=== PATIENT | male | born 1945 | race Caucasian/White ===

== ENCOUNTER 2016-04-20 13:09 | Inpatient (IN) | payer OTHER ==
--- NOTE | 2016-04-20 14:01 | PDOC ---
History of Present Illness - History of Present Illness Initial Comments: 04/20/16 16:37 The patient is a 71 year old male with a past medical hx of CVA, CAD, HTN, peripheral artery disease, diabetes, hepatitis C, COPD, alcohol abuse who presents to the ED complaining of constipation and vomiting for five days. The patient reports his last bowel movement was five days ago and has not been able to pass any gas. He denies any melena or hematochezia. He reports abdominal pain secondary to vomiting and a baseline cough. He denies any blood in his vomit, and it looks like mucus. He states he has been able to keep down water but is unable to tolerate any food. The patient denies fever, chills, diarrhea, melena. The patient denies chest pain, SOB, back pain Allergies: No Known Drug Allergies Past Surgical History: Bilateral above the knee amputation. Cardiac stent placements. Primary Care Physician: Dr. Garcia Henderson <Ayanna Patel - Last Filed: 04/20/16 16:37> <Tomasz Perkins - Last Filed: 04/21/16 08:56> - General Chief Complaint: Nausea/Vomiting Stated Complaint: VOMITING Time Seen by Provider: 04/20/16 13:40 Past History <Ayanna Patel - Last Filed: 04/20/16 16:37> - Past Medical History Cardiac Disorders: Yes (CAD) CVA: Yes (LT SIDED weakness) COPD: Yes Diabetes: Yes (IDDM) GI Disorders: Yes (BLEEDING ULCERS) HTN: Yes Hypercholesterolemia: Yes Liver Disease: Yes (Cirrhosis, hep C) - Surgical History Cardiac Surgery: Yes (CARDIAC STENT) Orthopedic Surgery: Yes ([place]. Above Knee Amputation) - Immunization History Immunization Up to Date: Yes - Psycho/Social/Smoking Cessation Hx Anxiety: No Suicidal Ideation: No Smoking History: Unknown if ever smoked Have you smoked in the past 12 months: No Number of Cigarettes Smoked Daily: 40 Information on smoking cessation initiated: No 'Breaking Loose' booklet given: 02/16/16 Hx Alcohol Use: No Drug/Substance Use Hx: No Substance Use Type: None Hx Substance Use Treatment: No <Tomasz Perkins - Last Filed: 04/21/16 08:56> - Past Medical History Allergies/Adverse Reactions: Allergies Allergy/AdvReac Type Severity Reaction Status Date / Time No Known Allergies Allergy Verified 04/20/16 13:21 Home Medications: Ambulatory Orders Bupropion HCl [Wellbutrin Xl] 300 mg PO DAILY 07/21/15 Gabapentin [Neurontin -] 100 mg PO TID #90 capsule 07/25/15 Finasteride 5 mg PO DAILY 10/08/15 Digoxin [Lanoxin -] 0.25 mg PO DAILY #30 tablet 10/10/15 Polyethylene Glycol 3350 [Miralax 119 gm Btl -] 17 gm PO TID #1 bottle 10/10/15 Amino Acids/Protein Hydrolys [Prostat Sugar-Free Packet -] 30 ml PO BID@0800, 1730 #60 packet 10/29/15 Metoclopramide HCl [Reglan] 5 mg PO AC #90 tablet 10/29/15 Atorvastatin Ca [Lipitor] 40 mg PO HS 02/15/16 Docusate Sodium 100 mg PO DAILY 02/15/16 Tamsulosin HCl 0.4 mg PO DAILY 02/15/16 Clopidogrel Bisulfate [Plavix -] 75 mg PO DAILY tablet 02/28/16 Pantoprazole Sodium [Protonix -] 40 mg PO BID #40 tablet.ec 02/28/16 Review of Systems - Review of Systems Able to Perform ROS?: Yes Comments:: 04/20/16 16:38 CONSTITUTIONAL: No reported: Fever, Chills, Diaphoresis, Generalized Weakness, Malaise, Loss of Appetite HEENT: No reported: Rhinorrhea, Nasal Congestion, Throat Pain, Throat Swelling, Difficulty Swallowing, Mouth Swelling, Ear Pain, Eye Pain, Visual Changes CARDIOVASCULAR: No reported: Chest Pain, Syncope, Palpitations, Irregular Heart Rate, Lightheadedness, Peripheral Edema RESPIRATORY: +Cough. No reported: Shortness of Breath, SOB with Exertion, Orthopnea, Wheezing , Stridor, Hemoptysis GASTROINTESTINAL: +Constipation, nausea, vomiting. No reported: Abdominal Distension, Diarrhea, Melena, Hematochezia GENITOURINARY: No reported: Dysuria, Frequency, Urgency, Hesitancy, Flank Pain, Genital Pain MUSCULOSKELETAL: No reported: Myalgia, Arthralgia, Joint Swelling, Back pain, Neck Pain SKIN: No reported: Rash, Itching, Pallor HEMATOLOGIC/IMMUNOLOGIC: No reported: Easy Bleeding, Easy Bruising, Lymphadenopathy, Frequent infections NEUROLOGIC: No reported: Headache, Focal Weakness, Paresthesias, Vertigo, Lightheadedness, Unsteady Gait, Seizure, Mental Status Changes, Incontinence PSYCHIATRIC: No reported: Anxiety, Depression <Ayanna Patel - Last Filed: 04/20/16 16:37> *Physical Exam - Vital Signs Last Vital Signs Temp Pulse Resp BP Pulse Ox 98.6 F 100 H 18 97/74 98 04/20/16 13:13 04/20/16 13:13 04/20/16 13:13 04/20/16 13:13 04/20/16 13:13 - Physical Exam Comments: 04/20/16 16:38 GENERAL: The patient is awake, alert, and fully oriented, Nontoxic - in no acute distress. HEAD: Normocephalic, atraumatic. EYES: extraocular movements intact, sclera anicteric, conjunctiva clear. ENT: Normal voice, dry mucous membranes. NECK: Normal range of motion, supple LUNGS: Breath sounds equal, clear to auscultation bilaterally. No wheezes, no rhonchi, no rales. HEART: Regular rate and rhythm, normal S1 and S2 without murmur, rub or gallop. ABDOMEN: Soft, nontender, normoactive bowel sounds. No guarding, no rebound. No CVA tenderness EXTREMITIES: s/p AKA bilaterally NEUROLOGICAL: LUE paralysis, contracted, normal strength of RUE PSYCH: Normal mood, normal affect. SKIN: Warm, Dry, normal turgor <Precious Patelyn - Last Filed: 04/20/16 16:37> - Vital Signs Last Vital Signs Temp Pulse Resp BP Pulse Ox 98.6 F 100 H 18 97/74 98 04/20/16 13:13 04/20/16 13:13 04/20/16 13:13 04/20/16 13:13 04/20/16 13:13 <Tomasz Perkins - Last Filed: 04/21/16 08:56> Heart Score/ECG Review - ECG Impressions Comment:: 04/20/16 14:38 Twelve-lead EKG was performed and reviewed by me. Irregularly irregular Multiple P waves of diffrent morphologies q waves in inferior leads Impression: multifocal tachycardia <Tomasz Perkins - Last Filed: 04/21/16 08:56> ED Treatment Course - LABORATORY CBC & Chemistry Diagram: 04/20/16 14:12 04/20/16 14:12 - ADDITIONAL ORDERS Additional order review: Laboratory Results 04/20/16 14:12 Sodium 134 L Potassium 4.6 Chloride 94 L D Carbon Dioxide 29 Anion Gap 11 BUN 34 H D Creatinine 0.9 D Creat Clearance w eGFR > 60 Random Glucose 142 H D Calcium 9.6 D Total Bilirubin 0.7 AST 14 L D ALT 8 L D Alkaline Phosphatase 98 D Total Protein 6.1 L D Albumin 2.8 L D Lipase 74 04/20/16 14:12 RBC 5.74 H D MCV 71.0 L MCHC 31.4 L RDW 19.4 H D MPV 7.0 L Neutrophils % 81.0 D Lymphocytes % 12.0 D Monocytes % 7.0 - RADIOLOGY Radiograph Interpretation: 04/20/16 15:50 Abdomen X-Ray Impression: Mild nonspecific small bowel ileus. Rectal impaction with a lesser degree of stool throughout the remainder of the colon. Reported By: John Parra MD 04/20/16 1527 - Medications Given in the ED: ED Medications Discontinued Medications Generic Name Dose Route Start Last Admin Trade Name Freq PRN Reason Stop Dose Admin Sodium Chloride 1,000 mls @ 1,000 mls/hr 04/20/16 14:36 04/20/16 14:56 Normal Saline - IV 04/20/16 15:35 1,000 mls/hr .Q1H ONE Administration Ondansetron HCl 4 mg 04/20/16 14:04 04/20/16 14:27 Zofran Injection IVPB 04/20/16 14:05 4 mg ONCE ONE Administration <Ayanna Patel - Last Filed: 04/20/16 16:37> - LABORATORY CBC & Chemistry Diagram: 04/21/16 05:52 04/21/16 05:52 <Tomasz Perkins - Last Filed: 04/21/16 08:56> Medical Decision Making - Medical Decision Making 04/20/16 14:16 71y M hx of HTN, CVA (residual L sided weaknesS), PAD, gastroparesis, HCV, COPD , Depression, MAT, DM, presents with complaint of vomiting x 5 days, pt endoreses mild abd pain/aching only with vomiting. no BM/passing gas in 5 days. No fever/chills. on exam pt has midly dry mucus membranes, no abd distension or tenderness. Will obtain KUB, labs, abd xray, likely CT abd to r/o SBO. A portion of this note was documented by scribe services under my direction. I have reviewed the details of the note, within reason, and agree with the documentation with the following case summary and management plan written by me 04/20/16 14:45 The patient's EKG showed a heart rate of 137 consistent with multifocal tachycardia, based on the patient's clinical status suspect secondary to dehydration. The patient's CBC reveals a white count of 27, I suspect this may be secondary to hemoconcentration as her hemoglobin and platelets are elevated relative to his baseline. We'll give him fluids, will await CMP and imaging 04/20/16 18:10 The patient's abdominal x-ray suggestive of possible ileus The patient's blood work was reviewed The patient's UA is consistent with UTI --> we'll treat the patient with an ceftriaxone The patient's chemistry reveals a normal creatinine however is elevated BUNs of 34. The patient is awaiting a CT of abdomen 04/20/16 18:[address] will sign out [address]. becker to fu with CT and reassess the patient. <Tomasz Perkins - Last Filed: 04/21/16 08:56> *DC/Admit/Observation/Transfer - Attestations Scribe Attestion: 04/20/16 16:38 Documentation prepared by Ayanna Patel, acting as medical payment poster for Tomasz Perkins MD. <Ayanna Patel - Last Filed: 04/20/16 16:37> <Tomasz Perkins - Last Filed: 04/21/16 08:56> Diagnosis at time of Disposition: UTI (urinary tract infection), Epigastric abdominal pain, Leukocytosis ( leucocytosis) - Discharge Dispostion Condition at time of disposition: Stable - Referrals
[2016-04-20] MEDS ORDERED: ONDANSETRON 4 MG/2 ML VIAL IVPB ONE (14:04)
[2016-04-20] MEDS ORDERED: ONDANSETRON 4 MG/2 ML VIAL ONE (14:15)
[2016-04-20 14:33] LABS: MCH 22.3 pg (25.7-33.7); MCHC 31.4 g/dl (32.0-35.9); PLATELET COUNT 302 K/MM3 (134-434); RDW 19.4 % (11.9-15.9); WHITE BLOOD COUNT 23.1 K/mm3 (4.0-10.0)
[2016-04-20] MEDS ORDERED: SODIUM CHLORIDE 1,000 ML IV ONE (14:36)
[2016-04-20 15:02] LABS: ALBUMIN 2.8 g/dl (3.4-5.0); ALK PHOS 98 U/L (45-117); ANION GAP 11 (8-16); BILIRUBIN,TOTAL 0.7 mg/dL (0.2-1.0); CALCIUM 9.6 mg/dL (8.5-10.1); CO2 29 mmol/L (21-32); CREATININE 0.9 mg/dL (0.7-1.3); GLUCOSE,RANDOM 142 mg/dL (74-106); SGPT/ALT 8 U/L (12-78); TOT PROT 6.1 g/dl (6.4-8.2)
[2016-04-20 15:04] LABS: SGOT/AST 14 U/L (15-37)
[2016-04-20 15:35] LABS: ANISOCYTOSIS 1+; HYPOCHROMIA 1+; MICROCYTOSIS 1+; OVALOCYTES 1+; POIKILOCYTOSIS 1+; POLYCHROMASIA 1+
[2016-04-20 17:41] LABS: URINE APPEARANCE SLCLOUDY; URINE BILIRUBIN NEGATIVE (NEGATIVE); URINE BLOOD NEGATIVE (NEGATIVE); URINE COLOR AMBER; URINE GLUCOSE (UA) NEGATIVE (NEGATIVE); URINE KETONE NEGATIVE (NEGATIVE); URINE LEUK ESTERASE NEGATIVE (NEGATIVE); URINE NITRITE POSITIVE (NEGATIVE); URINE UROBILINOGEN NEGATIVE E.U./dl (0.2-1.0)
[2016-04-20 18:00] LABS: URINE PROTEIN 1+ (NEGATIVE)
[2016-04-20] MEDS ORDERED: CEFTRIAXONE 1 GM in DEXTROSE 5%-WATER - 50 ML IVPB ONE (18:09)
[2016-04-20] MEDS ORDERED: CEFTRIAXONE 50 ML ONE (18:26)
[2016-04-20 19:15] LABS: URINE BACTERIA MODERATE /hpf (NONE SEEN); URINE HYALINE CAST 9 /lpf; URINE MUCUS MANY; URINE RBC 1 /hpf (0-3); URINE WBC 5 /hpf (3-5)
--- NOTE | 2016-04-20 19:53 | PDOC ---
*Physical Exam - Vital Signs Last Vital Signs Temp Pulse Resp BP Pulse Ox 98.6 F 64 18 120/74 99 04/20/16 13:13 04/20/16 17:10 04/20/16 17:10 04/20/16 17:10 04/20/16 17:10 ED Treatment Course - LABORATORY CBC & Chemistry Diagram: 04/20/16 14:12 04/20/16 14:12 - ADDITIONAL ORDERS Additional order review: Laboratory Results 04/20/16 04/20/16 14:12 14:12 Sodium 134 L Potassium 4.6 Chloride 94 L D Carbon Dioxide 29 Anion Gap 11 BUN 34 H D Creatinine 0.9 D Creat Clearance w eGFR > 60 Random Glucose 142 H D Calcium 9.6 D Total Bilirubin 0.7 AST 14 L D ALT 8 L D Alkaline Phosphatase 98 D Total Protein 6.1 L D Albumin 2.8 L D Lipase 74 Urine Color Mari[place] Urine Appearance Slcloudy Urine pH 7.0 D Ur Specific [place] 1.026 Urine Protein 1+ H Urine Glucose (UA) Negative Urine Ketones Negative Urine Blood Negative Urine Nitrite Positive Urine Bilirubin Negative Urine Urobilinogen Negative Ur Leukocyte Esterase Negative Urine RBC 1 Urine WBC 5 Ur Epithelial Cells Rare Urine Bacteria Moderate Hyaline Casts 9 Urine Mucus Many 04/20/16 14:12 RBC 5.74 H D MCV 71.0 L MCHC 31.4 L RDW 19.4 H D MPV 7.0 L Neutrophils % 81.0 D Lymphocytes % 12.0 D Monocytes % 7.0 - Medications Given in the ED: ED Medications Discontinued Medications Generic Name Dose Route Start Last Admin Trade Name Freq PRN Reason Stop Dose Admin Sodium Chloride 1,000 mls @ 1,000 mls/hr 04/20/16 14:36 04/20/16 14:56 Normal Saline - IV 04/20/16 15:35 1,000 mls/hr .Q1H ONE Administration Ceftriaxone Sodium 1 gm/ 50 mls @ 100 mls/hr 04/20/16 18:09 04/20/16 18:26 Dextrose IVPB 04/20/16 18:38 100 mls/hr ONCE ONE Administration Ondansetron HCl 4 mg 04/20/16 14:04 04/20/16 14:27 Zofran Injection IVPB 04/20/16 14:05 4 mg ONCE ONE Administration *DC/Admit/Observation/Transfer Diagnosis at time of Disposition: Epigastric abdominal pain UTI (urinary tract infection) Qualifiers: Urinary tract infection type: site unspecified Hematuria presence: without hematuria Qualified Code(s): N39.0 - Urinary tract infection, site not specified Leukocytosis (leucocytosis) Qualifiers: Leukocytosis type: unspecified Qualified Code(s): D72.829 - Elevated white blood cell count, unspecified - Discharge Dispostion Condition at time of disposition: Stable Admit: Yes - Referrals Referrals: Garcia Henderson [Primary Care Provider] - - Patient Instructions - Post Discharge Activity
--- NOTE | 2016-04-20 19:59 | HP ---
[id number] OF PRESENT ILLNESS: The patient is a 71 yo M with a PMHx of HTN, HLD, CAD s.p stent in 2016, Afib ( digoxin), CVA with L side residual weakness, IDDM, PVD with bilateral limb amputation, liver cirrhosis with prior GI bleed and Hepatitis C who presents with constipation and vomiting for the past 5 days. ER course was notable for: (1) Leukocytosis of 23 (2) UA with positive nitrite- 5 WBCS (3) Leukocytosis of 23 (4) Ceftriaxone given in ED Recent Travel: Noncontributory PAST MEDICAL HISTORY: See above PAST SURGICAL HISTORY: Bilateral Limb amputation Social History: Smoking: Noncontributory Alcohol: Noncontributory Drugs: Noncontributory Family History: Noncontributory Allergies No Known Allergies Allergy (Verified 04/20/16 13:21) HOME MEDICATIONS: Medication Instructions Recorded Bupropion HCl [Wellbutrin Xl] 300 mg PO DAILY 07/21/15 Gabapentin [Neurontin -] 100 mg PO TID #90 capsule 07/25/15 Finasteride 5 mg PO DAILY 10/08/15 Digoxin [Lanoxin -] 0.25 mg PO DAILY #30 tablet 10/10/15 Polyethylene Glycol 3350 [Miralax 17 gm PO TID #1 bottle 10/10/15 119 gm Btl -] Amino Acids/Protein Hydrolys 30 ml PO BID@0800,1730 #60 packet 10/29/15 [Prostat Sugar-Free Packet -] Metoclopramide HCl [Reglan] 5 mg PO AC #90 tablet 10/29/15 Atorvastatin Ca [Lipitor] 40 mg PO HS 02/15/16 Docusate Sodium 100 mg PO DAILY 02/15/16 Tamsulosin HCl 0.4 mg PO DAILY 02/15/16 Clopidogrel Bisulfate [Plavix -] 75 mg PO DAILY tablet 02/28/16 Pantoprazole Sodium [Protonix -] 40 mg PO BID #40 tablet.ec 02/28/16 REVIEW OF SYSTEMS CONSTITUTIONAL: Absent: fever, chills, diaphoresis, generalized weakness, malaise, loss of appetite, weight change HEENT: Absent: rhinorrhea, nasal congestion, throat pain, throat swelling, difficulty swallowing, mouth swelling, ear pain, eye pain, visual changes CARDIOVASCULAR: Absent: chest pain, syncope, palpitations, irregular heart rate, lightheadedness , peripheral edema RESPIRATORY: Absent: cough, shortness of breath, dyspnea with exertion, orthopnea, wheezing, stridor, hemoptysis GASTROINTESTINAL: +constipation + vomiting Absent: abdominal pain, abdominal distension, nausea, diarrhea, melena, hematochezia GENITOURINARY: Absent: dysuria, frequency, urgency, hesitancy, hematuria, flank pain, genital pain MUSCULOSKELETAL: Absent: myalgia, arthralgia, joint swelling, back pain, neck pain SKIN: Absent: rash, itching, pallor HEMATOLOGIC/IMMUNOLOGIC: Absent: easy bleeding, easy bruising, lymphadenopathy, frequent infections ENDOCRINE: Absent: unexplained weight gain, unexplained weight loss, heat intolerance, cold intolerance NEUROLOGIC: Absent: headache, focal weakness or paresthesias, dizziness, unsteady gait, seizure, mental status changes, bladder or bowel incontinence PSYCHIATRIC: Absent: anxiety, depression, suicidal or homicidal ideation, hallucinations. PHYSICAL EXAMINATION Vital Signs - 24 hr 04/20/16 04/20/16 13:13 17:10 Temperature 98.6 F Pulse Rate 100 H Pulse Rate [ 64 Apical] Respiratory 18 18 Rate Blood Pressure 97/74 Blood Pressure 120/74 [Left Arm] O2 Sat by Pulse 98 99 Oximetry (%) GENERAL: Awake, alert, and fully oriented, in no acute distress. HEAD: Normal with no signs of trauma. EYES: Pupils equal, round and reactive to light, extraocular movements intact, sclera anicteric, conjunctiva clear. No lid lag. EARS, NOSE, THROAT: Ears normal, nares patent, oropharynx clear without exudates. Moist mucous membranes. NECK: Normal range of motion, supple without lymphadenopathy, JVD, or masses. LUNGS: Breath sounds equal, clear to auscultation bilaterally. No wheezes, and no crackles. No accessory muscle use. HEART: Regular rate and rhythm, normal S1 and S2 without murmur, rub or gallop. ABDOMEN: Soft, nontender, not distended, normoactive bowel sounds, no guarding, no rebound, no masses. No hepatomegaly or splenomegaly. MUSCULOSKELETAL: Normal range of motion at all joints. No bony deformities or tenderness. No CVA tenderness. UPPER EXTREMITIES: 2+ pulses, warm, well-perfused. No cyanosis. No clubbing. Cap refill <2 seconds. No peripheral edema. LOWER EXTREMITIES: + Bilateral BKA. NEUROLOGICAL: Cranial nerves II-XII intact. Normal speech. PSYCHIATRIC: Cooperative. Good eye contact. Appropriate mood and affect. SKIN: Warm, dry, normal turgor, no rashes or lesions noted. Laboratory Results - last 24 hr 04/20/16 04/20/16 04/20/16 14:12 14:12 14:12 WBC 23.1 H D RBC 5.74 H D Hgb 12.8 D Hct 40.8 D MCV 71.0 L MCHC 31.4 L RDW 19.4 H D Plt Count 302 MPV 7.0 L Neutrophils % 81.0 D Lymphocytes % 12.0 D Monocytes % 7.0 Differential Comment Manual diff done Polychromasia 1+ Hypochromic-Microcytic 1+ Poikilocytosis 1+ Anisocytosis 1+ Microcytosis 1+ Macrocytosis 1+ Ovalocytes 1+ Morphology Comment Slide scanned Sodium 134 L Potassium 4.6 Chloride 94 L D Carbon Dioxide 29 Anion Gap 11 BUN 34 H D Creatinine 0.9 D Creat Clearance w eGFR > 60 Random Glucose 142 H D Calcium 9.6 D Total Bilirubin 0.7 AST 14 L D ALT 8 L D Alkaline Phosphatase 98 D Total Protein 6.1 L D Albumin 2.8 L D Lipase 74 Urine Color Mariola Urine Appearance Slcloudy Urine pH 7.0 D Ur Specific [place] 1.026 Urine Protein 1+ H Urine Glucose (UA) Negative Urine Ketones Negative Urine Blood Negative Urine Nitrite Positive Urine Bilirubin Negative Urine Urobilinogen Negative Ur Leukocyte Esterase Negative Urine RBC 1 Urine WBC 5 Ur Epithelial Cells Rare Urine Bacteria Moderate Hyaline Casts 9 Urine Mucus Many Imaging: Abdomen Xray Impression:Mild nonspecific small bowel ileus. Rectal impaction with a lesser degree of stool throughout the remainder of the colon. Chest Xray Impression: No acute lung disease is present. Abdomen / Pelvis CT Impression: Thickening of the distal esophageal wall and gastroesophageal junction with suggestion of a small hiatus hernia and surrounding herniating fat. Further evaluation is needed. Partial distention of the gallbladder that appears unremarkable. Bilateral renal cysts again seen. Large amount of fecal residue at the rectosigmoid junction measuring 10 cm in AP dimension consistent with impaction with mild thickening of its wall. ASSESSMENT/PLAN: The patient is a 71 yo M who presents with constipation and vomiting. The patient was found to be septic secondary to UTI. 1.) Sepsis secondary to UTI - State LActic - Gentle IVF - Urine/blood culture - Prior US showed positive pseudomonas sensitive to meropenem - ID consult 2.) Constipation and vomiting - No SBO or ileus seen on CT - Continue on miralax - Zofran PRN vomiting 3.) Atrial Fibrillation - Continue with Digoxin 4.) CAD s.p stent - Continue with home meds 5.) Hyponatremia - Most likely due to volume depletion - Gentle IVF 6.) DVT PPX - Heparin 5,000 SQ - Low risk Admit to Med Surg Documentation prepared by Elke Ng, acting as medical transport specialist for Aquilino Kelly MD. <Aquilino Kelly - Last Filed: 04/25/16 18:51> Visit type - Emergency Visit Emergency Visit: Yes ED Registration Date: 04/20/16 Care time: The patient presented to the Emergency Department on the above date and was hospitalized for further evaluation of their emergent condition. - New Patient This patient is new to me today: Yes Date on this admission: 04/25/16 - Critical Care Critical Care patient: No
[2016-04-20] MEDS ORDERED: MEROPENEM 500 MG VIAL (RESTRICTED TO ID) IVPB ONE (20:16)
[2016-04-20] MEDS ORDERED: MEROPENEM 500 MG in DEXTROSE 5%-WATER - 100 ML IVPB ONE (21:00)
[2016-04-20] MEDS: SODIUM CHLORIDE 1,000 ML IV SCH (21:15)
[2016-04-20] MEDS: HEPARIN NA (PORCINE) 5,000 UNITS/ML 1ML VIAL SQ SCH (22:00)
[2016-04-20] MEDS: POLYETHYLENE GLYCOL 3350 119 GM BTL PO SCH (22:00)
[2016-04-20] MEDS: ATORVASTATIN CA 40 MG TABLET (FP) PO SCH (22:00)
[2016-04-20] MEDS: PANTOPRAZOLE 40 MG TABLET (FP) PO SCH (22:00)
[2016-04-20] MEDS: GABAPENTIN 100 MG CAPSULE (FP) PO SCH (22:00)
--- NOTE | 2016-04-20 23:13 | EKG ---
Test Reason : Blood Pressure : / mmHG Vent. Rate : 137 BPM Atrial Rate : 137 BPM P-R Int : 126 ms QRS Dur : 074 ms QT Int : 322 ms P-R-T Axes : 000 -14 240 degrees QTc Int : 486 ms MULTIFOCAL ATRIAL TACHYCARDIA INFERIOR INFARCT , AGE UNDETERMINED ANTERIOR INFARCT (CITED ON OR BEFORE 14-NOV-2015) ABNORMAL ECG WHEN COMPARED WITH ECG OF 15-FEB-2016 15:51, LIKELY NO SIGNIFICANT CHANGES Confirmed by LONI ORTEGA, CHAUNCEY ([id number]) on 04/20/2016 11:12:40 PM Referred By: Confirmed By:CHAUNCEY IVEY MD
[2016-04-21 02:05] VITALS: BMI 22.2
[2016-04-21] MEDS: HEPARIN NA (PORCINE) 5,000 UNITS/ML 1ML VIAL SQ SCH ×3 (05:55→21:46)
[2016-04-21] MEDS: GABAPENTIN 100 MG CAPSULE (FP) PO SCH ×3 (05:55→21:47)
[2016-04-21] MEDS: POLYETHYLENE GLYCOL 3350 119 GM BTL PO SCH ×3 (05:57→21:47)
[2016-04-21] MEDS: SODIUM CHLORIDE 1,000 ML IV SCH (06:09)
[2016-04-21] MEDS: METOCLOPRAMIDE HCL 10 MG TABLET (FP) PO SCH ×3 (06:09→17:13)
[2016-04-21 07:34] LABS: MCH 22.6 pg (25.7-33.7); MCHC 31.3 g/dl (32.0-35.9); MEAN CELL VOLUME 72.2 fl (80-96); MEAN PLT VOLUME 6.8 fl (7.5-11.1); PLATELET COUNT 204 K/MM3 (134-434); RDW 18.8 % (11.9-15.9); WHITE BLOOD COUNT 8.2 K/mm3 (4.0-10.0)
[2016-04-21 08:06] LABS: CALCIUM 8.1 mg/dL (8.5-10.1); CREATININE 0.5 mg/dL (0.7-1.3)
[2016-04-21] MEDS: CLOPIDOGREL BISULFATE 75 MG TABLET (FP) PO SCH (09:42)
[2016-04-21] MEDS: DIGOXIN 0.25 MG TABLET (FP) PO SCH (09:42)
[2016-04-21] MEDS: FINASTERIDE 5 MG TABLET (FP) PO SCH (09:43)
[2016-04-21] MEDS: PANTOPRAZOLE 40 MG TABLET (FP) PO SCH ×2 (09:43→21:47)
[2016-04-21] MEDS: DOCUSATE SODIUM 100 MG CAPSULE (FP) PO SCH (09:43)
[2016-04-21] MEDS: AMINO ACIDS/PROTEIN HYDROLYS SUGAR-FREE 30 ML PACKET PO SCH ×2 (09:55→17:11)
--- NOTE | 2016-04-21 14:21 | PN ---
<Nimesh Greenfield - Last Filed: 04/21/16 15:45> Physical Exam: SUBJECTIVE: Patient seen and examined at bedside. Pt states he had constipation for the last week and has been nauseous and vomiting for past several days. He tried taking miralax but did not help. He also has not eaten much due to N/V. Today he feels tired and fatigued and c/o burning with urination since yesterday. He now does not have N/V but does not have an appetite. He was able to tolerate his medications with applesauce. He denies F /C, abd pain, CP, SOB. OBJECTIVE: Vital Signs Temperature 97.9 F 04/21/16 14:08 Pulse Rate 84 04/21/16 14:08 Respiratory Rate 20 04/21/16 14:08 Blood Pressure 89/61 04/21/16 14:08 O2 Sat by Pulse Oximetry (%) 95 04/20/16 23:00 GENERAL: The patient is awake, alert, and fully oriented, in no acute distress. HEAD: Normal with no signs of trauma. EYES: sclera anicteric, conjunctiva clear. No ptosis. ENT: moist mucous membranes. NECK: Trachea midline, full range of motion, supple. LUNGS: Auscultated anteriorly, Breath sounds equal, clear to auscultation bilaterally, no wheezes, no crackles, no accessory muscle use. HEART: Regular rate and rhythm, S1, S2 without murmur, rub or gallop. ABDOMEN: Soft, nontender, nondistended, normoactive bowel sounds, no guarding, no rebound, no hepatosplenomegaly, no masses. EXTREMITIES: warm, no edema. B/L BKA. NEUROLOGICAL: Normal speech, gait not observed. PSYCH: Normal mood, normal affect. SKIN: Warm, dry, normal turgor, no rashes or lesions noted Laboratory Results - last 24 hr 04/20/16 04/21/16 04/21/16 21:00 05:52 05:52 WBC 8.2 D RBC 4.19 D Hgb 9.5 L D Hct 30.2 L D MCV 72.2 L MCHC 31.3 L RDW 18.8 H Plt Count 204 D MPV 6.8 L Sodium 137 Potassium 3.3 L D Chloride 102 Carbon Dioxide 24 Anion Gap 11 BUN 20 H D Creatinine 0.5 L D Random Glucose 82 D Lactic Acid 1.922 Calcium 8.1 L 04/21/16 07:40 WBC RBC Hgb Hct MCV MCHC RDW Plt Count MPV Sodium Potassium Chloride Carbon Dioxide Anion Gap BUN Creatinine Random Glucose Lactic Acid 1.018 Calcium Urine Test Results Urine Color [place] 04/20/16 14:12 Urine Appearance Slcloudy 04/20/16 14:12 Urine pH 7.0 (5.0-8.0) D 04/20/16 14:12 Ur Specific [place] 1.026 (1.001-1.035) 04/20/16 14:12 Urine Protein 1+ (NEGATIVE) H 04/20/16 14:12 Urine Glucose (UA) Negative (NEGATIVE) 04/20/16 14:12 Urine Ketones Negative (NEGATIVE) 04/20/16 14:12 Urine Blood Negative (NEGATIVE) 04/20/16 14:12 Urine Nitrite Positive (NEGATIVE) 04/20/16 14:12 Urine Bilirubin Negative (NEGATIVE) 04/20/16 14:12 Ur Leukocyte Esterase Negative (NEGATIVE) 04/20/16 14:12 Urine RBC 1 /hpf (0-3) 04/20/16 14:12 Urine WBC 5 /hpf (3-5) 04/20/16 14:12 Ur Epithelial Cells Rare /hpf (FEW) 04/20/16 14:12 Urine Bacteria Moderate /hpf (NONE SEEN) 04/20/16 14:12 Urine Mucus Many 04/20/16 14:12 Imaging Abdomen Xray Impression:Mild nonspecific small bowel ileus. Rectal impaction with a lesser degree of stool throughout the remainder of the colon. Chest Xray Impression: No acute lung disease is present. Abdomen / Pelvis CT Impression: Thickening of the distal esophageal wall and gastroesophageal junction with suggestion of a small hiatus hernia and surrounding herniating fat. Further evaluation is needed. Partial distention of the gallbladder that appears unremarkable. Bilateral renal cysts again seen. Large amount of fecal residue at the rectosigmoid junction measuring 10 cm in AP dimension consistent with impaction with mild thickening of its wall. Micro: UCx Pending BCx Pending Active Medications Generic Name Dose Route Start Last Admin Trade Name Freq PRN Reason Stop Dose Admin Amino Acids 30 ml 04/21/16 08:00 04/21/16 09:55 Prostat Sugar-Free Packet - PO 30 ml BID@0800,1730 EDILSON Administration Atorvastatin Calcium 40 mg 04/20/16 22:00 04/20/16 22:00 Lipitor - PO Not Given HS EDILSON Bupropion HCl 300 mg 04/21/16 10:00 04/21/16 09:44 Wellbutrin Xl - PO 300 mg DAILY EDILSON Administration Clopidogrel Bisulfate 75 mg 04/21/16 10:00 04/21/16 09:42 Plavix - PO 75 mg DAILY EDILSON Administration Digoxin 0.25 mg 04/21/16 10:00 04/21/16 09:42 Lanoxin - PO 0.25 mg DAILY EDILSON Administration Docusate Sodium 100 mg 04/21/16 10:00 04/21/16 09:43 Colace - PO 100 mg DAILY EDILSON Administration Finasteride 5 mg 04/21/16 10:00 04/21/16 09:43 Proscar - PO 5 mg DAILY EDILSON Administration Gabapentin 100 mg 04/20/16 22:00 04/21/16 05:55 Neurontin - PO 100 mg TID EDILSON Administration Heparin Sodium (Porcine) 5,000 unit 04/20/16 22:00 04/21/16 05:55 Heparin - SQ 5,000 unit TID EDILSON Administration Sodium Chloride 1,000 mls @ 75 mls/hr 04/20/16 20:15 04/21/16 06:09 Normal Saline - IV 75 mls/hr ASDIR EDILSON Administration Metoclopramide HCl 5 mg 04/21/16 07:00 04/21/16 11:54 Reglan - PO 5 mg TIDAC EDILSON Administration Pantoprazole Sodium 40 mg 04/20/16 22:00 04/21/16 09:43 Protonix - PO 40 mg BID EDILSON Administration Polyethylene Glycol 17 gm 04/20/16 22:00 04/21/16 05:57 Miralax (For Daily Use) - PO 17 gm TID EDILSON Administration Tamsulosin HCl 0.4 mg 04/21/16 10:00 Flomax - PO DAILY EDILSON ASSESSMENT/PLAN: 71 y/o M with sig PMH of CAD s/p stent in 2015, A-fib on digoxin, CVA w/ L sided weakness, PVD w/ B/L BKA, liver cirrhosis, previous GI bleed, Hep C presented to ER with constipation and vomiting for past week. Pt admitted for sepsis secondary to UTI -Sepsis secondary to UTI -Pt c/o burning with urination, fatigue -WBC trending down, received ceftriaxone and meropenem -Meropenem 500mg ordered -ID consulted (Dr. Smith) -On previous admissions pt had P. aeruginosa which was resistant to imipenem, levaquin, gentamicin -sensitive to meropenem -UA shows 5 WBC -NS@75 ml/hr -CXR - no acute pathology -Nausea/Vomiting -possibly secondary to small hiatal hernia as seen on CT abd -will monitor -MBS -currently is tolerating meds with applesauce and no longer has nausea -Constipation -reglan, miralax, colace -JAZIEL -BUN/Cr 20/0.5 -improving, secondary to dehydration most likely -will monitor -NS@75ml/hr -A-fib -c/w digoxin -CAD -s/p stent 2016 -c/w lipitor 40mg, plavix 75mg -BPH -c/w flomax, finasteride -DVT ppx -heparin 5000 units sq tid -FEN -NS@75 ml/hr -Hypokalemia - 3.3, repleted; f/u electrolytes -Soft diet + prostat, will get MBS -Dispo: -Monitor on floors. Problem List - Problems (1) BPH (benign prostatic hyperplasia) Code(s): N40.0 - BENIGN PROSTATIC HYPERPLASIA WITHOUT LOWER URINRY TRACT SYMP (2) Dehydration Code(s): E86.0 - DEHYDRATION (3) Hepatitis C Code(s): B19.20 - UNSPECIFIED VIRAL HEPATITIS C WITHOUT HEPATIC COMA (4) Leukocytosis (leucocytosis) Code(s): D72.829 - ELEVATED WHITE BLOOD CELL COUNT, UNSPECIFIED Qualifiers: Leukocytosis type: unspecified Qualified Code(s): D72.829 - Elevated white blood cell count, unspecified (5) Nausea & vomiting Code(s): R11.2 - NAUSEA WITH VOMITING, UNSPECIFIED (6) UTI (urinary tract infection) Code(s): N39.0 - URINARY TRACT INFECTION, SITE NOT SPECIFIED Qualifiers: Urinary tract infection type: site unspecified Hematuria presence: without hematuria Qualified Code(s): N39.0 - Urinary tract infection, site not specified (7) CAD (coronary artery disease) Code(s): I25.10 - ATHSCL HEART DISEASE OF [place] CORONARY ARTERY W/O ANG PCTRS (8) CVA (cerebral vascular accident) Code(s): I63.9 - CEREBRAL INFARCTION, UNSPECIFIED (9) Complicated UTI (urinary tract infection) Code(s): N39.0 - URINARY TRACT INFECTION, SITE NOT SPECIFIED (10) DVT prophylaxis Code(s): [id number] - (11) HLD (hyperlipidemia) Code(s): E78.5 - HYPERLIPIDEMIA, UNSPECIFIED (12) HTN (hypertension) Code(s): I10 - ESSENTIAL (PRIMARY) HYPERTENSION (13) Sepsis Code(s): A41.9 - SEPSIS, UNSPECIFIED ORGANISM Visit type - Emergency Visit Emergency Visit: Yes ED Registration Date: 04/20/16 Care time: The patient presented to the Emergency Department on the above date and was hospitalized for further evaluation of their emergent condition. - New Patient This patient is new to me today: Yes Date on this admission: 04/21/16 - Critical Care Critical Care patient: No <Abdirizak Lopez - Last Filed: 04/21/16 16:10> Physical Exam: 71 yo M with a PMHx of HTN, HLD, CAD s.p stent in 2016, Afib (digoxin), CVA with L side residual weakness, IDDM, PVD with bilateral limb amputation, liver cirrhosis with prior GI bleed and Hepatitis C admitted for sepsis due to UTI UTI -presented with dysuria and elevated WBC -grew ESBL pseudamonas on previous urine cultures -one time dose meropenem and follow up ID consult -follow up blood/urine cultures
[2016-04-21] MEDS ORDERED: MEROPENEM 500 MG VIAL (RESTRICTED TO ID) IVPB ONE (15:41)
--- NOTE | 2016-04-21 15:50 | CONSULT ---
Consult Consult Specialty:: infectious diseases Reason for Consultation:: uti - History of Present Illness Chief Complaint: abd pain and vomiting History of Present Illness: The patient is a 71 yo M with a PMHx of HTN, HLD, CAD s.p stent in 2016, Afib ( digoxin), CVA with L side residual weakness, IDDM, PVD with bilateral limb amputation, liver cirrhosis with prior GI bleed and Hepatitis C who presents with constipation and vomiting for the past 5 days. 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 Cardio/Vascular: Yes: CAD, HTN, Other (MAT) Gastrointestinal: Yes: Constipation Renal/: Yes: UTI Endocrine: Yes: Diabetes Mellitus - Past Surgical History Past Surgical History: Yes: Amputation - Alcohol/Substance Use Hx Alcohol Use: No History of Substance Use: reports: None - Smoking History Smoking history: Unknown if ever smoked Have you smoked in the past 12 months: No Aproximately how many cigarettes per day: 40 - Social History ADL: Support Services History of Recent Travel: No Home Medications - Allergies Allergies/Adverse Reactions: Allergies Allergy/AdvReac Type Severity Reaction Status Date / Time No Known Allergies Allergy Verified 04/20/16 13:21 - Home Medications Home Medications: Ambulatory Orders Bupropion HCl [Wellbutrin Xl] 300 mg PO DAILY 07/21/15 Gabapentin [Neurontin -] 100 mg PO TID #90 capsule 07/25/15 Finasteride 5 mg PO DAILY 10/08/15 Digoxin [Lanoxin -] 0.25 mg PO DAILY #30 tablet 10/10/15 Polyethylene Glycol 3350 [Miralax 119 gm Btl -] 17 gm PO TID #1 bottle 10/10/15 Amino Acids/Protein Hydrolys [Prostat Sugar-Free Packet -] 30 ml PO BID@0800, 1730 #60 packet 10/29/15 Metoclopramide HCl [Reglan] 5 mg PO AC #90 tablet 10/29/15 Atorvastatin Ca [Lipitor] 40 mg PO HS 02/15/16 Docusate Sodium 100 mg PO DAILY 02/15/16 Tamsulosin HCl 0.4 mg PO DAILY 02/15/16 Clopidogrel Bisulfate [Plavix -] 75 mg PO DAILY tablet 02/28/16 Pantoprazole Sodium [Protonix -] 40 mg PO BID #40 tablet.ec 02/28/16 Family Disease History - Family Disease History Family Disease History: Diabetes: Father, CA: Mother (throat) Review of Systems - Review of Systems Constitutional: reports: Loss of Appetite, Other Eyes: reports: No Symptoms HENT: reports: No Symptoms Neck: reports: No Symptoms Cardiovascular: reports: No Symptoms Respiratory: reports: No Symptoms Gastrointestinal: reports: Abdominal Pain, Nausea, Vomiting Genitourinary: reports: Dysuria Musculoskeletal: reports: No Symptoms Integumentary: reports: No Symptoms Neurological: reports: No Symptoms Endocrine: reports: No Symptoms Hematology/Lymphatic: reports: No Symptoms Psychiatric: reports: No Symptoms Physical Exam Vital Signs: Vital Signs Temperature 97.9 F 04/21/16 14:08 Pulse Rate 84 04/21/16 14:08 Respiratory Rate 20 04/21/16 14:08 Blood Pressure 89/61 04/21/16 14:08 O2 Sat by Pulse Oximetry (%) 95 04/20/16 23:00 Constitutional: Yes: No Distress, Calm Eyes: Yes: Conjunctiva Clear Cardiovascular: Yes: Regular Rate and Rhythm Respiratory: Yes: Regular, CTA Bilaterally Gastrointestinal: Yes: Normal Bowel Sounds, Soft Musculoskeletal: Yes: WNL Extremities: Yes: Other (bilateral amputation) Neurological: Yes: Alert, Oriented Psychiatric: Yes: Alert Labs: CBC, BMP 04/21/16 05:52 04/21/16 05:52 Imaging - Results Chest X-ray: Report Reviewed, Image Reviewed X-ray: Report Reviewed, Image Reviewed Cat Scan: Report Reviewed, Image Reviewed Assessment/Plan patient received one dose of meropenam patient has h/o of pseudomonas uti and esbl uti ASSESSMENT/PLAN: The patient is a 71 yo M who presents with constipation and vomiting. The patient was found to be septic secondary to UTI. 1.) Sepsis secondary to UTI 2.) Constipation and vomiting 3.) Atrial Fibrillation 4.) CAD s.p stent also patient has constipation plan will start patient on zosyn await for cx report to be back hydration laxatives
[2016-04-21] MEDS ORDERED: MEROPENEM 500 MG in SODIUM CHLORIDE 100 ML IVPB ONE ×2 (16:45→19:15)
[2016-04-21] MEDS: PIPERACILLIN/TAZOB 3.375 GM 50 ML IVPB SCH ×2 (17:13→18:44)
[2016-04-21] MEDS: ATORVASTATIN CA 40 MG TABLET (FP) PO SCH (21:47)
[2016-04-22] MEDS: PIPERACILLIN/TAZOB 3.375 GM 50 ML IVPB SCH ×3 (01:13→17:03)
[2016-04-22] MEDS: SODIUM CHLORIDE 1,000 ML IV SCH ×3 (01:15→21:55)
[2016-04-22] MEDS: GABAPENTIN 100 MG CAPSULE (FP) PO SCH ×3 (06:12→21:21)
[2016-04-22] MEDS: METOCLOPRAMIDE HCL 10 MG TABLET (FP) PO SCH ×3 (06:12→16:58)
[2016-04-22] MEDS: HEPARIN NA (PORCINE) 5,000 UNITS/ML 1ML VIAL SQ SCH ×3 (06:12→21:21)
[2016-04-22] MEDS: POLYETHYLENE GLYCOL 3350 119 GM BTL PO SCH ×3 (06:14→21:57)
[2016-04-22 07:06] LABS: MCH 22.5 pg (25.7-33.7); MCHC 31.2 g/dl (32.0-35.9); MEAN PLT VOLUME 6.5 fl (7.5-11.1); PLATELET COUNT 190 K/MM3 (134-434); WHITE BLOOD COUNT 8.2 K/mm3 (4.0-10.0)
[2016-04-22 07:41] LABS: CALCIUM 7.7 mg/dL (8.5-10.1); CREATININE 0.5 mg/dL (0.7-1.3)
--- NOTE | 2016-04-22 08:32 | PN ---
<Nimesh Greenfield - Last Filed: 04/22/16 10:42> Physical Exam: SUBJECTIVE: Patient seen and examined at bedside. Pt feels better today. Denies N/V/F/C, abd pain, CP, SOB, light-headedness, dizziness. No longer has dysuria. He has not had BM yet. Cannot remember last time he passed gas. Tolerating soft diet. OBJECTIVE: Vital Signs Temperature 97.3 F L 04/22/16 05:36 Pulse Rate 84 04/22/16 05:36 Respiratory Rate 20 04/22/16 05:36 Blood Pressure 83/40 04/22/16 05:36 O2 Sat by Pulse Oximetry (%) 98 04/21/16 21:00 GENERAL: The patient is awake, alert, and fully oriented, in no acute distress. HEAD: Normal with no signs of trauma. EYES: sclera anicteric, conjunctiva clear. No ptosis. ENT: moist mucous membranes. NECK: Trachea midline, full range of motion, supple. LUNGS: Auscultated anteriorly, Breath sounds equal, clear to auscultation bilaterally, no wheezes, no crackles, no accessory muscle use. HEART: Regular rate and rhythm, S1, S2 without murmur, rub or gallop. ABDOMEN: Soft, nontender, nondistended, normoactive bowel sounds, no guarding, no rebound, no hepatosplenomegaly, no masses. EXTREMITIES: warm, no edema. B/L BKA. NEUROLOGICAL: Normal speech, gait not observed. PSYCH: Normal mood, normal affect. SKIN: Warm, dry, normal turgor, no rashes or lesions noted Laboratory Results - last 24 hr 04/21/16 04/21/16 04/21/16 05:52 07:40 16:56 WBC RBC Hgb Hct MCV MCHC RDW Plt Count MPV Sodium 137 Potassium 3.3 L D Chloride 102 Carbon Dioxide 24 Anion Gap 11 BUN 20 H D Creatinine 0.5 L D POC Glucometer 162 Random Glucose 82 D Lactic Acid 1.018 Calcium 8.1 L 04/22/16 04/22/16 06:00 06:00 WBC 8.2 RBC 3.84 L Hgb 8.6 L Hct 27.7 L MCV 72.0 L MCHC 31.2 L RDW 19.0 H Plt Count 190 MPV 6.5 L Sodium 139 Potassium 3.3 L Chloride 106 Carbon Dioxide 24 Anion Gap 9 BUN 23 H Creatinine 0.5 L POC Glucometer Random Glucose 82 Lactic Acid Calcium 7.7 L Microbiology 04/20/16 21:40 Urine - Urine Clean Catch Urine Culture - Preliminary Group D Strep Or Entero Coccus Presumptive Ps Aeruginosa 04/20/16 21:05 Blood - Arterial Blood Culture - Preliminary NO GROWTH OBTAINED AFTER 24 HOURS, INCUBATION TO CONTINUE FOR 4 DAYS. 04/20/16 21:10 Blood - Arterial Blood Culture - Preliminary NO GROWTH OBTAINED AFTER 24 HOURS, INCUBATION TO CONTINUE FOR 4 DAYS. Active Medications Generic Name Dose Route Start Last Admin Trade Name Freq PRN Reason Stop Dose Admin Amino Acids 30 ml 04/21/16 08:00 04/21/16 17:11 Prostat Sugar-Free Packet - PO 30 ml BID@0800,1730 EDILSON Administration Atorvastatin Calcium 40 mg 04/20/16 22:00 04/21/16 21:47 Lipitor - PO 40 mg HS EDILSON Administration Bupropion HCl 300 mg 04/21/16 10:00 04/21/16 09:44 Wellbutrin Xl - PO 300 mg DAILY EDISLON Administration Clopidogrel Bisulfate 75 mg 04/21/16 10:00 04/21/16 09:42 Plavix - PO 75 mg DAILY EDILSON Administration Digoxin 0.25 mg 04/21/16 10:00 04/21/16 09:42 Lanoxin - PO 0.25 mg DAILY EDILSON Administration Docusate Sodium 100 mg 04/21/16 10:00 04/21/16 09:43 Colace - PO 04/22/16 10:00 100 mg DAILY EDILSON Administration Docusate Sodium 100 mg 04/22/16 14:00 Colace - PO TID EDILSON Finasteride 5 mg 04/21/16 10:00 04/21/16 09:43 Proscar - PO 5 mg DAILY EDILSON Administration Gabapentin 100 mg 04/20/16 22:00 04/22/16 06:12 Neurontin - PO 100 mg TID EDILSON Administration Heparin Sodium (Porcine) 5,000 unit 04/20/16 22:00 04/22/16 06:12 Heparin - SQ 5,000 unit TID EDILSON Administration Sodium Chloride 1,000 mls @ 75 mls/hr 04/20/16 20:15 04/22/16 01:15 Normal Saline - IV 75 mls/hr ASDIR EDILSON Administration Piperacillin Sod/Tazobactam Sod 50 mls @ 100 mls/hr 04/21/16 16:00 04/22/16 01: 13 Zosyn 3.375gm Ivpb (Pre-Docked) IVPB 100 mls/hr Q8H-IV EDILSON Administration Metoclopramide HCl 5 mg 04/21/16 07:00 04/22/16 06:12 Reglan - PO 5 mg TIDAC EDILSON Administration Pantoprazole Sodium 40 mg 04/20/16 22:00 04/21/16 21:47 Protonix - PO 40 mg BID EDILSON Administration Polyethylene Glycol 17 gm 04/20/16 22:00 04/22/16 06:14 Miralax (For Daily Use) - PO 17 gm TID EDILSON Administration Tamsulosin HCl 0.4 mg 04/21/16 10:00 Flomax - PO DAILY EDILSON ASSESSMENT/PLAN: 71 y/o M with sig PMH of CAD s/p stent in 2015, A-fib on digoxin, CVA w/ L sided weakness, PVD w/ B/L BKA, liver cirrhosis, previous GI bleed, Hep C presented to ER with constipation and vomiting for past week. Pt admitted for sepsis secondary to UTI -Sepsis secondary to UTI -Pt no longer has burning with urination; WBC wnl -c/w zosyn; ID on board -NS@75 ml/hr -CXR - no acute pathology -UCx - presumptive positive for Ps Aeruginosa, awaiting final report. -Nausea/Vomiting -no longer has n/v -will cancel MBS -Constipation -reglan, miralax -colace changed to TID -pt is agreeable to enema if no BM today. -JAZIEL -BUN/Cr 23/0.5 -secondary to dehydration most likely, decreased PO intake. -will monitor -NS@75ml/hr -A-fib -c/w digoxin -CAD -s/p stent 2015 -c/w lipitor 40mg, plavix 75mg -BPH -c/w flomax, finasteride -DVT ppx -heparin 5000 units sq tid -FEN -NS@75 ml/hr -Hypokalemia - 3.3, repleted; f/u electrolytes -Soft diet + prostat -Dispo: -Monitor on floors. Problem List - Problems (1) BPH (benign prostatic hyperplasia) Code(s): N40.0 - BENIGN PROSTATIC HYPERPLASIA WITHOUT LOWER URINRY TRACT SYMP (2) Dehydration Code(s): E86.0 - DEHYDRATION (3) Hepatitis C Code(s): B19.20 - UNSPECIFIED VIRAL HEPATITIS C WITHOUT HEPATIC COMA (4) Leukocytosis (leucocytosis) Code(s): D72.829 - ELEVATED WHITE BLOOD CELL COUNT, UNSPECIFIED Qualifiers: Leukocytosis type: unspecified Qualified Code(s): D72.829 - Elevated white blood cell count, unspecified (5) Nausea & vomiting Code(s): R11.2 - NAUSEA WITH VOMITING, UNSPECIFIED (6) UTI (urinary tract infection) Code(s): N39.0 - URINARY TRACT INFECTION, SITE NOT SPECIFIED Qualifiers: Urinary tract infection type: site unspecified Hematuria presence: without hematuria Qualified Code(s): N39.0 - Urinary tract infection, site not specified (7) CAD (coronary artery disease) Code(s): I25.10 - ATHSCL HEART DISEASE OF [place] CORONARY ARTERY W/O ANG PCTRS (8) CVA (cerebral vascular accident) Code(s): I63.9 - CEREBRAL INFARCTION, UNSPECIFIED (9) Complicated UTI (urinary tract infection) Code(s): N39.0 - URINARY TRACT INFECTION, SITE NOT SPECIFIED (10) DVT prophylaxis Code(s): [id number] - (11) HLD (hyperlipidemia) Code(s): E78.5 - HYPERLIPIDEMIA, UNSPECIFIED (12) HTN (hypertension) Code(s): I10 - ESSENTIAL (PRIMARY) HYPERTENSION (13) Sepsis Code(s): A41.9 - SEPSIS, UNSPECIFIED ORGANISM Visit type - Emergency Visit Emergency Visit: Yes ED Registration Date: 04/20/16 Care time: The patient presented to the Emergency Department on the above date and was hospitalized for further evaluation of their emergent condition. - New Patient This patient is new to me today: No - Critical Care Critical Care patient: No <Abdirizak Lopez - Last Filed: 04/22/16 14:39> Physical Exam: ATTENDING PHYSICIAN STATEMENT I saw and evaluated the patient. I reviewed the resident's note and discussed the case with the resident. I agree with the resident's findings and plan as documented. SUBJECTIVE: seen and evaluated at the bedside OBJECTIVE: resting comfortably; states dysuria and apetite have both improved ASSESSMENT AND PLAN:71 yo M with a PMHx of HTN, HLD, CAD s.p stent in 2016, Afib (digoxin), CVA with L side residual weakness, IDDM, PVD with bilateral limb amputation, liver cirrhosis with prior GI bleed and Hepatitis C admitted for sepsis due to UTI UTI -presented with dysuria and elevated WBC -grew ESBL pseudamonas on previous urine cultures -ID consult greatly appreciated; on zosyn -urine cultures growing greater than 100,000 colonies enterococcus; follow up sensitivities
[2016-04-22] MEDS: DOCUSATE SODIUM 100 MG CAPSULE (FP) PO SCH ×3 (09:23→21:57)
[2016-04-22] MEDS: PANTOPRAZOLE 40 MG TABLET (FP) PO SCH ×2 (09:23→21:21)
[2016-04-22] MEDS: CLOPIDOGREL BISULFATE 75 MG TABLET (FP) PO SCH (09:24)
[2016-04-22] MEDS: FINASTERIDE 5 MG TABLET (FP) PO SCH (09:24)
[2016-04-22] MEDS: AMINO ACIDS/PROTEIN HYDROLYS SUGAR-FREE 30 ML PACKET PO SCH ×2 (09:24→17:01)
[2016-04-22] MEDS: DIGOXIN 0.25 MG TABLET (FP) PO SCH (09:27)
[2016-04-22] MEDS ORDERED: POTASSIUM CHLORIDE TABS 20 MEQ TABLET.ER (FP) PO ONE ×2 (09:30→12:45)
[2016-04-22] MEDS ORDERED: OXYCODONE/APAP 5/325MG COMBO TABLET PO PRN (15:15)
[2016-04-22] MEDS ORDERED: oxyCODONE HCL 5 MG TABLET PO PRN (15:50)
[2016-04-22] MEDS ORDERED: ACETAMINOPHEN 325 MG TABLET (FP) PO PRN (15:50)
--- NOTE | 2016-04-22 15:57 | PN ---
Progress Note, Physician History of Present Illness: patient feeling better pain main concern - Current Medication List Current Medications: Active Medications Acetaminophen (Tylenol -) 650 mg PO Q6H PRN PRN Reason: PAIN Amino Acids (Prostat Sugar-Free Packet -) 30 ml PO BID@0800,1730 [facility] Last Admin: 04/22/16 09:24 Dose: 30 ml Atorvastatin Calcium (Lipitor -) 40 mg PO HS [facility] Last Admin: 04/21/16 21:47 Dose: 40 mg Bupropion HCl (Wellbutrin Xl -) 300 mg PO DAILY [facility] Last Admin: 04/22/16 09:25 Dose: 300 mg Clopidogrel Bisulfate (Plavix -) 75 mg PO DAILY [facility] Last Admin: 04/22/16 09:24 Dose: 75 mg Digoxin (Lanoxin -) 0.25 mg PO DAILY [facility] Last Admin: 04/22/16 09:27 Dose: 0.25 mg Docusate Sodium (Colace -) 100 mg PO TID [facility] Last Admin: 04/22/16 14:22 Dose: Not Given Finasteride (Proscar -) 5 mg PO DAILY [facility] Last Admin: 04/22/16 09:24 Dose: 5 mg Gabapentin (Neurontin -) 100 mg PO TID [facility] Last Admin: 04/22/16 14:22 Dose: 100 mg Heparin Sodium (Porcine) (Heparin -) 5,000 unit SQ TID [facility] Last Admin: 04/22/16 14:22 Dose: 5,000 unit Sodium Chloride (Normal Saline -) 1,000 mls @ 75 mls/hr IV ASDIR [facility] Last Admin: 04/22/16 01:15 Dose: 75 mls/hr Piperacillin Sod/Tazobactam Sod (Zosyn 3.375gm Ivpb (Pre-Docked)) 50 mls @ 100 mls/hr IVPB Q8H-IV [facility] Last Admin: 04/22/16 09:25 Dose: 100 mls/hr Metoclopramide HCl (Reglan -) 5 mg PO TIDAC [facility] Last Admin: 04/22/16 11:49 Dose: 5 mg Oxycodone HCl (Roxicodone -) 10 mg PO Q6H PRN PRN Reason: PAIN LEVEL 6-10 Pantoprazole Sodium (Protonix -) 40 mg PO BID [facility] Last Admin: 04/22/16 09:23 Dose: 40 mg Polyethylene Glycol (Miralax (For Daily Use) -) 17 gm PO TID [facility] Last Admin: 04/22/16 14:22 Dose: Not Given Tamsulosin HCl (Flomax -) 0.4 mg PO DAILY [facility] - Objective Vital Signs: Vital Signs Temperature 97.2 F L 04/22/16 14:19 Pulse Rate 90 04/22/16 14:19 Respiratory Rate 20 04/22/16 14:19 Blood Pressure 133/74 04/22/16 14:19 O2 Sat by Pulse Oximetry (%) 98 04/22/16 09:00 Constitutional: Yes: No Distress, Calm Neck: Yes: Supple Cardiovascular: Yes: Regular Rate and Rhythm Respiratory: Yes: Regular, CTA Bilaterally Gastrointestinal: Yes: Normal Bowel Sounds, Soft Musculoskeletal: Yes: Other Extremities: Yes: Other (bilat amputation) Neurological: Yes: Alert, Oriented Psychiatric: Yes: Alert Labs: CBC, BMP 04/22/16 06:00 04/22/16 06:00 Assessment/Plan ASSESSMENT/PLAN: The patient is a 71 yo M who presents with constipation and vomiting. The patient was found to be septic secondary to UTI. 1.) Sepsis secondary to UTI 2.) Constipation and vomiting 3.) Atrial Fibrillation 4.) CAD s.p stent also patient has constipation plan cx result noted await for sensitivites i suspect patient has enterococcus i am going to initiate ampicillin
[2016-04-22] MEDS: oxyCODONE HCL 5 MG TABLET PO PRN ×2 (16:59→23:51)
[2016-04-22] MEDS: ACETAMINOPHEN 325 MG TABLET (FP) PO PRN (17:00)
[2016-04-22] MEDS: AMPICILLIN - 1 GM in SODIUM CHLORIDE 100 ML IVPB SCH (17:56)
[2016-04-22] MEDS: ATORVASTATIN CA 40 MG TABLET (FP) PO SCH (21:21)
[2016-04-23] MEDS: ACETAMINOPHEN 325 MG TABLET (FP) PO PRN ×2 (00:11→20:11)
[2016-04-23] MEDS: PIPERACILLIN/TAZOB 3.375 GM 50 ML IVPB SCH ×3 (01:30→17:50)
[2016-04-23] MEDS ORDERED: PT OWN MED DRAWER 7, Y5N ONE ×3 (02:01→17:07)
[2016-04-23] MEDS: AMPICILLIN - 1 GM in SODIUM CHLORIDE 100 ML IVPB SCH ×2 (02:07→11:24)
[2016-04-23] MEDS: GABAPENTIN 100 MG CAPSULE (FP) PO SCH ×4 (02:26→22:13)
[2016-04-23] MEDS: DOCUSATE SODIUM 100 MG CAPSULE (FP) PO SCH ×3 (06:27→22:21)
[2016-04-23] MEDS: POLYETHYLENE GLYCOL 3350 119 GM BTL PO SCH (06:27)
[2016-04-23] MEDS: METOCLOPRAMIDE HCL 10 MG TABLET (FP) PO SCH ×3 (06:28→17:49)
[2016-04-23] MEDS: HEPARIN NA (PORCINE) 5,000 UNITS/ML 1ML VIAL SQ SCH ×3 (06:33→22:13)
[2016-04-23] MEDS: SODIUM CHLORIDE 1,000 ML IV SCH (06:51)
[2016-04-23 06:54] LABS: MCH 22.2 pg (25.7-33.7); MCHC 30.9 g/dl (32.0-35.9); MEAN PLT VOLUME 6.5 fl (7.5-11.1); PLATELET COUNT 204 K/MM3 (134-434); RDW 18.8 % (11.9-15.9); WHITE BLOOD COUNT 8.6 K/mm3 (4.0-10.0)
[2016-04-23 07:11] LABS: CALCIUM 7.8 mg/dL (8.5-10.1); CREATININE 0.6 mg/dL (0.7-1.3)
[2016-04-23] MEDS: AMINO ACIDS/PROTEIN HYDROLYS SUGAR-FREE 30 ML PACKET PO SCH ×2 (08:48→17:50)
--- NOTE | 2016-04-23 10:48 | PN ---
Addendum entered and electronically signed by Nimesh Greenfield RES 04/23/16 12:28 : UCx grew VRE. Will d/c ampicillin. Started Daptomycin 300 mg IV ONCE. ID is consulted. Original Note: <Nimesh Greenfield - Last Filed: 04/23/16 10:43> Physical Exam: SUBJECTIVE: Patient seen and examined at bedside. Feels much better today. Had 8 BM's yesterday into today. Denies CP, SOB, Abd pain, N/v/F/C, tolerating diet. When I saw pt this morning and was about to leave room he spit out unchewed pieces of veggies. He had eaten prior to me seeing him. He then threw up very little food content. He said it was mainly because the eggs in the morning had mushrooms and that happens to him because of the mushrooms. OBJECTIVE: Vital Signs Temperature 97.6 F 04/23/16 05:16 Pulse Rate 102 H 04/23/16 05:16 Respiratory Rate 20 04/23/16 05:16 Blood Pressure 115/66 04/23/16 05:16 O2 Sat by Pulse Oximetry (%) 98 04/22/16 21:00 GENERAL: The patient is awake, alert, and fully oriented, in no acute distress. HEAD: Normal with no signs of trauma. EYES: sclera anicteric, conjunctiva clear. No ptosis. ENT: moist mucous membranes. NECK: Trachea midline, full range of motion, supple. LUNGS: Auscultated anteriorly, Breath sounds equal, clear to auscultation bilaterally, no wheezes, no crackles, no accessory muscle use. HEART: Regular rate and rhythm, S1, S2 without murmur, rub or gallop. ABDOMEN: Soft, nontender, nondistended, normoactive bowel sounds, no guarding, no rebound, no hepatosplenomegaly, no masses. EXTREMITIES: warm, no edema. B/L BKA. NEUROLOGICAL: Normal speech, gait not observed. PSYCH: Normal mood, normal affect. SKIN: Warm, dry, normal turgor, no rashes or lesions noted Laboratory Results - last 24 hr 04/23/16 04/23/16 06:00 06:00 WBC 8.6 RBC 3.94 L Hgb 8.8 L Hct 28.3 L MCV 72.0 L MCHC 30.9 L RDW 18.8 H Plt Count 204 MPV 6.5 L Sodium 136 Potassium 4.2 D Chloride 104 Carbon Dioxide 24 Anion Gap 8 BUN 13 D Creatinine 0.6 L Random Glucose 76 Calcium 7.8 L Microbiology 04/20/16 21:05 Blood - Arterial Blood Culture - Preliminary NO GROWTH OBTAINED AFTER 48 HOURS, INCUBATION TO CONTINUE FOR 3 DAYS. 04/20/16 21:10 Blood - Arterial Blood Culture - Preliminary NO GROWTH OBTAINED AFTER 48 HOURS, INCUBATION TO CONTINUE FOR 3 DAYS. 04/20/16 21:40 Urine - Urine Clean Catch Urine Culture - Preliminary Group D Strep Or Entero Coccus Presumptive Ps Aeruginosa Active Medications Generic Name Dose Route Start Last Admin Trade Name Freq PRN Reason Stop Dose Admin Acetaminophen 650 mg 04/22/16 15:52 04/23/16 00:11 Tylenol - PO 650 mg Q6H PRN Administration PAIN Amino Acids 30 ml 04/21/16 08:00 04/23/16 08:48 Prostat Sugar-Free Packet - PO Not Given BID@0800,1730 [facility] Atorvastatin Calcium 40 mg 04/20/16 22:00 04/22/16 21:21 Lipitor - PO 40 mg HS [facility] Administration Bupropion HCl 300 mg 04/21/16 10:00 04/22/16 09:25 Wellbutrin Xl - PO 300 mg DAILY [facility] Administration Clopidogrel Bisulfate 75 mg 04/21/16 10:00 04/22/16 09:24 Plavix - PO 75 mg DAILY [facility] Administration Digoxin 0.25 mg 04/21/16 10:00 04/22/16 09:27 Lanoxin - PO 0.25 mg DAILY [facility] Administration Docusate Sodium 100 mg 04/22/16 14:00 04/23/16 06:27 Colace - PO Not Given TID [facility] Finasteride 5 mg 04/21/16 10:00 04/22/16 09:24 Proscar - PO 5 mg DAILY [facility] Administration Gabapentin 100 mg 04/20/16 22:00 04/23/16 06:27 Neurontin - PO Not Given TID [facility] Heparin Sodium (Porcine) 5,000 unit 04/20/16 22:00 04/23/16 06:33 Heparin - SQ 5,000 unit TID [facility] Administration Piperacillin Sod/Tazobactam Sod 50 mls @ 100 mls/hr 04/21/16 16:00 02/03/17 01: 30 Zosyn 3.375gm Ivpb (Pre-Docked) IVPB 100 mls/hr Q8H-IV [facility] Administration Ampicillin Sodium 1 gm/ Sodium 100 mls @ 200 mls/hr 04/22/16 18:00 04/23/16 02: 07 Chloride IVPB 200 mls/hr Q8H-IV [facility] Administration Metoclopramide HCl 5 mg 04/21/16 07:00 04/23/16 06:28 Reglan - PO 5 mg TIDAC [facility] Administration Oxycodone HCl 10 mg 04/22/16 15:52 04/22/16 23:51 Roxicodone - PO 10 mg Q6H PRN Administration PAIN LEVEL 6-10 Pantoprazole Sodium 40 mg 04/20/16 22:00 04/22/16 21:21 Protonix - PO 40 mg BID [facility] Administration Tamsulosin HCl 0.4 mg 04/21/16 10:00 Flomax - PO DAILY [facility] ASSESSMENT/PLAN: 71 y/o M with sig PMH of CAD s/p stent in 2015, A-fib on digoxin, CVA w/ L sided weakness, PVD w/ B/L BKA, liver cirrhosis, previous GI bleed, Hep C presented to ER with constipation and vomiting for past week. Pt admitted for sepsis secondary to UTI -Sepsis secondary to UTI -Pt no longer has burning with urination; WBC wnl -c/w zosyn, ampicillin; ID on board -NS@75 ml/hr -CXR - no acute pathology -UCx - Group D Strep Or Entero Coccus and presumptive positive for Ps Aeruginosa, awaiting final report. -Nausea/Vomiting -had small amount of vomiting this AM -will order MBS -Constipation -resolved, had 8 BMs from yesterday into today. -d/c miralax -colace TID, reglan -JAZIEL -resolved -BUN/Cr 13/0.6 -d/c fluids -A-fib -c/w digoxin -CAD -s/p stent 2015 -c/w lipitor 40mg, plavix 75mg -BPH -c/w flomax, finasteride -DVT ppx -heparin 5000 units sq tid -FEN -no fluids -Hypokalemia - resolved, 4.2 -Soft diet + prostat; MBS -Dispo: -Monitor on floors. Problem List - Problems (1) BPH (benign prostatic hyperplasia) Code(s): N40.0 - BENIGN PROSTATIC HYPERPLASIA WITHOUT LOWER URINRY TRACT SYMP (2) Dehydration Code(s): E86.0 - DEHYDRATION (3) Hepatitis C Code(s): B19.20 - UNSPECIFIED VIRAL HEPATITIS C WITHOUT HEPATIC COMA (4) Leukocytosis (leucocytosis) Code(s): D72.829 - ELEVATED WHITE BLOOD CELL COUNT, UNSPECIFIED Qualifiers: Leukocytosis type: unspecified Qualified Code(s): D72.829 - Elevated white blood cell count, unspecified (5) Nausea & vomiting Code(s): R11.2 - NAUSEA WITH VOMITING, UNSPECIFIED (6) UTI (urinary tract infection) Code(s): N39.0 - URINARY TRACT INFECTION, SITE NOT SPECIFIED Qualifiers: Urinary tract infection type: site unspecified Hematuria presence: without hematuria Qualified Code(s): N39.0 - Urinary tract infection, site not specified (7) CAD (coronary artery disease) Code(s): I25.10 - ATHSCL HEART DISEASE OF [place] CORONARY ARTERY W/O ANG PCTRS (8) CVA (cerebral vascular accident) Code(s): I63.9 - CEREBRAL INFARCTION, UNSPECIFIED (9) Complicated UTI (urinary tract infection) Code(s): N39.0 - URINARY TRACT INFECTION, SITE NOT SPECIFIED (10) DVT prophylaxis Code(s): [id number] - (11) HLD (hyperlipidemia) Code(s): E78.5 - HYPERLIPIDEMIA, UNSPECIFIED (12) HTN (hypertension) Code(s): I10 - ESSENTIAL (PRIMARY) HYPERTENSION (13) Sepsis Code(s): A41.9 - SEPSIS, UNSPECIFIED ORGANISM Visit type - Emergency Visit Emergency Visit: Yes ED Registration Date: 04/20/16 Care time: The patient presented to the Emergency Department on the above date and was hospitalized for further evaluation of their emergent condition. - New Patient This patient is new to me today: No - Critical Care Critical Care patient: No <Abdirizak Lopez - Last Filed: 04/23/16 12:06> Physical Exam: ATTENDING PHYSICIAN STATEMENT I saw and evaluated the patient. I reviewed the resident's note and discussed the case with the resident. I agree with the resident's findings and plan as documented. SUBJECTIVE: seen and evaluated at the bedside OBJECTIVE: resting comfortably; states dysuria and apetite have both improved ASSESSMENT AND PLAN:71 yo M with a PMHx of HTN, HLD, CAD s.p stent in 2016, Afib (digoxin), CVA with L side residual weakness, IDDM, PVD with bilateral limb amputation, liver cirrhosis with prior GI bleed and Hepatitis C admitted for sepsis due to UTI UTI -presented with dysuria and elevated WBC -grew ESBL pseudamonas on previous urine cultures -ID consult greatly appreciated; on zosyn -urine cultures growing greater than 100,000 colonies enterococcus which is now VRE sensitive only to daptomycin -will give stat dose of dapto now while awaiting ID attending recs
[2016-04-23] MEDS: TAMSULOSIN HCL 0.4 MG CAP.ER.24H (FP) PO SCH (11:24)
[2016-04-23] MEDS: CLOPIDOGREL BISULFATE 75 MG TABLET (FP) PO SCH (11:25)
[2016-04-23] MEDS: PANTOPRAZOLE 40 MG TABLET (FP) PO SCH ×2 (11:25→22:13)
[2016-04-23] MEDS: FINASTERIDE 5 MG TABLET (FP) PO SCH (11:25)
[2016-04-23] MEDS: DIGOXIN 0.25 MG TABLET (FP) PO SCH (11:25)
[2016-04-23] MEDS ORDERED: DAPTOMYCIN 300 MG in SODIUM CHLORIDE 50 ML IVPB ONE (14:00)
--- NOTE | 2016-04-23 15:32 | PN ---
Progress Note, Physician History of Present Illness: patient feeling better he had bowel movement today first 2 solid movements followed by liquid now feels better - Current Medication List Current Medications: Active Medications Acetaminophen (Tylenol -) 650 mg PO Q6H PRN PRN Reason: PAIN Last Admin: 04/23/16 00:11 Dose: 650 mg Amino Acids (Prostat Sugar-Free Packet -) 30 ml PO BID@0800,1730 [facility] Last Admin: 04/23/16 08:48 Dose: Not Given Atorvastatin Calcium (Lipitor -) 40 mg PO HS [facility] Last Admin: 04/22/16 21:21 Dose: 40 mg Bupropion HCl (Wellbutrin Xl -) 300 mg PO DAILY [facility] Last Admin: 04/23/16 11:25 Dose: 300 mg Clopidogrel Bisulfate (Plavix -) 75 mg PO DAILY [facility] Last Admin: 04/23/16 11:25 Dose: 75 mg Digoxin (Lanoxin -) 0.25 mg PO DAILY [facility] Last Admin: 04/23/16 11:25 Dose: 0.25 mg Docusate Sodium (Colace -) 100 mg PO TID [facility] Last Admin: 04/23/16 06:27 Dose: Not Given Finasteride (Proscar -) 5 mg PO DAILY [facility] Last Admin: 04/23/16 11:25 Dose: 5 mg Gabapentin (Neurontin -) 100 mg PO TID [facility] Last Admin: 04/23/16 06:27 Dose: Not Given Heparin Sodium (Porcine) (Heparin -) 5,000 unit SQ TID [facility] Last Admin: 04/23/16 06:33 Dose: 5,000 unit Piperacillin Sod/Tazobactam Sod (Zosyn 3.375gm Ivpb (Pre-Docked)) 50 mls @ 100 mls/hr IVPB Q8H-IV [facility] Last Admin: 04/23/16 11:24 Dose: 100 mls/hr Metoclopramide HCl (Reglan -) 5 mg PO TIDAC [facility] Last Admin: 04/23/16 11:25 Dose: 5 mg Oxycodone HCl (Roxicodone -) 10 mg PO Q6H PRN PRN Reason: PAIN LEVEL 6-10 Last Admin: 04/22/16 23:51 Dose: 10 mg Pantoprazole Sodium (Protonix -) 40 mg PO BID [facility] Last Admin: 04/23/16 11:25 Dose: 40 mg Tamsulosin HCl (Flomax -) 0.4 mg PO DAILY [facility] Last Admin: 04/23/16 11:24 Dose: 0.4 mg - Objective Vital Signs: Vital Signs Temperature 97.6 F 04/23/16 14:30 Pulse Rate 80 04/23/16 14:30 Respiratory Rate 20 04/23/16 14:30 Blood Pressure 146/84 04/23/16 14:30 O2 Sat by Pulse Oximetry (%) 98 04/22/16 21:00 Constitutional: Yes: No Distress, Calm Cardiovascular: Yes: Regular Rate and Rhythm Respiratory: Yes: Regular, CTA Bilaterally Gastrointestinal: Yes: Normal Bowel Sounds, Soft Musculoskeletal: Yes: Other Extremities: Yes: Other (bilateral amputation) Neurological: Yes: Alert, Oriented Psychiatric: Yes: Alert Labs: CBC, BMP 04/23/16 06:00 04/23/16 06:00 Assessment/Plan ASSESSMENT/PLAN: The patient is a 71 yo M who presents with constipation and vomiting. The patient was found to be septic secondary to UTI. 1.) Sepsis secondary to UTI 2.) Constipation and vomiting 3.) Atrial Fibrillation 4.) CAD s.p stent also patient has constipation plan cx result noted patient has uti with vanco resistant enterococcus sensitivites noted patient cannot be started on linezoloid as he is on antipsychotic medication he has been started on daptomycin i have a strong feeling that he might be getting colonized which will be bad and problematic as this patient has been in sepsis few times before we will treat it for a total duration of 7 days also he has pseudomonas in urine which we are covering with zosyn as now it is sensitive to zosyn close watch on the patient
[2016-04-23] MEDS: oxyCODONE HCL 5 MG TABLET PO PRN (20:12)
[2016-04-24] MEDS: PIPERACILLIN/TAZOB 3.375 GM 50 ML IVPB SCH ×3 (02:10→17:23)
[2016-04-24] MEDS: DOCUSATE SODIUM 100 MG CAPSULE (FP) PO SCH ×3 (06:39→21:20)
[2016-04-24] MEDS: METOCLOPRAMIDE HCL 10 MG TABLET (FP) PO SCH ×3 (06:41→17:24)
[2016-04-24] MEDS: GABAPENTIN 100 MG CAPSULE (FP) PO SCH ×3 (06:41→21:21)
[2016-04-24] MEDS: HEPARIN NA (PORCINE) 5,000 UNITS/ML 1ML VIAL SQ SCH ×3 (06:42→21:20)
[2016-04-24] MEDS: AMINO ACIDS/PROTEIN HYDROLYS SUGAR-FREE 30 ML PACKET PO SCH ×2 (08:02→17:21)
[2016-04-24 08:22] LABS: MCH 22.5 pg (25.7-33.7); MEAN CELL VOLUME 72.4 fl (80-96); MEAN PLT VOLUME 6.6 fl (7.5-11.1); PLATELET COUNT 205 K/MM3 (134-434); RDW 18.8 % (11.9-15.9); WHITE BLOOD COUNT 6.1 K/mm3 (4.0-10.0)
[2016-04-24 09:17] LABS: CALCIUM 8.5 mg/dL (8.5-10.1); CREATININE 0.5 mg/dL (0.7-1.3)
[2016-04-24] MEDS ORDERED: PT OWN MED DRAWER 7, Y5N ONE ×2 (09:43→13:29)
[2016-04-24] MEDS: DIGOXIN 0.25 MG TABLET (FP) PO SCH (09:46)
[2016-04-24] MEDS: CLOPIDOGREL BISULFATE 75 MG TABLET (FP) PO SCH (09:46)
[2016-04-24] MEDS: FINASTERIDE 5 MG TABLET (FP) PO SCH (09:47)
[2016-04-24] MEDS: PANTOPRAZOLE 40 MG TABLET (FP) PO SCH ×2 (09:47→21:21)
[2016-04-24] MEDS: TAMSULOSIN HCL 0.4 MG CAP.ER.24H (FP) PO SCH (09:47)
--- NOTE | 2016-04-24 10:20 | PN ---
Physical Exam: SUBJECTIVE: Patient seen and examined at bedside. Continues to feel well. Having some trouble swallowing food. Denies CP, SOB, dysuria, abd pain, N/V/F/C. OBJECTIVE: Vital Signs Temperature 98.2 F 04/24/16 10:11 Pulse Rate 72 04/24/16 09:46 Respiratory Rate 16 04/24/16 09:37 Blood Pressure 106/56 04/24/16 09:37 O2 Sat by Pulse Oximetry (%) 98 04/24/16 09:38 GENERAL: The patient is awake, alert, and fully oriented, in no acute distress. HEAD: Normal with no signs of trauma. EYES: sclera anicteric, conjunctiva clear. No ptosis. ENT: moist mucous membranes. NECK: Trachea midline, full range of motion, supple. LUNGS: Auscultated anteriorly, Breath sounds equal, clear to auscultation bilaterally, no wheezes, no crackles, no accessory muscle use. HEART: Regular rate and rhythm, S1, S2 without murmur, rub or gallop. ABDOMEN: Soft, nontender, nondistended, normoactive bowel sounds, no guarding, no rebound, no hepatosplenomegaly, no masses. EXTREMITIES: warm, no edema. B/L BKA. NEUROLOGICAL: Normal speech, gait not observed. PSYCH: Normal mood, normal affect. SKIN: Warm, dry, normal turgor, no rashes or lesions noted Laboratory Results - last 24 hr 04/24/16 04/24/16 06:00 06:00 WBC 6.1 RBC 4.29 Hgb 9.7 L D Hct 31.1 L MCV 72.4 L MCHC 31.0 L RDW 18.8 H Plt Count 205 MPV 6.6 L Sodium 138 Potassium 4.2 Chloride 104 Carbon Dioxide 21 Anion Gap 13 BUN 8 D Creatinine 0.5 L Random Glucose 72 L Calcium 8.5 Microbiology 04/20/16 21:05 Blood - Arterial Blood Culture - Preliminary NO GROWTH OBTAINED AFTER 72 HOURS, INCUBATION TO CONTINUE FOR 2 DAYS. 04/20/16 21:10 Blood - Arterial Blood Culture - Preliminary NO GROWTH OBTAINED AFTER 72 HOURS, INCUBATION TO CONTINUE FOR 2 DAYS. 04/20/16 21:40 Urine - Urine Clean Catch Urine Culture - Final Vr Ec Faecium Pseudomonas Aeruginosa Active Medications Generic Name Dose Route Start Last Admin Trade Name Freq PRN Reason Stop Dose Admin Acetaminophen 650 mg 04/22/16 15:52 04/23/16 20:11 Tylenol - PO 650 mg Q6H PRN Administration PAIN Amino Acids 30 ml 04/21/16 08:00 04/24/16 08:02 Prostat Sugar-Free Packet - PO Not Given BID@0800,1730 [facility] Bupropion HCl 300 mg 04/21/16 10:00 04/24/16 09:47 Wellbutrin Xl - PO 300 mg DAILY [facility] Administration Clopidogrel Bisulfate 75 mg 04/21/16 10:00 04/24/16 09:46 Plavix - PO 75 mg DAILY [facility] Administration Digoxin 0.25 mg 04/21/16 10:00 04/24/16 09:46 Lanoxin - PO 0.25 mg DAILY [facility] Administration Docusate Sodium 100 mg 04/22/16 14:00 04/24/16 06:39 Colace - PO Not Given TID [facility] Finasteride 5 mg 04/21/16 10:00 04/24/16 09:47 Proscar - PO 5 mg DAILY [facility] Administration Gabapentin 100 mg 04/20/16 22:00 04/24/16 06:41 Neurontin - PO 100 mg TID [facility] Administration Heparin Sodium (Porcine) 5,000 unit 04/20/16 22:00 04/24/16 06:42 Heparin - SQ 5,000 unit TID [facility] Administration Piperacillin Sod/Tazobactam Sod 50 mls @ 100 mls/hr 04/21/16 16:00 04/24/16 09: 46 Zosyn 3.375gm Ivpb (Pre-Docked) IVPB 100 mls/hr Q8H-IV [facility] Administration Daptomycin 300 mg/ Sodium 50 mls @ 100 mls/hr 04/24/16 14:00 Chloride IVPB 04/29/16 14:29 Q24H [facility] Metoclopramide HCl 5 mg 04/21/16 07:00 04/24/16 06:41 Reglan - PO 5 mg TIDAC [facility] Administration Oxycodone HCl 10 mg 04/22/16 15:52 04/23/16 20:12 Roxicodone - PO 10 mg Q6H PRN Administration PAIN LEVEL 6-10 Pantoprazole Sodium 40 mg 04/20/16 22:00 04/24/16 09:47 Protonix - PO 40 mg BID [facility] Administration Tamsulosin HCl 0.4 mg 04/21/16 10:00 04/24/16 09:47 Flomax - PO 0.4 mg DAILY [facility] Administration ASSESSMENT/PLAN: 71 y/o M with sig PMH of CAD s/p stent in 2016, A-fib on digoxin, CVA w/ L sided weakness, PVD w/ B/L BKA, liver cirrhosis, previous GI bleed, Hep C presented to ER with constipation and vomiting for past week. Pt admitted for sepsis secondary to UTI -Sepsis secondary to UTI -Pt no longer has burning with urination; WBC wnl -c/w zosyn, daptomycin; ID on board -NS@75 ml/hr -CXR - no acute pathology -UCx - Group D Strep Or Entero Coccus and presumptive positive for Ps Aeruginosa, awaiting final report. 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 On IV Dapto, ID on board. Problem List - Problems (1) BPH (benign prostatic hyperplasia) Code(s): N40.0 - BENIGN PROSTATIC HYPERPLASIA WITHOUT LOWER URINRY TRACT SYMP (2) Dehydration Code(s): E86.0 - DEHYDRATION (3) Hepatitis C Code(s): B19.20 - UNSPECIFIED VIRAL HEPATITIS C WITHOUT HEPATIC COMA (4) Leukocytosis (leucocytosis) Code(s): D72.829 - ELEVATED WHITE BLOOD CELL COUNT, UNSPECIFIED Qualifiers: Leukocytosis type: unspecified Qualified Code(s): D72.829 - Elevated white blood cell count, unspecified (5) Nausea & vomiting Code(s): R11.2 - NAUSEA WITH VOMITING, UNSPECIFIED (6) UTI (urinary tract infection) Code(s): N39.0 - URINARY TRACT INFECTION, SITE NOT SPECIFIED Qualifiers: Urinary tract infection type: site unspecified Hematuria presence: without hematuria Qualified Code(s): N39.0 - Urinary tract infection, site not specified (7) CAD (coronary artery disease) Code(s): I25.10 - ATHSCL HEART DISEASE OF [place] CORONARY ARTERY W/O ANG PCTRS (8) CVA (cerebral vascular accident) Code(s): I63.9 - CEREBRAL INFARCTION, UNSPECIFIED (9) Complicated UTI (urinary tract infection) Code(s): N39.0 - URINARY TRACT INFECTION, SITE NOT SPECIFIED (10) DVT prophylaxis Code(s): [id number] - (11) HLD (hyperlipidemia) Code(s): E78.5 - HYPERLIPIDEMIA, UNSPECIFIED (12) HTN (hypertension) Code(s): I10 - ESSENTIAL (PRIMARY) HYPERTENSION (13) Sepsis Code(s): A41.9 - SEPSIS, UNSPECIFIED ORGANISM (14) Dysphagia Code(s): R13.10 - DYSPHAGIA, UNSPECIFIED Visit type - Emergency Visit Emergency Visit: Yes ED Registration Date: 04/20/16 Care time: The patient presented to the Emergency Department on the above date and was hospitalized for further evaluation of their emergent condition. - New Patient This patient is new to me today: No - Critical Care Critical Care patient: No
--- NOTE | 2016-04-24 10:35 | PN ---
Teaching Attending Note Name of Resident: Nimesh Greenfield ATTENDING PHYSICIAN STATEMENT I saw and evaluated the patient. I reviewed the resident's note and discussed the case with the resident. I agree with the resident's findings and plan as documented. SUBJECTIVE: seen and evaluated at the bedside OBJECTIVE: resting comfortably; states dysuria and apetite have both improved ASSESSMENT AND PLAN:71 yo M with a PMHx of HTN, HLD, CAD s.p stent in 2016, Afib (digoxin), CVA with L side residual weakness, IDDM, PVD with bilateral limb amputation, liver cirrhosis with prior GI bleed and Hepatitis C admitted for sepsis due to UTI UTI -presented with dysuria and elevated WBC -grew ESBL pseudamonas on previous urine cultures -urine cultures growing greater than 100,000 colonies enterococcus which is now VRE sensitive only to daptomycin -cont zosyn for psuedomonas growing in urine culture -ID consult greatly appreciated
[2016-04-24] MEDS: DAPTOMYCIN 300 MG in SODIUM CHLORIDE 50 ML IVPB SCH (14:49)
--- NOTE | 2016-04-24 16:45 | PN ---
Progress Note, Physician History of Present Illness: patient feeling much better dysuria has improved and abd pain now resolved patient had bm comfortable today - Current Medication List Current Medications: Active Medications Acetaminophen (Tylenol -) 650 mg PO Q6H PRN PRN Reason: PAIN Last Admin: 04/23/16 20:11 Dose: 650 mg Amino Acids (Prostat Sugar-Free Packet -) 30 ml PO BID@0800,1730 [facility] Last Admin: 04/24/16 08:02 Dose: Not Given Bupropion HCl (Wellbutrin Xl -) 300 mg PO DAILY [facility] Last Admin: 04/24/16 09:47 Dose: 300 mg Clopidogrel Bisulfate (Plavix -) 75 mg PO DAILY [facility] Last Admin: 04/24/16 09:46 Dose: 75 mg Digoxin (Lanoxin -) 0.25 mg PO DAILY [facility] Last Admin: 04/24/16 09:46 Dose: 0.25 mg Docusate Sodium (Colace -) 100 mg PO TID [facility] Last Admin: 04/24/16 13:34 Dose: Not Given Finasteride (Proscar -) 5 mg PO DAILY [facility] Last Admin: 04/24/16 09:47 Dose: 5 mg Gabapentin (Neurontin -) 100 mg PO TID [facility] Last Admin: 04/24/16 13:46 Dose: 100 mg Heparin Sodium (Porcine) (Heparin -) 5,000 unit SQ TID [facility] Last Admin: 04/24/16 13:45 Dose: 5,000 unit Piperacillin Sod/Tazobactam Sod (Zosyn 3.375gm Ivpb (Pre-Docked)) 50 mls @ 100 mls/hr IVPB Q8H-IV [facility] Last Admin: 04/24/16 09:46 Dose: 100 mls/hr Daptomycin 300 mg/ Sodium (Chloride) 50 mls @ 100 mls/hr IVPB Q24H [facility] Stop: 04/29/16 14:29 Last Admin: 04/24/16 14:49 Dose: 100 mls/hr Metoclopramide HCl (Reglan -) 5 mg PO TIDAC [facility] Last Admin: 04/24/16 11:44 Dose: 5 mg Oxycodone HCl (Roxicodone -) 10 mg PO Q6H PRN PRN Reason: PAIN LEVEL 6-10 Last Admin: 04/23/16 20:12 Dose: 10 mg Pantoprazole Sodium (Protonix -) 40 mg PO BID [facility] Last Admin: 04/24/16 09:47 Dose: 40 mg Tamsulosin HCl (Flomax -) 0.4 mg PO DAILY [facility] Last Admin: 04/24/16 09:47 Dose: 0.4 mg - Objective Vital Signs: Vital Signs Temperature 98.0 F 04/24/16 14:15 Pulse Rate 92 H 04/24/16 14:15 Respiratory Rate 18 04/24/16 14:15 Blood Pressure 112/80 04/24/16 14:15 O2 Sat by Pulse Oximetry (%) 98 04/24/16 09:38 Constitutional: Yes: No Distress, Calm HENT: Yes: Atraumatic, Normocephalic Cardiovascular: Yes: Regular Rate and Rhythm Respiratory: Yes: Regular, CTA Bilaterally Gastrointestinal: Yes: Normal Bowel Sounds, Soft Musculoskeletal: Yes: WNL Extremities: Yes: Other (bilatearl amputation) Integumentary: Yes: WNL Neurological: Yes: Alert, Oriented Psychiatric: Yes: Alert Labs: CBC, BMP 04/24/16 06:00 04/24/16 06:00 Assessment/Plan ASSESSMENT/PLAN: The patient is a 71 yo M who presents with constipation and vomiting. The patient was found to be septic secondary to UTI. 1.) Sepsis secondary to UTI 2.) Constipation and vomiting 3.) Atrial Fibrillation 4.) CAD s.p stent also patient has constipation plan continue abx as planned continue monitoring rest as per primary team
--- NOTE | 2016-04-24 17:09 | CON.GI ---
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 Cardio/Vascular: Yes: CAD, HTN, Other (MAT) Gastrointestinal: Yes: Constipation Renal/: Yes: UTI Endocrine: Yes: Diabetes Mellitus - Past Surgical History Past Surgical History: Yes: Amputation - Alcohol/Substance Use Hx Alcohol Use: No History of Substance Use: reports: None - Smoking History Smoking history: Unknown if ever smoked Have you smoked in the past 12 months: No Aproximately how many cigarettes per day: 40 - Social History ADL: Support Services History of Recent Travel: No Home Medications - Allergies Allergies/Adverse Reactions: Allergies Allergy/AdvReac Type Severity Reaction Status Date / Time No Known Allergies Allergy Verified 04/20/16 13:21 - Home Medications Home Medications: Ambulatory Orders Bupropion HCl [Wellbutrin Xl] 300 mg PO DAILY 07/21/15 Gabapentin [Neurontin -] 100 mg PO TID #90 capsule 07/25/15 Finasteride 5 mg PO DAILY 10/08/15 Digoxin [Lanoxin -] 0.25 mg PO DAILY #30 tablet 10/10/15 Polyethylene Glycol 3350 [Miralax 119 gm Btl -] 17 gm PO TID #1 bottle 10/10/15 Amino Acids/Protein Hydrolys [Prostat Sugar-Free Packet -] 30 ml PO BID@0800, 1730 #60 packet 10/29/15 Metoclopramide HCl [Reglan] 5 mg PO AC #90 tablet 10/29/15 Atorvastatin Ca [Lipitor] 40 mg PO HS 02/15/16 Docusate Sodium 100 mg PO DAILY 02/15/16 Tamsulosin HCl 0.4 mg PO DAILY 02/15/16 Clopidogrel Bisulfate [Plavix -] 75 mg PO DAILY tablet 02/28/16 Pantoprazole Sodium [Protonix -] 40 mg PO BID #40 tablet.ec 02/28/16 Family Disease History - Family Disease History Family Disease History: Diabetes: Father, CA: Mother (throat) Physical Exam-GI Vital Signs: Vital Signs Temperature 98.0 F 04/24/16 14:15 Pulse Rate 92 H 04/24/16 14:15 Respiratory Rate 18 04/24/16 14:15 Blood Pressure 112/80 04/24/16 14:15 O2 Sat by Pulse Oximetry (%) 98 04/24/16 09:38 Labs: CBC, BMP 04/24/16 06:00 04/24/16 06:00
[2016-04-25] MEDS: PIPERACILLIN/TAZOB 3.375 GM 50 ML IVPB SCH ×3 (01:28→17:29)
[2016-04-25] MEDS: DOCUSATE SODIUM 100 MG CAPSULE (FP) PO SCH ×3 (05:58→21:54)
[2016-04-25] MEDS: HEPARIN NA (PORCINE) 5,000 UNITS/ML 1ML VIAL SQ SCH ×3 (05:59→21:55)
[2016-04-25] MEDS: GABAPENTIN 100 MG CAPSULE (FP) PO SCH ×3 (05:59→21:54)
[2016-04-25] MEDS: METOCLOPRAMIDE HCL 10 MG TABLET (FP) PO SCH ×3 (06:06→17:29)
[2016-04-25] MEDS: AMINO ACIDS/PROTEIN HYDROLYS SUGAR-FREE 30 ML PACKET PO SCH ×2 (08:43→17:29)
--- NOTE | 2016-04-25 09:28 | PN ---
Progress Note, Physician - Current Medication List Current Medications: Active Medications Acetaminophen (Tylenol -) 650 mg PO Q6H PRN PRN Reason: PAIN Last Admin: 04/23/16 20:11 Dose: 650 mg Amino Acids (Prostat Sugar-Free Packet -) 30 ml PO BID@0800,1730 [facility] Last Admin: 04/25/16 08:43 Dose: Not Given Bupropion HCl (Wellbutrin Xl -) 300 mg PO DAILY [facility] Last Admin: 04/24/16 09:47 Dose: 300 mg Clopidogrel Bisulfate (Plavix -) 75 mg PO DAILY [facility] Last Admin: 04/24/16 09:46 Dose: 75 mg Digoxin (Lanoxin -) 0.25 mg PO DAILY [facility] Last Admin: 04/24/16 09:46 Dose: 0.25 mg Docusate Sodium (Colace -) 100 mg PO TID [facility] Last Admin: 04/25/16 05:58 Dose: 100 mg Finasteride (Proscar -) 5 mg PO DAILY [facility] Last Admin: 04/24/16 09:47 Dose: 5 mg Gabapentin (Neurontin -) 100 mg PO TID [facility] Last Admin: 04/25/16 05:59 Dose: 100 mg Heparin Sodium (Porcine) (Heparin -) 5,000 unit SQ TID [facility] Last Admin: 04/25/16 05:59 Dose: 5,000 unit Piperacillin Sod/Tazobactam Sod (Zosyn 3.375gm Ivpb (Pre-Docked)) 50 mls @ 100 mls/hr IVPB Q8H-IV [facility] Last Admin: 04/25/16 01:28 Dose: 100 mls/hr Daptomycin 300 mg/ Sodium (Chloride) 50 mls @ 100 mls/hr IVPB Q24H [facility] Stop: 04/29/16 14:29 Last Admin: 04/24/16 14:49 Dose: 100 mls/hr Metoclopramide HCl (Reglan -) 5 mg PO TIDAC [facility] Last Admin: 04/25/16 06:06 Dose: 5 mg Oxycodone HCl (Roxicodone -) 10 mg PO Q6H PRN PRN Reason: PAIN LEVEL 6-10 Last Admin: 04/23/16 20:12 Dose: 10 mg Pantoprazole Sodium (Protonix -) 40 mg PO BID [facility] Last Admin: 04/24/16 21:21 Dose: Not Given Tamsulosin HCl (Flomax -) 0.4 mg PO DAILY [facility] Last Admin: 04/24/16 09:47 Dose: 0.4 mg - Objective Vital Signs: Vital Signs Temperature 98.2 F 04/25/16 05:00 Pulse Rate 94 H 04/25/16 05:00 Respiratory Rate 18 04/25/16 05:00 Blood Pressure 98/60 04/25/16 05:00 O2 Sat by Pulse Oximetry (%) 98 04/24/16 21:00 Constitutional: Yes: Well Nourished, No Distress, Calm Eyes: Yes: WNL, Conjunctiva Clear HENT: Yes: WNL, Atraumatic, Normocephalic Neck: Yes: WNL, Supple, Trachea Midline Cardiovascular: Yes: WNL, Regular Rate and Rhythm Respiratory: Yes: WNL, Regular, CTA Bilaterally Gastrointestinal: Yes: WNL, Normal Bowel Sounds Musculoskeletal: Yes: WNL Extremities: Yes: Other (B/L BKA) Edema: No Integumentary: Yes: WNL Neurological: Yes: WNL, Alert, Oriented ...Motor Strength: WNL Psychiatric: Yes: WNL Labs: CBC, BMP 04/24/16 06:00 04/24/16 06:00 Impression/Plan Impression/Plan: 71 yo M with a PMHx of HTN, HLD, CAD s.p stent in 2016, Afib (digoxin), CVA with L side residual weakness, IDDM, PVD with bilateral limb amputation, liver cirrhosis with prior GI bleed and Hepatitis C admitted for sepsis due to UTI UTI -presented with dysuria and elevated WBC -grew ESBL pseudamonas on previous urine cultures -urine cultures growing greater than 100,000 colonies enterococcus which is now VRE sensitive only to daptomycin -cont zosyn for psuedomonas growing in urine culture -ID consult greatly appreciated Esophageal stricture -pt had EDG with balloon dilation in the past and stated that he did not get completer resolution -follow up GI consult Visit type - Emergency Visit Emergency Visit: Yes ED Registration Date: 04/20/16 Care time: The patient presented to the Emergency Department on the above date and was hospitalized for further evaluation of their emergent condition. - New Patient This patient is new to me today: No - Critical Care Critical Care patient: No
[2016-04-25] MEDS: PANTOPRAZOLE 40 MG TABLET (FP) PO SCH ×2 (10:00→21:54)
[2016-04-25] MEDS: CLOPIDOGREL BISULFATE 75 MG TABLET (FP) PO SCH (10:01)
[2016-04-25] MEDS: TAMSULOSIN HCL 0.4 MG CAP.ER.24H (FP) PO SCH (10:01)
[2016-04-25] MEDS: DIGOXIN 0.25 MG TABLET (FP) PO SCH (10:01)
[2016-04-25] MEDS: FINASTERIDE 5 MG TABLET (FP) PO SCH (10:02)
[2016-04-25] MEDS: DAPTOMYCIN 300 MG in SODIUM CHLORIDE 50 ML IVPB SCH (14:00)
--- NOTE | 2016-04-25 15:21 | PN ---
Progress Note, Physician History of Present Illness: says he is feeling much better weakness no other issues - Current Medication List Current Medications: Active Medications Acetaminophen (Tylenol -) 650 mg PO Q6H PRN PRN Reason: PAIN Last Admin: 04/23/16 20:11 Dose: 650 mg Amino Acids (Prostat Sugar-Free Packet -) 30 ml PO BID@0800,1730 [facility] Last Admin: 04/25/16 08:43 Dose: Not Given Bupropion HCl (Wellbutrin Xl -) 300 mg PO DAILY [facility] Last Admin: 04/25/16 10:01 Dose: 300 mg Clopidogrel Bisulfate (Plavix -) 75 mg PO DAILY [facility] Last Admin: 04/25/16 10:01 Dose: 75 mg Digoxin (Lanoxin -) 0.25 mg PO DAILY [facility] Last Admin: 04/25/16 10:01 Dose: 0.25 mg Docusate Sodium (Colace -) 100 mg PO TID [facility] Last Admin: 04/25/16 14:00 Dose: 100 mg Finasteride (Proscar -) 5 mg PO DAILY [facility] Last Admin: 04/25/16 10:02 Dose: 5 mg Gabapentin (Neurontin -) 100 mg PO TID [facility] Last Admin: 04/25/16 13:59 Dose: 100 mg Heparin Sodium (Porcine) (Heparin -) 5,000 unit SQ TID [facility] Last Admin: 04/25/16 13:59 Dose: 5,000 unit Piperacillin Sod/Tazobactam Sod (Zosyn 3.375gm Ivpb (Pre-Docked)) 50 mls @ 100 mls/hr IVPB Q8H-IV [facility] Last Admin: 04/25/16 10:00 Dose: 100 mls/hr Daptomycin 300 mg/ Sodium (Chloride) 50 mls @ 100 mls/hr IVPB Q24H [facility] Stop: 04/29/16 14:29 Last Admin: 04/25/16 14:00 Dose: 100 mls/hr Metoclopramide HCl (Reglan -) 5 mg PO TIDAC [facility] Last Admin: 04/25/16 10:02 Dose: 5 mg Oxycodone HCl (Roxicodone -) 10 mg PO Q6H PRN PRN Reason: PAIN LEVEL 6-10 Last Admin: 04/23/16 20:12 Dose: 10 mg Pantoprazole Sodium (Protonix -) 40 mg PO BID [facility] Last Admin: 04/25/16 10:00 Dose: 40 mg Tamsulosin HCl (Flomax -) 0.4 mg PO DAILY [facility] Last Admin: 04/25/16 10:01 Dose: 0.4 mg - Objective Vital Signs: Vital Signs Temperature 98.1 F 04/25/16 13:56 Pulse Rate 93 H 04/25/16 13:56 Respiratory Rate 18 04/25/16 13:56 Blood Pressure 100/61 04/25/16 09:00 O2 Sat by Pulse Oximetry (%) 96 04/25/16 09:00 Constitutional: Yes: No Distress, Calm Neck: Yes: Supple Cardiovascular: Yes: Regular Rate and Rhythm Respiratory: Yes: Regular, CTA Bilaterally Gastrointestinal: Yes: Normal Bowel Sounds, Soft Musculoskeletal: Yes: Other Extremities: Yes: Other (bilat amputation) Neurological: Yes: Alert, Oriented Psychiatric: Yes: Alert Labs: CBC, BMP 04/24/16 06:00 04/24/16 06:00 Assessment/Plan ASSESSMENT/PLAN: The patient is a 71 yo M who presents with constipation and vomiting. The patient was found to be septic secondary to UTI. 1.) Sepsis secondary to UTI 2.) Constipation and vomiting 3.) Atrial Fibrillation 4.) CAD s.p stent also patient has constipation plan continue abx as planned continue monitoring rest as per primary team stop date of abx present total of 7 days
[2016-04-26] MEDS: PIPERACILLIN/TAZOB 3.375 GM 50 ML IVPB SCH ×2 (01:32→10:12)
[2016-04-26] MEDS: METOCLOPRAMIDE HCL 10 MG TABLET (FP) PO SCH ×3 (06:12→17:25)
[2016-04-26] MEDS: GABAPENTIN 100 MG CAPSULE (FP) PO SCH ×3 (06:12→22:42)
[2016-04-26] MEDS: DOCUSATE SODIUM 100 MG CAPSULE (FP) PO SCH ×3 (06:12→22:41)
[2016-04-26] MEDS: HEPARIN NA (PORCINE) 5,000 UNITS/ML 1ML VIAL SQ SCH ×3 (06:13→22:42)
[2016-04-26] MEDS: AMINO ACIDS/PROTEIN HYDROLYS SUGAR-FREE 30 ML PACKET PO SCH ×2 (10:12→17:26)
[2016-04-26] MEDS: DIGOXIN 0.25 MG TABLET (FP) PO SCH (10:12)
[2016-04-26] MEDS: FINASTERIDE 5 MG TABLET (FP) PO SCH (10:12)
[2016-04-26] MEDS: PANTOPRAZOLE 40 MG TABLET (FP) PO SCH ×2 (10:12→22:41)
[2016-04-26] MEDS: CLOPIDOGREL BISULFATE 75 MG TABLET (FP) PO SCH (10:12)
[2016-04-26] MEDS: TAMSULOSIN HCL 0.4 MG CAP.ER.24H (FP) PO SCH (10:12)
--- NOTE | 2016-04-26 10:56 | PN ---
<Nimesh Greenfield - Last Filed: 04/26/16 13:14> Physical Exam: SUBJECTIVE: Patient seen and examined at bedside. Feels well overall. Denies N/V /F/C, CP, SOB, abd pain. Continues to have BMs w/o issue. OBJECTIVE: Vital Signs Temperature 97.8 F 04/26/16 05:00 Pulse Rate 78 04/26/16 10:12 Respiratory Rate 20 04/26/16 09:00 Blood Pressure 107/47 04/26/16 05:00 O2 Sat by Pulse Oximetry (%) 98 04/26/16 09:00 GENERAL: The patient is awake, alert, and fully oriented, in no acute distress. HEAD: Normal with no signs of trauma. EYES: sclera anicteric, conjunctiva clear. No ptosis. ENT: moist mucous membranes. NECK: Trachea midline, full range of motion, supple. LUNGS: Auscultated anteriorly, Breath sounds equal, clear to auscultation bilaterally, no wheezes, no crackles, no accessory muscle use. HEART: Regular rate and rhythm, S1, S2 without murmur, rub or gallop. ABDOMEN: Soft, nontender, nondistended, normoactive bowel sounds, no guarding, no rebound, no hepatosplenomegaly, no masses. EXTREMITIES: warm, no edema. B/L BKA. NEUROLOGICAL: Normal speech, gait not observed. PSYCH: Normal mood, normal affect. SKIN: Warm, dry, normal turgor, no rashes or lesions noted Microbiology 04/20/16 21:05 Blood - Arterial Blood Culture - Final NO GROWTH AFTER 5 DAYS INCUBATION 04/20/16 21:10 Blood - Arterial Blood Culture - Final NO GROWTH AFTER 5 DAYS INCUBATION 04/20/16 21:40 Urine - Urine Clean Catch Urine Culture - Final Vr Ec Faecium Pseudomonas Aeruginosa Active Medications Generic Name Dose Route Start Last Admin Trade Name Freq PRN Reason Stop Dose Admin Acetaminophen 650 mg 04/22/16 15:52 04/23/16 20:11 Tylenol - PO 650 mg Q6H PRN Administration PAIN Amino Acids 30 ml 04/21/16 08:00 04/26/16 10:12 Prostat Sugar-Free Packet - PO Not Given BID@0800,1730 [facility] Bupropion HCl 300 mg 04/21/16 10:00 04/26/16 10:12 Wellbutrin Xl - PO 300 mg DAILY [facility] Administration Clopidogrel Bisulfate 75 mg 04/21/16 10:00 04/26/16 10:12 Plavix - PO 75 mg DAILY [facility] Administration Digoxin 0.25 mg 04/21/16 10:00 04/26/16 10:12 Lanoxin - PO 0.25 mg DAILY [facility] Administration Docusate Sodium 100 mg 04/22/16 14:00 04/26/16 06:12 Colace - PO 100 mg TID [facility] Administration Finasteride 5 mg 04/21/16 10:00 04/26/16 10:12 Proscar - PO 5 mg DAILY [facility] Administration Gabapentin 100 mg 04/20/16 22:00 04/26/16 06:12 Neurontin - PO 100 mg TID [facility] Administration Heparin Sodium (Porcine) 5,000 unit 04/20/16 22:00 04/26/16 06:13 Heparin - SQ 5,000 unit TID [facility] Administration Piperacillin Sod/Tazobactam Sod 50 mls @ 100 mls/hr 04/21/16 16:00 04/26/16 10: 12 Zosyn 3.375gm Ivpb (Pre-Docked) IVPB 100 mls/hr Q8H-IV [facility] Administration Daptomycin 300 mg/ Sodium 50 mls @ 100 mls/hr 04/24/16 14:00 04/25/16 14:00 Chloride IVPB 04/29/16 14:29 100 mls/hr Q24H [facility] Administration Metoclopramide HCl 5 mg 04/21/16 07:00 04/26/16 06:12 Reglan - PO 5 mg TIDAC [facility] Administration Pantoprazole Sodium 40 mg 04/20/16 22:00 04/26/16 10:12 Protonix - PO 40 mg BID [facility] Administration Tamsulosin HCl 0.4 mg 04/21/16 10:00 04/26/16 10:12 Flomax - PO 0.4 mg DAILY [facility] Administration ASSESSMENT/PLAN: 71 y/o M with sig PMH of CAD s/p stent in 2015, A-fib on digoxin, CVA w/ L sided weakness, PVD w/ B/L BKA, liver cirrhosis, previous GI bleed, Hep C presented to ER with constipation and vomiting for past week. Pt admitted for sepsis secondary to UTI -Sepsis secondary to UTI -Pt no longer has burning with urination; WBC wnl -c/w zosyn, daptomycin (day 4; needs 7 days total); ID on board -CXR - no acute pathology -UCx - Group D Strep Or Entero Coccus and presumptive positive for Ps Aeruginosa, awaiting final report. -Dysphagia -EGD 10/28/15 shows GE junction stricture which was dilated via balloon -GI consulted -GI suggests pt will would benefit from going to tertiary care center for swallowing issues. -Pt is agreeable to going to [facility] once discharged. -Constipation -resolved -colace TID, reglan -A-fib -c/w digoxin -CAD -s/p stent 2015 -c/w lipitor 40mg, plavix 75mg -BPH -c/w flomax, finasteride -DVT ppx -heparin 5000 units sq tid -FEN -no fluids -Soft diet + prostat; MBS -Dispo: -Monitor on floors. On IV Dapto, ID on board. Problem List - Problems (1) BPH (benign prostatic hyperplasia) Code(s): N40.0 - BENIGN PROSTATIC HYPERPLASIA WITHOUT LOWER URINRY TRACT SYMP (2) Dehydration Code(s): E86.0 - DEHYDRATION (3) Hepatitis C Code(s): B19.20 - UNSPECIFIED VIRAL HEPATITIS C WITHOUT HEPATIC COMA (4) Leukocytosis (leucocytosis) Code(s): D72.829 - ELEVATED WHITE BLOOD CELL COUNT, UNSPECIFIED Qualifiers: Leukocytosis type: unspecified Qualified Code(s): D72.829 - Elevated white blood cell count, unspecified (5) Nausea & vomiting Code(s): R11.2 - NAUSEA WITH VOMITING, UNSPECIFIED (6) UTI (urinary tract infection) Code(s): N39.0 - URINARY TRACT INFECTION, SITE NOT SPECIFIED Qualifiers: Urinary tract infection type: site unspecified Hematuria presence: without hematuria Qualified Code(s): N39.0 - Urinary tract infection, site not specified (7) CAD (coronary artery disease) Code(s): I25.10 - ATHSCL HEART DISEASE OF [place] CORONARY ARTERY W/O ANG PCTRS (8) CVA (cerebral vascular accident) Code(s): I63.9 - CEREBRAL INFARCTION, UNSPECIFIED (9) Complicated UTI (urinary tract infection) Code(s): N39.0 - URINARY TRACT INFECTION, SITE NOT SPECIFIED (10) DVT prophylaxis Code(s): [id number] - (11) HLD (hyperlipidemia) Code(s): E78.5 - HYPERLIPIDEMIA, UNSPECIFIED (12) HTN (hypertension) Code(s): I10 - ESSENTIAL (PRIMARY) HYPERTENSION (13) Sepsis Code(s): A41.9 - SEPSIS, UNSPECIFIED ORGANISM (14) Dysphagia Code(s): R13.10 - DYSPHAGIA, UNSPECIFIED Visit type - Emergency Visit Emergency Visit: Yes ED Registration Date: 04/20/16 Care time: The patient presented to the Emergency Department on the above date and was hospitalized for further evaluation of their emergent condition. - New Patient This patient is new to me today: No - Critical Care Critical Care patient: No <Abdirizak Lopez - Last Filed: 04/26/16 19:20> Physical Exam: ATTENDING PHYSICIAN STATEMENT I saw and evaluated the patient. I reviewed the resident's note and discussed the case with the resident. I agree with the resident's findings and plan as documented. SUBJECTIVE: seen and evaluated at the bedside OBJECTIVE: resting comfortably; states dysuria and apetite have both improved ASSESSMENT AND PLAN:71 yo M with a PMHx of HTN, HLD, CAD s.p stent in 2016, Afib (digoxin), CVA with L side residual weakness, IDDM, PVD with bilateral limb amputation, liver cirrhosis with prior GI bleed and Hepatitis C admitted for sepsis due to UTI UTI -presented with dysuria and elevated WBC -grew ESBL pseudamonas on previous urine cultures -urine cultures growing greater than 100,000 colonies enterococcus which is now VRE sensitive only to daptomycin -cont zosyn for psuedomonas growing in urine culture -ID consult greatly appreciated Esophageal stricture -pt had EDG with balloon dilation in the past and stated that he did not get completer resolution -GI consult appreciated; recommendation is for dilation at tertiary care center as pt has risk for perforation
[2016-04-26] MEDS: DAPTOMYCIN 300 MG in SODIUM CHLORIDE 50 ML IVPB SCH (15:04)
--- NOTE | 2016-04-26 16:04 | PN ---
Progress Note, Physician History of Present Illness: patient stable no events wondering what is happening for the diagnosis of hiatal hernia - Current Medication List Current Medications: Active Medications Acetaminophen (Tylenol -) 650 mg PO Q6H PRN PRN Reason: PAIN Last Admin: 04/23/16 20:11 Dose: 650 mg Amino Acids (Prostat Sugar-Free Packet -) 30 ml PO BID@0800,1730 [facility] Last Admin: 04/26/16 10:12 Dose: Not Given Bupropion HCl (Wellbutrin Xl -) 300 mg PO DAILY [facility] Last Admin: 04/26/16 10:12 Dose: 300 mg Clopidogrel Bisulfate (Plavix -) 75 mg PO DAILY [facility] Last Admin: 04/26/16 10:12 Dose: 75 mg Digoxin (Lanoxin -) 0.25 mg PO DAILY [facility] Last Admin: 04/26/16 10:12 Dose: 0.25 mg Docusate Sodium (Colace -) 100 mg PO TID [facility] Last Admin: 04/26/16 15:05 Dose: 100 mg Finasteride (Proscar -) 5 mg PO DAILY [facility] Last Admin: 04/26/16 10:12 Dose: 5 mg Gabapentin (Neurontin -) 100 mg PO TID [facility] Last Admin: 04/26/16 15:05 Dose: 100 mg Heparin Sodium (Porcine) (Heparin -) 5,000 unit SQ TID [facility] Last Admin: 04/26/16 15:05 Dose: 5,000 unit Piperacillin Sod/Tazobactam Sod (Zosyn 3.375gm Ivpb (Pre-Docked)) 50 mls @ 100 mls/hr IVPB Q8H-IV [facility] Last Admin: 04/26/16 10:12 Dose: 100 mls/hr Daptomycin 300 mg/ Sodium (Chloride) 50 mls @ 100 mls/hr IVPB Q24H [facility] Stop: 04/29/16 14:29 Last Admin: 04/26/16 15:04 Dose: 100 mls/hr Metoclopramide HCl (Reglan -) 5 mg PO TIDAC [facility] Last Admin: 04/26/16 11:50 Dose: 5 mg Pantoprazole Sodium (Protonix -) 40 mg PO BID [facility] Last Admin: 04/26/16 10:12 Dose: 40 mg Tamsulosin HCl (Flomax -) 0.4 mg PO DAILY [facility] Last Admin: 04/26/16 10:12 Dose: 0.4 mg - Objective Vital Signs: Vital Signs Temperature 97.7 F 04/26/16 14:25 Pulse Rate 84 04/26/16 14:25 Respiratory Rate 20 04/26/16 14:25 Blood Pressure 96/55 04/26/16 14:25 O2 Sat by Pulse Oximetry (%) 98 04/26/16 09:00 Constitutional: Yes: No Distress, Calm Cardiovascular: Yes: Regular Rate and Rhythm Respiratory: Yes: Regular, CTA Bilaterally Gastrointestinal: Yes: Normal Bowel Sounds, Soft Musculoskeletal: Yes: Other Extremities: Yes: Other (bilat amp) Neurological: Yes: Alert, Oriented Psychiatric: Yes: Alert Labs: CBC, BMP 04/24/16 06:00 04/24/16 06:00 Assessment/Plan ASSESSMENT/PLAN: The patient is a 71 yo M who presents with constipation and vomiting. The patient was found to be septic secondary to UTI. 1.) Sepsis secondary to UTI 2.) Constipation and vomiting 3.) Atrial Fibrillation 4.) CAD s.p stent also patient has constipation plan continue abx as planned continue monitoring rest as per primary team stop date of abx present total of 7 days zosyn stopped
[2016-04-27] MEDS: METOCLOPRAMIDE HCL 10 MG TABLET (FP) PO SCH ×3 (06:31→16:36)
[2016-04-27] MEDS: DOCUSATE SODIUM 100 MG CAPSULE (FP) PO SCH ×3 (06:31→23:34)
[2016-04-27] MEDS: GABAPENTIN 100 MG CAPSULE (FP) PO SCH ×3 (06:32→23:34)
[2016-04-27] MEDS: HEPARIN NA (PORCINE) 5,000 UNITS/ML 1ML VIAL SQ SCH ×3 (06:32→23:33)
[2016-04-27] MEDS: AMINO ACIDS/PROTEIN HYDROLYS SUGAR-FREE 30 ML PACKET PO SCH ×2 (09:29→17:18)
[2016-04-27] MEDS: TAMSULOSIN HCL 0.4 MG CAP.ER.24H (FP) PO SCH (09:35)
[2016-04-27] MEDS: PANTOPRAZOLE 40 MG TABLET (FP) PO SCH ×2 (09:35→23:34)
[2016-04-27] MEDS: DIGOXIN 0.25 MG TABLET (FP) PO SCH (09:35)
[2016-04-27] MEDS: CLOPIDOGREL BISULFATE 75 MG TABLET (FP) PO SCH (09:36)
[2016-04-27] MEDS: FINASTERIDE 5 MG TABLET (FP) PO SCH (09:36)
--- NOTE | 2016-04-27 11:39 | PN ---
Physical Exam: SUBJECTIVE: Patient seen and examined at bedside. Feels well today. Pt wanted to sign out out AMA but risks of signing out were explained to pt and he stated he would stay after hearing risks. Denies F/C, abd pain, dysuria, CP, SOB. Pt would like to move off the bed and into chair. OBJECTIVE: Vital Signs Temperature 97.6 F 04/26/16 22:00 Pulse Rate 88 04/27/16 09:35 Respiratory Rate 20 04/27/16 09:00 Blood Pressure 92/51 04/26/16 22:00 O2 Sat by Pulse Oximetry (%) 98 04/27/16 09:00 GENERAL: The patient is awake, alert, and fully oriented, in no acute distress. HEAD: Normal with no signs of trauma. EYES: sclera anicteric, conjunctiva clear. No ptosis. ENT: moist mucous membranes. NECK: Trachea midline, full range of motion, supple. LUNGS: Auscultated anteriorly, Breath sounds equal, clear to auscultation bilaterally, no wheezes, no crackles, no accessory muscle use. HEART: Regular rate and rhythm, S1, S2 without murmur, rub or gallop. ABDOMEN: Soft, nontender, nondistended, normoactive bowel sounds, no guarding, no rebound, no hepatosplenomegaly, no masses. EXTREMITIES: warm, no edema. B/L BKA. NEUROLOGICAL: Normal speech, gait not observed. PSYCH: Normal mood, normal affect. SKIN: Warm, dry, normal turgor, no rashes or lesions noted Microbiology 04/20/16 21:05 Blood - Arterial Blood Culture - Final NO GROWTH AFTER 5 DAYS INCUBATION 04/20/16 21:10 Blood - Arterial Blood Culture - Final NO GROWTH AFTER 5 DAYS INCUBATION 04/20/16 21:40 Urine - Urine Clean Catch Urine Culture - Final Vr Ec Faecium Pseudomonas Aeruginosa Active Medications Generic Name Dose Route Start Last Admin Trade Name Freq PRN Reason Stop Dose Admin Acetaminophen 650 mg 04/22/16 15:52 04/23/16 20:11 Tylenol - PO 650 mg Q6H PRN Administration PAIN Amino Acids 30 ml 04/21/16 08:00 04/27/16 09:29 Prostat Sugar-Free Packet - PO Not Given BID@0800,1730 [facility] Bupropion HCl 300 mg 04/21/16 10:00 04/27/16 09:36 Wellbutrin Xl - PO 300 mg DAILY [facility] Administration Clopidogrel Bisulfate 75 mg 04/21/16 10:00 04/27/16 09:36 Plavix - PO 75 mg DAILY [facility] Administration Digoxin 0.25 mg 04/21/16 10:00 04/27/16 09:35 Lanoxin - PO 0.25 mg DAILY [facility] Administration Docusate Sodium 100 mg 04/22/16 14:00 04/27/16 06:31 Colace - PO 100 mg TID [facility] Administration Finasteride 5 mg 04/21/16 10:00 04/27/16 09:36 Proscar - PO 5 mg DAILY [facility] Administration Gabapentin 100 mg 04/20/16 22:00 04/27/16 06:32 Neurontin - PO 100 mg TID [facility] Administration Heparin Sodium (Porcine) 5,000 unit 04/20/16 22:00 04/27/16 06:32 Heparin - SQ 5,000 unit TID [facility] Administration Daptomycin 300 mg/ Sodium 50 mls @ 100 mls/hr 04/24/16 14:00 04/26/16 15:04 Chloride IVPB 04/29/16 14:29 100 mls/hr Q24H [facility] Administration Metoclopramide HCl 5 mg 04/21/16 07:00 04/27/16 06:31 Reglan - PO 5 mg TIDAC [facility] Administration Pantoprazole Sodium 40 mg 04/20/16 22:00 04/27/16 09:35 Protonix - PO 40 mg BID [facility] Administration Tamsulosin HCl 0.4 mg 04/21/16 10:00 04/27/16 09:35 Flomax - PO 0.4 mg DAILY [facility] Administration ASSESSMENT/PLAN: 71 y/o M with sig PMH of CAD s/p stent in 2016, A-fib on digoxin, CVA w/ L sided weakness, PVD w/ B/L BKA, liver cirrhosis, previous GI bleed, Hep C presented to ER with constipation and vomiting for past week. Pt admitted for sepsis secondary to UTI -Sepsis secondary to UTI -Pt no longer has burning with urination; WBC wnl -c/w zosyn, daptomycin (day 5; needs 7 days total); ID on board -CXR - no acute pathology -UCx - Group D Strep Or Entero Coccus and presumptive positive for Ps Aeruginosa, awaiting final report. -Dysphagia -EGD 10/28/15 shows GE junction stricture which was dilated via balloon -GI consulted -GI suggests pt will would benefit from going to tertiary care center for swallowing issues. -Pt is agreeable to going to [facility] once discharged. -Constipation -resolved -colace TID, reglan -A-fib -c/w digoxin -CAD -s/p stent 2016 -c/w lipitor 40mg, plavix 75mg -BPH -c/w flomax, finasteride -DVT ppx -heparin 5000 units sq tid -FEN -no fluids -Soft diet + prostat; MBS -Dispo: -Monitor on floors. On IV Dapto, ID on board. Problem List - Problems (1) BPH (benign prostatic hyperplasia) Code(s): N40.0 - BENIGN PROSTATIC HYPERPLASIA WITHOUT LOWER URINRY TRACT SYMP (2) Dehydration Code(s): E86.0 - DEHYDRATION (3) Hepatitis C Code(s): B19.20 - UNSPECIFIED VIRAL HEPATITIS C WITHOUT HEPATIC COMA (4) Leukocytosis (leucocytosis) Code(s): D72.829 - ELEVATED WHITE BLOOD CELL COUNT, UNSPECIFIED Qualifiers: Leukocytosis type: unspecified Qualified Code(s): D72.829 - Elevated white blood cell count, unspecified (5) Nausea & vomiting Code(s): R11.2 - NAUSEA WITH VOMITING, UNSPECIFIED (6) UTI (urinary tract infection) Code(s): N39.0 - URINARY TRACT INFECTION, SITE NOT SPECIFIED Qualifiers: Urinary tract infection type: site unspecified Hematuria presence: without hematuria Qualified Code(s): N39.0 - Urinary tract infection, site not specified (7) CAD (coronary artery disease) Code(s): I25.10 - ATHSCL HEART DISEASE OF [place] CORONARY ARTERY W/O ANG PCTRS (8) CVA (cerebral vascular accident) Code(s): I63.9 - CEREBRAL INFARCTION, UNSPECIFIED (9) Complicated UTI (urinary tract infection) Code(s): N39.0 - URINARY TRACT INFECTION, SITE NOT SPECIFIED (10) DVT prophylaxis Code(s): [id number] - (11) HLD (hyperlipidemia) Code(s): E78.5 - HYPERLIPIDEMIA, UNSPECIFIED (12) HTN (hypertension) Code(s): I10 - ESSENTIAL (PRIMARY) HYPERTENSION (13) Sepsis Code(s): A41.9 - SEPSIS, UNSPECIFIED ORGANISM (14) Dysphagia Code(s): R13.10 - DYSPHAGIA, UNSPECIFIED Visit type - Emergency Visit Emergency Visit: Yes ED Registration Date: 04/20/16 Care time: The patient presented to the Emergency Department on the above date and was hospitalized for further evaluation of their emergent condition. - New Patient This patient is new to me today: No - Critical Care Critical Care patient: No
--- NOTE | 2016-04-27 13:14 | PN ---
Progress Note, Physician History of Present Illness: patient stable no events no complaints sitting in wheel chair - Current Medication List Current Medications: Active Medications Acetaminophen (Tylenol -) 650 mg PO Q6H PRN PRN Reason: PAIN Last Admin: 04/23/16 20:11 Dose: 650 mg Amino Acids (Prostat Sugar-Free Packet -) 30 ml PO BID@0800,1730 [facility] Last Admin: 04/27/16 09:29 Dose: Not Given Bupropion HCl (Wellbutrin Xl -) 300 mg PO DAILY [facility] Last Admin: 04/27/16 09:36 Dose: 300 mg Clopidogrel Bisulfate (Plavix -) 75 mg PO DAILY [facility] Last Admin: 04/27/16 09:36 Dose: 75 mg Digoxin (Lanoxin -) 0.25 mg PO DAILY [facility] Last Admin: 04/27/16 09:35 Dose: 0.25 mg Docusate Sodium (Colace -) 100 mg PO TID [facility] Last Admin: 04/27/16 06:31 Dose: 100 mg Finasteride (Proscar -) 5 mg PO DAILY [facility] Last Admin: 04/27/16 09:36 Dose: 5 mg Gabapentin (Neurontin -) 100 mg PO TID [facility] Last Admin: 04/27/16 06:32 Dose: 100 mg Heparin Sodium (Porcine) (Heparin -) 5,000 unit SQ TID [facility] Last Admin: 04/27/16 06:32 Dose: 5,000 unit Daptomycin 300 mg/ Sodium (Chloride) 50 mls @ 100 mls/hr IVPB Q24H [facility] Stop: 04/29/16 14:29 Last Admin: 04/26/16 15:04 Dose: 100 mls/hr Metoclopramide HCl (Reglan -) 5 mg PO TIDAC [facility] Last Admin: 04/27/16 12:07 Dose: 5 mg Pantoprazole Sodium (Protonix -) 40 mg PO BID [facility] Last Admin: 04/27/16 09:35 Dose: 40 mg Tamsulosin HCl (Flomax -) 0.4 mg PO DAILY [facility] Last Admin: 04/27/16 09:35 Dose: 0.4 mg - Objective Vital Signs: Vital Signs Temperature 97.6 F 04/26/16 22:00 Pulse Rate 88 04/27/16 09:35 Respiratory Rate 20 04/27/16 09:00 Blood Pressure 92/51 04/26/16 22:00 O2 Sat by Pulse Oximetry (%) 98 04/27/16 09:00 Constitutional: Yes: No Distress, Calm Neck: Yes: Supple Cardiovascular: Yes: Regular Rate and Rhythm Respiratory: Yes: Regular, CTA Bilaterally Gastrointestinal: Yes: Normal Bowel Sounds, Soft Musculoskeletal: Yes: Other Extremities: Yes: Other (bilateral amp of both legs) Integumentary: Yes: WNL Neurological: Yes: Alert, Oriented Psychiatric: Yes: Alert Labs: CBC, BMP 04/24/16 06:00 04/24/16 06:00 Assessment/Plan ASSESSMENT/PLAN: The patient is a 71 yo M who presents with constipation and vomiting. The patient was found to be septic secondary to UTI. 1.) Sepsis secondary to UTI 2.) Constipation and vomiting 3.) Atrial Fibrillation 4.) CAD s.p stent also patient has constipation plan finish the abx stop date given no abx after that prevention of constipation
[2016-04-27] MEDS ORDERED: PT OWN MED DRAWER 7, Y5N ONE (14:04)
--- NOTE | 2016-04-27 14:13 | PN ---
Teaching Attending Note Name of Resident: Nimesh Greenfield ATTENDING PHYSICIAN STATEMENT I saw and evaluated the patient. I reviewed the resident's note and discussed the case with the resident. I agree with the resident's findings and plan as documented. SUBJECTIVE:currently asymptomatic. requesting to get OOB to chair. denies CP, SOB,fever, chills, dysuria OBJECTIVE: Last Vital Signs Temp Pulse Resp BP Pulse Ox 97.6 F 88 20 92/51 98 04/26/16 22:00 04/27/16 09:35 04/27/16 09:00 04/26/16 22:00 04/27/16 09:00 General NAD Abdomen soft NT/ND no suprapubic tenderness ASSESSMENT AND PLAN: 71yo M with PMH CAD s/p stent in 2015, A-fib on digoxin, CVA w/ L sided weakness, PVD w/ B/L BKA, liver cirrhosis, previous GI bleed, Hep C presented to ER and was admitted for further evaluation of their emergent condition 1. Sepsis due to UTI- + ESBL pseudomonas and VRE. on Zosyn/Dapto day5. will complete 7 day course of abx. 2. B/L BKA- OOB to chair with assistance 3. dysphagia- hx of esophageal stricture s/o dilation. tolerating diet. evaluated by GI and plan is to go to [facility] on discharge for further workup. 4. d/c planning once abx course is completed on 04/29
[2016-04-27] MEDS: DAPTOMYCIN 300 MG in SODIUM CHLORIDE 50 ML IVPB SCH (16:35)
[2016-04-28] MEDS: DOCUSATE SODIUM 100 MG CAPSULE (FP) PO SCH ×3 (06:26→22:35)
[2016-04-28] MEDS: METOCLOPRAMIDE HCL 10 MG TABLET (FP) PO SCH ×2 (06:26→11:46)
[2016-04-28] MEDS: GABAPENTIN 100 MG CAPSULE (FP) PO SCH ×3 (06:26→22:35)
[2016-04-28] MEDS ORDERED: HEPARIN NA (PORCINE) 5,000 UNITS/ML 1ML VIAL SQ ONE (06:30)
[2016-04-28] MEDS: TAMSULOSIN HCL 0.4 MG CAP.ER.24H (FP) PO SCH (09:44)
[2016-04-28] MEDS: FINASTERIDE 5 MG TABLET (FP) PO SCH (09:46)
[2016-04-28] MEDS: DIGOXIN 0.25 MG TABLET (FP) PO SCH (09:46)
[2016-04-28] MEDS: CLOPIDOGREL BISULFATE 75 MG TABLET (FP) PO SCH (09:46)
[2016-04-28] MEDS: AMINO ACIDS/PROTEIN HYDROLYS SUGAR-FREE 30 ML PACKET PO SCH (09:47)
[2016-04-28] MEDS: PANTOPRAZOLE 40 MG TABLET (FP) PO SCH ×2 (09:47→22:36)
--- NOTE | 2016-04-28 10:40 | PN ---
Physical Exam: SUBJECTIVE: Patient seen and examined at bedside. Pt feels well and has no complaints. Denies N/V/F/C, SOB, CP, abd pain, dysuria, continues to have regular BMs. Still has difficulty with swallowing. OBJECTIVE: Vital Signs Temperature 97.8 F 04/28/16 01:59 Pulse Rate 93 H 04/28/16 09:46 Respiratory Rate 20 04/28/16 01:59 Blood Pressure 98/61 04/28/16 01:59 O2 Sat by Pulse Oximetry (%) 98 04/27/16 21:00 GENERAL: The patient is awake, alert, and fully oriented, in no acute distress. HEAD: Normal with no signs of trauma. EYES: sclera anicteric, conjunctiva clear. No ptosis. ENT: moist mucous membranes. NECK: Trachea midline, full range of motion, supple. LUNGS: Auscultated anteriorly, Breath sounds equal, clear to auscultation bilaterally, no wheezes, no crackles, no accessory muscle use. HEART: Regular rate and rhythm, S1, S2 without murmur, rub or gallop. ABDOMEN: Soft, nontender, nondistended, normoactive bowel sounds, no guarding, no rebound, no hepatosplenomegaly, no masses. EXTREMITIES: warm, no edema. B/L BKA. NEUROLOGICAL: Normal speech, gait not observed. PSYCH: Normal mood, normal affect. SKIN: Warm, dry, normal turgor, no rashes or lesions noted Microbiology 04/20/16 21:05 Blood - Arterial Blood Culture - Final NO GROWTH AFTER 5 DAYS INCUBATION 04/20/16 21:10 Blood - Arterial Blood Culture - Final NO GROWTH AFTER 5 DAYS INCUBATION 04/20/16 21:40 Urine - Urine Clean Catch Urine Culture - Final Vr Ec Faecium Pseudomonas Aeruginosa Active Medications Generic Name Dose Route Start Last Admin Trade Name Freq PRN Reason Stop Dose Admin Acetaminophen 650 mg 04/22/16 15:52 04/23/16 20:11 Tylenol - PO 650 mg Q6H PRN Administration PAIN Amino Acids 30 ml 04/21/16 08:00 04/28/16 09:47 Prostat Sugar-Free Packet - PO Not Given BID@0800,1730 [facility] Bupropion HCl 300 mg 04/21/16 10:00 04/27/16 09:36 Wellbutrin Xl - PO 300 mg DAILY [facility] Administration Clopidogrel Bisulfate 75 mg 04/21/16 10:00 04/28/16 09:46 Plavix - PO 75 mg DAILY [facility] Administration Digoxin 0.25 mg 04/21/16 10:00 04/28/16 09:46 Lanoxin - PO 0.25 mg DAILY [facility] Administration Docusate Sodium 100 mg 04/22/16 14:00 04/28/16 06:26 Colace - PO 100 mg TID [facility] Administration Finasteride 5 mg 04/21/16 10:00 04/28/16 09:46 Proscar - PO 5 mg DAILY [facility] Administration Gabapentin 100 mg 04/20/16 22:00 04/28/16 06:26 Neurontin - PO 100 mg TID [facility] Administration Daptomycin 300 mg/ Sodium 50 mls @ 100 mls/hr 04/24/16 14:00 04/27/16 16:35 Chloride IVPB 04/29/16 14:29 100 mls/hr Q24H [facility] Administration Metoclopramide HCl 5 mg 04/21/16 07:00 04/28/16 06:26 Reglan - PO 5 mg TIDAC [facility] Administration Pantoprazole Sodium 40 mg 04/20/16 22:00 04/28/16 09:47 Protonix - PO 40 mg BID [facility] Administration Tamsulosin HCl 0.4 mg 04/21/16 10:00 04/28/16 09:44 Flomax - PO 0.4 mg DAILY [facility] Administration ASSESSMENT/PLAN: 71 y/o M with sig PMH of CAD s/p stent in 2015, A-fib on digoxin, CVA w/ L sided weakness, PVD w/ B/L BKA, liver cirrhosis, previous GI bleed, Hep C presented to ER with constipation and vomiting for past week. Pt admitted for sepsis secondary to UTI -Sepsis secondary to UTI -Pt no longer has burning with urination -c/w daptomycin (day 6; needs 7 days total); ID on board -UCx - Group D Strep Or Entero Coccus and presumptive positive for Ps Aeruginosa, awaiting final report. -Dysphagia -EGD 10/28/15 shows GE junction stricture which was dilated via balloon -GI consulted -GI suggests pt will would benefit from going to tertiary care center for swallowing issues. -Pt is agreeable to going to [facility] once discharged. -A-fib -c/w digoxin -CAD -s/p stent 2016 -c/w lipitor 40mg, plavix 75mg -BPH -c/w flomax, finasteride -DVT ppx -heparin 5000 units sq tid -FEN -no fluids -Soft diet + prostat; MBS -Dispo: -Monitor on floors. On IV Dapto, ID on board. Discharge tomorrow most likely. Problem List - Problems (1) BPH (benign prostatic hyperplasia) Code(s): N40.0 - BENIGN PROSTATIC HYPERPLASIA WITHOUT LOWER URINRY TRACT SYMP (2) Dehydration Code(s): E86.0 - DEHYDRATION (3) Hepatitis C Code(s): B19.20 - UNSPECIFIED VIRAL HEPATITIS C WITHOUT HEPATIC COMA (4) Leukocytosis (leucocytosis) Code(s): D72.829 - ELEVATED WHITE BLOOD CELL COUNT, UNSPECIFIED Qualifiers: Leukocytosis type: unspecified Qualified Code(s): D72.829 - Elevated white blood cell count, unspecified (5) Nausea & vomiting Code(s): R11.2 - NAUSEA WITH VOMITING, UNSPECIFIED (6) UTI (urinary tract infection) Code(s): N39.0 - URINARY TRACT INFECTION, SITE NOT SPECIFIED Qualifiers: Urinary tract infection type: site unspecified Hematuria presence: without hematuria Qualified Code(s): N39.0 - Urinary tract infection, site not specified (7) CAD (coronary artery disease) Code(s): I25.10 - ATHSCL HEART DISEASE OF [place] CORONARY ARTERY W/O ANG PCTRS (8) CVA (cerebral vascular accident) Code(s): I63.9 - CEREBRAL INFARCTION, UNSPECIFIED (9) Complicated UTI (urinary tract infection) Code(s): N39.0 - URINARY TRACT INFECTION, SITE NOT SPECIFIED (10) DVT prophylaxis Code(s): WSU0863 - (11) HLD (hyperlipidemia) Code(s): E78.5 - HYPERLIPIDEMIA, UNSPECIFIED (12) HTN (hypertension) Code(s): I10 - ESSENTIAL (PRIMARY) HYPERTENSION (13) Sepsis Code(s): A41.9 - SEPSIS, UNSPECIFIED ORGANISM (14) Dysphagia Code(s): R13.10 - DYSPHAGIA, UNSPECIFIED Visit type - Emergency Visit Emergency Visit: Yes ED Registration Date: 04/20/16 Care time: The patient presented to the Emergency Department on the above date and was hospitalized for further evaluation of their emergent condition. - New Patient This patient is new to me today: No - Critical Care Critical Care patient: No
--- NOTE | 2016-04-28 13:34 | PN ---
Teaching Attending Note Name of Resident: Nimesh Greenfield ATTENDING PHYSICIAN STATEMENT I saw and evaluated the patient. I reviewed the resident's note and discussed the case with the resident. I agree with the resident's findings and plan as documented. SUBJECTIVE:currently asymptomatic. eager to leave. had BM yesterday. denies Cp, SOB,fever, chills OBJECTIVE: Last Vital Signs Temp Pulse Resp BP Pulse Ox 97.8 F 93 H 20 98/61 98 04/28/16 01:59 04/28/16 09:46 04/28/16 01:59 04/28/16 01:59 04/27/16 21:00 General NAD Abdomen soft NT/ND ASSESSMENT AND PLAN: 71yo M with PMH CAD s/p stent in 2016, A-fib on digoxin, CVA w/ L sided weakness, PVD w/ B/L BKA, liver cirrhosis, previous GI bleed, Hep C presented to ER and was admitted for further evaluation of their emergent condition 1. Sepsis due to UTI- + ESBL pseudomonas and VRE. zosyn d/c. on Dapto day6. will complete 7 day course of abx tomorrow. 2. B/L BKA- OOB to chair with assistance 3. dysphagia- hx of esophageal stricture s/o dilation. tolerating diet. evaluated by GI and plan is to go to [facility] on discharge for further workup. 4. d/c planning tomorrow after receives final dose of dapto.
[2016-04-28] MEDS: DAPTOMYCIN 300 MG in SODIUM CHLORIDE 50 ML IVPB SCH (14:47)
--- NOTE | 2016-04-28 15:21 | PN ---
Progress Note, Physician History of Present Illness: stable no issues doing well - Current Medication List Current Medications: Active Medications Acetaminophen (Tylenol -) 650 mg PO Q6H PRN PRN Reason: PAIN Last Admin: 04/23/16 20:11 Dose: 650 mg Amino Acids (Prostat Sugar-Free Packet -) 30 ml PO BID@0800,1730 [facility] Last Admin: 04/28/16 09:47 Dose: Not Given Bupropion HCl (Wellbutrin Xl -) 300 mg PO DAILY [facility] Last Admin: 04/27/16 09:36 Dose: 300 mg Clopidogrel Bisulfate (Plavix -) 75 mg PO DAILY [facility] Last Admin: 04/28/16 09:46 Dose: 75 mg Digoxin (Lanoxin -) 0.25 mg PO DAILY [facility] Last Admin: 04/28/16 09:46 Dose: 0.25 mg Docusate Sodium (Colace -) 100 mg PO TID [facility] Last Admin: 04/28/16 06:26 Dose: 100 mg Finasteride (Proscar -) 5 mg PO DAILY [facility] Last Admin: 04/28/16 09:46 Dose: 5 mg Gabapentin (Neurontin -) 100 mg PO TID [facility] Last Admin: 04/28/16 06:26 Dose: 100 mg Daptomycin 300 mg/ Sodium (Chloride) 50 mls @ 100 mls/hr IVPB Q24H [facility] Stop: 04/29/16 14:29 Last Admin: 04/27/16 16:35 Dose: 100 mls/hr Metoclopramide HCl (Reglan -) 5 mg PO TIDAC [facility] Last Admin: 04/28/16 06:26 Dose: 5 mg Pantoprazole Sodium (Protonix -) 40 mg PO BID [facility] Last Admin: 04/28/16 09:47 Dose: 40 mg Tamsulosin HCl (Flomax -) 0.4 mg PO DAILY [facility] Last Admin: 04/28/16 09:44 Dose: 0.4 mg - Objective Vital Signs: Vital Signs Temperature 97.8 F 04/28/16 01:59 Pulse Rate 93 H 04/28/16 09:46 Respiratory Rate 20 04/28/16 01:59 Blood Pressure 98/61 04/28/16 01:59 O2 Sat by Pulse Oximetry (%) 98 04/27/16 21:00 Constitutional: Yes: No Distress, Calm Cardiovascular: Yes: Regular Rate and Rhythm Respiratory: Yes: Regular, CTA Bilaterally Gastrointestinal: Yes: Normal Bowel Sounds, Soft Musculoskeletal: Yes: Other Extremities: Yes: Other Neurological: Yes: Alert, Oriented Psychiatric: Yes: Alert Labs: CBC, BMP 04/24/16 06:00 04/24/16 06:00 Assessment/Plan ASSESSMENT/PLAN: The patient is a 71 yo M who presents with constipation and vomiting. The patient was found to be septic secondary to UTI. 1.) Sepsis secondary to UTI 2.) Constipation and vomiting 3.) Atrial Fibrillation 4.) CAD s.p stent also patient has constipation plan finish the abx stop date given no abx after that prevention of constipation still having difficulty swallowing
[2016-04-28] MEDS: oxyCODONE HCL 5 MG TABLET PO PRN ×2 (16:01→22:37)
[2016-04-28] MEDS: ACETAMINOPHEN 325 MG TABLET (FP) PO PRN ×2 (16:01→22:38)
[2016-04-29] MEDS: METOCLOPRAMIDE HCL 10 MG TABLET (FP) PO SCH ×2 (06:45→12:11)
[2016-04-29] MEDS: DOCUSATE SODIUM 100 MG CAPSULE (FP) PO SCH (06:46)
[2016-04-29] MEDS: GABAPENTIN 100 MG CAPSULE (FP) PO SCH (06:47)
[2016-04-29] MEDS ORDERED: DAPTOMYCIN 300 MG in SODIUM CHLORIDE 50 ML IVPB ONE (10:00)
[2016-04-29] MEDS: AMINO ACIDS/PROTEIN HYDROLYS SUGAR-FREE 30 ML PACKET PO SCH ×2 (10:43→10:46)
[2016-04-29] MEDS: TAMSULOSIN HCL 0.4 MG CAP.ER.24H (FP) PO SCH (10:43)
[2016-04-29] MEDS: DIGOXIN 0.25 MG TABLET (FP) PO SCH (10:43)
[2016-04-29] MEDS: PANTOPRAZOLE 40 MG TABLET (FP) PO SCH (10:46)
[2016-04-29] MEDS: CLOPIDOGREL BISULFATE 75 MG TABLET (FP) PO SCH (10:46)
[2016-04-29] MEDS: FINASTERIDE 5 MG TABLET (FP) PO SCH (10:46)
--- NOTE | 2016-04-29 10:56 | DS ---
Physical Exam: SUBJECTIVE: Patient seen and examined at bedside. Feels well but still has difficulty swallowing. Denies F/C, abd pain, dysuria. OBJECTIVE: Vital Signs Temperature 97.8 F 04/29/16 10:00 Pulse Rate 87 04/29/16 10:43 Respiratory Rate 20 04/29/16 10:00 Blood Pressure 108/72 04/29/16 10:00 O2 Sat by Pulse Oximetry (%) 97 04/29/16 09:00 PHYSICAL EXAM GENERAL: The patient is awake, alert, and fully oriented, in no acute distress. HEAD: Normal with no signs of trauma. EYES: sclera anicteric, conjunctiva clear. No ptosis. ENT: moist mucous membranes. NECK: Trachea midline, full range of motion, supple. LUNGS: Auscultated anteriorly, Breath sounds equal, clear to auscultation bilaterally, no wheezes, no crackles, no accessory muscle use. HEART: Regular rate and rhythm, S1, S2 without murmur, rub or gallop. ABDOMEN: Soft, nontender, nondistended, normoactive bowel sounds, no guarding, no rebound, no hepatosplenomegaly, no masses. EXTREMITIES: warm, no edema. B/L BKA. NEUROLOGICAL: Normal speech, gait not observed. PSYCH: Normal mood, normal affect. SKIN: Warm, dry, normal turgor, no rashes or lesions noted LABS HOSPITAL COURSE: Date of Admission:04/20/16 Date of Discharge: 04/29/16 71 y/o M with sig PMH of CAD s/p stent in 2016, A-fib on digoxin, CVA w/ L sided weakness, PVD w/ B/L BKA, liver cirrhosis, previous GI bleed, Hep C presented to ER with constipation and vomiting for past week. Pt presented with white count of 23, tachycardia, and tachypnea. UA showed 5 WBC, Abd XR showed mild ileus, Abd CT showed: Thickening of the distal esophageal wall and gastroesophageal junction with suggestion of a small hiatus hernia and surrounding herniating fat. CXR showed no acute pathology. Pt was admitted for sepsis secondary to UTI. UCx showed VRE and ESBL p. aeruginosa and was treated with daptomycin and zosyn. Pt improved and white count dropped soon after antibiotics began. Pt remained hospitalized since he needed 7 days of IV dapto. Pt also had difficulty swallowing and was regurgitating food occasionally that was undigested. Pt had EGD done on 11/07/15 which showed GE junction stricture that was dilated with a balloon. GI was consulted and Dr. Grayson recommended pt follow up at tertiary care center due the frailty of his health for futher management and assessment. Pt agreed to plan and will make an appointment at [facility]. Pt was told to f/u with PCP within 1 week after discharge and to make appointment with [facility] for his swallowing difficulty. Minutes to complete discharge: 35 Discharge Summary Reason For Visit: URINARY TRACT INFECTION Current Active Problems Dehydration (Acute) Dysphagia (Acute) Epigastric abdominal pain (Acute) Gastroparesis (Acute) Leukocytosis (leucocytosis) (Acute) Nausea & vomiting (Acute) UTI (urinary tract infection) (Acute) BPH (benign prostatic hyperplasia) (Chronic) Depressed (Chronic) Condition: Stable - Instructions Diet, Activity, Other Instructions: Follow up with your primary care within 1 week. You were seen by our GI doctor at [facility] who recommended you go to a tertiary care facility to further manage and assess your difficulty swallowing. You can call [phone] to make an appointment. You had an EGD done in October 2015 which showed esophageal stricture and was dilated via balloon. At this time due to your health it would be highly recommended to continue to manage this at a tertiary care facility. If you begin to have fevers, chills, pain with urination call your doctor. Referrals: Garcia Henderson [Primary Care Provider] - Disposition: HOME - Home Medications Comprehensive Discharge Medication List: Ambulatory Orders Bupropion HCl [Wellbutrin Xl] 300 mg PO DAILY 07/21/15 Gabapentin [Neurontin -] 100 mg PO TID #90 capsule 07/25/15 Finasteride 5 mg PO DAILY 10/08/15 Digoxin [Lanoxin -] 0.25 mg PO DAILY #30 tablet 10/10/15 Polyethylene Glycol 3350 [Miralax 119 gm Btl -] 17 gm PO TID #1 bottle 10/10/15 Amino Acids/Protein Hydrolys [Prostat Sugar-Free Packet -] 30 ml PO BID@0800, 1730 #60 packet 10/29/15 Metoclopramide HCl [Reglan] 5 mg PO AC #90 tablet 10/29/15 Atorvastatin Ca [Lipitor] 40 mg PO HS 02/15/16 Docusate Sodium 100 mg PO DAILY 02/15/16 Tamsulosin HCl 0.4 mg PO DAILY 02/15/16 Clopidogrel Bisulfate [Plavix -] 75 mg PO DAILY tablet 02/28/16 Pantoprazole Sodium [Protonix -] 40 mg PO BID #40 tablet.ec 02/28/16 Problem List - Problems (1) BPH (benign prostatic hyperplasia) Code(s): N40.0 - BENIGN PROSTATIC HYPERPLASIA WITHOUT LOWER URINRY TRACT SYMP (2) Dehydration Code(s): E86.0 - DEHYDRATION (3) Hepatitis C Code(s): B19.20 - UNSPECIFIED VIRAL HEPATITIS C WITHOUT HEPATIC COMA (4) Leukocytosis (leucocytosis) Code(s): D72.829 - ELEVATED WHITE BLOOD CELL COUNT, UNSPECIFIED Qualifiers: Leukocytosis type: unspecified Qualified Code(s): D72.829 - Elevated white blood cell count, unspecified (5) Nausea & vomiting Code(s): R11.2 - NAUSEA WITH VOMITING, UNSPECIFIED (6) UTI (urinary tract infection) Code(s): N39.0 - URINARY TRACT INFECTION, SITE NOT SPECIFIED Qualifiers: Urinary tract infection type: site unspecified Hematuria presence: without hematuria Qualified Code(s): N39.0 - Urinary tract infection, site not specified (7) CAD (coronary artery disease) Code(s): I25.10 - ATHSCL HEART DISEASE OF [place] CORONARY ARTERY W/O ANG PCTRS (8) CVA (cerebral vascular accident) Code(s): I63.9 - CEREBRAL INFARCTION, UNSPECIFIED (9) Complicated UTI (urinary tract infection) Code(s): N39.0 - URINARY TRACT INFECTION, SITE NOT SPECIFIED (10) DVT prophylaxis Code(s): [id number] - (11) HLD (hyperlipidemia) Code(s): E78.5 - HYPERLIPIDEMIA, UNSPECIFIED (12) HTN (hypertension) Code(s): I10 - ESSENTIAL (PRIMARY) HYPERTENSION (13) Sepsis Code(s): A41.9 - SEPSIS, UNSPECIFIED ORGANISM (14) Dysphagia Code(s): R13.10 - DYSPHAGIA, UNSPECIFIED This patient is new to me today: No Emergency Visit: Yes ED Registration Date: 04/20/16 Care time: The patient presented to the Emergency Department on the above date and was hospitalized for further evaluation of their emergent condition. Critical Care patient: No - Discharge Referral Referred to [facility] Med P.C.: No
[2016-04-29 11:02] VITALS: PULSE 87
--- NOTE | 2016-04-29 11:50 | PN ---
Teaching Attending Note Name of Resident: Nimesh Greenfield ATTENDING PHYSICIAN STATEMENT I saw and evaluated the patient. I reviewed the resident's note and discussed the case with the resident. I agree with the resident's findings and plan as documented. SUBJECTIVE:currently asymptomatic. denies CP, SOB,fever, chills, N/V/C/D OBJECTIVE: Last Vital Signs Temp Pulse Resp BP Pulse Ox 98.2 F 87 20 119/65 98 04/29/16 05:41 04/29/16 10:43 04/29/16 05:41 04/29/16 05:41 04/28/16 21:00 General NAD Abdomen soft NT/ND ASSESSMENT AND PLAN: 71yo M with PMH CAD s/p stent in 2015, A-fib on digoxin, CVA w/ L sided weakness, PVD w/ B/L BKA, liver cirrhosis, previous GI bleed, Hep C presented to ER and was admitted for further evaluation of their emergent condition 1. Sepsis due to UTI- + ESBL pseudomonas and VRE. on Dapto day 7. will complete abx today 2. B/L BKA- OOB to chair with assistance 3. dysphagia- hx of esophageal stricture s/o dilation. tolerating diet. evaluated by GI and plan is to go to [facility] on discharge for further workup. 4. d/c home after completion of abx
[2016-04-29 12:49] VITALS: BP 108/72; TEMP 97.8
== END 2016-04-29 13:11 | disposition home or self-care (01) | DRG 872 ==
LOC: JER 13:09 → JERBED 20:04 → J7W 04-21 00:45
PROVIDERS: ADMIT Internal Medicine; ATTEND Internal Medicine
DX: A41.9 Sepsis, unspecified organism (principal); N39.0 Urinary tract infection, site not specified; I69.354 Hemiplegia and hemiparesis following cerebral infarction affecting left non-dominant side; E87.1 Hypo-osmolality and hyponatremia; N17.9 Acute kidney failure, unspecified; B96.5 Pseudomonas (aeruginosa) (mallei) (pseudomallei) as the cause of diseases classified elsewhere; I25.10 Atherosclerotic heart disease of native coronary artery without angina pectoris; E78.5 Hyperlipidemia, unspecified; I10 Essential (primary) hypertension; I48.91 Unspecified atrial fibrillation; E11.9 Type 2 diabetes mellitus without complications; K74.69 Other cirrhosis of liver; R13.19 Other dysphagia; I73.89 Other specified peripheral vascular diseases; N40.0 Benign prostatic hyperplasia without lower urinary tract symptoms; E86.0 Dehydration; K59.09 Other constipation; K22.2 Esophageal obstruction; R11.2 Nausea with vomiting, unspecified; D72.829 Elevated white blood cell count, unspecified; Z89.9 Acquired absence of limb, unspecified; Z95.5 Presence of coronary angioplasty implant and graft; Z79.4 Long term (current) use of insulin; Z86.19 Personal history of other infectious and parasitic diseases
CPT/HCPCS: 36415; 71010-TC; 74020-TC; 74177-TC; 80048; 80053; 81003; 81015; 83605; 83690; 85025; 85027; 87040; 87086; 87186; 93005; 93010; 97161-GP; 99285-25; J0878; J1644; Q9967

== ENCOUNTER 2016-08-20 11:23 | Inpatient (IN) | payer OTHER ==
--- NOTE | 2016-08-20 11:29 | PDOC ---
History of Present Illness <Ana Fernández - Last Filed: 08/20/16 15:46> - General History Source: Patient Exam Limitations: No Limitations - History of Present Illness Initial Comments: 08/20/16 11:33 The patient is a 71 year old male with a significant past medical history of new onset A-fib, CVA, CAD s/p stents, HTN, peripheral artery disease, diabetes, hepatitis C, COPD, alcohol abuse, s/p bilateral lower extremity amputation who presents to the ED, via EMS, with complaints of coffee ground emesis for 4 days. The patient reports nausea and vomiting a coffee ground-like substance. Patient states he has not moved his bowels in 5 days. Patient reports similar symptoms in the past. He states his previous history of coffee ground emesis was from a GI bleed from an ulcers. Denies fevers or chills. Denies chest pain or shortness of breath. Denies abdominal pain. Denies changes in urinary output. Denies any other symptoms. <Mirtha Russell - Last Filed: 08/20/16 16:14> - General Stated Complaint: Nausea/Vomiting Time Seen by Provider: 08/20/16 11:25 Past History - Past Medical History Anemia: No Asthma: No Cancer: No Cardiac Disorders: Yes (CAD) CVA: Yes (LT SIDED weakness) COPD: Yes CHF: No Dementia: No Diabetes: Yes (IDDM) GI Disorders: Yes (BLEEDING ULCERS) Disorders: No HTN: Yes Hypercholesterolemia: Yes Liver Disease: Yes (Cirrhosis, hep C) Seizures: No Thyroid Disease: No - Surgical History Abdominal Surgery: No Appendectomy: No Cardiac Surgery: Yes (CARDIAC STENT) Cholecystectomy: No Lung Surgery: No Neurologic Surgery: No Orthopedic Surgery: Yes ([place]. Above Knee Amputation) - Immunization History Immunization Up to Date: Yes - Psycho/Social/Smoking Cessation Hx Anxiety: No Suicidal Ideation: No Smoking History: Unknown if ever smoked Have you smoked in the past 12 months: No Number of Cigarettes Smoked Daily: 40 'Breaking Loose' booklet given: 02/16/16 Hx Alcohol Use: No Drug/Substance Use Hx: No Substance Use Type: None Hx Substance Use Treatment: No <Ana eFrnández - Last Filed: 08/20/16 15:46> <Mirtha Russell - Last Filed: 08/20/16 16:14> - Past Medical History Allergies/Adverse Reactions: Allergies Allergy/AdvReac Type Severity Reaction Status Date / Time No Known Allergies Allergy Verified 08/20/16 11:37 Home Medications: Ambulatory Orders Bupropion HCl [Wellbutrin Xl] 300 mg PO DAILY 07/21/15 Gabapentin [Neurontin -] 100 mg PO TID #90 capsule 07/25/15 Finasteride 5 mg PO DAILY 10/08/15 Digoxin [Lanoxin -] 0.25 mg PO DAILY #30 tablet 10/10/15 Polyethylene Glycol 3350 [Miralax 119 gm Btl -] 17 gm PO TID #1 bottle 10/10/15 Amino Acids/Protein Hydrolys [Prostat Sugar-Free Packet -] 30 ml PO BID@0800, 1730 #60 packet 10/29/15 Metoclopramide HCl [Reglan] 5 mg PO AC #90 tablet 10/29/15 Atorvastatin Ca [Lipitor] 40 mg PO HS 02/15/16 Docusate Sodium 100 mg PO DAILY 02/15/16 Tamsulosin HCl 0.4 mg PO DAILY 02/15/16 Clopidogrel Bisulfate [Plavix -] 75 mg PO DAILY tablet 02/28/16 Pantoprazole Sodium [Protonix -] 40 mg PO BID #40 tablet.ec 02/28/16 Review of Systems - Review of Systems Able to Perform ROS?: Yes Comments:: 08/20/16 11:33 GENERAL/CONSTITUTIONAL: No fever or chills. No weakness. HEAD, EYES, EARS, NOSE AND THROAT: No change in vision. No ear pain or discharge. No sore throat. CARDIOVASCULAR: No chest pain or shortness of breath. RESPIRATORY: No cough, wheezing, or hemoptysis. GASTROINTESTINAL: + constipation, vomiting. No diarrhea. GENITOURINARY: No dysuria, frequency, or change in urination. MUSCULOSKELETAL: No joint or muscle swelling or pain. No neck or back pain. SKIN: No rash NEUROLOGIC: No headache, vertigo, loss of consciousness, or change in strength/ sensation. ENDOCRINE: No increased thirst. No abnormal weight change. HEMATOLOGIC/LYMPHATIC: No anemia, easy bleeding, or history of blood clots. ALLERGIC/IMMUNOLOGIC: No hives or skin allergy. All Other Systems: Reviewed and Negative <Mirtha Russell - Last Filed: 08/20/16 16:14> *Physical Exam - Physical Exam Comments: GENERAL: Awake, alert, and fully oriented, in no acute distress. Appears chronically ill. HEAD: No signs of trauma EYES: PERRLA, EOMI, sclera anicteric, conjunctiva clear ENT: Auricles normal inspection, hearing grossly normal, nares patent, oropharynx clear without exudates. Dry mucosa NECK: Normal ROM, supple, no lymphadenopathy, JVD, or masses LUNGS: Breath sounds equal, clear to auscultation bilaterally. No wheezes, and no crackles HEART: Regular rate and rhythm, normal S1 and S2, no murmurs, rubs or gallops ABDOMEN: Soft, nontender, normoactive bowel sounds. No guarding, no rebound. + RLQ mass EXTREMITIES: Normal range of motion, no edema. No clubbing or cyanosis. No cords, erythema, or tenderness NEUROLOGICAL: Cranial nerves II through XII grossly intact. Normal speech. Moving all extremities. Gait not tested due to nature of complaint. SKIN: Warm, Dry, normal turgor, no rashes or lesions noted. <Ana Fernández - Last Filed: 08/20/16 15:46> Heart Score/ECG Review - ECG Impressions Comment:: EKG read 11:43- afib with RVR, ventricular rate 160 <Ana Fernández - Last Filed: 08/20/16 15:46> ED Treatment Course - LABORATORY CBC & Chemistry Diagram: 08/20/16 11:52 08/20/16 11:52 <Ana Fernández - Last Filed: 08/20/16 15:46> - LABORATORY CBC & Chemistry Diagram: 08/20/16 11:52 08/20/16 11:52 - RADIOLOGY Radiograph Interpretation: 08/20/16 14:52 RAD/CHEST X-RAY PORTABLE Impression: No active disease in the chest. Reported by: Jordan Martinez 08/20/16 15:49 CT/ABDOMEN & PELVIS CT WITH CONTR Impression: Paraesophageal hiatal hernia with thickening of the distal esophagus and most of the stomach. Gastritis/peptic ulcer disease should be considered. Fecal impaction with distended rectum. No evidence of right lower quadrant mass. Reported by: Edwin Balderas <Mirtha Russell - Last Filed: 08/20/16 16:14> *DC/Admit/Observation/Transfer - Discharge Dispostion Admit: Yes <Ana Fernández - Last Filed: 08/20/16 15:46> - Attestations Scribe Attestion: 08/20/16 11:34 Documentation prepared by Mirtha Russell, acting as medical director of hospice for Ana Fernández MD <Mirtha Russell - Last Filed: 08/20/16 16:14> Diagnosis at time of Disposition: Coffee ground emesis GI bleed Qualifiers: GI bleed type/associated pathology: unspecified gastrointestinal hemorrhage type Qualified Code(s): K92.2 - Gastrointestinal hemorrhage, unspecified Sepsis Qualifiers: Sepsis type: sepsis due to unspecified organism Qualified Code(s): A41.9 - Sepsis, unspecified organism - Discharge Dispostion Condition at time of disposition: Guarded - Referrals Referrals: Garcia Henderson [Primary Care Provider] -
[2016-08-20] MEDS ORDERED: PANTOPRAZOLE SODIUM 40 MG in SODIUM CHLORIDE 100 ML IVPB ONE (11:31)
[2016-08-20] MEDS ORDERED: SODIUM CHLORIDE 1,000 ML IV STA (11:31)
[2016-08-20 11:37] VITALS: BMI 24.2
[2016-08-20] MEDS ORDERED: dilTIAZem HCL 50 MG/10 ML - 10 ML VIAL IVPUSH ONE (11:45)
[2016-08-20] MEDS: PANTOPRAZOLE SODIUM 80 MG in SODIUM CHLORIDE 100 ML IVPB SCH ×2 (11:59→22:58)
[2016-08-20 12:01] LABS: MCH 23.5 pg (25.7-33.7); MCHC 31.7 g/dl (32.0-35.9); MEAN PLT VOLUME 6.9 fl (7.5-11.1); PLATELET COUNT 216 K/MM3 (134-434); RDW 17.7 % (11.9-15.9); WHITE BLOOD COUNT 23.4 K/mm3 (4.0-10.0)
[2016-08-20] MEDS ORDERED: PANTOPRAZOLE SODIUM 40 MG VIAL ONE (12:04)
[2016-08-20] MEDS ORDERED: PIPERACILLIN/TAZOB 3.375 GM 3.375 GM in DEXTROSE 5%-WATER - 50 ML IVPB ONE (12:14)
[2016-08-20 12:15] LABS: INR 1.07 (0.82-1.09); PROTHROMBIN TIME (PATIENT) 11.8 SEC (9.98-11.88)
[2016-08-20 12:19] LABS: ALBUMIN 2.5 g/dl (3.4-5.0); ALK PHOS 65 U/L (45-117); ANION GAP 10 (8-16); BILIRUBIN,TOTAL 0.8 mg/dL (0.2-1.0); CALCIUM 8.2 mg/dL (8.5-10.1); CO2 30 mmol/L (21-32); COCKROFT - GAULT 68.35; CREATININE 0.8 mg/dL (0.7-1.3); GLUCOSE,RANDOM 151 mg/dL (74-106); SGOT/AST 7 U/L (15-37); SGPT/ALT 8 U/L (12-78); TOT PROT 5.2 g/dl (6.4-8.2)
[2016-08-20] MEDS ORDERED: PIPERACILLIN/TAZOB 3.375 GM 50 ML IVPB ONE (15:33)
[2016-08-20] MEDS ORDERED: SODIUM CHLORIDE 0.9% 1000 ML INFUS.BAG IV ONE (16:23)
[2016-08-20 16:27] LABS: DIGOXIN LEVEL 0.1019 ng/ml (0.8-2.0)
--- NOTE | 2016-08-20 17:10 | HP ---
CHIEF COMPLAINT: PCP: HISTORY OF PRESENT ILLNESS: This is a 71 year old male with a history of CAD s/ p stent in 2016, Afib on digoxin and not on AC, CVA with residual left-sided weakness, PVD s/p bilateral BKA, hepatitis C and cirrhosis, upper GIB,and esophageal stricture who presented to the ED today complaining four days of hematemesis (he describes it as initially bright red, and now dark red). He has not had a BM for four days. He denies abdominal pain, fevers/chills, or any other symptoms. 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 Smoking: Former smoker, quit this year Alcohol: Quit in May of this year Drugs: None Allergies No Known Allergies Allergy (Verified 08/20/16 11:37) HOME MEDICATIONS: Home Medications Medication Instructions Recorded Bupropion HCl [Wellbutrin Xl] 300 mg PO DAILY 07/21/15 Gabapentin [Neurontin -] 100 mg PO TID #90 capsule 07/25/15 Finasteride 5 mg PO DAILY 10/08/15 Digoxin [Lanoxin -] 0.25 mg PO DAILY #30 tablet 10/10/15 Polyethylene Glycol 3350 [Miralax 17 gm PO TID #1 bottle 10/10/15 119 gm Btl -] Amino Acids/Protein Hydrolys 30 ml PO BID@0800,1730 #60 packet 10/29/15 [Prostat Sugar-Free Packet -] Metoclopramide HCl [Reglan] 5 mg PO AC #90 tablet 10/29/15 Atorvastatin Ca [Lipitor] 40 mg PO HS 02/15/16 Docusate Sodium 100 mg PO DAILY 02/15/16 Tamsulosin HCl 0.4 mg PO DAILY 02/15/16 Clopidogrel Bisulfate [Plavix -] 75 mg PO DAILY tablet 02/28/16 Pantoprazole Sodium [Protonix -] 40 mg PO BID #40 tablet.ec 02/28/16 REVIEW OF SYSTEMS CONSTITUTIONAL: Absent: fever, chills, diaphoresis, generalized weakness, malaise, loss of appetite, weight change HEENT: Absent: rhinorrhea, nasal congestion, throat pain, throat swelling, difficulty swallowing, mouth swelling, ear pain, eye pain, visual changes CARDIOVASCULAR: Absent: chest pain, syncope, palpitations, irregular heart rate, lightheadedness , peripheral edema RESPIRATORY: Moist cough Absent: shortness of breath, dyspnea with exertion, orthopnea, wheezing, stridor , hemoptysis GASTROINTESTINAL: See HPI GENITOURINARY: Absent: dysuria, frequency, urgency, hesitancy, hematuria, flank pain, genital pain MUSCULOSKELETAL: Absent: myalgia, arthralgia, joint swelling, back pain, neck pain SKIN: Absent: rash, itching, pallor HEMATOLOGIC/IMMUNOLOGIC: Absent: easy bleeding, easy bruising, lymphadenopathy, frequent infections ENDOCRINE: Absent: unexplained weight gain, unexplained weight loss, heat intolerance, cold intolerance NEUROLOGIC: Absent: headache, focal weakness or paresthesias, dizziness, seizure, mental status changes, bladder or bowel incontinence PSYCHIATRIC: Absent: anxiety, depression, suicidal or homicidal ideation, hallucinations. PHYSICAL EXAMINATION GENERAL: Awake, alert, and fully oriented, in no acute distress. EYES: Pupils equal, round and reactive to light, extraocular movements intact, sclera anicteric, conjunctiva clear. No lid lag. EARS, NOSE, THROAT: Ears normal, nares patent, oropharynx clear without exudates. Moist mucous membranes. NECK: Normal range of motion, supple without lymphadenopathy, JVD, or masses. LUNGS: Scattered ronchi, clears with coughing. No wheezes, and no crackles. No accessory muscle use. HEART: Regular rate and rhythm, normal S1 and S2 without murmur, rub or gallop. ABDOMEN: Soft, nontender, not distended, normoactive bowel sounds, no guarding, no rebound, no masses. No hepatomegaly or splenomegaly. MUSCULOSKELETAL: Normal range of motion at all joints. No bony deformities or tenderness. No CVA tenderness. UPPER EXTREMITIES: 2+ pulses, warm, well-perfused. No cyanosis. No clubbing. No peripheral edema. LOWER EXTREMITIES: Bilateral BKA. NEUROLOGICAL: Cranial nerves II-XII intact. Normal speech. Normal gait. PSYCHIATRIC: Cooperative. Good eye contact. Appropriate mood and affect. SKIN: Warm, dry, normal turgor, no rashes or lesions noted, normal capillary refill. RECTAL: Guaiac positive brown stool; impacted stool in rectal vault. ASSESSMENT/PLAN: 71 year old male with GIB and fecal impaction. Problem List - Problem (1) GI bleed Assessment/Plan: -NPO -Monitor in ICU -Follow H/H -Protonix gtt -Hold Plavix -GI consultation requested Code(s): K92.2 - GASTROINTESTINAL HEMORRHAGE, UNSPECIFIED Qualifiers: GI bleed type/associated pathology: unspecified gastrointestinal hemorrhage type Qualified Code(s): K92.2 - Gastrointestinal hemorrhage, unspecified (2) Fecal impaction in rectum Assessment/Plan: -Manually disimpacted -Dulcolax suppository placed -Mineral oil enema -Rawls catheter for bladder decompression Code(s): K56.41 - FECAL IMPACTION (3) Atrial fibrillation Assessment/Plan: -Rate controlled following 10mg IVP in ED -Cardizem 5mg IVP q4h prn tachycardia -Re-start digoxin when taking PO Code(s): I48.91 - UNSPECIFIED ATRIAL FIBRILLATION (4) Sepsis Assessment/Plan: -As evidenced by leukocytosis, tachycardia, tachypnea -Source unclear; has had sepsis secondary to UTIs in past -Send UA and culture -Follow up blood cultures -IVF -Empiric Zosyn -ID consultation requested Code(s): A41.9 - SEPSIS, UNSPECIFIED ORGANISM Qualifiers: Sepsis type: sepsis due to unspecified organism Qualified Code(s): A41.9 - Sepsis, unspecified organism (5) DVT prophylaxis Assessment/Plan: -No chemical ppx given GI bleed -PT for bedside ROM Code(s): [id number] - Visit type - Emergency Visit Emergency Visit: Yes ED Registration Date: 08/20/16 Care time: The patient presented to the Emergency Department on the above date and was hospitalized for further evaluation of their emergent condition. - New Patient This patient is new to me today: Yes Date on this admission: 08/21/16 - Critical Care Critical Care patient: Yes Total Critical Care Time (in minutes): 35 Critical Care Statement: The care of this patient involved high complexity decision making to prevent further life threatening deterioration of the patient 's condition and/or to evalute & treat vital organ system(s) failure or risk of failure.
[2016-08-20] MEDS ORDERED: MINERAL OIL ENEMA 133 ML ENEMA PR ONE ×2 (17:11→18:15)
[2016-08-20] MEDS ORDERED: dilTIAZem HCL 50 MG/10 ML - 10 ML VIAL IVPUSH PRN (17:18)
[2016-08-20] MEDS ORDERED: BISACODYL 10 MG SUPP.RECT RC ONE (18:00)
[2016-08-20] MEDS ORDERED: BISACODYL 10 MG SUPP.RECT PR ONE (18:00)
[2016-08-20 18:40] LABS: BASOPHIL 0.2 % (0-2.0); EOSINOPHIL 0.1 % (0-4.5); MCH 22.8 pg (25.7-33.7); MCHC 30.5 g/dl (32.0-35.9); MEAN CELL VOLUME 74.9 fl (80-96); MEAN PLT VOLUME 6.8 fl (7.5-11.1); NEUTROPHILS 87.4 % (42.8-82.8); PLATELET COUNT 186 K/MM3 (134-434); RDW 17.5 % (11.9-15.9)
[2016-08-20] MEDS ORDERED: SODIUM CHLORIDE 0.9%/KCL 1,000 ML IV SCH ×2 (18:45→19:42)
[2016-08-20] MEDS ORDERED: ONDANSETRON 4 MG/2 ML VIAL IVPUSH PRN (19:40)
[2016-08-20] MEDS ORDERED: SODIUM CHLORIDE 250 ML IV STA (19:40)
[2016-08-20] MEDS ORDERED: dilTIAZem HCL 125 MG/25 ML - 5 ML VIAL ONE (20:39)
[2016-08-20] MEDS ORDERED: DILTIAZEM INJECTION 125 MG in DEXTROSE 5%-WATER - 100 ML IVPB SCH (20:45)
--- NOTE | 2016-08-20 20:47 | CONSULT ---
Consult Consult Specialty:: PULM / CRITICAL CARE MEDICINE Referred by:: Dr Ortiz Reason for Consultation:: GI bleed, sepsis - History of Present Illness Chief Complaint: hematemisis History of Present Illness: 71 y/o male vasculopath with CAD s/p BYRON in 2016, he is on Plavix alone for anti -platelet therapy, has chronic AF managed with Digoxin although level was sub- theraputic, no h/o HF (TTE in 2016 was normal), he is not on anticoagulation. He has PVD s/p b/l BKAs, has HCV cirrhosis and a paraesophageal hernia. He also apparently has chronic back pain but takes no opiates, no NSAIDs, no ASA. He presented to the ED with 4 days of hematemesis and constipation, no abdominal pain. Last BM was >4 days ago. In the ED he was relatively hypotensive and appeared dry - BUN/Cr was 44/0.8, his Hgb/Hct were the highest they have been in years (probably hemoconcentrated) , WBC was 23k. A CTAP was done showing no free air or obstruction, but there was a huge fecalith in the rectal vault with stool throughout the entire large bowel. He was started on a PPI gtt for ?GIB, manually disimpacted and given an enema. He was in AF with RVR that was treated with Dilt pushes. He was given IVF , cultuerd and started on P/T for likely urosepsis. He was transferred to the ICU for further management. 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: CVA Cardio/Vascular: Yes: CAD, HTN, Other (MAT) Gastrointestinal: Yes: Constipation, Other (paraesophageal hernia) Renal/: Yes: UTI Endocrine: Yes: Diabetes Mellitus - Past Surgical History Past Surgical History: Yes: Amputation - Alcohol/Substance Use Hx Alcohol Use: No History of Substance Use: reports: None - Smoking History Smoking history: Unknown if ever smoked Have you smoked in the past 12 months: No Aproximately how many cigarettes per day: 40 - Social History ADL: Support Services History of Recent Travel: No Home Medications - Allergies Allergies/Adverse Reactions: Allergies Allergy/AdvReac Type Severity Reaction Status Date / Time No Known Allergies Allergy Verified 08/20/16 11:37 - Home Medications Home Medications: Ambulatory Orders Bupropion HCl [Wellbutrin Xl] 300 mg PO DAILY 07/21/15 Gabapentin [Neurontin -] 100 mg PO TID #90 capsule 07/25/15 Finasteride 5 mg PO DAILY 10/08/15 Digoxin [Lanoxin -] 0.25 mg PO DAILY #30 tablet 10/10/15 Polyethylene Glycol 3350 [Miralax 119 gm Btl -] 17 gm PO TID #1 bottle 10/10/15 Amino Acids/Protein Hydrolys [Prostat Sugar-Free Packet -] 30 ml PO BID@0800, 1730 #60 packet 10/29/15 Metoclopramide HCl [Reglan] 5 mg PO AC #90 tablet 10/29/15 Atorvastatin Ca [Lipitor] 40 mg PO HS 02/15/16 Docusate Sodium 100 mg PO DAILY 02/15/16 Tamsulosin HCl 0.4 mg PO DAILY 02/15/16 Clopidogrel Bisulfate [Plavix -] 75 mg PO DAILY tablet 02/28/16 Pantoprazole Sodium [Protonix -] 40 mg PO BID #40 tablet.ec 02/28/16 Family Disease History - Family Disease History Family Disease History: Diabetes: Father, CA: Mother (throat) Review of Systems - Review of Systems Constitutional: reports: No Symptoms HENT: reports: No Symptoms Cardiovascular: reports: No Symptoms Respiratory: reports: No Symptoms Gastrointestinal: reports: Constipation, Nausea, Vomiting, Vomiting Blood. denies: Abdominal Pain, Diarrhea, Melena, Rectal Bleeding Genitourinary: reports: No Symptoms Musculoskeletal: reports: No Symptoms Hematology/Lymphatic: reports: No Symptoms Psychiatric: reports: No Symptoms Physical Exam Vital Signs: Vital Signs Temperature 97.7 F 08/20/16 11:23 Pulse Rate 112 H 08/20/16 17:54 Respiratory Rate 18 08/20/16 17:54 Blood Pressure 82/59 08/20/16 17:54 O2 Sat by Pulse Oximetry (%) 99 08/20/16 17:54 Constitutional: Yes: Well Nourished, No Distress Eyes: Yes: WNL HENT: Yes: WNL Neck: Yes: WNL Cardiovascular: Yes: Tachycardia, Pulse Irregular, S1, S2 Respiratory: Yes: WNL Gastrointestinal: Yes: Soft, Distention, Hypoactive Bowel Sounds ...Rectal Exam: Yes: Deferred Extremities: Yes: Amputation Edema: No Peripheral Pulses WNL: Yes (upper ext) Integumentary: Yes: WNL Labs: CBC, BMP 08/20/16 18:20 Imaging - Results Chest X-ray: Report Reviewed, Image Reviewed Cat Scan: Report Reviewed, Image Reviewed EKG: Pending Problem List - Problems (1) Atrial fibrillation with rapid ventricular response Code(s): I48.91 - UNSPECIFIED ATRIAL FIBRILLATION (2) Sepsis Code(s): A41.9 - SEPSIS, UNSPECIFIED ORGANISM Qualifiers: Sepsis type: sepsis due to unspecified organism Qualified Code(s): A41.9 - Sepsis, unspecified organism (3) UTI (urinary tract infection) Code(s): N39.0 - URINARY TRACT INFECTION, SITE NOT SPECIFIED Qualifiers: Urinary tract infection type: site unspecified Hematuria presence: without hematuria Qualified Code(s): N39.0 - Urinary tract infection, site not specified (4) Fecal impaction in rectum Code(s): K56.41 - FECAL IMPACTION (5) Hematemesis Code(s): K92.0 - HEMATEMESIS Qualifiers: Nausea presence: unspecified Qualified Code(s): K92.0 - Hematemesis (6) Dehydration Code(s): E86.0 - DEHYDRATION (7) CAD (coronary artery disease) Code(s): I25.10 - ATHSCL HEART DISEASE OF [place] CORONARY ARTERY W/O ANG PCTRS (8) Peripheral artery disease Code(s): I73.9 - PERIPHERAL VASCULAR DISEASE, UNSPECIFIED Assessment/Plan AF w/RVR Elevated lactate Sepsis - likely source is UTI Fecal impaction ?GIB PVD CAD -Dilt push and drip for rate control, can restart Digoxin when able to take POs (Dig level was sub-theraputic) -IVF -Serial CBCs -NPO for now -PPI for now -GI consult pending but don't suspect this is a significant GIB -Continue enemas and bowel regimen -Hold Plavix -Continue Zosyn - covers prior PSA UTIs, if worsens would add Tobra -Follow up cultures and narrow abx as able Critically Ill - critical care time 45min Thank you for this interesting consult Wan [facility]zon Pulm/Critical Care CR[employer] 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
[2016-08-20 23:09] LABS: URINE APPEARANCE CLEAR; URINE BILIRUBIN NEGATIVE (NEGATIVE); URINE BLOOD 1+ (NEGATIVE); URINE COLOR LTYELLOW; URINE GLUCOSE (UA) 1+ (NEGATIVE); URINE KETONE NEGATIVE (NEGATIVE); URINE LEUK ESTERASE 1+ (NEGATIVE); URINE NITRITE NEGATIVE (NEGATIVE); URINE PROTEIN NEGATIVE (NEGATIVE); URINE UROBILINOGEN NEGATIVE E.U./dl (0.2-1.0)
[2016-08-20 23:11] LABS: URINE BACTERIA RARE /hpf (NONE SEEN); URINE MUCUS MANY; URINE RBC 22 /hpf (0-3); URINE WBC 55 /hpf (3-5)
[2016-08-21] MEDS ORDERED: LACTATED RINGERS SOLUTION 1,000 ML IV STA (05:48)
[2016-08-21 06:30] LABS: BASOPHIL 0.2 % (0-2.0); EOSINOPHIL 0.5 % (0-4.5); MCH 23.4 pg (25.7-33.7); MCHC 30.7 g/dl (32.0-35.9); MEAN CELL VOLUME 76.3 fl (80-96); MEAN PLT VOLUME 7.4 fl (7.5-11.1); NEUTROPHILS 76.2 % (42.8-82.8); PLATELET COUNT 161 K/MM3 (134-434); RDW 17.1 % (11.9-15.9); WHITE BLOOD COUNT 10.8 K/mm3 (4.0-10.0)
[2016-08-21 06:42] LABS: INR 1.19 (0.82-1.09); PROTHROMBIN TIME (PATIENT) 13.1 SEC (9.98-11.88)
[2016-08-21 06:54] LABS: CALCIUM 7.6 mg/dL (8.5-10.1); MAGNESIUM 1.9 mg/dL (1.8-2.4)
[2016-08-21 06:57] LABS: COCKROFT - GAULT 136.7; CREATININE 0.4 mg/dL (0.7-1.3); PHOSPHOROUS 2.2 mg/dL (2.5-4.9)
--- NOTE | 2016-08-21 07:50 | PN ---
Progress Note (short form) - Note Progress Note: currently asymptomatic. states hematemesis has resolved and no repeated episodes since yesterday. 3 BM since manually disempacted yesterday. was at [facility] 2 weeks ago for balloon dilation of the esophagus which he states failed and continues to have dysphagia and odynophagia to eating. he received blood transfusions during that procedure. denies NSAID use. denies CP, SOB,fever , chills, N/V/C/D, urinary frequency or urgency. Current Medications Generic Name Dose Route Start Last Admin Trade Name Freq PRN Reason Stop Dose Admin Diltiazem HCl 5 mg 08/20/16 17:18 08/20/16 20:32 Cardizem Injection - IVPUSH 5 mg Q4H PRN Administration TACHYCARDIA Docusate Sodium 100 mg 08/21/16 08:00 Colace - PO TID EDILSON Pantoprazole Sodium 80 mg/ 100 mls @ 10 mls/hr 08/20/16 11:45 08/20/16 22:58 Sodium Chloride IVPB Not Given Q10H EDILSON 8 MG/HR Diltiazem HCl 125 mg/ Dextrose 125 mls @ 5 mls/hr 08/20/16 20:45 08/20/16 22:58 IVPB 10 mg/hr TITR EDILSON Titration Protocol 5 MG/HR Ondansetron HCl 4 mg 08/20/16 19:40 Zofran Injection IVPUSH Q6H PRN NAUSEA AND/OR VOMITING Piperacillin Sod/Tazobactam Sod 3.375 gm 08/20/16 18:00 Zosyn 3.375gm Ivpb (Pre-Docked) IVPB Q8H-IV EDILSON Protocol Polyethylene Glycol 17 gm 08/21/16 10:00 Miralax (For Daily Use) - PO DAILY EDILSON Senna 1 tab 08/21/16 10:00 Senna - PO BID EDILSON Last Vital Signs Temp Pulse Resp BP Pulse Ox 97.7 F 90 18 88/48 99 08/21/16 06:00 08/21/16 06:00 08/21/16 06:00 08/21/16 06:00 08/20/16 21:00 Intake & Output 08/18/16 08/19/16 08/20/16 08/21/16 23:59 23:59 23:59 23:59 Intake Total 250 2060 Output Total 150 200 Balance 100 1860 Weight 124 lb General NAD, thin appearing male CV S1 S2 tachycardic Lungs CTA B/L no wheezing/rales/rhonchi Abdomen soft NT/ND no rebound or guarding hyperactive BS Extremities BKA CBCD WBC 10.8 K/mm3 (4.0-10.0) H D 08/21/16 05:20 RBC 3.49 M/mm3 (4.00-5.60) L D 08/21/16 05:20 Hgb 8.2 GM/dL (11.7-16.9) L D 08/21/16 05:20 Hct 26.6 % (35.4-49) L D 08/21/16 05:20 MCV 76.3 fl (80-96) L 08/21/16 05:20 MCHC 30.7 g/dl (32.0-35.9) L 08/21/16 05:20 RDW 17.1 % (11.9-15.9) H 08/21/16 05:20 Plt Count 161 K/MM3 (134-434) 08/21/16 05:20 MPV 7.4 fl (7.5-11.1) L 08/21/16 05:20 CMP Sodium 144 mmol/L (136-145) 08/21/16 05:20 Potassium 3.5 mmol/L (3.5-5.1) 08/21/16 05:20 Chloride 113 mmol/L (98-107) H D 08/21/16 05:20 Carbon Dioxide 23 mmol/L (21-32) D 08/21/16 05:20 Anion Gap 8 (8-16) 08/21/16 05:20 BUN 19 mg/dL (7-18) H D 08/21/16 05:20 Creatinine 0.4 mg/dL (0.7-1.3) L D 08/21/16 05:20 Creat Clearance w eGFR > 60 (>60) 08/20/16 11:52 Calcium 7.6 mg/dL (8.5-10.1) L 08/21/16 05:20 Total Bilirubin 0.8 mg/dL (0.2-1.0) 08/20/16 11:52 AST 7 U/L (15-37) L D 08/20/16 11:52 ALT 8 U/L (12-78) L 08/20/16 11:52 Alkaline Phosphatase 65 U/L (45-117) D 08/20/16 11:52 Total Protein 5.2 g/dl (6.4-8.2) L 08/20/16 11:52 Albumin 2.5 g/dl (3.4-5.0) L 08/20/16 11:52 CT abdomen/pelvis- paraesophageal hernia with distal esophageal thickening concern for ulcer A/P 71yo M with PMH CAD s/p stent, Afib, CVA with residual L weakness, HCV cirrhosis, esophageal stricture, barretts esophagus presented to the ER with 4 day history of hematemesis 1. Upper GI bleed- no repeated episodes since arrival. 3.5g Hgb drop and not transfused blood as pt refused. now seems agreeable. will repeat CBC this afternoon and txn if continuing to drop. cont NPO and PPI ggt. Gi consulted, will likely require EGD for evaluation however will likely be held due to plavix use. nausea and pain control 2. Severe sepsis due to UTI- hx of pseudomonas and VRE. lactic acidosis resolved. remains hypotensive responsive to IVF. started on empiric Zosyn day 2. ID consulted. f/u Cx 3. Afib with RVR- likely due to acute blood loss anemia. on diltiazem ggt. titrate to optimize HR <120. bolus IVF as needed to maintain MAP >65. hold plavix. not on full anticoagulation due to recurrent GI bleed. 4. hypophosphatemia- kphos 5. Fecal impaction- s/p manual disempaction and enema. with multiple BM. will monitor for regular BM. consider repeating enema 6. DVT ppx- hold anticoagulation due to GI bleed. BKA can not place SCD The care of this patient involved high complexity decision making to prevent further life threatening deterioration of the patient's condition and/or to evalute & treat vital organ system(s) failure or risk of failure. 55 minutes critical care time Visit type - Emergency Visit Emergency Visit: Yes ED Registration Date: 08/20/16 Care time: The patient presented to the Emergency Department on the above date and was hospitalized for further evaluation of their emergent condition. - New Patient This patient is new to me today: Yes Date on this admission: 08/21/16 - Critical Care Critical Care patient: Yes Total Critical Care Time (in minutes): 55 Critical Care Statement: The care of this patient involved high complexity decision making to prevent further life threatening deterioration of the patient 's condition and/or to evalute & treat vital organ system(s) failure or risk of failure. - Discharge Referral Referred to [facility] No
[2016-08-21] MEDS ORDERED: DOCUSATE SODIUM 100 MG CAPSULE (FP) PO SCH (08:00)
--- NOTE | 2016-08-21 08:01 | PN ---
Progress Note (short form) - Note Progress Note: Seen and examined in the ICU admitted for urosepsis, afib w/ RVR and possible UGIB Hgb down with positive fluid balance received dilt prn for RVR HR better controlled this AM Denies: CP/LOMAS/N/V, no hemetemesis x 24hrs Current Medications Diltiazem HCl (Cardizem Injection -) 5 mg IVPUSH Q4H PRN PRN Reason: TACHYCARDIA Last Admin: 08/20/16 20:32 Dose: 5 mg Docusate Sodium (Colace -) 100 mg PO TID EDILSON Pantoprazole Sodium 80 mg/ (Sodium Chloride) 100 mls @ 10 mls/hr IVPB Q10H EDILSON PRN Reason: 8 MG/HR Last Admin: 08/20/16 22:58 Dose: Not Given Diltiazem HCl 125 mg/ Dextrose 125 mls @ 5 mls/hr IVPB TITR EDILSON; 5 MG/HR PRN Reason: Protocol Last Titration: 08/20/16 22:58 Dose: 10 mg/hr Ondansetron HCl (Zofran Injection) 4 mg IVPUSH Q6H PRN PRN Reason: NAUSEA AND/OR VOMITING Piperacillin Sod/Tazobactam Sod (Zosyn 3.375gm Ivpb (Pre-Docked)) 3.375 gm IVPB Q8H-IV EDILSON PRN Reason: Protocol Polyethylene Glycol (Miralax (For Daily Use) -) 17 gm PO DAILY EDILSON Senna (Senna -) 1 tab PO BID EDILSON Vital Signs Period Temp Pulse Resp BP Sys/Guevara Pulse Ox Last 24 Hr 97.7 F-98.0 F 74-146 18-26 76-116/45-82 93-99 Intake & Output 08/18/16 08/19/16 08/20/16 08/21/16 23:59 23:59 23:59 23:59 Intake Total 250 2060 Output Total 150 200 Balance 100 1860 Weight 56.245 kg General: in bed w/o distress HEENT: PERRL, no JVD CV: irr, irr Pulm: CTA Abd: mildly distended, +BS Ext: bilateral BKA Neuro: intact CBCD WBC 10.8 K/mm3 (4.0-10.0) H D 08/21/16 05:20 RBC 3.49 M/mm3 (4.00-5.60) L D 08/21/16 05:20 Hgb 8.2 GM/dL (11.7-16.9) L D 08/21/16 05:20 Hct 26.6 % (35.4-49) L D 08/21/16 05:20 MCV 76.3 fl (80-96) L 08/21/16 05:20 MCHC 30.7 g/dl (32.0-35.9) L 08/21/16 05:20 RDW 17.1 % (11.9-15.9) H 08/21/16 05:20 Plt Count 161 K/MM3 (134-434) 08/21/16 05:20 MPV 7.4 fl (7.5-11.1) L 08/21/16 05:20 CMP Sodium 144 mmol/L (136-145) 08/21/16 05:20 Potassium 3.5 mmol/L (3.5-5.1) 08/21/16 05:20 Chloride 113 mmol/L (98-107) H D 08/21/16 05:20 Carbon Dioxide 23 mmol/L (21-32) D 08/21/16 05:20 Anion Gap 8 (8-16) 08/21/16 05:20 BUN 19 mg/dL (7-18) H D 08/21/16 05:20 Creatinine 0.4 mg/dL (0.7-1.3) L D 08/21/16 05:20 Creat Clearance w eGFR > 60 (>60) 08/20/16 11:52 Random Glucose 74 mg/dL (74-106) D 08/21/16 05:20 Calcium 7.6 mg/dL (8.5-10.1) L 08/21/16 05:20 Total Bilirubin 0.8 mg/dL (0.2-1.0) 08/20/16 11:52 AST 7 U/L (15-37) L D 08/20/16 11:52 ALT 8 U/L (12-78) L 08/20/16 11:52 Alkaline Phosphatase 65 U/L (45-117) D 08/20/16 11:52 Total Protein 5.2 g/dl (6.4-8.2) L 08/20/16 11:52 Albumin 2.5 g/dl (3.4-5.0) L 08/20/16 11:52 Cultures pending Problem List - Problems (1) Atrial fibrillation with rapid ventricular response Code(s): I48.91 - UNSPECIFIED ATRIAL FIBRILLATION (2) Sepsis Code(s): A41.9 - SEPSIS, UNSPECIFIED ORGANISM Qualifiers: Sepsis type: sepsis due to unspecified organism Qualified Code(s): A41.9 - Sepsis, unspecified organism (3) UTI (urinary tract infection) Code(s): N39.0 - URINARY TRACT INFECTION, SITE NOT SPECIFIED Qualifiers: Urinary tract infection type: site unspecified Hematuria presence: without hematuria Qualified Code(s): N39.0 - Urinary tract infection, site not specified (4) Fecal impaction in rectum Code(s): K56.41 - FECAL IMPACTION (5) Hematemesis Code(s): K92.0 - HEMATEMESIS Qualifiers: Nausea presence: unspecified Qualified Code(s): K92.0 - Hematemesis (6) Dehydration Code(s): E86.0 - DEHYDRATION (7) CAD (coronary artery disease) Code(s): I25.10 - ATHSCL HEART DISEASE OF [place] CORONARY ARTERY W/O ANG PCTRS (8) Peripheral artery disease Code(s): I73.9 - PERIPHERAL VASCULAR DISEASE, UNSPECIFIED Assessment/Plan AF w/RVR Elevated lactate Sepsis - likely source is UTI Fecal impaction ?GIB PVD CAD -Dilt push and drip for rate control, can restart Digoxin when able to take POs (Dig level was sub-theraputic) -IVF -Serial CBCs -normal transfusion thresholds, keep Hgb>7.0 -maintain IV access -NPO for now, advance per GI -PPI drip cont for 72hrs -GI consulted -Continue enemas and increased bowel regimen -Hold Plavix -Continue Zosyn - covers prior PSA UTIs, if worsens would add Tobra -Follow up cultures and narrow abx as able Boerem ACNP Pulm/CCM CCT: 35
[2016-08-21] MEDS ORDERED: POTASSIUM PHOSPHATE 30 MM in SODIUM CHLORIDE 250 ML IVPB ONE (08:25)
[2016-08-21] MEDS ORDERED: ACETAMINOPHEN 1000 MG/100 ML VIAL (NON FORMULARY) IVPB PRN (09:28)
[2016-08-21] MEDS: DEXTROSE 5%-NORMAL SALINE 1,000 ML IV SCH (09:59)
[2016-08-21] MEDS ORDERED: SENNOSIDES 8.6MG TABLET (FP) PO SCH (10:00)
[2016-08-21] MEDS ORDERED: PANTOPRAZOLE SODIUM 40 MG in SODIUM CHLORIDE 100 ML IVPB SCH (10:00)
[2016-08-21] MEDS ORDERED: POLYETHYLENE GLYCOL 3350 119 GM BTL PO SCH (10:00)
[2016-08-21] MEDS: PANTOPRAZOLE SODIUM 80 MG in SODIUM CHLORIDE 100 ML IVPB SCH ×2 (11:11→20:28)
--- NOTE | 2016-08-21 11:38 | CONSULT ---
Consult Consult Specialty:: infectious diseases Reason for Consultation:: sepsis,uti - History of Present Illness Chief Complaint: vomiting and bleeding p/r History of Present Illness: This patient well known to me and being admitted for uti with vre and psudomonas and sepsis and with constipation comes back to the hospital because he was not able to ahve a bm in last 4 days In the er patient was in sepsis and hypotensive 71 year old male with a significant past medical history of new onset A-fib, CVA , CAD s/p stents, HTN, peripheral artery disease, diabetes, hepatitis C, COPD, alcohol abuse, s/p bilateral lower extremity amputation who admitted, with complaints of coffee ground emesis for 4 days. The patient reports nausea and vomiting a coffee ground-like substance. Patient states he has not moved his bowels in 5 days. 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: CVA Cardio/Vascular: Yes: CAD, HTN, Other (MAT) Gastrointestinal: Yes: Constipation, Other (paraesophageal hernia) Renal/: Yes: UTI Endocrine: Yes: Diabetes Mellitus - Past Surgical History Past Surgical History: Yes: Amputation - Alcohol/Substance Use Hx Alcohol Use: No History of Substance Use: reports: None - Smoking History Smoking history: Unknown if ever smoked Have you smoked in the past 12 months: No Aproximately how many cigarettes per day: 40 - Social History ADL: Support Services History of Recent Travel: No Home Medications - Allergies Allergies/Adverse Reactions: Allergies Allergy/AdvReac Type Severity Reaction Status Date / Time No Known Allergies Allergy Verified 08/20/16 11:37 - Home Medications Home Medications: Ambulatory Orders Bupropion HCl [Wellbutrin Xl] 300 mg PO DAILY 07/21/15 Gabapentin [Neurontin -] 100 mg PO TID #90 capsule 07/25/15 Finasteride 5 mg PO DAILY 10/08/15 Digoxin [Lanoxin -] 0.25 mg PO DAILY #30 tablet 10/10/15 Polyethylene Glycol 3350 [Miralax 119 gm Btl -] 17 gm PO TID #1 bottle 10/10/15 Amino Acids/Protein Hydrolys [Prostat Sugar-Free Packet -] 30 ml PO BID@0800, 1730 #60 packet 10/29/15 Metoclopramide HCl [Reglan] 5 mg PO AC #90 tablet 10/29/15 Atorvastatin Ca [Lipitor] 40 mg PO HS 02/15/16 Docusate Sodium 100 mg PO DAILY 02/15/16 Tamsulosin HCl 0.4 mg PO DAILY 02/15/16 Clopidogrel Bisulfate [Plavix -] 75 mg PO DAILY tablet 02/28/16 Pantoprazole Sodium [Protonix -] 40 mg PO BID #40 tablet.ec 02/28/16 Family Disease History - Family Disease History Family Disease History: Diabetes: Father, CA: Mother (throat) Review of Systems - Review of Systems Constitutional: reports: Other Eyes: reports: No Symptoms HENT: reports: No Symptoms Neck: reports: No Symptoms Cardiovascular: reports: No Symptoms Respiratory: reports: No Symptoms Gastrointestinal: reports: Abdominal Pain, Nausea, Vomiting Blood, Other ( constipation) Musculoskeletal: reports: No Symptoms Integumentary: reports: No Symptoms Neurological: reports: No Symptoms Endocrine: reports: No Symptoms Hematology/Lymphatic: reports: No Symptoms Psychiatric: reports: No Symptoms Physical Exam Vital Signs: Vital Signs Temperature 97.7 F 08/21/16 06:00 Pulse Rate 90 08/21/16 06:00 Respiratory Rate 18 08/21/16 06:00 Blood Pressure 88/48 08/21/16 06:00 O2 Sat by Pulse Oximetry (%) 99 08/20/16 21:00 Constitutional: Yes: Calm, Mild Distress Eyes: Yes: Conjunctiva Clear Neck: Yes: Supple Cardiovascular: Yes: Pulse Irregular Respiratory: Yes: Regular, CTA Bilaterally Gastrointestinal: Yes: Soft, Hypoactive Bowel Sounds Renal/: Yes: Rawls Present Musculoskeletal: Yes: Other Extremities: Yes: Other (amputation) Labs: CBC, BMP 08/21/16 05:20 08/21/16 05:20 Assessment/Plan Problem List - Problems (1) Atrial fibrillation with rapid ventricular response Code(s): I48.91 - UNSPECIFIED ATRIAL FIBRILLATION (2) Sepsis Code(s): A41.9 - SEPSIS, UNSPECIFIED ORGANISM Qualifiers: Sepsis type: sepsis due to unspecified organism Qualified Code(s): A41.9 - Sepsis, unspecified organism (3) UTI (urinary tract infection) Code(s): N39.0 - URINARY TRACT INFECTION, SITE NOT SPECIFIED Qualifiers: Urinary tract infection type: site unspecified Hematuria presence: without hematuria Qualified Code(s): N39.0 - Urinary tract infection, site not specified (4) Fecal impaction in rectum Code(s): K56.41 - FECAL IMPACTION (5) Hematemesis Code(s): K92.0 - HEMATEMESIS Qualifiers: Nausea presence: unspecified Qualified Code(s): K92.0 - Hematemesis (6) Dehydration Code(s): E86.0 - DEHYDRATION (7) CAD (coronary artery disease) Code(s): I25.10 - ATHSCL HEART DISEASE OF [place] CORONARY ARTERY W/O ANG PCTRS (8) Peripheral artery disease Code(s): I73.9 - PERIPHERAL VASCULAR DISEASE, UNSPECIFIED plan continue supportive care close monitoring iv fluids rest as per icu will start zosyn await for all cx to be back cc time 45 min
[2016-08-21] MEDS ORDERED: PIPERACILLIN/TAZOB 2.25 GM 2.25 GM in DEXTROSE 5%-WATER - 50 ML IVPB SCH (11:45)
[2016-08-21] MEDS ORDERED: SODIUM CHLORIDE 500 ML IV STA (12:19)
[2016-08-21] MEDS: DIGOXIN 0.25 MG TABLET (FP) PO SCH (12:32)
[2016-08-21] MEDS: PIPERACILLIN/TAZOB 2.25 GM 50 ML IVPB SCH ×2 (14:36→17:45)
[2016-08-21 15:29] LABS: MCH 23.3 pg (25.7-33.7); MCHC 30.8 g/dl (32.0-35.9); MEAN CELL VOLUME 75.6 fl (80-96); PLATELET COUNT 128 K/MM3 (134-434); RDW 17.3 % (11.9-15.9); WHITE BLOOD COUNT 7.9 K/mm3 (4.0-10.0)
--- NOTE | 2016-08-21 16:47 | CON.GI ---
Consult Consult Specialty:: GI Referred by:: Hospitalist Reason for Consultation:: Hematemesis - History of Present Illness Chief Complaint: Hematemesis History of Present Illness: A/P 71yo M with PMH CAD s/p stent, Afib, CVA with residual L weakness, HCV cirrhosis, esophageal stricture s/p dilation at [facility] 2 weeks ago which was not successful, barretts esophagus presented to the ER with 4 day history of hematemesis. I am called to evaluate same. 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: CVA Cardio/Vascular: Yes: CAD, HTN, Other (MAT) Gastrointestinal: Yes: Constipation, Other (paraesophageal hernia) Renal/: Yes: UTI Endocrine: Yes: Diabetes Mellitus - Past Surgical History Past Surgical History: Yes: Amputation - Alcohol/Substance Use Hx Alcohol Use: No History of Substance Use: reports: None - Smoking History Smoking history: Unknown if ever smoked Have you smoked in the past 12 months: No Aproximately how many cigarettes per day: 40 - Social History ADL: Support Services History of Recent Travel: No Home Medications - Allergies Allergies/Adverse Reactions: Allergies Allergy/AdvReac Type Severity Reaction Status Date / Time No Known Allergies Allergy Verified 08/20/16 11:37 - Home Medications Home Medications: Ambulatory Orders Bupropion HCl [Wellbutrin Xl] 300 mg PO DAILY 07/21/15 Gabapentin [Neurontin -] 100 mg PO TID #90 capsule 07/25/15 Finasteride 5 mg PO DAILY 10/08/15 Digoxin [Lanoxin -] 0.25 mg PO DAILY #30 tablet 10/10/15 Polyethylene Glycol 3350 [Miralax 119 gm Btl -] 17 gm PO TID #1 bottle 10/10/15 Amino Acids/Protein Hydrolys [Prostat Sugar-Free Packet -] 30 ml PO BID@0800, 1730 #60 packet 10/29/15 Metoclopramide HCl [Reglan] 5 mg PO AC #90 tablet 10/29/15 Atorvastatin Ca [Lipitor] 40 mg PO HS 02/15/16 Docusate Sodium 100 mg PO DAILY 02/15/16 Tamsulosin HCl 0.4 mg PO DAILY 02/15/16 Clopidogrel Bisulfate [Plavix -] 75 mg PO DAILY tablet 02/28/16 Pantoprazole Sodium [Protonix -] 40 mg PO BID #40 tablet.ec 02/28/16 Family Disease History - Family Disease History Family Disease History: Diabetes: Father, CA: Mother (throat) Physical Exam-GI Vital Signs: Vital Signs Temperature 98 F 08/21/16 12:00 Pulse Rate 74 08/21/16 12:32 Respiratory Rate 22 08/21/16 12:30 Blood Pressure 65/54 08/21/16 12:30 O2 Sat by Pulse Oximetry (%) 94 L 08/21/16 09:00 Constitutional: Yes: Well Nourished Neck: Yes: Supple Cardiovascular: Yes: Regular Rate and Rhythm Respiratory: Yes: CTA Bilaterally Gastrointestinal Inspection: Yes: WNL ...Auscultate: Yes: Normoactive Bowel Sounds Labs: CBC, BMP 08/21/16 15:05 08/21/16 05:20 INR, PTT INR 1.19 (0.82-1.09) H 08/21/16 05:20 Imaging - Results Cat Scan: Report Reviewed (Para-esophageal hiatal hernia with thickening of the distal esophagus.) Assessment/Plan 71 M with above history now with hematemesis. Patient dilated 2 weeks ago for pre-existing esophageal stricture. He was also dilated by Dr Campbell last year. Unfortunately, with this type of stricture, results of balloon dilation are not durable and the problem recurs. Current bleeding is minimal and related to recent procedure. A/P: Patient is a poor candidate for surgery but should be evaluated for surgical correction of this problem at a future date. At this time, tolerating liquid supplements which he should continue. Continue protonix drip for now. Avoid solid food. Transfuse to Hgb of 9.
--- NOTE | 2016-08-21 19:19 | EKG ---
Test Reason : Blood Pressure : / mmHG Vent. Rate : 160 BPM Atrial Rate : 174 BPM P-R Int : 000 ms QRS Dur : 064 ms QT Int : 244 ms P-R-T Axes : 000 -18 086 degrees QTc Int : 398 ms ATRIAL FIBRILLATION WITH RAPID VENTRICULAR RESPONSE WITH PREMATURE VENTRICULAR OR ABERRANTLY CONDUCTED COMPLEXES LOW VOLTAGE QRS INFERIOR INFARCT (CITED ON OR BEFORE 14-NOV-2015) CANNOT RULE OUT ANTEROSEPTAL INFARCT (CITED ON OR BEFORE 14-NOV-2015) ABNORMAL ECG WHEN COMPARED WITH ECG OF 20-APR-2016 14:30, ATRIAL FIBRILLATION HAS REPLACED SINUS RHYTHM QUESTIONABLE CHANGE IN INITIAL FORCES OF SEPTAL LEADS ST NOW DEPRESSED IN ANTERIOR LEADS T WAVE INVERSION NO LONGER EVIDENT IN INFERIOR LEADS Confirmed by FAVIO ORTEGA, JAMAL ([id number]) on 08/21/2016 7:18:42 PM Referred By: Confirmed By:JAMAL STAHL MD
[2016-08-21] MEDS: PIPERACILLIN/TAZOB 3.375 GM/50 ML PRE-DOCKED IVPB SCH (19:33)
[2016-08-22] MEDS: PIPERACILLIN/TAZOB 2.25 GM 50 ML IVPB SCH ×3 (01:26→18:38)
[2016-08-22] MEDS: PANTOPRAZOLE SODIUM 80 MG in SODIUM CHLORIDE 100 ML IVPB SCH ×3 (02:26→17:52)
[2016-08-22] MEDS: DEXTROSE 5%-NORMAL SALINE 1,000 ML IV SCH ×2 (05:27→17:51)
[2016-08-22 06:02] LABS: MCH 23.9 pg (25.7-33.7); MCHC 31.7 g/dl (32.0-35.9); MEAN CELL VOLUME 75.5 fl (80-96); MEAN PLT VOLUME 7.6 fl (7.5-11.1); PLATELET COUNT 160 K/MM3 (134-434); RDW 16.9 % (11.9-15.9)
[2016-08-22 06:22] LABS: INR 1.15 (0.82-1.09); PROTHROMBIN TIME (PATIENT) 12.7 SEC (9.98-11.88)
[2016-08-22 06:24] LABS: ACTIVATED PTT 31.1 SECONDS (26.9-34.4)
[2016-08-22 06:39] LABS: CALCIUM 7.5 mg/dL (8.5-10.1)
[2016-08-22 06:42] LABS: COCKROFT - GAULT 109.36; CREATININE 0.5 mg/dL (0.7-1.3); MAGNESIUM 1.7 mg/dL (1.8-2.4); PHOSPHOROUS 2.2 mg/dL (2.5-4.9)
--- NOTE | 2016-08-22 08:53 | PN ---
Teaching Attending Note Name of Resident: Chele Mendez ATTENDING PHYSICIAN STATEMENT I saw and evaluated the patient. I reviewed the resident's note and discussed the case with the resident. I agree with the resident's findings and plan as documented. SUBJECTIVE:currently asymptomatic. tolerating liquid diet. had BM this AM. states his BP is typically in the 70's. denies CP, SOB,fever, chills, N/V/C/D, hemoptysis, hematemesis OBJECTIVE: Last Vital Signs Temp Pulse Resp BP Pulse Ox 97.9 F 90 22 106/53 95 08/22/16 04:00 08/22/16 06:00 08/22/16 06:00 08/22/16 06:00 08/21/16 21:00 General NAD, thin appearing male CV S1 S2 RRR no murmur/rub/gallop Lungs CTA B/L no wheezing/rales/rhonchi Abdomen soft NT/ND no rebound or guarding hyperactive BS Extremities BKA ASSESSMENT AND PLAN: 71yo M with PMH CAD s/p stent, Afib, CVA with residual L weakness, HCV cirrhosis , esophageal stricture, barretts esophagus presented to the ER with 4 day history of hematemesis 1. Upper GI bleed- no repeated episodes since arrival. s/p 1 unit PRBC yesterday with appropriate response. Evaluated by GI, believes it to be due to recent procedure. will repeat CBC this afternoon to ensure it remains stable. cont PPI ggt at this time. cont clear liquid diet. GI on board. nausea and pain control 2. Severe sepsis due to UTI- hx of pseudomonas and VRE. hypotensive for most of the evening, pt states he always is in the 70's. currently normotensive. awaiting Cx report. cont Zosyn day 3. ID consulted. f/u Cx 3. Afib with RVR- likely due to acute blood loss anemia. now rate controlled. off dilt ggt, re-start digoxin. dilt prn for tachycardia. cont to hold plavix. not on full anticoagulation due to recurrent GI bleed. 4. hypophosphatemia- neutraphos 5. Hypomagnesemia- Mg 2g 6. Fecal impaction- s/p manual disempaction and enema. with multiple BM. will monitor for regular BM. 7. DVT ppx- hold anticoagulation due to GI bleed. BKA can not place SCD 8. if repeat cbc shows stable Hgb and BP remains stable can be transferred to floors The care of this patient involved high complexity decision making to prevent further life threatening deterioration of the patient's condition and/or to evalute & treat vital organ system(s) failure or risk of failure. 40 minutes critical care time
[2016-08-22] MEDS ORDERED: POTASSIUM PHOSPHATE 30 MM in SODIUM CHLORIDE 250 ML IVPB ONE (09:05)
[2016-08-22] MEDS ORDERED: MAGNESIUM SULF 50% (8.12 MEQ/2 ML-1 GM VIAL) IVPB ONE (09:05)
[2016-08-22] MEDS ORDERED: NAPH,MB-DB/K PH,MBDB POWDER PACKET PO ONE (09:06)
[2016-08-22] MEDS: DIGOXIN 0.25 MG TABLET (FP) PO SCH (09:57)
--- NOTE | 2016-08-22 12:00 | PN ---
Physical Exam: SUBJECTIVE: Patient seen and examined at bedside in ICU. Stated he's feeling much better, no complaint, and wants to go home. Denies fever, chills, , hematuria, hematochiezia, palpitation, chest pain. OBJECTIVE: Vital Signs Period Temp Pulse Resp BP Sys/Guevara Pulse Ox Last 24 Hr 97.9 F-98.7 F 72-90 15-24 65-123/40-70 95 GENERAL: AAO x 3, in no acute distress. EYES: sclera anicteric, conjunctiva clear. ENT: oropharynx clear without exudates, moist mucous membranes. LUNGS: CTAB HEART: Irregularly irregular, S1, S2 without murmur, rub or gallop. ABDOMEN: Soft, nontender, nondistended, normoactive bowel sounds, no guarding, no rebound, EXTREMITIES: b/l BKA, L hemiplegia, no edema CBCD WBC 7.0 K/mm3 (4.0-10.0) 08/22/16 05:15 RBC 4.03 M/mm3 (4.00-5.60) 08/22/16 05:15 Hgb 9.6 GM/dL (11.7-16.9) L D 08/22/16 05:15 hematemesis Hct 30.4 % (35.4-49) L D 08/22/16 05:15 MCV 75.5 fl (80-96) L 08/22/16 05:15 MCHC 31.7 g/dl (32.0-35.9) L 08/22/16 05:15 RDW 16.9 % (11.9-15.9) H 08/22/16 05:15 Plt Count 160 K/MM3 (134-434) D 08/22/16 05:15 MPV 7.6 fl (7.5-11.1) 08/22/16 05:15 CMP Sodium 140 mmol/L (136-145) 08/22/16 05:15 Potassium 3.5 mmol/L (3.5-5.1) 08/22/16 05:15 Chloride 110 mmol/L (98-107) H 08/22/16 05:15 Carbon Dioxide 22 mmol/L (21-32) 08/22/16 05:15 Anion Gap 8 (8-16) 08/22/16 05:15 BUN 8 mg/dL (7-18) D 08/22/16 05:15 Creatinine 0.5 mg/dL (0.7-1.3) L D 08/22/16 05:15 Creat Clearance w eGFR > 60 (>60) 08/20/16 11:52 Calcium 7.5 mg/dL (8.5-10.1) L 08/22/16 05:15 Total Bilirubin 0.8 mg/dL (0.2-1.0) 08/20/16 11:52 AST 7 U/L (15-37) L D 08/20/16 11:52 ALT 8 U/L (12-78) L 08/20/16 11:52 Alkaline Phosphatase 65 U/L (45-117) D 08/20/16 11:52 Total Protein 5.2 g/dl (6.4-8.2) L 08/20/16 11:52 Albumin 2.5 g/dl (3.4-5.0) L 08/20/16 11:52 Intake & Output 08/19/16 08/20/16 08/21/16 08/22/16 23:59 23:59 23:59 23:59 Intake Total 250 3880 Output Total 150 540 250 Balance 100 3340 -250 Weight 56.245 kg Active Medications Generic Name Dose Route Start Last Admin Trade Name Freq PRN Reason Stop Dose Admin Digoxin 0.25 mg 08/21/16 12:30 08/22/16 09:57 Lanoxin - PO 0.25 mg DAILY EDILSON Administration Diltiazem HCl 5 mg 08/20/16 17:18 08/20/16 20:32 Cardizem Injection - IVPUSH 5 mg Q4H PRN Administration TACHYCARDIA Pantoprazole Sodium 80 mg/ 100 mls @ 10 mls/hr 08/20/16 11:45 08/22/16 08:31 Sodium Chloride IVPB 10 mls/hr Q10H EDILSON Administration 8 MG/HR Dextrose/Sodium Chloride 1,000 mls @ 75 mls/hr 08/21/16 08:30 08/22/16 05:27 D5-Ns - IV 75 mls/hr ASDIR EDILSON Administration Piperacillin Sod/Tazobactam Sod 50 mls @ 100 mls/hr 08/21/16 12:15 08/22/16 09: 57 Zosyn 2.25gm Ivpb (Pre-Docked) IVPB 100 mls/hr Q8H-IV EDILSON Administration Protocol Ondansetron HCl 4 mg 08/20/16 19:40 Zofran Injection IVPUSH Q6H PRN NAUSEA AND/OR VOMITING ASSESSMENT/PLAN: 71 yo M h/o CAD s/p stent, A-fib on digoxin and plavix, CVA with L hemiplegia, HCV with cirrhosis, esophageal stricture, barretts esophagus admitted to ICU for acute UGIB. ID: Severe sepsis 2/2 complicated UTI - Resolved - Afrebile with normal WBC - BP persistently low maybe at baseline * maintain MAP > 65 - f/u urine culture - Cont. prophylactic abx zosyn day 3 GI: Acute UGIB with fecal impaction - No new episode of hematemesis - Cont. PPI gtt - H&H stable at baseline * s/p 1 PRBC * recheck in PM * transfuse treshhold = 9 per GI - Bowel movement x 4 since enema * Cont. to observe Cardiac: A-fib - Rated controlled on digoxin * cardizem PRN - Temporarily hold plavix due to UGIB - Digoxin subtherapeutic * recheck tomorrow Renal: Hypophosphatemia and hypomagnesemia - Given K-phos and MgSO4 FEN - D5+NS 75cc/hr - Cont. to monitor lytes - Clear liquid Prophylaxis - DVT: BKA - GI: protonix gtt Disposition - Recheck CBC this PM, transfer to med-surg if H&H stable Code status - Full code Visit type - Emergency Visit Emergency Visit: No - New Patient This patient is new to me today: No - Critical Care Critical Care patient: No
--- NOTE | 2016-08-22 13:09 | PN ---
Progress Note, Physician History of Present Illness: feels better says now he is feeling much better - Current Medication List Current Medications: Active Medications Digoxin (Lanoxin -) 0.25 mg PO DAILY [facility] Last Admin: 08/22/16 09:57 Dose: 0.25 mg Diltiazem HCl (Cardizem Injection -) 5 mg IVPUSH Q4H PRN PRN Reason: TACHYCARDIA Last Admin: 08/20/16 20:32 Dose: 5 mg Pantoprazole Sodium 80 mg/ (Sodium Chloride) 100 mls @ 10 mls/hr IVPB Q10H EDILSON PRN Reason: 8 MG/HR Last Admin: 08/22/16 08:31 Dose: 10 mls/hr Dextrose/Sodium Chloride (D5-Ns -) 1,000 mls @ 75 mls/hr IV ASDIR EDILSON Last Admin: 08/22/16 05:27 Dose: 75 mls/hr Piperacillin Sod/Tazobactam Sod (Zosyn 2.25gm Ivpb (Pre-Docked)) 50 mls @ 100 mls/hr IVPB Q8H-IV EDILSON PRN Reason: Protocol Last Admin: 08/22/16 09:57 Dose: 100 mls/hr Ondansetron HCl (Zofran Injection) 4 mg IVPUSH Q6H PRN PRN Reason: NAUSEA AND/OR VOMITING - Objective Vital Signs: Vital Signs Temperature 98 F 08/22/16 10:00 Pulse Rate 96 H 08/22/16 12:00 Respiratory Rate 22 08/22/16 12:00 Blood Pressure 98/70 08/22/16 12:00 O2 Sat by Pulse Oximetry (%) 95 08/21/16 21:00 Constitutional: Yes: No Distress, Calm Cardiovascular: Yes: S1, S2 Respiratory: Yes: Regular, CTA Bilaterally Gastrointestinal: Yes: Normal Bowel Sounds, Soft Musculoskeletal: Yes: Other Extremities: Yes: Other (bilat amp) Neurological: Yes: Alert, Oriented Psychiatric: Yes: Alert, Oriented Labs: CBC, BMP 08/22/16 05:15 08/22/16 05:15 INR, PTT INR 1.15 (0.82-1.09) H 08/22/16 05:15 Assessment/Plan Problem List - Problems (1) Atrial fibrillation with rapid ventricular response Code(s): I48.91 - UNSPECIFIED ATRIAL FIBRILLATION (2) Sepsis Code(s): A41.9 - SEPSIS, UNSPECIFIED ORGANISM Qualifiers: Sepsis type: sepsis due to unspecified organism Qualified Code(s): A41.9 - Sepsis, unspecified organism (3) UTI (urinary tract infection) Code(s): N39.0 - URINARY TRACT INFECTION, SITE NOT SPECIFIED Qualifiers: Urinary tract infection type: site unspecified Hematuria presence: without hematuria Qualified Code(s): N39.0 - Urinary tract infection, site not specified (4) Fecal impaction in rectum Code(s): K56.41 - FECAL IMPACTION (5) Hematemesis Code(s): K92.0 - HEMATEMESIS Qualifiers: Nausea presence: unspecified Qualified Code(s): K92.0 - Hematemesis (6) Dehydration Code(s): E86.0 - DEHYDRATION (7) CAD (coronary artery disease) Code(s): I25.10 - ATHSCL HEART DISEASE OF [place] CORONARY ARTERY W/O ANG PCTRS (8) Peripheral artery disease Code(s): I73.9 - PERIPHERAL VASCULAR DISEASE, UNSPECIFIED plan continue supportive care close monitoring iv fluids rest as per icu urine showing pseudomonas continue abx cc time 40 min
--- NOTE | 2016-08-22 14:25 | PN ---
Progress Note (short form) - Note Progress Note: PULM / CCM -Pt seen & examined in the ICU -RSR w/ occ PVCs but NO A-Fib -PSA growing in Urine from 08/20 ACTIVE MEDS Digoxin (Lanoxin -) 0.25 mg PO DAILY EDILSON Last Admin: 08/22/16 09:57 Dose: 0.25 mg Diltiazem HCl (Cardizem Injection -) 5 mg IVPUSH Q4H PRN PRN Reason: TACHYCARDIA Last Admin: 08/20/16 20:32 Dose: 5 mg Pantoprazole Sodium 80 mg/ (Sodium Chloride) 100 mls @ 10 mls/hr IVPB Q10H EDILSON PRN Reason: 8 MG/HR Last Admin: 08/22/16 08:31 Dose: 10 mls/hr Dextrose/Sodium Chloride (D5-Ns -) 1,000 mls @ 75 mls/hr IV ASDIR EDILSON Last Admin: 08/22/16 05:27 Dose: 75 mls/hr Piperacillin Sod/Tazobactam Sod (Zosyn 2.25gm Ivpb (Pre-Docked)) 50 mls @ 100 mls/hr IVPB Q8H-IV EDILSON PRN Reason: Protocol Last Admin: 08/22/16 09:57 Dose: 100 mls/hr Ondansetron HCl (Zofran Injection) 4 mg IVPUSH Q6H PRN PRN Reason: NAUSEA AND/OR VOMITING V/S Period Temp Pulse Resp BP Sys/Guevara Pulse Ox Last 24 Hr 97.9 F-98.5 F 74-96 15-24 70-123/42-70 95 Intake & Output 08/19/16 08/20/16 08/21/16 08/22/16 23:59 23:59 23:59 23:59 Intake Total 250 3880 Output Total 150 540 250 Balance 100 3340 -250 Weight 56.245 kg GEN: Eldely man, B/L AKA, in bed, NAD HEENT: PERRL, an-icteric, no JVD CV: nml S1 S2, RR, unable to appreciate any G/M/R PULM: CTAB ABD: mildly distended, +BS EXT: bilateral BKA NEURO: CA+OX3, followsa all, moves all, (-) focal deficit CBC, BMP 08/22/16 05:15 08/22/16 05:15 Microbiology 08/20/16 16:06 Urine - Urine Clean Catch Urine Culture - Preliminary Pseudomonas Species 08/20/16 12:48 Blood - Peripheral Venous Blood Culture - Preliminary NO GROWTH OBTAINED AFTER 24 HOURS, INCUBATION TO CONTINUE FOR 4 DAYS. 08/20/16 12:48 Blood - Peripheral Venous Blood Culture - Preliminary NO GROWTH OBTAINED AFTER 24 HOURS, INCUBATION TO CONTINUE FOR 4 DAYS. CXR 08/22: NONE ASSESS: -AF w/RVR -Elevated lactate -Sepsis - likely source is UTI -Fecal impaction -?GIB -PVD -CAD PLAN: -Continue Zosyn - covers prior PSA UTIs, (if worsens would add Tobra) -Follow up cultures and narrow abx as able -Dilt push and drip for rate control, can restart Digoxin when able to take POs (Dig level was sub-theraputic) -IVFs -Serial CBCs -normal transfusion thresholds, keep Hgb>7.0 -maintain IV access -Advance Diet -Convert PPI drip --> PO BID -GI consulted -Continue enemas and increased bowel regimen -Hold Plavix -Transfer to floor Artem Almazan, TE-BC [id number] Pulm/CCM CCT: [id number]
[2016-08-22 15:41] LABS: MCH 23.9 pg (25.7-33.7); MCHC 31.6 g/dl (32.0-35.9); MEAN CELL VOLUME 75.7 fl (80-96); MEAN PLT VOLUME 7.1 fl (7.5-11.1); PLATELET COUNT 159 K/MM3 (134-434); RDW 17.2 % (11.9-15.9); WHITE BLOOD COUNT 6.9 K/mm3 (4.0-10.0)
[2016-08-23] MEDS: PANTOPRAZOLE SODIUM 80 MG in SODIUM CHLORIDE 100 ML IVPB SCH (02:45)
[2016-08-23] MEDS: PIPERACILLIN/TAZOB 2.25 GM 50 ML IVPB SCH ×3 (03:05→18:09)
[2016-08-23 06:17] LABS: MCH 23.9 pg (25.7-33.7); MCHC 31.6 g/dl (32.0-35.9); MEAN CELL VOLUME 75.6 fl (80-96); PLATELET COUNT 216 K/MM3 (134-434); RDW 17.4 % (11.9-15.9); WHITE BLOOD COUNT 7.5 K/mm3 (4.0-10.0)
[2016-08-23 06:43] LABS: CALCIUM 7.5 mg/dL (8.5-10.1); COCKROFT - GAULT 136.7; CREATININE 0.4 mg/dL (0.7-1.3); MAGNESIUM 1.9 mg/dL (1.8-2.4); PHOSPHOROUS 2.1 mg/dL (2.5-4.9)
[2016-08-23] MEDS: DIGOXIN 0.25 MG TABLET (FP) PO SCH (10:02)
--- NOTE | 2016-08-23 11:54 | PN ---
Teaching Attending Note Name of Resident: Chele Mendez ATTENDING PHYSICIAN STATEMENT I saw and evaluated the patient. I reviewed the resident's note and discussed the case with the resident. I agree with the resident's findings and plan as documented. SUBJECTIVE:currently asymptomatic. no hemoptysis or hematemsis. denies Cp, SOB, fever, chills, N/V/C/D. BM yesterday disclosed he has not been on plavix for over 1 month now, unsure if he was told to stop himself or instructed by PMD. OBJECTIVE: Last Vital Signs Temp Pulse Resp BP Pulse Ox 98.7 F 106 H 22 121/70 95 08/23/16 10:00 08/23/16 10:02 08/23/16 10:00 08/23/16 10:00 08/22/16 20:43 General NAD, thin appearing male CV S1 S2 RRR no murmur/rub/gallop Lungs CTA B/L no wheezing/rales/rhonchi Abdomen soft NT/ND no rebound or guarding hyperactive BS ASSESSMENT AND PLAN: 71yo M with PMH CAD s/p stent, Afib, CVA with residual L weakness, HCV cirrhosis , esophageal stricture, barretts esophagus presented to the ER with 4 day history of hematemesis 1. Upper GI bleed- no repeated episodes since arrival. s/p 1 unit PRBC yesterday with appropriate response. no repeated episodes since admission. Hgb stable.tolerating liquid diet, will advance to full liquids. will need to remain on liquid diet due to esophageal stricture. PPI ggt switched to po. GI on board. nausea and pain control 2. Severe sepsis due to UTI- hx of pseudomonas and VRE. normotensive. on Zosyn day 4. ID consulted. f/u Cx 3. Afib with RVR- likely due to acute blood loss anemia. now rate controlled. rate controlled on digoxin. dilt prn for tachycardia. not on full anticoagulation due to recurrent GI bleed. 4. hypophosphatemia- neutraphos 5. Hypomagnesemia- resolved 6. Fecal impaction- s/p manual disempaction and enema. with multiple BM. will monitor for regular BM. 7. DVT ppx- hold anticoagulation due to GI bleed. BKA can not place SCD 8. medically stable for transfer to med-surg. stated he wanted to sign out AMA. counseled on risks of leaving without being treated adequately for UTI. verbalized understanding of risks. will consider waiting to hear from ID about course duration prior to making decision. The care of this patient involved high complexity decision making to prevent further life threatening deterioration of the patient's condition and/or to evalute & treat vital organ system(s) failure or risk of failure. 35 minutes critical care time
[2016-08-23] MEDS ORDERED: dilTIAZem HCL 50 MG/10 ML - 10 ML VIAL IVPUSH PRN (11:58)
[2016-08-23] MEDS ORDERED: ONDANSETRON 4 MG/2 ML VIAL IVPUSH PRN (11:58)
[2016-08-23] MEDS ORDERED: DEXTROSE 5%-NORMAL SALINE 1,000 ML IV SCH (12:15)
--- NOTE | 2016-08-23 14:57 | PN ---
Teaching Attending Note Name of Resident: Rosemarie Barros ATTENDING PHYSICIAN STATEMENT I saw and evaluated the patient. I reviewed the resident's note and discussed the case with the resident. I agree with the resident's findings and plan as documented. SUBJECTIVE: Patient seen and examined in the ICU. Awake and alert. Denies CP or SOB. Intake & Output 08/20/16 08/21/16 08/22/16 08/23/16 23:59 23:59 23:59 23:59 Intake Total 250 3880 1400 1300 Output Total 150 540 250 50 Balance 100 3340 1150 1250 Weight 124 lb Last Vital Signs Temp Pulse Resp BP Pulse Ox 98.7 F 106 H 22 121/70 95 08/23/16 10:00 08/23/16 10:02 08/23/16 10:08/23/16 10:00 08/22/16 20:43 Active Medications Digoxin (Lanoxin -) 0.25 mg PO DAILY EDILSON Diltiazem HCl (Cardizem Injection -) 5 mg IVPUSH Q4H PRN PRN Reason: TACHYCARDIA Dextrose/Sodium Chloride (D5-Ns -) 1,000 mls @ 75 mls/hr IV ASDIR EDILSON Piperacillin Sod/Tazobactam Sod (Zosyn 2.25gm Ivpb (Pre-Docked)) 50 mls @ 100 mls/hr IVPB Q8H-IV EDILSON PRN Reason: Protocol Ondansetron HCl (Zofran Injection) 4 mg IVPUSH Q6H PRN PRN Reason: NAUSEA AND/OR VOMITING Pantoprazole Sodium (Protonix -) 40 mg PO DAILY EDILSON GEN: Awake and alert, NAD HEENT: Anicteric, no JVD CV: S1 S2, Afib PULM: Clear ABD: Soft, (+) BS, NT EXT: bilateral BKA NEURO: Non-focal Laboratory Results - last 24 hr 08/20/16 08/22/16 08/23/16 11:52 15:30 05:20 WBC 6.9 7.5 RBC 4.22 4.24 Hgb 10.1 L 10.1 L Hct 31.9 L 32.1 L MCV 75.7 L 75.6 L MCHC 31.6 L 31.6 L RDW 17.2 H 17.4 H Plt Count 159 216 D MPV 7.1 L 7.0 L Sodium Potassium Chloride Carbon Dioxide Anion Gap BUN Creatinine Random Glucose Calcium Phosphorus Magnesium Crossmatch See Detail 08/23/16 05:20 WBC RBC Hgb Hct MCV MCHC RDW Plt Count MPV Sodium 143 Potassium 3.6 Chloride 112 H Carbon Dioxide 22 Anion Gap 9 BUN 3 L D Creatinine 0.4 L Random Glucose 124 H Calcium 7.5 L Phosphorus 2.1 L Magnesium 1.9 Crossmatch ASSESS: AFib w/RVR Lactic acidosis Sepsis due to a source Fecal impaction PVD CAD PLAN: ABX per ID IVF Rate control PO as tolerated Bowel regimen Floor Dr Russ
[2016-08-23] MEDS: PANTOPRAZOLE 40 MG TABLET (FP) PO SCH (16:34)
--- NOTE | 2016-08-23 17:30 | PN ---
Physical Exam: SUBJECTIVE: Patient seen and examined at bedside in ICU. Cont. to feel great, wants to sign out AMA. Denies any acute event. OBJECTIVE: Vital Signs Period Temp Pulse Resp BP Sys/Guevara Pulse Ox Last 24 Hr 97.8 F-98.7 F 9-108 16-22 84-134/50-90 95-95 GENERAL: AAO x 3, in no acute distress. EYES: sclera anicteric, conjunctiva clear. ENT: oropharynx clear without exudates, moist mucous membranes. LUNGS: CTAB HEART: Irregularly irregular, S1, S2 without murmur, rub or gallop. ABDOMEN: Soft, nontender, nondistended, normoactive bowel sounds, no guarding, no rebound, EXTREMITIES: b/l BKA, L hemiplegia, no edema CBCD WBC 7.5 K/mm3 (4.0-10.0) 08/23/16 05:20 RBC 4.24 M/mm3 (4.00-5.60) 08/23/16 05:20 Hgb 10.1 GM/dL (11.7-16.9) L 08/23/16 05:20 Hct 32.1 % (35.4-49) L 08/23/16 05:20 MCV 75.6 fl (80-96) L 08/23/16 05:20 MCHC 31.6 g/dl (32.0-35.9) L 08/23/16 05:20 RDW 17.4 % (11.9-15.9) H 08/23/16 05:20 Plt Count 216 K/MM3 (134-434) D 08/23/16 05:20 MPV 7.0 fl (7.5-11.1) L 08/23/16 05:20 CMP Sodium 143 mmol/L (136-145) 08/23/16 05:20 Potassium 3.6 mmol/L (3.5-5.1) 08/23/16 05:20 Chloride 112 mmol/L (98-107) H 08/23/16 05:20 Carbon Dioxide 22 mmol/L (21-32) 08/23/16 05:20 Anion Gap 9 (8-16) 08/23/16 05:20 BUN 3 mg/dL (7-18) L D 08/23/16 05:20 Creatinine 0.4 mg/dL (0.7-1.3) L 08/23/16 05:20 Creat Clearance w eGFR > 60 (>60) 08/20/16 11:52 Calcium 7.5 mg/dL (8.5-10.1) L 08/23/16 05:20 Total Bilirubin 0.8 mg/dL (0.2-1.0) 08/20/16 11:52 AST 7 U/L (15-37) L D 08/20/16 11:52 ALT 8 U/L (12-78) L 08/20/16 11:52 Alkaline Phosphatase 65 U/L (45-117) D 08/20/16 11:52 Total Protein 5.2 g/dl (6.4-8.2) L 08/20/16 11:52 Albumin 2.5 g/dl (3.4-5.0) L 08/20/16 11:52 Intake & Output 08/20/16 08/21/16 08/22/16 08/23/16 23:59 23:59 23:59 23:59 Intake Total 250 3880 1400 1300 Output Total 150 540 250 650 Balance 100 3340 1150 650 Weight 56.245 kg Active Medications Generic Name Dose Route Start Last Admin Trade Name Freq PRN Reason Stop Dose Admin Digoxin 0.25 mg 08/24/16 10:00 Lanoxin - PO DAILY EDILSON Diltiazem HCl 5 mg 08/23/16 11:58 Cardizem Injection - IVPUSH Q4H PRN TACHYCARDIA Dextrose/Sodium Chloride 1,000 mls @ 75 mls/hr 08/23/16 12:15 08/23/16 16:28 D5-Ns - IV 75 mls/hr ASDIR EDILSON Administration Piperacillin Sod/Tazobactam Sod 50 mls @ 100 mls/hr 08/23/16 18:00 Zosyn 2.25gm Ivpb (Pre-Docked) IVPB Q8H-IV EDILSON Protocol Ondansetron HCl 4 mg 08/23/16 11:58 Zofran Injection IVPUSH Q6H PRN NAUSEA AND/OR VOMITING Pantoprazole Sodium 40 mg 08/23/16 14:30 08/23/16 16:34 Protonix - PO 40 mg DAILY EDILSON Administration Microbiology 08/20/16 12:48 Blood Culture - Preliminary Blood - Peripheral Venous NO GROWTH OBTAINED AFTER 72 HOURS, INCUBATION TO CONTINUE FOR 2 DAYS. 08/20/16 12:48 Blood Culture - Preliminary Blood - Peripheral Venous NO GROWTH OBTAINED AFTER 72 HOURS, INCUBATION TO CONTINUE FOR 2 DAYS. 08/20/16 16:06 Urine Culture - Final Urine - Urine Clean Catch Pseudomonas Aeruginosa ASSESSMENT/PLAN: 71 yo M h/o CAD s/p stent, A-fib on digoxin and plavix, CVA with L hemiplegia, HCV with cirrhosis, esophageal stricture, barretts esophagus admitted to ICU for acute UGIB. ID: Severe sepsis 2/2 complicated UTI - Resolved - Afrebile with normal WBC - MAP consistently > 65 - Urine culture grew pseudomonas * awaiting ID's input on PO abx - Cont. prophylactic abx zosyn day 4 GI: Acute UGIB with fecal impaction - No new episode of hematemesis - Switched to protonix PO 40mg daily - H&H stable at baseline - Consistent bowel movement Cardiac: A-fib - Rated controlled on digoxin * cardizem PRN - Hold plavix due to UGIB - Digoxin subtherapeutic * recheck level Renal: Hypophosphatemia and hypomagnesemia - Hypomagnesemia resolved - Hypophosphatemia still persists * monitor and replete as needed FEN - D5+NS 75cc/hr - Cont. to monitor lytes - Full liquid with ensure Prophylaxis - DVT: BKA - GI: PO protonix Disposition - Discharge once PO abx choice is determined Code status - Full code Visit type - Emergency Visit Emergency Visit: No - New Patient This patient is new to me today: No - Critical Care Critical Care patient: No - Discharge Referral Referred to [facility] Med [facility].C.: No
--- NOTE | 2016-08-23 17:31 | PN ---
Physical Exam: SUBJECTIVE: Patient seen and examined. He is feeling good today and wants to go home. We explained the risks and benefits of leaving the hospital today. He agreed to stay. OBJECTIVE: Vital Signs Period Temp Pulse Resp BP Sys/Guevara Pulse Ox Last 24 Hr 97.8 F-98.7 F 9-106 16-22 84-124/50-71 95-95 GENERAL: The patient is awake, alert, and fully oriented, in no acute distress. HEAD: Normal with no signs of trauma. EYES: extraocular movements intact, sclera anicteric, conjunctiva clear. ENT: oropharynx clear without exudates, moist mucous membranes. NECK: Trachea midline, full range of motion, supple. LUNGS: clear to auscultation bilaterally, no wheezes, no crackles, no accessory muscle use. HEART: Regular rate and rhythm, S1, S2 without murmur, rub or gallop. ABDOMEN: Soft, nontender, nondistended, normoactive bowel sounds, no guarding, no rebound, no hepatosplenomegaly, no masses. EXTREMITIES: bilateral amputations. NEUROLOGICAL:No fascial asymmetry. Normal speech, gait not observed. PSYCH: Normal mood, normal affect. SKIN: Warm, dry, normal turgor, no rashes. Laboratory Results - last 24 hr 08/23/16 08/23/16 05:20 05:20 WBC 7.5 RBC 4.24 Hgb 10.1 L Hct 32.1 L MCV 75.6 L MCHC 31.6 L RDW 17.4 H Plt Count 216 D MPV 7.0 L Sodium 143 Potassium 3.6 Chloride 112 H Carbon Dioxide 22 Anion Gap 9 BUN 3 L D Creatinine 0.4 L Random Glucose 124 H Calcium 7.5 L Phosphorus 2.1 L Magnesium 1.9 Active Medications Generic Name Dose Route Start Last Admin Trade Name Freq PRN Reason Stop Dose Admin Digoxin 0.25 mg 08/24/16 10:00 Lanoxin - PO DAILY EDILSON Diltiazem HCl 5 mg 08/23/16 11:58 Cardizem Injection - IVPUSH Q4H PRN TACHYCARDIA Dextrose/Sodium Chloride 1,000 mls @ 75 mls/hr 08/23/16 12:15 08/23/16 16:28 D5-Ns - IV 75 mls/hr ASDIR EDILSON Administration Piperacillin Sod/Tazobactam Sod 50 mls @ 100 mls/hr 08/23/16 18:00 Zosyn 2.25gm Ivpb (Pre-Docked) IVPB Q8H-IV EDILSON Protocol Ondansetron HCl 4 mg 08/23/16 11:58 Zofran Injection IVPUSH Q6H PRN NAUSEA AND/OR VOMITING Pantoprazole Sodium 40 mg 08/23/16 14:30 08/23/16 16:34 Protonix - PO 40 mg DAILY EDILSON Administration Microbiology 08/20/16 12:48 Blood - Peripheral Venous Blood Culture - Preliminary NO GROWTH OBTAINED AFTER 72 HOURS, INCUBATION TO CONTINUE FOR 2 DAYS. 08/20/16 12:48 Blood - Peripheral Venous Blood Culture - Preliminary NO GROWTH OBTAINED AFTER 72 HOURS, INCUBATION TO CONTINUE FOR 2 DAYS. 08/20/16 16:06 Urine - Urine Clean Catch Urine Culture - Final Pseudomonas Aeruginosa ASSESSMENT/PLAN: 71yo M with PMH CAD s/p stent, Afib, CVA with residual L weakness, HCV cirrhosis , esophageal stricture, upper GI bleeding, barretts esophagus presented to the hospital complaining of hematemesis. Upper GI bleed: s/p 1 unit PRBC no repeated episodes since arrival Hgb stable, will monitor tolerating liquid diet, will advance to full liquids PPI ggt switched to po. f/u GI recommendations Zofran 4 mg IV Severe sepsis due to UTI: hx of pseudomonas and VRE normotensive Zosyn day 4. ID consulted f/u Cx Afib with RVR: likely due to acute blood loss anemia now rate controlled rate controlled on digoxin continue Cardizem prn for tachycardia. not on AC due to risk of bleeding hypophosphatemia: neutraphos Hypomagnesemia: resolved Fecal impaction: s/p manual disempaction and enema DVT ppx- hold anticoagulation due to GI bleed. BKA can not place SCD Disposition: transfer to med-surg. Problem List - Problems (1) Atrial fibrillation Code(s): I48.91 - UNSPECIFIED ATRIAL FIBRILLATION (2) Coffee ground emesis Code(s): K92.0 - HEMATEMESIS (3) GI bleed Code(s): K92.2 - GASTROINTESTINAL HEMORRHAGE, UNSPECIFIED Qualifiers: GI bleed type/associated pathology: unspecified gastrointestinal hemorrhage type Qualified Code(s): K92.2 - Gastrointestinal hemorrhage, unspecified (4) Gastroparesis Code(s): K31.84 - GASTROPARESIS (5) Nausea & vomiting Code(s): R11.2 - NAUSEA WITH VOMITING, UNSPECIFIED (6) Sepsis Code(s): A41.9 - SEPSIS, UNSPECIFIED ORGANISM Qualifiers: Sepsis type: sepsis due to unspecified organism Qualified Code(s): A41.9 - Sepsis, unspecified organism (7) CAD (coronary artery disease) Code(s): I25.10 - ATHSCL HEART DISEASE OF [place] CORONARY ARTERY W/O ANG PCTRS (8) Complicated UTI (urinary tract infection) Code(s): N39.0 - URINARY TRACT INFECTION, SITE NOT SPECIFIED (9) Upper GI bleed Code(s): K92.2 - GASTROINTESTINAL HEMORRHAGE, UNSPECIFIED Visit type - Emergency Visit Emergency Visit: Yes ED Registration Date: 08/20/16 Care time: The patient presented to the Emergency Department on the above date and was hospitalized for further evaluation of their emergent condition. - New Patient This patient is new to me today: No - Critical Care Critical Care patient: Yes Total Critical Care Time (in minutes): 45 Critical Care Statement: The care of this patient involved high complexity decision making to prevent further life threatening deterioration of the patient 's condition and/or to evalute & treat vital organ system(s) failure or risk of failure.
[2016-08-23] MEDS ORDERED: PANTOPRAZOLE SODIUM 80 MG in SODIUM CHLORIDE 100 ML IVPB SCH (19:45)
[2016-08-23] MEDS ORDERED: PT OWN MED DRAWER 7, Y5N ONE (20:29)
[2016-08-23] MEDS ORDERED: traMADol HCL 50 MG TABLET PO ONE (22:15)
[2016-08-23] MEDS ORDERED: morphine CARPU-JECT 2 MG/1 ML DISP.SYRIN IVPUSH PRN (22:35)
[2016-08-24] MEDS: PIPERACILLIN/TAZOB 2.25 GM 50 ML IVPB SCH ×3 (02:29→19:04)
[2016-08-24 06:07] LABS: MCHC 31.9 g/dl (32.0-35.9); MEAN CELL VOLUME 75.2 fl (80-96); MEAN PLT VOLUME 6.9 fl (7.5-11.1); PLATELET COUNT 244 K/MM3 (134-434); RDW 17.2 % (11.9-15.9); WHITE BLOOD COUNT 8.1 K/mm3 (4.0-10.0)
[2016-08-24] MEDS ORDERED: DIGOXIN 0.25 MG TABLET (FP) PO SCH (10:00)
[2016-08-24] MEDS: PANTOPRAZOLE 40 MG TABLET (FP) PO SCH (10:26)
--- NOTE | 2016-08-24 10:41 | PN ---
Teaching Attending Note Name of Resident: Chele Mendez ATTENDING PHYSICIAN STATEMENT I saw and evaluated the patient. I reviewed the resident's note and discussed the case with the resident. I agree with the resident's findings and plan as documented. SUBJECTIVE: Patient has no complaints. OBJECTIVE: Vital Signs Period Temp Pulse Resp BP Sys/Guevara Pulse Ox Last 24 Hr 98.4 F-99 F 78-113 16-30 82-135/50-90 95-95 HEART: Irregularly irregular LUNGS: Clear ABDOMEN: Soft, non-tender, non-distended, normal BS EXTREMITIES: No edema, s/p B/L AKA ASSESSMENT AND PLAN: This is a 71 year old man with a history of CAD, stent, atrial fib, CVA with residual left-sided weakness, HCV, cirrhosis, esophageal stricture, Armstrong esophagus who presented to the ER with hematemesis. 1. Acute GI blood loss anemia secondary to upper GI bleeding from recent esophageal dilation - Transfused 1 unit PRBCs - Continue Protonix - Hemoglobin stable 2. Severe sepsis secondary to Pseudomonas UTI - Continue Zosyn (day 5) 3. Permanent atrial fibrillation with RVR - Rate controlled - Continue Digoxin - Not on anticoagulation secondary to recurrent GI bleeding 4. Hypophosphatemia - Continue Neutraphos 5. Hypomagnesemia - Supplement magnesium 6. Fecal impaction - s/p manual disimpaction 7. Left-sided weakness secondary to old CVA - Plavix held secondary to GI bleed 8. CAD, history of stent - Resume Lipitor 9. 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 PAD, history of bilateral AKAs - Plavix held secondary to GI bleed 11. Hypertension - On no medication 12. BPH - Resume Proscar, Flomax 13. COPD - Stable 14. Type 2 diabetes mellitus with gastroparesis 15. Esophageal stricture
--- NOTE | 2016-08-24 12:01 | PN ---
Teaching Attending Note Name of Resident: Rosemarie Barros ATTENDING PHYSICIAN STATEMENT I saw and evaluated the patient. I reviewed the resident's note and discussed the case with the resident. I agree with the resident's findings and plan as documented. SUBJECTIVE: Patient seen and examined in the ICU. Awake and alert. No acute events overnight. Intake & Output 08/21/16 08/22/16 08/23/16 08/24/16 23:59 23:59 23:59 23:59 Intake Total 3880 1400 2750 1525 Output Total 753 623 5245 400 Balance 3340 950 1310 1125 Weight 117 lb 9 oz Last Vital Signs Temp Pulse Resp BP Pulse Ox 98.8 F 92 H 16 103/67 95 08/24/16 10:00 08/24/16 10:51 08/24/16 10:51 08/24/16 10:51 08/24/16 09:00 Active Medications Digoxin (Lanoxin -) 0.25 mg PO DAILY [facility] Last Admin: 08/24/16 10:26 Dose: 0.25 mg Diltiazem HCl (Cardizem Injection -) 5 mg IVPUSH Q4H PRN PRN Reason: TACHYCARDIA Last Admin: 08/23/16 20:32 Dose: 5 mg Piperacillin Sod/Tazobactam Sod (Zosyn 2.25gm Ivpb (Pre-Docked)) 50 mls @ 100 mls/hr IVPB Q8H-IV EDILSON PRN Reason: Protocol Last Admin: 08/24/16 10:26 Dose: 100 mls/hr Morphine Sulfate (Morphine Injection -) 2 mg IVPUSH Q3H PRN PRN Reason: PAIN Ondansetron HCl (Zofran Injection) 4 mg IVPUSH Q6H PRN PRN Reason: NAUSEA AND/OR VOMITING Pantoprazole Sodium (Protonix -) 40 mg PO DAILY EDILSON Last Admin: 08/24/16 10:26 Dose: 40 mg GEN: Awake and alert, NAD HEENT: Anicteric, no JVD CV: S1 S2, Afib PULM: Clear ABD: Soft, (+) BS, NT EXT: bilateral BKA NEURO: Non-focal Laboratory Results - last 24 hr 08/24/16 05:20 WBC 8.1 RBC 4.51 Hgb 10.8 L Hct 33.9 L MCV 75.2 L MCHC 31.9 L RDW 17.2 H Plt Count 244 MPV 6.9 L ASSESS: AFib w/RVR Lactic acidosis Sepsis due to a source Fecal impaction PVD CAD PLAN: ABX per ID -> Will discuss oral therapy IVF Rate control PO as tolerated Bowel regimen Floor Dr Russ
--- NOTE | 2016-08-24 14:20 | PN ---
Physical Exam: SUBJECTIVE: Patient seen and examined. He is feeling good today. he denies bleeding, abdominal pain, N/V, fever, chills OBJECTIVE: Vital Signs Period Temp Pulse Resp BP Sys/Guevara Pulse Ox Last 24 Hr 98.4 F-99 F 78-113 16-30 82-135/50-87 95-95 GENERAL: The patient is awake, alert, and fully oriented, in no acute distress. HEAD: Normal with no signs of trauma. EYES: extraocular movements intact, sclera anicteric, conjunctiva clear. ENT: oropharynx clear without exudates, moist mucous membranes. NECK: Trachea midline, full range of motion, supple. LUNGS: clear to auscultation bilaterally, no wheezes, no crackles, no accessory muscle use. HEART: Irregular rate and rhythm, S1, S2 without murmur, rub or gallop. ABDOMEN: Soft, nontender, nondistended, normoactive bowel sounds, no guarding, no rebound, no hepatosplenomegaly, no masses. EXTREMITIES: bilateral amputations. NEUROLOGICAL: No facial asymmetry. Normal speech, gait not observed. PSYCH: Normal mood, normal affect. SKIN: Warm, dry, normal turgor, no rashes. Laboratory Results - last 24 hr 08/24/16 05:20 WBC 8.1 RBC 4.51 Hgb 10.8 L Hct 33.9 L MCV 75.2 L MCHC 31.9 L RDW 17.2 H Plt Count 244 MPV 6.9 L Active Medications Generic Name Dose Route Start Last Admin Trade Name Freq PRN Reason Stop Dose Admin Digoxin 0.25 mg 08/24/16 10:00 08/24/16 10:26 Lanoxin - PO 0.25 mg DAILY [facility]ILSON Administration Diltiazem HCl 5 mg 08/23/16 11:58 08/23/16 20:32 Cardizem Injection - IVPUSH 5 mg Q4H PRN Administration TACHYCARDIA Piperacillin Sod/Tazobactam Sod 50 mls @ 100 mls/hr 08/23/16 18:00 08/24/16 10: 26 Zosyn 2.25gm Ivpb (Pre-Docked) IVPB 100 mls/hr Q8H-IV EDILSON Administration Protocol Morphine Sulfate 2 mg 08/23/16 22:35 Morphine Injection - IVPUSH Q3H PRN PAIN Ondansetron HCl 4 mg 08/23/16 11:58 Zofran Injection IVPUSH Q6H PRN NAUSEA AND/OR VOMITING Pantoprazole Sodium 40 mg 08/24/16 22:00 Protonix - PO BID EDIL[facility] Microbiology 08/20/16 12:48 Blood - Peripheral Venous Blood Culture - Preliminary NO GROWTH OBTAINED AFTER 72 HOURS, INCUBATION TO CONTINUE FOR 2 DAYS. 08/20/16 12:48 Blood - Peripheral Venous Blood Culture - Preliminary NO GROWTH OBTAINED AFTER 72 HOURS, INCUBATION TO CONTINUE FOR 2 DAYS. 08/20/16 16:06 Urine - Urine Clean Catch Urine Culture - Final Pseudomonas Aeruginosa ASSESSMENT/PLAN: 71yo M with PMH CAD s/p stent, Afib, CVA with residual L weakness, HCV cirrhosis , esophageal stricture, upper GI bleeding, barretts esophagus presented to the hospital complaining of hematemesis. Upper GI bleed: s/p 1 unit PRBC no repeated episodes since arrival Hgb stable, will monitor tolerating liquid diet, will advance to full liquids PPI ggt switched to po. f/u GI recommendations Zofran 4 mg IV Severe sepsis due to UTI: hx of pseudomonas and VRE normotensive Zosyn day 5 ID consulted, will f/u today for recommendation. The pt is sensitive to only 3 abx, all IV. Afib with RVR: likely due to acute blood loss anemia now rate controlled rate controlled on digoxin continue Cardizem prn for tachycardia. not on AC due to risk of bleeding hypophosphatemia: neutraphos Hypomagnesemia: resolved Fecal impaction: s/p manual disempaction and enema DVT ppx- hold anticoagulation due to GI bleed. BKA can not place SCD Disposition: transfer to med-surg. Problem List - Problems (1) Atrial fibrillation Code(s): I48.91 - UNSPECIFIED ATRIAL FIBRILLATION (2) Coffee ground emesis Code(s): K92.0 - HEMATEMESIS (3) GI bleed Code(s): K92.2 - GASTROINTESTINAL HEMORRHAGE, UNSPECIFIED Qualifiers: GI bleed type/associated pathology: unspecified gastrointestinal hemorrhage type Qualified Code(s): K92.2 - Gastrointestinal hemorrhage, unspecified (4) Gastroparesis Code(s): K31.84 - GASTROPARESIS (5) Nausea & vomiting Code(s): R11.2 - NAUSEA WITH VOMITING, UNSPECIFIED (6) Sepsis Code(s): A41.9 - SEPSIS, UNSPECIFIED ORGANISM Qualifiers: Sepsis type: sepsis due to unspecified organism Qualified Code(s): A41.9 - Sepsis, unspecified organism (7) CAD (coronary artery disease) Code(s): I25.10 - ATHSCL HEART DISEASE OF [place] CORONARY ARTERY W/O ANG PCTRS (8) Complicated UTI (urinary tract infection) Code(s): N39.0 - URINARY TRACT INFECTION, SITE NOT SPECIFIED (9) Upper GI bleed Code(s): K92.2 - GASTROINTESTINAL HEMORRHAGE, UNSPECIFIED Visit type - Emergency Visit Emergency Visit: Yes ED Registration Date: 08/20/16 Care time: The patient presented to the Emergency Department on the above date and was hospitalized for further evaluation of their emergent condition. - New Patient This patient is new to me today: No - Critical Care Critical Care patient: Yes Total Critical Care Time (in minutes): 30 Critical Care Statement: The care of this patient involved high complexity decision making to prevent further life threatening deterioration of the patient 's condition and/or to evalute & treat vital organ system(s) failure or risk of failure.
--- NOTE | 2016-08-24 17:02 | PN ---
Progress Note, Physician History of Present Illness: patient feeling better no complaints says the bowels starting to move - Current Medication List Current Medications: Active Medications Digoxin (Lanoxin -) 0.25 mg PO DAILY [facility] Last Admin: 08/24/16 10:26 Dose: 0.25 mg Diltiazem HCl (Cardizem Injection -) 5 mg IVPUSH Q4H PRN PRN Reason: TACHYCARDIA Last Admin: 08/23/16 20:32 Dose: 5 mg Piperacillin Sod/Tazobactam Sod (Zosyn 2.25gm Ivpb (Pre-Docked)) 50 mls @ 100 mls/hr IVPB Q8H-IV EDILSON PRN Reason: Protocol Last Admin: 08/24/16 10:26 Dose: 100 mls/hr Morphine Sulfate (Morphine Injection -) 2 mg IVPUSH Q3H PRN PRN Reason: PAIN Ondansetron HCl (Zofran Injection) 4 mg IVPUSH Q6H PRN PRN Reason: NAUSEA AND/OR VOMITING Pantoprazole Sodium (Protonix -) 40 mg PO BID [facility] - Objective Vital Signs: Vital Signs Temperature 98.5 F 08/24/16 14:00 Pulse Rate 92 H 08/24/16 14:00 Respiratory Rate 16 08/24/16 14:00 Blood Pressure 104/48 08/24/16 14:00 O2 Sat by Pulse Oximetry (%) 95 08/24/16 09:00 Constitutional: Yes: No Distress, Calm Cardiovascular: Yes: S1, S2 Respiratory: Yes: Regular, CTA Bilaterally Gastrointestinal: Yes: Normal Bowel Sounds, Soft Genitourinary: Yes: Rawls Present Musculoskeletal: Yes: Other Extremities: Yes: Other (bilat amputation) Neurological: Yes: Alert, Oriented Psychiatric: Yes: Alert Labs: CBC, BMP 08/24/16 05:20 08/23/16 05:20 INR, PTT INR 1.15 (0.82-1.09) H 08/22/16 05:15 Assessment/Plan Problem List - Problems (1) Atrial fibrillation with rapid ventricular response Code(s): I48.91 - UNSPECIFIED ATRIAL FIBRILLATION (2) Sepsis Code(s): A41.9 - SEPSIS, UNSPECIFIED ORGANISM Qualifiers: Sepsis type: sepsis due to unspecified organism Qualified Code(s): A41.9 - Sepsis, unspecified organism (3) UTI (urinary tract infection) Code(s): N39.0 - URINARY TRACT INFECTION, SITE NOT SPECIFIED Qualifiers: Urinary tract infection type: site unspecified Hematuria presence: without hematuria Qualified Code(s): N39.0 - Urinary tract infection, site not specified (4) Fecal impaction in rectum Code(s): K56.41 - FECAL IMPACTION (5) Hematemesis Code(s): K92.0 - HEMATEMESIS Qualifiers: Nausea presence: unspecified Qualified Code(s): K92.0 - Hematemesis (6) Dehydration Code(s): E86.0 - DEHYDRATION (7) CAD (coronary artery disease) Code(s): I25.10 - ATHSCL HEART DISEASE OF [place] CORONARY ARTERY W/O ANG PCTRS (8) Peripheral artery disease Code(s): I73.9 - PERIPHERAL VASCULAR DISEASE, UNSPECIFIED plan continue supportive care close monitoring continue abx will have to decide the length of abx rest as per icu cc time 40 min
--- NOTE | 2016-08-24 17:04 | PN ---
Progress Note, Physician History of Present Illness: stable no new issues patient doing well - Current Medication List Current Medications: Active Medications Digoxin (Lanoxin -) 0.25 mg PO DAILY [facility] Last Admin: 08/24/16 10:26 Dose: 0.25 mg Diltiazem HCl (Cardizem Injection -) 5 mg IVPUSH Q4H PRN PRN Reason: TACHYCARDIA Last Admin: 08/23/16 20:32 Dose: 5 mg Piperacillin Sod/Tazobactam Sod (Zosyn 2.25gm Ivpb (Pre-Docked)) 50 mls @ 100 mls/hr IVPB Q8H-IV EDILSON PRN Reason: Protocol Last Admin: 08/24/16 10:26 Dose: 100 mls/hr Morphine Sulfate (Morphine Injection -) 2 mg IVPUSH Q3H PRN PRN Reason: PAIN Ondansetron HCl (Zofran Injection) 4 mg IVPUSH Q6H PRN PRN Reason: NAUSEA AND/OR VOMITING Pantoprazole Sodium (Protonix -) 40 mg PO BID [facility] - Objective Vital Signs: Vital Signs Temperature 98.5 F 08/24/16 14:00 Pulse Rate 92 H 08/24/16 14:00 Respiratory Rate 16 08/24/16 14:00 Blood Pressure 104/48 08/24/16 14:00 O2 Sat by Pulse Oximetry (%) 95 08/24/16 09:00 Constitutional: Yes: No Distress, Calm Cardiovascular: Yes: S1, S2 Respiratory: Yes: Regular, CTA Bilaterally, On Nasal O2 Gastrointestinal: Yes: Normal Bowel Sounds, Soft Musculoskeletal: Yes: Other Extremities: Yes: Other Neurological: Yes: Alert, Oriented Psychiatric: Yes: Alert, Oriented Labs: CBC, BMP 08/24/16 05:20 08/23/16 05:20 INR, PTT INR 1.15 (0.82-1.09) H 08/22/16 05:15 Assessment/Plan Problem List - Problems (1) Atrial fibrillation with rapid ventricular response Code(s): I48.91 - UNSPECIFIED ATRIAL FIBRILLATION (2) Sepsis Code(s): A41.9 - SEPSIS, UNSPECIFIED ORGANISM Qualifiers: Sepsis type: sepsis due to unspecified organism Qualified Code(s): A41.9 - Sepsis, unspecified organism (3) UTI (urinary tract infection) Code(s): N39.0 - URINARY TRACT INFECTION, SITE NOT SPECIFIED Qualifiers: Urinary tract infection type: site unspecified Hematuria presence: without hematuria Qualified Code(s): N39.0 - Urinary tract infection, site not specified (4) Fecal impaction in rectum Code(s): K56.41 - FECAL IMPACTION (5) Hematemesis Code(s): K92.0 - HEMATEMESIS Qualifiers: Nausea presence: unspecified Qualified Code(s): K92.0 - Hematemesis (6) Dehydration Code(s): E86.0 - DEHYDRATION (7) CAD (coronary artery disease) Code(s): I25.10 - ATHSCL HEART DISEASE OF [place] CORONARY ARTERY W/O ANG PCTRS (8) Peripheral artery disease Code(s): I73.9 - PERIPHERAL VASCULAR DISEASE, UNSPECIFIED plan continue supportive care will need zosyn for 2 weeks can get a picc line rest as per primary team cc time 40 min
--- NOTE | 2016-08-24 17:34 | PN ---
Physical Exam: SUBJECTIVE: Patient seen and examined at bedside in ICU. No complaint. Denies any acute event. OBJECTIVE: Vital Signs Period Temp Pulse Resp BP Sys/Guevara Pulse Ox Last 24 Hr 98.4 F-99 F 92-113 16-30 82-135/48-87 95-95 vGENERAL: AAO x 3, in no acute distress. EYES: sclera anicteric, conjunctiva clear. ENT: oropharynx clear without exudates, moist mucous membranes. LUNGS: CTAB HEART: Irregularly irregular, S1, S2 without murmur, rub or gallop. ABDOMEN: Soft, nontender, nondistended, normoactive bowel sounds, no guarding, no rebound, EXTREMITIES: b/l BKA, L hemiplegia, no edema CBCD WBC 8.1 K/mm3 (4.0-10.0) 08/24/16 05:20 RBC 4.51 M/mm3 (4.00-5.60) 08/24/16 05:20 Hgb 10.8 GM/dL (11.7-16.9) L 08/24/16 05:20 Hct 33.9 % (35.4-49) L 08/24/16 05:20 MCV 75.2 fl (80-96) L 08/24/16 05:20 MCHC 31.9 g/dl (32.0-35.9) L 08/24/16 05:20 RDW 17.2 % (11.9-15.9) H 08/24/16 05:20 Plt Count 244 K/MM3 (134-434) 08/24/16 05:20 MPV 6.9 fl (7.5-11.1) L 08/24/16 05:20 CMP Sodium 143 mmol/L (136-145) 08/23/16 05:20 Potassium 3.6 mmol/L (3.5-5.1) 08/23/16 05:20 Chloride 112 mmol/L (98-107) H 08/23/16 05:20 Carbon Dioxide 22 mmol/L (21-32) 08/23/16 05:20 Anion Gap 9 (8-16) 08/23/16 05:20 BUN 3 mg/dL (7-18) L D 08/23/16 05:20 Creatinine 0.4 mg/dL (0.7-1.3) L 08/23/16 05:20 Creat Clearance w eGFR > 60 (>60) 08/20/16 11:52 Calcium 7.5 mg/dL (8.5-10.1) L 08/23/16 05:20 Total Bilirubin 0.8 mg/dL (0.2-1.0) 08/20/16 11:52 AST 7 U/L (15-37) L D 08/20/16 11:52 ALT 8 U/L (12-78) L 08/20/16 11:52 Alkaline Phosphatase 65 U/L (45-117) D 08/20/16 11:52 Total Protein 5.2 g/dl (6.4-8.2) L 08/20/16 11:52 Albumin 2.5 g/dl (3.4-5.0) L 08/20/16 11:52 Intake & Output 08/21/16 08/22/16 08/23/16 08/24/16 23:59 23:59 23:59 23:59 Intake Total 3880 1400 2750 1725 Output Total 577 690 8248 1300 Balance 3340 950 1310 425 Weight 53.325 kg Active Medications Generic Name Dose Route Start Last Admin Trade Name Freq PRN Reason Stop Dose Admin Digoxin 0.25 mg 08/24/16 10:00 08/24/16 10:26 Lanoxin - PO 0.25 mg DAILY [facility]IL[facility] Administration Diltiazem HCl 5 mg 08/23/16 11:58 08/23/16 20:32 Cardizem Injection - IVPUSH 5 mg Q4H PRN Administration TACHYCARDIA Piperacillin Sod/Tazobactam Sod 50 mls @ 100 mls/hr 08/23/16 18:00 08/24/16 10: 26 Zosyn 2.25gm Ivpb (Pre-Docked) IVPB 100 mls/hr Q8H-IV EDILSON Administration Protocol Morphine Sulfate 2 mg 08/23/16 22:35 Morphine Injection - IVPUSH Q3H PRN PAIN Ondansetron HCl 4 mg 08/23/16 11:58 Zofran Injection IVPUSH Q6H PRN NAUSEA AND/OR VOMITING Pantoprazole Sodium 40 mg 08/24/16 22:00 Protonix - PO BID [facility] Microbiology 08/20/16 12:48 Blood Culture - Preliminary Blood - Peripheral Venous NO GROWTH OBTAINED AFTER 72 HOURS, INCUBATION TO CONTINUE FOR 2 DAYS. 08/20/16 12:48 Blood Culture - Preliminary Blood - Peripheral Venous NO GROWTH OBTAINED AFTER 72 HOURS, INCUBATION TO CONTINUE FOR 2 DAYS. 08/20/16 16:06 Urine Culture - Final Urine - Urine Clean Catch Pseudomonas Aeruginosa ASSESSMENT/PLAN: 71 yo M h/o CAD s/p stent, A-fib on digoxin and plavix, CVA with L hemiplegia, HCV with cirrhosis, esophageal stricture, barretts esophagus admitted to ICU for acute UGIB. ID: Severe sepsis 2/2 complicated UTI - Resolved - Afrebile with normal WBC - MAP consistently > 65 - Urine culture grew pseudomonas - On zosyn day 5 - Cont. zosyn for 2 weeks via PICC on discharge per ID GI: Acute UGIB with fecal impaction - No new episode of hematemesis - On protonix PO 40mg BID - H&H stable at baseline - Consistent bowel movement Cardiac: A-fib - Rated controlled on digoxin * cardizem PRN - Hold plavix due to UGIB - Digoxin subtherapeutic * recheck level Renal: Hypophosphatemia and hypomagnesemia - Hypomagnesemia resolved - Hypophosphatemia still persists * gave K-phos 30mmol FEN - IVF d/c - Cont. to monitor lytes - Full liquid with ensure Prophylaxis - DVT: BKA - GI: PO protonix Disposition - Discharge tomorrow with PICC Code status - Full code Visit type - Emergency Visit Emergency Visit: No - New Patient This patient is new to me today: No - Critical Care Critical Care patient: No
[2016-08-24] MEDS: DEXTROSE 5%-NORMAL SALINE 1,000 ML IV SCH (19:05)
[2016-08-24] MEDS: PANTOPRAZOLE SODIUM 80 MG in SODIUM CHLORIDE 100 ML IVPB SCH (19:05)
[2016-08-24] MEDS ORDERED: POTASSIUM PHOSPHATE 30 MM in SODIUM CHLORIDE 500 ML IVPB ONE (20:01)
[2016-08-24] MEDS ORDERED: PICC LINE 8 ML FLUSH PROTOCOL IVPUSH PRN (20:16)
[2016-08-24] MEDS ORDERED: PANTOPRAZOLE 40 MG TABLET (FP) PO SCH (22:00)
[2016-08-25] MEDS: PIPERACILLIN/TAZOB 2.25 GM 50 ML IVPB SCH ×3 (02:36→17:44)
[2016-08-25] MEDS ORDERED: dilTIAZem HCL 50 MG/10 ML - 10 ML VIAL IVPUSH PRN (08:41)
[2016-08-25] MEDS ORDERED: ONDANSETRON 4 MG/2 ML VIAL IVPUSH PRN (08:41)
[2016-08-25] MEDS: PANTOPRAZOLE 40 MG TABLET (FP) PO SCH ×2 (10:32→21:35)
[2016-08-25] MEDS: DIGOXIN 0.25 MG TABLET (FP) PO SCH (10:32)
--- NOTE | 2016-08-25 14:01 | PN ---
Teaching Attending Note Name of Resident: Chele Mendez ATTENDING PHYSICIAN STATEMENT I saw and evaluated the patient. I reviewed the resident's note and discussed the case with the resident. I agree with the resident's findings and plan as documented. SUBJECTIVE: Patient wants to go home. OBJECTIVE: Vital Signs Period Temp Pulse Resp BP Sys/Guevara Pulse Ox Last 24 Hr 97.6 F-98.9 F 93-118 16-20 107-121/55-86 95 HEART: Irregularly irregular LUNGS: Clear ABDOMEN: Soft, non-tender, non-distended, normal BS EXTREMITIES: No edema, s/p B/L AKA ASSESSMENT AND PLAN: This is a 71 year old man with a history of CAD, stent, atrial fib, CVA with residual left-sided weakness, HCV, cirrhosis, esophageal stricture, Armstrong esophagus who presented to the ER with hematemesis. 1. Acute GI blood loss anemia secondary to upper GI bleeding from recent esophageal dilation - Transfused 1 unit PRBCs - Continue Protonix - Hemoglobin stable 2. Severe sepsis secondary to Pseudomonas UTI - Continue Zosyn (day 6) - will need PICC to complete 2 weeks of Zosyn 3. Permanent atrial fibrillation with RVR - Rate controlled - Continue Digoxin - Not on anticoagulation secondary to recurrent GI bleeding 4. Hypophosphatemia 5. Hypomagnesemia 6. Fecal impaction - s/p manual disimpaction 7. Left-sided weakness secondary to old CVA - Plavix held secondary to GI bleed 8. CAD, history of stent - Resume Lipitor 9. 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 PAD, history of bilateral AKAs - Plavix held secondary to GI bleed 11. Hypertension - On no medication 12. BPH - Resume Proscar, Flomax 13. COPD - Stable 14. Type 2 diabetes mellitus with gastroparesis 15. Esophageal stricture 16. Disposition - Patient refusing SNF to complete course of antibiotics - Ok to discharge home once arrangements are made for home infusion and PICC inserted
--- NOTE | 2016-08-25 14:45 | DS ---
Physical Exam: SUBJECTIVE: No acute event overnight. OBJECTIVE: Vital Signs Period Temp Pulse Resp BP Sys/Guevara Pulse Ox Last 24 Hr 97.6 F-98.9 F 93-118 16-20 107-121/55-86 95 PHYSICAL EXAM GENERAL: AAO x 3, in no acute distress. EYES: sclera anicteric, conjunctiva clear. ENT: oropharynx clear without exudates, moist mucous membranes. LUNGS: CTAB HEART: Irregularly irregular, S1, S2 without murmur, rub or gallop. ABDOMEN: Soft, nontender, nondistended, normoactive bowel sounds, no guarding, no rebound, EXTREMITIES: b/l BKA, L hemiplegia, no edema LABS HOSPITAL COURSE: Date of Admission:08/20/16 71 yo M h/o CAD s/p stent, A-fib on digoxin and plavix, CVA with L hemiplegia, HCV with cirrhosis, esophageal stricture, barretts esophagus admitted to ICU for acute UGIB. He was also found to have severe sepsis secondary to complicated UTI of which urine culture grew multi-drug resistant pseudomonas. He 's been treated with zosyn and been afrebile with normal WBC. He will be discharged home with PICC on zosyn for 2 more weeks. Patient also had hematemesis with 1 PRBC transfusion and was treated with protonix ptt. He also had constipation which resolved with enema. During his stay in hospital, his heart rate is controlled on digoxin with cardizem PRN. Plavix is held due to UGIB. Patient will follow up with his primary doctor to determine when he can re -start plavix. Patient is expected to receive 2 more weeks of zosyn via PICC and follow up with his PMD and GI doctor. Date of Discharge: 08/25/16 Minutes to complete discharge: 35 Discharge Summary Reason For Visit: GI BLEEDING; [place] EMESIS; SEPSIS Current Active Problems Urinary tract bacterial infections (Acute) Atrial fibrillation (Chronic) BPH (benign prostatic hyperplasia) (Chronic) Depressed (Chronic) Gastroparesis (Chronic) Condition: Stable - Instructions Diet, Activity, Other Instructions: Instruction for continuing care: Cont. zosyn 2.25g IVPB Q8H for another 2 weeks via PICC line. Follow up with GI doctor (Dr. 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 Cont. to take all the home medications. Referrals: Garcia Hendreson [Primary Care Provider] - Disposition: VNS/HOME HEALTH CARE - Home Medications Comprehensive Discharge Medication List: Ambulatory Orders Bupropion HCl [Wellbutrin Xl] 300 mg PO DAILY 07/21/15 Gabapentin [Neurontin -] 100 mg PO TID #90 capsule 07/25/15 Finasteride 5 mg PO DAILY 10/08/15 Digoxin [Lanoxin -] 0.25 mg PO DAILY #30 tablet 10/10/15 Polyethylene Glycol 3350 [Miralax 119 gm Btl -] 17 gm PO TID #1 bottle 10/10/15 Amino Acids/Protein Hydrolys [Prostat Sugar-Free Packet -] 30 ml PO BID@0800, 1730 #60 packet 10/29/15 Metoclopramide HCl [Reglan] 5 mg PO AC #90 tablet 10/29/15 Atorvastatin Ca [Lipitor] 40 mg PO HS 02/15/16 Docusate Sodium 100 mg PO DAILY 02/15/16 Tamsulosin HCl 0.4 mg PO DAILY 02/15/16 Clopidogrel Bisulfate [Plavix -] 75 mg PO DAILY tablet 02/28/16 Pantoprazole Sodium [Protonix -] 40 mg PO BID #40 tablet.ec 02/28/16 Piperacillin/Tazob 2.25 gm [Zosyn 2.25GM Ivpb (Pre-Docked)] 50 ml IVPB Q8H-IV 14 Days 08/25/16 This patient is new to me today: No Emergency Visit: No Critical Care patient: No - Discharge Referral Referred to [facility] No
--- NOTE | 2016-08-25 15:40 | PN ---
Progress Note, Physician Chief Complaint: no issues stable - Current Medication List Current Medications: Active Medications Digoxin (Lanoxin -) 0.25 mg PO DAILY [facility] Last Admin: 08/25/16 10:32 Dose: 0.25 mg Diltiazem HCl (Cardizem Injection -) 5 mg IVPUSH Q4H PRN PRN Reason: TACHYCARDIA IV Flush (Picc Line Flush) 8 ml IVPUSH PRN PRN PRN Reason: Protocol Piperacillin Sod/Tazobactam Sod (Zosyn 2.25gm Ivpb (Pre-Docked)) 50 mls @ 100 mls/hr IVPB Q8H-IV EDILSON PRN Reason: Protocol Last Admin: 08/25/16 10:31 Dose: 100 mls/hr Morphine Sulfate (Morphine Injection -) 2 mg IVPUSH Q3H PRN PRN Reason: PAIN Ondansetron HCl (Zofran Injection) 4 mg IVPUSH Q6H PRN PRN Reason: NAUSEA AND/OR VOMITING Pantoprazole Sodium (Protonix -) 40 mg PO BID [facility] Last Admin: 08/25/16 10:32 Dose: 40 mg - Objective Vital Signs: Vital Signs Temperature 97.6 F 08/25/16 09:00 Pulse Rate 94 H 08/25/16 10:32 Respiratory Rate 16 08/25/16 09:00 Blood Pressure 111/55 08/25/16 09:00 O2 Sat by Pulse Oximetry (%) 95 08/24/16 21:00 Constitutional: Yes: No Distress, Calm Cardiovascular: Yes: S1, S2 Respiratory: Yes: Regular, CTA Bilaterally Musculoskeletal: Yes: WNL Extremities: Yes: Other Neurological: Yes: Alert, Oriented Psychiatric: Yes: Alert, Oriented Labs: CBC, BMP 08/24/16 05:20 08/23/16 05:20 INR, PTT INR 1.15 (0.82-1.09) H 08/22/16 05:15 Assessment/Plan Problem List - Problems (1) Atrial fibrillation with rapid ventricular response Code(s): I48.91 - UNSPECIFIED ATRIAL FIBRILLATION (2) Sepsis Code(s): A41.9 - SEPSIS, UNSPECIFIED ORGANISM Qualifiers: Sepsis type: sepsis due to unspecified organism Qualified Code(s): A41.9 - Sepsis, unspecified organism (3) UTI (urinary tract infection) Code(s): N39.0 - URINARY TRACT INFECTION, SITE NOT SPECIFIED Qualifiers: Urinary tract infection type: site unspecified Hematuria presence: without hematuria Qualified Code(s): N39.0 - Urinary tract infection, site not specified (4) Fecal impaction in rectum Code(s): K56.41 - FECAL IMPACTION (5) Hematemesis Code(s): K92.0 - HEMATEMESIS Qualifiers: Nausea presence: unspecified Qualified Code(s): K92.0 - Hematemesis (6) Dehydration Code(s): E86.0 - DEHYDRATION (7) CAD (coronary artery disease) Code(s): I25.10 - ATHSCL HEART DISEASE OF [place] CORONARY ARTERY W/O ANG PCTRS (8) Peripheral artery disease Code(s): I73.9 - PERIPHERAL VASCULAR DISEASE, UNSPECIFIED plan patient going to get a picc line as planned abx rest as per primary team
[2016-08-25] MEDS: morphine CARPU-JECT 2 MG/1 ML DISP.SYRIN IVPUSH PRN (21:35)
[2016-08-26] MEDS: PIPERACILLIN/TAZOB 2.25 GM 50 ML IVPB SCH ×2 (02:16→09:17)
[2016-08-26] MEDS: DIGOXIN 0.25 MG TABLET (FP) PO SCH (09:18)
[2016-08-26] MEDS: PANTOPRAZOLE 40 MG TABLET (FP) PO SCH (09:18)
[2016-08-26 09:19] VITALS: PULSE 68
[2016-08-26] MEDS ORDERED: ACETAMINOPHEN 325 MG TABLET (FP) PO PRN (12:31)
[2016-08-26] MEDS: morphine CARPU-JECT 2 MG/1 ML DISP.SYRIN IVPUSH PRN (13:27)
[2016-08-26] MEDS ORDERED: PIPERACILLIN/TAZOB 2.25 GM 50 ML IVPB ONE (15:30)
[2016-08-26 16:20] VITALS: BP 130/68; TEMP 98.2
== END 2016-08-26 16:36 | disposition home health service (06) | DRG 872 ==
LOC: JER 11:23 → JERBED 15:48 → JICU 18:59 → J8W 08-24 16:40
PROVIDERS: ADMIT Internal Medicine; ATTEND Internal Medicine
PROC: 30233N1 Transfusion of Nonautologous Red Blood Cells into Peripheral Vein, Percutaneous Approach (ICD-10-PCS; 2016-08-21)
PROC: 02HV33Z Insertion of Infusion Device into Superior Vena Cava, Percutaneous Approach (ICD-10-PCS; principal; 2016-08-25)
DX: A41.52 Sepsis due to Pseudomonas (principal); I69.354 Hemiplegia and hemiparesis following cerebral infarction affecting left non-dominant side; K92.2 Gastrointestinal hemorrhage, unspecified; N39.0 Urinary tract infection, site not specified; E87.2 Acidosis; D62 Acute posthemorrhagic anemia; I25.10 Atherosclerotic heart disease of native coronary artery without angina pectoris; I73.89 Other specified peripheral vascular diseases; B19.20 Unspecified viral hepatitis C without hepatic coma; K22.2 Esophageal obstruction; R65.20 Severe sepsis without septic shock; M54.89 Other dorsalgia; K22.70 Barrett's esophagus without dysplasia; K27.9 Peptic ulcer, site unspecified, unspecified as acute or chronic, without hemorrhage or perforation; K29.70 Gastritis, unspecified, without bleeding; I10 Essential (primary) hypertension; I48.2 Chronic atrial fibrillation; J44.9 Chronic obstructive pulmonary disease, unspecified; E86.0 Dehydration; F10.10 Alcohol abuse, uncomplicated; K56.41 Fecal impaction; E11.43 Type 2 diabetes mellitus with diabetic autonomic (poly)neuropathy; K31.84 Gastroparesis; E83.42 Hypomagnesemia; K70.30 Alcoholic cirrhosis of liver without ascites; N40.0 Benign prostatic hyperplasia without lower urinary tract symptoms; E83.39 Other disorders of phosphorus metabolism; K44.9 Diaphragmatic hernia without obstruction or gangrene; Z89.511 Acquired absence of right leg below knee; Z89.512 Acquired absence of left leg below knee; Z95.5 Presence of coronary angioplasty implant and graft; Z87.891 Personal history of nicotine dependence
CPT/HCPCS: 36415; 36430; 36569; 71010-TC; 74177-TC; 77001-TC; 80048; 80053; 80162; 81003; 81015; 83605; 83690; 83735; 84100; 85025; 85027; 85610; 85730; 86850; 86900; 86901; 86922; 87040; 87086; 87184; 87186; 93005; 93010; 97162-PG; 99285-25; C1751; P9038; P9058

== ENCOUNTER 2017-03-05 09:46 | Inpatient (IN) | payer OTHER ==
--- NOTE | 2017-03-05 10:26 | PDOC ---
History of Present Illness - General Stated Complaint: ULCER STOMACH Time Seen by Provider: 03/05/17 10:26 - History of Present Illness Initial Comments: 71 year old male with a history of CAD s/p stent in 2016, Afib on digoxin and ( previously on Plavix), CVA with residual left-sided weakness, PVD s/p bilateral AKA, multiple bilateral LE DVTs, hepatitis C and cirrhosis, upper GIB,and esophageal stricture who presents to the ED today with home health aid at bedside complaining three to four days of hematemesis. States that the vomiti was intially bright red and now is dark brown and is mostly mucous and recent food. He has chronic constipation and hasn't had a BM in a few days either. He admits to some chest pain that comes on with the vomiting. The pain is burining , non-radiating and does not copresent with SOB. He denies fevers/chills, or any other symptoms. 03/05/17 16:00 Past History - Past Medical History Allergies/Adverse Reactions: Allergies Allergy/AdvReac Type Severity Reaction Status Date / Time No Known Allergies Allergy Verified 03/05/17 09:52 Home Medications: Ambulatory Orders Bupropion HCl [Wellbutrin Xl] 300 mg PO DAILY 07/21/15 Gabapentin [Neurontin -] 100 mg PO TID #90 capsule 07/25/15 Finasteride 5 mg PO DAILY 10/08/15 Metoclopramide HCl [Reglan] 5 mg PO AC #90 tablet 10/29/15 Atorvastatin Ca [Lipitor] 40 mg PO HS 02/15/16 Docusate Sodium 100 mg PO TID 02/15/16 Tamsulosin HCl 0.4 mg PO DAILY 02/15/16 Pantoprazole Sodium [Protonix -] 40 mg PO BID #40 tablet.ec 02/28/16 Dexlansoprazole [Dexilant] 60 mg PO BID 03/05/17 Famotidine [Pepcid -] 40 mg PO DAILY 03/05/17 Sucralfate [Carafate] 1 gm PO TID 03/05/17 Anemia: No Asthma: No Cancer: No Cardiac Disorders: Yes (CAD,afib) CVA: Yes (LT SIDED weakness) COPD: Yes CHF: No Dementia: No Diabetes: Yes (IDDM) GI Disorders: Yes (BLEEDING ULCERS. ESOPHAGEAL VARICES.) Disorders: No HTN: Yes Hypercholesterolemia: Yes Liver Disease: Yes (Cirrhosis, hep C) Seizures: No Thyroid Disease: No - Surgical History Abdominal Surgery: No Appendectomy: No Cardiac Surgery: Yes (CARDIAC STENT) Cholecystectomy: No Lung Surgery: No Neurologic Surgery: No Orthopedic Surgery: Yes ([place]. Above Knee Amputation) - Immunization History Immunization Up to Date: Yes - Suicide/Smoking/Psychosocial Hx Smoking History: Current every day smoker Have you smoked in the past 12 months: Yes Number of Cigarettes Smoked Daily: 40 Information on smoking cessation initiated: No 'Breaking Loose' booklet given: 02/16/16 Hx Alcohol Use: No Drug/Substance Use Hx: No Substance Use Type: None Hx Substance Use Treatment: No Review of Systems - Review of Systems Constitutional: No: Chills, Fever *Physical Exam - Vital Signs Last Vital Signs Temp Pulse Resp BP Pulse Ox 97.8 F 78 16 138/99 100 03/05/17 09:49 03/05/17 09:49 03/05/17 09:49 03/05/17 09:49 03/05/17 09:49 ED Treatment Course - LABORATORY CBC & Chemistry Diagram: 03/05/17 10:48 03/05/17 10:48 *DC/Admit/Observation/Transfer Diagnosis at time of Disposition: Upper GI bleed, Fecal impaction, SIRS (systemic inflammatory response syndrome) , Atrial fibrillation with RVR UTI (urinary tract infection) Qualifiers: Urinary tract infection type: site unspecified Hematuria presence: without hematuria Qualified Code(s): N39.0 - Urinary tract infection, site not specified - Discharge Dispostion Condition at time of disposition: Stable Admit: Yes - Referrals Referrals: Garcia Henderson [Primary Care Provider] - - Patient Instructions - Post Discharge Activity
--- NOTE | 2017-03-05 10:29 | PDOC ---
Attending Attestation - HPI HPI: 03/05/17 10:51 71 y/o M with a PMHx of CAD, AFib, CVA (left sided residual paralysis), COPD, IDDM, esophageal varices, HTN, HLD, Hep C, cirrhosis, bilateral AKA, chronic constipation (on Miralax) presents to the ED with bloody vomit for 3-4 days. Patient reports last night he was vomiting up bright red blood. Currently, he reports brown colored blood in his vomit. His episodes of vomiting have been after eating. He reports associated low abdominal pain. He also reports associated chest pain only with vomiting. Patient has esophageal stricture and is scheduled for a stent this Tuesday. Patient denies fever, chills, cough, congestion. Denies vision changes, <Anaid Quintero - Last Filed: 03/05/17 11:21> - Resident Resident Name: Xenia Burger - ED Attending Attestation I have performed the following: I have examined & evaluated the patient, The case was reviewed & discussed with the resident, I agree w/resident's findings & plan, Exceptions are as noted - Physicial Exam PE: GENERAL: Awake, alert, and fully oriented, in no acute distress HEAD: No signs of trauma EYES: PERRLA, EOMI, sclera anicteric, conjunctiva clear ENT: Auricles normal inspection, hearing grossly normal, nares patent, oropharynx clear without exudates. Dry mucosa NECK: Normal ROM, supple, no lymphadenopathy, JVD, or masses LUNGS: Breath sounds equal, clear to auscultation bilaterally. No wheezes, and no crackles HEART: Irregular, tachycardic. Normal S1 and S2, no murmurs, rubs or gallops ABDOMEN: Soft, +BLQ tenderness. Normoactive bowel sounds. No guarding, no rebound. +Midline mass. EXTREMITIES: +B/L AKAs. Normal range of motion, no edema. No clubbing or cyanosis. No cords, erythema, or tenderness NEUROLOGICAL: Cranial nerves II through XII grossly intact. Normal speech. +L- sided hemiparesis. SKIN: Warm, Dry, normal turgor, no rashes or lesions noted. - Critical Care Time Total Critical Care Time: 45 Critical Care Statement: The care of this patient involved high complexity decision making to prevent further life threatening deterioration of the patient 's condition and/or to evaluate & treat vital organ system(s) failure or risk of failure. - Medical Decision Making Pt with history of esophageal varices presenting with UGIB, afib with RVR. Did not take any of his meds this AM. Will treat with digoxin, diltiazem, IVF, protonix, and octreotide. 03/05/17 16:46 Pt did not initially present with signs of sepsis. However, found to have elevated WBC on labs. UA showed +nitrite and leukocytes, which may be source. Also with GIB. Central line placed in ED as patient was requiring multiple meds. Will admit to ICU. <Ana Fernández - Last Filed: 03/05/17 16:47>
[2017-03-05] MEDS ORDERED: DIGOXIN 0.5 MG/2 ML AMPUL IVPUSH ONE (10:38)
[2017-03-05] MEDS ORDERED: PANTOPRAZOLE SODIUM 40 MG VIAL IVPUSH ONE (10:42)
[2017-03-05] MEDS ORDERED: DIGOXIN 0.5 MG/2 ML AMPUL ONE (10:45)
[2017-03-05] MEDS ORDERED: ONDANSETRON 4 MG/2 ML VIAL ONE (10:46)
[2017-03-05] MEDS ORDERED: PANTOPRAZOLE SODIUM 40 MG/100 ML BAG IVPB ONE (10:46)
[2017-03-05] MEDS ORDERED: SODIUM CHLORIDE 0.9% 1000 ML INFUS.BAG IV ONE (11:08)
[2017-03-05] MEDS ORDERED: dilTIAZem HCL 50 MG/10 ML - 10 ML VIAL IVPUSH ONE ×2 (11:11→11:28)
[2017-03-05] MEDS ORDERED: OCTREOTIDE ACETATE 1,200 MCG in DEXTROSE 5%-WATER - 488 ML IVPB SCH (11:15)
[2017-03-05] MEDS ORDERED: dilTIAZem HCL 125 MG/25 ML - 25 ML VIAL ONE (11:16)
[2017-03-05 11:24] LABS: MCH 23.7 pg (25.7-33.7); MCHC 30.9 g/dl (32.0-35.9); MEAN CELL VOLUME 76.8 fl (80-96); MEAN PLT VOLUME 7.3 fl (7.5-11.1); PLATELET COUNT 312 K/MM3 (134-434); RDW 18.5 % (11.9-15.9); WHITE BLOOD COUNT 22.3 K/mm3 (4.0-10.0)
[2017-03-05 11:36] LABS: ALBUMIN 3.2 g/dl (3.4-5.0); ANION GAP 9 (8-16); CALCIUM 9.7 mg/dL (8.5-10.1); CO2 32 mmol/L (21-32); GLUCOSE,RANDOM 150 mg/dL (74-106)
[2017-03-05 11:38] LABS: INR 0.91 (0.82-1.09); PROTHROMBIN TIME (PATIENT) 10.3 SEC (9.98-11.88)
[2017-03-05 11:39] LABS: ALK PHOS 115 U/L (45-117); CREATININE 0.6 mg/dL (0.7-1.3); SGPT/ALT 14 U/L (12-78); TOT PROT 6.9 g/dl (6.4-8.2)
[2017-03-05 11:48] LABS: TROPONIN I 0.06 ng/ml (0.00-0.05)
[2017-03-05 11:52] LABS: DIGOXIN LEVEL 0.0935 ng/ml (0.8-2.0)
[2017-03-05] MEDS ORDERED: SODIUM CHLORIDE 0.9% 500 ML INFUS.BAG IV ONE (11:52)
[2017-03-05 11:53] LABS: SGOT/AST 14 U/L (15-37)
[2017-03-05] MEDS ORDERED: DILTIAZEM INJECTION 125 MG in DEXTROSE 5%-WATER - 100 ML IVPB SCH (12:00)
[2017-03-05] MEDS ORDERED: METOCLOPRAMIDE HCL INJECTION 10 MG/2 ML VIAL IVPUSH ONE (14:19)
[2017-03-05 14:41] LABS: TOTAL CELLS COUNTED 100
[2017-03-05 14:42] LABS: PLATELET ESTIMATE ADEQUATE
[2017-03-05 16:01] LABS: URINE APPEARANCE SLCLOUDY; URINE BILIRUBIN NEGATIVE (NEGATIVE); URINE BLOOD NEGATIVE (NEGATIVE); URINE COLOR YELLOW; URINE GLUCOSE (UA) NEGATIVE (NEGATIVE); URINE KETONE NEGATIVE (NEGATIVE); URINE NITRITE POSITIVE (NEGATIVE); URINE PROTEIN NEGATIVE (NEGATIVE); URINE UROBILINOGEN NEGATIVE mg/dL (0.2-1.0)
[2017-03-05 16:03] LABS: URINE LEUK ESTERASE 1+ (NEGATIVE)
[2017-03-05 16:05] LABS: URINE BACTERIA FEW /hpf (NONE SEEN); URINE HYALINE CAST 2 /lpf; URINE MUCUS FEW; URINE RBC 5 /hpf (0-3); URINE WBC 26 /hpf (3-5)
[2017-03-05] MEDS ORDERED: CEFTRIAXONE 1 GM in DEXTROSE 5%-WATER - 50 ML IVPB ONE (17:44)
[2017-03-05 19:09] LABS: URINE LEUK ESTERASE Negative (NEGATIVE)
[2017-03-05] MEDS ORDERED: SODIUM CHLORIDE 1,000 ML IV SCH (19:15)
[2017-03-05] MEDS ORDERED: DIGOXIN 0.5 MG/2 ML AMPUL IVPB ONE (20:28)
[2017-03-05] MEDS ORDERED: LACTULOSE 20 GM/30 ML UDC (FOR ORAL USE ONLY) PO PRN (20:30)
--- NOTE | 2017-03-05 20:33 | PN ---
Teaching Attending Note Name of Resident: Priya Man ATTENDING PHYSICIAN STATEMENT I saw and evaluated the patient. I reviewed the resident's note and discussed the case with the resident. I agree with the resident's findings and plan as documented. SUBJECTIVE: CC: comiting up blood. HPI: reports 4 day h/o vomiting, up brown material ( reported bright blood to resident ). has abd pain ( generalized ). has no fever or chills. denies dysuria . has no fever or chills. no CP or palliations . was admitted in august for upper GI bleed and fecal impaction and RVR . last EGD in 2015. OBJECTIVE: NAD, cachectic , no facial droop, EOMI, round equal pupils , reactive to light. MMM, no LAP Cv : irreg irreg, no MRG , rate in 110s Lungs : CTAB Ext : no edema, b/l AKA . no eythema Abd : soft, TTP in epigastric and suprapubic area. nl BS , ND. no rebound tenderness , neg Bishop;s sign neuro ; L Upper ext with strenght of 0/5 , Lproximal LE 2/5 hip flexion 5/5 in RUE , and4/5 in R hip flexion declined rectal exam, EKG AFib with RVR . LAD ASSESSMENT AND PLAN: Patient is a 70 yo M with multiple medical problems including , h/o A Fib , CVA , Upper GI bleeds, esophageal stricture , DVTs , who presented with abd pain , N/V and was found to have severe sepsis . 1- severe sepsis ; likley form UTI.no infiltrate on CXRAy. unfortunately , could not evaluate skin in gluteal area for decubs. in past U cs showed psudomonas unfortunately urine cx was not sent before abx were given . - follow blood cx - give zosyn depending on previous cx - hold off dapto until evaluated by Id ( h/o VRE) - IVF 2- Possible Upper GI bleed. he reported dark emesis, and possibly bright red blood x 4 days , but Hb is NL and OB is neg - PPI IV BID - NPO - GI consult - monitor - last EGD in 2015, nl stomach and esophageal stricture. - dc octeriotide ggt starte din ER ( no evidence of varices ) 3- A fib with RVR: we need to confirm his meds . now on cardizem gtt sBP 99 - load with dig - try to taper cardizem gtt down and start on Po cardizem 30 q 6hr if tolerated - although CHAdsVasC is at least 4, he is not candidate for AC due to GI bleed 4- Fecal impaction. - declined rectal exam and disimpaciton . - will try again , if not , will give enema - oral agents if tolerated . 5-trop leak.: NO acute ischemic EKG changes. 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 heme consult - vascular consult 7- ICU Critical Care Total Critical Care Time (in minutes): 50 Critical Care Statement: The care of this patient involved high complexity decision making to prevent further life threatening deterioration of the patient 's condition and/or to evaluate & treat vital organ system(s) failure or risk of failure.
--- NOTE | 2017-03-05 21:43 | CONSULT ---
Consult Consult Specialty:: Pulm/CCM Reason for Consultation:: GIB - History of Present Illness Chief Complaint: Nausea History of Present Illness: 71 y/o M with a PMHx of CAD, AFib, CVA (left sided residual), COPD, IDDM, esophageal stricture, HTN, HLD, Hep C, cirrhosis, bilateral AKA, chronic constipation (on Miralax) presents to the ED with c/o hematemesis after bout of wretching . Patient reports that he became nauseous 2/2 thick phlegm from a cold and that the initial emesis was bilious and then became bloody. He c/o chest pain with vomiting but denies abd pain, diarrhea or melena. He recently had a EGD procedure at [facility] about a week ago. In ED VS T 97.8, HR 78, RR 16, BP 138/99, O2 sat 100% on room air. Labs were notable for WBC 22.3, Hgb 14.5, lact 2.7, trop 0.06, urine micro WBC 26, + nitrites. He was started on octreotide drip, cardiazem drip and ceftriaxone. CT A/P showed abd aorta, fem and iliac thrombi. He was transferred to ICU for further management. In ICU A+O x3. VSS. C/o nausea but no vomiting. Zofran ordered. Started on Protonix drip. Octreotide d/c'd. - History Source History Provided By: Patient, Medical Record - Past Medical History [employer]ENDER: Yes: CVA Cardio/Vascular: Yes: AFIB, CAD, Deep Vein Thrombosis, HTN, Other (MAT) Gastrointestinal: Yes: Constipation, GI Bleed, Other (paraesophageal hernia, esophageal stricture) Renal/: Yes: UTI Endocrine: Yes: Diabetes Mellitus - Past Surgical History Past Surgical History: Yes: Amputation - Alcohol/Substance Use Hx Alcohol Use: No History of Substance Use: reports: None - Smoking History Smoking history: Current every day smoker Have you smoked in the past 12 months: Yes Aproximately how many cigarettes per day: 40 - Social History ADL: Support Services History of Recent Travel: No Home Medications - Allergies Allergies/Adverse Reactions: Allergies Allergy/AdvReac Type Severity Reaction Status Date / Time No Known Allergies Allergy Verified 03/05/17 09:52 - Home Medications Home Medications: Ambulatory Orders Bupropion HCl [Wellbutrin Xl] 300 mg PO DAILY 05/02/16 Gabapentin [Neurontin -] 100 mg PO TID #90 capsule 07/25/15 Finasteride 5 mg PO DAILY 10/08/15 Metoclopramide HCl [Reglan] 5 mg PO AC #90 tablet 10/29/15 Atorvastatin Ca [Lipitor] 40 mg PO HS 02/15/16 Docusate Sodium 100 mg PO TID 02/15/16 Tamsulosin HCl 0.4 mg PO DAILY 02/15/16 Pantoprazole Sodium [Protonix -] 40 mg PO BID #40 tablet.ec 02/28/16 Dexlansoprazole [Dexilant] 60 mg PO BID 03/05/17 Famotidine [Pepcid -] 40 mg PO DAILY 03/05/17 Sucralfate [Carafate] 1 gm PO TID 03/05/17 Family Disease History - Family Disease History Family Disease History: Diabetes: Father, CA: Mother (throat) Review of Systems - Review of Systems Constitutional: reports: Loss of Appetite Eyes: reports: No Symptoms HENT: reports: No Symptoms Neck: reports: No Symptoms Respiratory: reports: No Symptoms Gastrointestinal: reports: Nausea Genitourinary: reports: No Symptoms Musculoskeletal: reports: No Symptoms Integumentary: reports: No Symptoms Neurological: reports: No Symptoms Psychiatric: reports: No Symptoms Pain Intensity: 5 Physical Exam Vital Signs: Vital Signs Temperature 98.4 F 03/05/17 17:52 Pulse Rate 99 H 03/05/17 19:37 Respiratory Rate 19 03/05/17 19:37 Blood Pressure 99/62 03/05/17 19:37 O2 Sat by Pulse Oximetry (%) 97 03/05/17 19:37 Constitutional: Yes: No Distress, Cachectic Eyes: Yes: Conjunctiva Clear HENT: Yes: Atraumatic, Normocephalic Neck: Yes: Supple, Trachea Midline Cardiovascular: Yes: Pulse Irregular Respiratory: Yes: CTA Bilaterally Gastrointestinal: Yes: Normal Bowel Sounds, Soft Renal/: Yes: WNL Extremities: Yes: Amputation Wound/Incision: Yes: Clean/Dry Neurological: Yes: Alert, Oriented ...Motor Strength: WNL Psychiatric: Yes: Alert, Oriented Labs: CBC, BMP 03/05/17 10:48 03/05/17 10:48 CBC,CMP WBC 22.3 K/mm3 (4.0-10.0) H D 03/05/17 10:48 RBC 6.10 M/mm3 (4.00-5.60) H D 03/05/17 10:48 Hgb 14.5 GM/dL (11.7-16.9) D 03/05/17 10:48 Hct 46.9 % (35.4-49) D 03/05/17 10:48 MCV 76.8 fl (80-96) L 03/05/17 10:48 MCH 23.7 pg (25.7-33.7) L 03/05/17 10:48 MCHC 30.9 g/dl (32.0-35.9) L 03/05/17 10:48 RDW 18.5 % (11.9-15.9) H 03/05/17 10:48 Plt Count 312 K/MM3 (134-434) D 03/05/17 10:48 MPV 7.3 fl (7.5-11.1) L 03/05/17 10:48 Total Counted 100 03/05/17 10:48 Neutrophils % No Result Required. 03/05/17 10:48 Neutrophils % (Manual) 93.0 % (42.8-82.8) H* 03/05/17 10:48 Lymphocytes % No Result Required. 03/05/17 10:48 Lymphocytes % (Manual) 4.0 % (8-40) L 03/05/17 10:48 Monocytes % (Manual) 3 % (3.8-10.2) L 03/05/17 10:48 Platelet Estimate Adequate 03/05/17 10:48 Sodium 140 mmol/L (136-145) 03/05/17 10:48 Potassium 3.6 mmol/L (3.5-5.1) 03/05/17 10:48 Chloride 99 mmol/L (98-107) D 03/05/17 10:48 Carbon Dioxide 32 mmol/L (21-32) D 03/05/17 10:48 Anion Gap 9 (8-16) 03/05/17 10:48 BUN 21 mg/dL (7-18) H D 03/05/17 10:48 Creatinine 0.6 mg/dL (0.7-1.3) L D 03/05/17 10:48 Creat Clearance w eGFR > 60 (>60) 03/05/17 10:48 Random Glucose 150 mg/dL (74-106) H D 03/05/17 10:48 Lactic Acid 1.7 mmol/L (0.4-2.0) 03/05/17 15:51 Calcium 9.7 mg/dL (8.5-10.1) D 03/05/17 10:48 Total Bilirubin 1.0 mg/dL (0.2-1.0) D 03/05/17 10:48 AST 14 U/L (15-37) L D 03/05/17 10:48 ALT 14 U/L (12-78) D 03/05/17 10:48 Alkaline Phosphatase 115 U/L (45-117) D 03/05/17 10:48 Creatine Kinase 34 IU/L (39-308) L 03/05/17 11:15 Troponin I 0.06 ng/ml (0.00-0.05) H D 03/05/17 11:15 Total Protein 6.9 g/dl (6.4-8.2) D 03/05/17 10:48 Albumin 3.2 g/dl (3.4-5.0) L D 03/05/17 10:48 Lipase 208 U/L (73-393) 03/05/17 11:15 Current Medications Chlorhexidine Gluconate (Hibiclens For Decolonization -) 1 applic TP HS EDILSON Diltiazem HCl 125 mg/ Dextrose 125 mls @ 5 mls/hr IVPB TITR EDILSON; 5 MG/HR PRN Reason: Protocol Last Admin: 03/05/17 13:50 Dose: 5 mg/hr, 5 mls/hr Sodium Chloride (Normal Saline -) 1,000 mls @ 100 mls/hr IV ASDIR EDILSON Last Admin: 03/05/17 19:36 Dose: 100 mls/hr Pantoprazole Sodium 80 mg/ (Sodium Chloride) 100 mls @ 10 mls/hr IVPB Q10H EDILSON PRN Reason: 8 MG/HR Lactulose (Cephulac (Oral Use)) 20 gm PO TID PRN PRN Reason: CONSTIPATION Mupirocin (Bactroban Ointment (For Decolonization) -) 1 applic NS BID EDILSON Stop: 03/10/17 21:59 Ondansetron HCl (Zofran Injection) 4 mg IVPUSH Q4H PRN PRN Reason: NAUSEA AND/OR VOMITING Pantoprazole Sodium (Protonix Iv) 40 mg IVPUSH BID EDILSON Polyethylene Glycol (Miralax (For Daily Use) -) 17 gm PO BID EDILSON Vital Signs Period Temp Pulse Resp BP Sys/Guevara Pulse Ox Last 24 Hr 97.8 F-98.5 F 78-150 16-19 98-138/54-99 96-100 Imaging - Results X-ray: Image Reviewed Cat Scan: Image Reviewed Problem List - Problems (1) Atrial fibrillation with rapid ventricular response Code(s): I48.91 - UNSPECIFIED ATRIAL FIBRILLATION (2) Fecal impaction Code(s): K56.41 - FECAL IMPACTION (3) SIRS (systemic inflammatory response syndrome) Code(s): R65.10 - SIRS OF NON-INFECTIOUS ORIGIN W/O ACUTE ORGAN DYSFUNCTION (4) UTI (urinary tract infection) Code(s): N39.0 - URINARY TRACT INFECTION, SITE NOT SPECIFIED Qualifiers: Urinary tract infection type: site unspecified Hematuria presence: without hematuria Qualified Code(s): N39.0 - Urinary tract infection, site not specified (5) Upper GI bleed Code(s): K92.2 - GASTROINTESTINAL HEMORRHAGE, UNSPECIFIED (6) Abnormal EKG Code(s): R94.31 - ABNORMAL ELECTROCARDIOGRAM [ECG] [EKG] (7) CVA (cerebral vascular accident) Code(s): I63.9 - CEREBRAL INFARCTION, UNSPECIFIED (8) Complicated UTI (urinary tract infection) Code(s): N39.0 - URINARY TRACT INFECTION, SITE NOT SPECIFIED (9) Epigastric abdominal pain Code(s): R10.13 - EPIGASTRIC PAIN (10) Esophageal stricture Code(s): K22.2 - ESOPHAGEAL OBSTRUCTION (11) Esophagitis Code(s): K20.9 - ESOPHAGITIS, UNSPECIFIED Assessment/Plan 71 y/o M with a PMHx of CAD, AFib, CVA (left sided residual), COPD, IDDM, esophageal stricture, gastric ulcers, HTN, HLD, Hep C, cirrhosis, bilateral AKA , chronic constipation (on Miralax) presents to the ED with c/o hematemesis. Found to have a UTI, demand ischemia as e/b elevated trop, multiple DVT.; A- fib presently rate controlled. Plan -GI consult for poss EGD -Cont protonix drip -Maintain large bore IV access -Serial CBC -Maintain NPO -IVF -ID consult -Cont Ceftriaxone for UTI -Cardiazem prn for A-fib with RVR -Vascular consult for multiple DVT, poss IVC filter Catherine Garber, ACNP CC time 35mins
[2017-03-05 21:55] VITALS: BMI 27.4
[2017-03-05] MEDS ORDERED: PANTOPRAZOLE SODIUM 40 MG VIAL IVPUSH SCH (22:00)
[2017-03-05] MEDS: MUPIROCIN 2% TOPICAL OINTMENT FOR DECOLONIZATION NS SCH (23:57)
[2017-03-05] MEDS: CHLORHEXIDINE GLUCONATE 4% CLEANSER FOR DECOLONIZATION TP SCH (23:57)
[2017-03-05] MEDS: PANTOPRAZOLE SODIUM 80 MG in SODIUM CHLORIDE 100 ML IVPB SCH (23:57)
[2017-03-05] MEDS: POLYETHYLENE GLYCOL 3350 119 GM BTL PO SCH (23:58)
[2017-03-05] MEDS: ONDANSETRON 4 MG/2 ML VIAL IVPUSH PRN (23:59)
[2017-03-06] MEDS ORDERED: PIPERACIL/TAZOB 3.375 GM 3.375 GM/50 ML PREMIX IVPB SCH (04:15)
--- NOTE | 2017-03-06 05:10 | HP ---
CHIEF COMPLAINT: hematemesis HISTORY OF PRESENT ILLNESS: 71yo M with PMH of upper GI bleed, esophageal stricture, CVA with residual Left- sided hemiparesis, afib (on Digoxin, previously on Plavix), PVD s/p ab AKA, DVTs, presents with vomiting x 3-4 days that started out as bright red blood and have changed to brown vomitus with food particles. Pt reports vomiting after eating. Pt reports chest pain from vomiting. Pt c/o lower abdominal pain and chronic constipation. Found to be septic. ER course was notable for: (1) CT Ab/Pel revealing impacted stool, occluded Left common iliac / Left external iliac / Left femoral arteries new since 08/2016, long segment intramural thrombus with calcified and non-calcified atherosclerotic plaque along the abdominal aorta resulting in mild-moderate luminal narrowing and narrowing of the origins of the major visceral branches. 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 PVD s/p ab AKA Hep C cirrhosis COPD IDDM htn hld PAST SURGICAL HISTORY: ab AKA cardiac stent 2016 was scheduled for esophageal stent next week Social History: Smokin ppd Alcohol: none Drugs: none Allergies No Known Allergies Allergy (Verified 03/05/17 09:52) HOME MEDICATIONS: Home Medications Medication Instructions Recorded Bupropion HCl [Wellbutrin Xl] 300 mg PO DAILY 07/21/15 Gabapentin [Neurontin -] 100 mg PO TID #90 capsule 07/25/15 Finasteride 5 mg PO DAILY 10/08/15 Metoclopramide HCl [Reglan] 5 mg PO AC #90 tablet 10/29/15 Atorvastatin Ca [Lipitor] 40 mg PO HS 02/15/16 Docusate Sodium 100 mg PO TID 02/15/16 Tamsulosin HCl 0.4 mg PO DAILY 02/15/16 Pantoprazole Sodium [Protonix -] 40 mg PO BID #40 tablet.ec 02/28/16 Dexlansoprazole [Dexilant] 60 mg PO BID 03/05/17 Famotidine [Pepcid -] 40 mg PO DAILY 03/05/17 Sucralfate [Carafate] 1 gm PO TID 03/05/17 REVIEW OF SYSTEMS CONSTITUTIONAL: Absent: fever, chills, diaphoresis, generalized weakness HEENT: Absent: rhinorrhea, nasal congestion, throat pain, visual changes CARDIOVASCULAR: chest pain (with vomiting) Absent: syncope, palpitations, irregular heart rate, lightheadedness, peripheral edema RESPIRATORY: Absent: cough, shortness of breath, orthopnea, wheezing, stridor, hemoptysis GASTROINTESTINAL: nausea, vomiting Absent: abdominal distension, diarrhea, constipation, melena, hematochezia GENITOURINARY: Absent: dysuria, hematuria SKIN: Absent: rash, itching, pallor NEUROLOGIC: focal weakness Absent: headache, dizziness, seizure, mental status changes PHYSICAL EXAMINATION Vital Signs - 24 hr 03/05/17 03/05/17 03/05/17 09:49 11:30 13:50 Temperature 97.8 F 98.5 F Pulse Rate 78 150 H Pulse Rate [ 118 H Left Apical] Respiratory 16 16 Rate Blood Pressure 138/99 126/78 Blood Pressure 136/54 [Right Arm] O2 Sat by Pulse 100 98 Oximetry (%) 03/05/17 03/05/17 03/05/17 14:12 15:24 16:36 Temperature 98.4 F Pulse Rate Pulse Rate [ 125 H 108 H 104 H Left Apical] Respiratory 16 16 16 Rate Blood Pressure Blood Pressure 121/81 117/74 101/69 [Right Arm] O2 Sat by Pulse 98 100 96 Oximetry (%) 03/05/17 03/05/17 03/05/17 17:52 18:11 18:47 Temperature 98.4 F Pulse Rate Pulse Rate [ 110 H 104 H 95 H Left Apical] Respiratory 16 16 16 Rate Blood Pressure Blood Pressure 98/61 108/58 112/82 [Right Arm] O2 Sat by Pulse 96 97 97 Oximetry (%) 03/05/17 03/05/17 19:37 21:46 Temperature 98 F Pulse Rate 98 H Pulse Rate [ 99 H Left Apical] Respiratory 19 19 Rate Blood Pressure 102/60 Blood Pressure 99/62 [Right Arm] O2 Sat by Pulse 97 95 Oximetry (%) GENERAL: Awake, alert, and fully oriented, in no acute distress. HEAD: Normal with no signs of trauma. EARS, NOSE, THROAT: Moist mucous membranes. NECK: Normal range of motion, supple without lymphadenopathy, JVD, or masses. LUNGS: Breath sounds equal, clear to auscultation bilaterally. No wheezes, and no crackles. No accessory muscle use. HEART: irregularly irregular, +S1/S2, tachycardic, without murmur, rub or gallop. ABDOMEN: Soft, tender to palpation in lower abdomen, not distended, normoactive bowel sounds, no guarding, no masses. LOWER EXTREMITIES: ab AKA. No peripheral edema. NEUROLOGICAL: Normal speech. Left UE is paralyzed. SKIN: Warm, dry, normal turgor, no rashes or lesions noted. RECTAL: refused Laboratory Results - last 24 hr 03/05/17 03/05/17 03/05/17 10:33 10:39 10:48 WBC 22.3 H D RBC 6.10 H D Hgb 14.5 D Hct 46.9 D MCV 76.8 L MCH 23.7 L MCHC 30.9 L RDW 18.5 H Plt Count 312 D MPV 7.3 L Total Counted 100 Neutrophils % No Result Required. Neutrophils % (Manual) 93.0 H* Lymphocytes % No Result Required. Lymphocytes % (Manual) 4.0 L Monocytes % (Manual) 3 L Platelet Estimate Adequate PT with INR INR PTT (Actin FS) VBG pH POC VBG pCO2 POC VBG pO2 Mixed VBG HCO3 Sodium Potassium Chloride Carbon Dioxide Anion Gap BUN Creatinine Creat Clearance w eGFR Random Glucose Lactic Acid Calcium Total Bilirubin AST ALT Alkaline Phosphatase Creatine Kinase Troponin I Total Protein Albumin Lipase Urine Color Urine Appearance Urine pH Ur Specific [place] Urine Protein Urine Glucose (UA) Urine Ketones Urine Blood Urine Nitrite Urine Bilirubin Urine Urobilinogen Ur Leukocyte Esterase Urine WBC (Auto) Urine RBC (Auto) Ur Epithelial Cells Urine Bacteria Hyaline Casts Urine Mucus Stool Occult Blood Cancelled Digoxin Blood Type A POSITIVE Antibody Screen Negative 03/05/17 03/05/17 03/05/17 10:48 10:48 10:48 WBC RBC Hgb Hct MCV MCH MCHC RDW Plt Count MPV Total Counted Neutrophils % Neutrophils % (Manual) Lymphocytes % Lymphocytes % (Manual) Monocytes % (Manual) Platelet Estimate PT with INR 10.30 INR 0.91 PTT (Actin FS) VBG pH POC VBG pCO2 POC VBG pO2 Mixed VBG HCO3 Sodium 140 Potassium 3.6 Chloride 99 D Carbon Dioxide 32 D Anion Gap 9 BUN 21 H D Creatinine 0.6 L D Creat Clearance w eGFR > 60 Random Glucose 150 H D Lactic Acid 2.7 H* Calcium 9.7 D Total Bilirubin 1.0 D AST 14 L D ALT 14 D Alkaline Phosphatase 115 D Creatine Kinase Troponin I Total Protein 6.9 D Albumin 3.2 L D Lipase Urine Color Urine Appearance Urine pH Ur Specific [place] Urine Protein Urine Glucose (UA) Urine Ketones Urine Blood Urine Nitrite Urine Bilirubin Urine Urobilinogen Ur Leukocyte Esterase Urine WBC (Auto) Urine RBC (Auto) Ur Epithelial Cells Urine Bacteria Hyaline Casts Urine Mucus Stool Occult Blood Digoxin Blood Type Antibody Screen 03/05/17 03/05/17 03/05/17 11:15 12:00 15:50 WBC RBC Hgb Hct MCV MCH MCHC RDW Plt Count MPV Total Counted Neutrophils % Neutrophils % (Manual) Lymphocytes % Lymphocytes % (Manual) Monocytes % (Manual) Platelet Estimate PT with INR INR PTT (Actin FS) 32.2 VBG pH POC VBG pCO2 POC VBG pO2 Mixed VBG HCO3 Sodium Potassium Chloride Carbon Dioxide Anion Gap BUN Creatinine Creat Clearance w eGFR Random Glucose Lactic Acid Calcium Total Bilirubin AST ALT Alkaline Phosphatase Creatine Kinase 34 L Troponin I 0.06 H D Total Protein Albumin Lipase 208 Urine Color Yellow Urine Appearance Slcloudy Urine pH 8.0 D Ur Specific [place] 1.039 H Urine Protein Negative Urine Glucose (UA) Negative Urine Ketones Negative Urine Blood Negative Urine Nitrite Positive Urine Bilirubin Negative Urine Urobilinogen Negative Ur Leukocyte Esterase Negative Urine WBC (Auto) 26 Urine RBC (Auto) 5 Ur Epithelial Cells Rare Urine Bacteria Few Hyaline Casts 2 Urine Mucus Few Stool Occult Blood Digoxin 0.0935 L Blood Type Antibody Screen 03/05/17 03/05/17 03/05/17 15:51 17:28 17:31 WBC RBC Hgb Hct MCV MCH MCHC RDW Plt Count MPV Total Counted Neutrophils % Neutrophils % (Manual) Lymphocytes % Lymphocytes % (Manual) Monocytes % (Manual) Platelet Estimate PT with INR INR PTT (Actin FS) VBG pH Cancelled POC VBG pCO2 Cancelled POC VBG pO2 Cancelled Mixed VBG HCO3 Cancelled Sodium Potassium Chloride Carbon Dioxide Anion Gap BUN Creatinine Creat Clearance w eGFR Random Glucose Lactic Acid 1.7 Calcium Total Bilirubin AST ALT Alkaline Phosphatase Creatine Kinase Troponin I Total Protein Albumin Lipase Urine Color Urine Appearance Urine pH Ur Specific [place] Urine Protein Urine Glucose (UA) Urine Ketones Urine Blood Urine Nitrite Urine Bilirubin Urine Urobilinogen Ur Leukocyte Esterase Urine WBC (Auto) Urine RBC (Auto) Ur Epithelial Cells Urine Bacteria Hyaline Casts Urine Mucus Stool Occult Blood Negative Digoxin Blood Type Antibody Screen IMAGIN03/05/17 CXR -> no acute pathology 03/05/17 Ab/Pel CT -> impacted stool, occluded Left common iliac / Left external iliac / Left femoral arteries new since 08/2016, long segment intramural thrombus with calcified and non-calcified atherosclerotic plaque along the abdominal aorta resulting in mild-moderate luminal narrowing and narrowing of the origins of the major visceral branches. ASSESSMENT/PLAN: 71yo M with PMH of upper GI bleed, esophageal stricture, CVA with residual Left- sided hemiparesis, afib (on Digoxin, previously on Plavix), PVD s/p ab AKA, DVTs, and multiple other medical problems presents with hematemesis x 3-4 days, found to have severe sepsis, admitted to ICU for possible upper GI bleed. # severe sepsis - tachycardia, leukocytosis, UA (+) for UTI - urine cultures have been (+) for pseudomonas in the past - f/u urine culture and blood cultures - empiric Zosyn IVPB - ID Consult - IVFs # possible upper GI bleed - H/H wnl - Protonix 80mg IVPB - GI Consult - last EGD in 2015 revealed esophageal stricture - maintain npo # afib - Dig level low -> load with 0.5mg, then 0.25mg in 6 hrs, - taper down Cardizem drip and start Cardizem 30mg po q6hr - CHADsVASC score 4, hold anticoagulation 2/2 possible upper GI bleed - Cardiology Consult # fecal impaction - tap water enema - lactulose 20g po TID prn - Miralax BID - continue home med of Colace TID # troponemia - no acute ischemic changes on EKG - could be 2/2 demand - f/u trop # thrombus in abdominal aorta and pelvic arteries - Vascular Consult - Heme Consult - hypercoagulable work-up # IDDM - SSI - BGMs # hld - continue home med of Lipitor # bph - continue home meds of Proscar and Flomax # FEN - Fluids: NS @ 100 ml/hr - Electrolytes: wnl, continue to monitor - Nutrition: npo # Prophylaxis - GI ppx with Protonix # Code Status: DNR/DNI Visit type - Emergency Visit Emergency Visit: Yes ED Registration Date: 03/05/17 Care time: The patient presented to the Emergency Department on the above date and was hospitalized for further evaluation of their emergent condition. - New Patient This patient is new to me today: Yes Date on this admission: 03/06/17 - Critical Care Critical Care patient: Yes Total Critical Care Time (in minutes): 50 Critical Care Statement: The care of this patient involved high complexity decision making to prevent further life threatening deterioration of the patient 's condition and/or to evaluate & treat vital organ system(s) failure or risk of failure.
[2017-03-06] MEDS ORDERED: PIPERACILLIN/TAZOB 3.375 GM 3.375 GM in DEXTROSE 5%-WATER - 50 ML IVPB ONE (05:45)
[2017-03-06 06:26] LABS: BASO % 0.7 % (0-2.0); EOS % 1.4 % (0-4.5); MCH 24.5 pg (25.7-33.7); MCHC 31.5 g/dl (32.0-35.9); MEAN CELL VOLUME 77.5 fl (80-96); MEAN PLT VOLUME 7.2 fl (7.5-11.1); NEUT % 74.6 % (42.8-82.8); PLATELET COUNT 231 K/MM3 (134-434); RDW 18.5 % (11.9-15.9); WHITE BLOOD COUNT 11.3 K/mm3 (4.0-10.0)
[2017-03-06 06:36] LABS: INR 0.96 (0.82-1.09); PROTHROMBIN TIME (PATIENT) 10.8 SEC (9.98-11.88)
[2017-03-06 06:38] LABS: ACTIVATED PTT 28.5 SECONDS (26.9-34.4)
[2017-03-06 06:40] LABS: ALBUMIN 2.3 g/dl (3.4-5.0); ALK PHOS 80 U/L (45-117); ANION GAP 9 (8-16); BILIRUBIN,TOTAL 1.1 mg/dL (0.2-1.0); CALCIUM 8.2 mg/dL (8.5-10.1); CO2 23 mmol/L (21-32); CREATININE 0.4 mg/dL (0.7-1.3); GLUCOSE,RANDOM 124 mg/dL (74-106); MAGNESIUM 1.8 mg/dL (1.8-2.4); PHOSPHOROUS 3.9 mg/dL (2.5-4.9); SGOT/AST 9 U/L (15-37); SGPT/ALT 10 U/L (12-78); TOT PROT 5.1 g/dl (6.4-8.2)
[2017-03-06] MEDS: DOCUSATE SODIUM 100 MG CAPSULE (FP) PO SCH ×3 (07:41→21:24)
[2017-03-06] MEDS: SUCRALFATE 1 GM/10 ML UNIT DOSE CUPS PO SCH ×3 (07:41→22:09)
[2017-03-06] MEDS: INSULIN SLIDING SCALE (NOVOLOG) 1 VIAL SQ SCH ×4 (07:41→23:00)
[2017-03-06] MEDS: GABAPENTIN 100 MG CAPSULE (FP) PO SCH ×3 (07:41→21:24)
[2017-03-06] MEDS: PANTOPRAZOLE SODIUM 80 MG in SODIUM CHLORIDE 100 ML IVPB SCH (07:45)
[2017-03-06] MEDS: ONDANSETRON 4 MG/2 ML VIAL IVPUSH PRN (07:45)
[2017-03-06] MEDS: TAMSULOSIN HCL 0.4 MG CAP.ER.24H (FP) PO SCH (08:43)
--- NOTE | 2017-03-06 09:34 | PN ---
Progress Note (short form) - Note Progress Note: Subjective: daly any pain, has minimal nausea, has no feve ror chills, feels much better , denies SOB. Objective: Vital Signs: Last Vital Signs Temp Pulse Resp BP Pulse Ox 98 F 101 H 18 106/67 95 03/05/17 21:46 03/06/17 09:41 03/06/17 07:00 03/06/17 09:41 03/05/17 21:46 Laboratory Results - last 24 hr 03/05/17 03/05/17 03/05/17 10:33 10:39 10:48 WBC 22.3 H D RBC 6.10 H D Hgb 14.5 D Hct 46.9 D MCV 76.8 L MCH 23.7 L MCHC 30.9 L RDW 18.5 H Plt Count 312 D MPV 7.3 L Total Counted 100 Neutrophils % No Result Required. Neutrophils % (Manual) 93.0 H* Lymphocytes % No Result Required. Lymphocytes % (Manual) 4.0 L Monocytes % Monocytes % (Manual) 3 L Eosinophils % Basophils % Platelet Estimate Adequate PT with INR INR PTT (Actin FS) VBG pH POC VBG pCO2 POC VBG pO2 Mixed VBG HCO3 Sodium Potassium Chloride Carbon Dioxide Anion Gap BUN Creatinine Creat Clearance w eGFR Random Glucose Lactic Acid Calcium Phosphorus Magnesium Total Bilirubin AST ALT Alkaline Phosphatase Creatine Kinase Troponin I Total Protein Albumin Lipase Urine Color Urine Appearance Urine pH Ur Specific [place] Urine Protein Urine Glucose (UA) Urine Ketones Urine Blood Urine Nitrite Urine Bilirubin Urine Urobilinogen Ur Leukocyte Esterase Urine WBC (Auto) Urine RBC (Auto) Ur Epithelial Cells Urine Bacteria Hyaline Casts Urine Mucus Stool Occult Blood Cancelled Digoxin Blood Type A POSITIVE Antibody Screen Negative 03/05/17 03/05/17 03/05/17 10:48 10:48 10:48 WBC RBC Hgb Hct MCV MCH MCHC RDW Plt Count MPV Total Counted Neutrophils % Neutrophils % (Manual) Lymphocytes % Lymphocytes % (Manual) Monocytes % Monocytes % (Manual) Eosinophils % Basophils % Platelet Estimate PT with INR 10.30 INR 0.91 PTT (Actin FS) VBG pH POC VBG pCO2 POC VBG pO2 Mixed VBG HCO3 Sodium 140 Potassium 3.6 Chloride 99 D Carbon Dioxide 32 D Anion Gap 9 BUN 21 H D Creatinine 0.6 L D Creat Clearance w eGFR > 60 Random Glucose 150 H D Lactic Acid 2.7 H* Calcium 9.7 D Phosphorus Magnesium Total Bilirubin 1.0 D AST 14 L D ALT 14 D Alkaline Phosphatase 115 D Creatine Kinase Troponin I Total Protein 6.9 D Albumin 3.2 L D Lipase Urine Color Urine Appearance Urine pH Ur Specific [place] Urine Protein Urine Glucose (UA) Urine Ketones Urine Blood Urine Nitrite Urine Bilirubin Urine Urobilinogen Ur Leukocyte Esterase Urine WBC (Auto) Urine RBC (Auto) Ur Epithelial Cells Urine Bacteria Hyaline Casts Urine Mucus Stool Occult Blood Digoxin Blood Type Antibody Screen 03/05/17 03/05/17 03/05/17 11:15 12:00 15:50 WBC RBC Hgb Hct MCV MCH MCHC RDW Plt Count MPV Total Counted Neutrophils % Neutrophils % (Manual) Lymphocytes % Lymphocytes % (Manual) Monocytes % Monocytes % (Manual) Eosinophils % Basophils % Platelet Estimate PT with INR INR PTT (Actin FS) 32.2 VBG pH POC VBG pCO2 POC VBG pO2 Mixed VBG HCO3 Sodium Potassium Chloride Carbon Dioxide Anion Gap BUN Creatinine Creat Clearance w eGFR Random Glucose Lactic Acid Calcium Phosphorus Magnesium Total Bilirubin AST ALT Alkaline Phosphatase Creatine Kinase 34 L Troponin I 0.06 H D Total Protein Albumin Lipase 208 Urine Color Yellow Urine Appearance Slcloudy Urine pH 8.0 D Ur Specific [place] 1.039 H Urine Protein Negative Urine Glucose (UA) Negative Urine Ketones Negative Urine Blood Negative Urine Nitrite Positive Urine Bilirubin Negative Urine Urobilinogen Negative Ur Leukocyte Esterase Negative Urine WBC (Auto) 26 Urine RBC (Auto) 5 Ur Epithelial Cells Rare Urine Bacteria Few Hyaline Casts 2 Urine Mucus Few Stool Occult Blood Digoxin 0.0935 L Blood Type Antibody Screen 03/05/17 03/05/17 03/05/17 15:51 17:28 17:31 WBC RBC Hgb Hct MCV MCH MCHC RDW Plt Count MPV Total Counted Neutrophils % Neutrophils % (Manual) Lymphocytes % Lymphocytes % (Manual) Monocytes % Monocytes % (Manual) Eosinophils % Basophils % Platelet Estimate PT with INR INR PTT (Actin FS) VBG pH Cancelled POC VBG pCO2 Cancelled POC VBG pO2 Cancelled Mixed VBG HCO3 Cancelled Sodium Potassium Chloride Carbon Dioxide Anion Gap BUN Creatinine Creat Clearance w eGFR Random Glucose Lactic Acid 1.7 Calcium Phosphorus Magnesium Total Bilirubin AST ALT Alkaline Phosphatase Creatine Kinase Troponin I Total Protein Albumin Lipase Urine Color Urine Appearance Urine pH Ur Specific [place] Urine Protein Urine Glucose (UA) Urine Ketones Urine Blood Urine Nitrite Urine Bilirubin Urine Urobilinogen Ur Leukocyte Esterase Urine WBC (Auto) Urine RBC (Auto) Ur Epithelial Cells Urine Bacteria Hyaline Casts Urine Mucus Stool Occult Blood Negative Digoxin Blood Type Antibody Screen 03/06/17 03/06/17 03/06/17 06:00 06:00 06:00 WBC 11.3 H D RBC 4.60 D Hgb 11.2 L D Hct 35.6 D MCV 77.5 L MCH 24.5 L MCHC 31.5 L RDW 18.5 H Plt Count 231 D MPV 7.2 L Total Counted Neutrophils % 74.6 Neutrophils % (Manual) Lymphocytes % 16.3 Lymphocytes % (Manual) Monocytes % 7.0 Monocytes % (Manual) Eosinophils % 1.4 D Basophils % 0.7 D Platelet Estimate PT with INR 10.80 INR 0.96 PTT (Actin FS) 28.5 VBG pH POC VBG pCO2 POC VBG pO2 Mixed VBG HCO3 Sodium 137 Potassium 4.4 D Chloride 105 Carbon Dioxide 23 D Anion Gap 9 BUN 15 D Creatinine 0.4 L D Creat Clearance w eGFR > 60 Random Glucose 124 H Lactic Acid Calcium 8.2 L Phosphorus 3.9 D Magnesium 1.8 Total Bilirubin 1.1 H AST 9 L D ALT 10 L D Alkaline Phosphatase 80 D Creatine Kinase Troponin I Total Protein 5.1 L D Albumin 2.3 L D Lipase Urine Color Urine Appearance Urine pH Ur Specific [place] Urine Protein Urine Glucose (UA) Urine Ketones Urine Blood Urine Nitrite Urine Bilirubin Urine Urobilinogen Ur Leukocyte Esterase Urine WBC (Auto) Urine RBC (Auto) Ur Epithelial Cells Urine Bacteria Hyaline Casts Urine Mucus Stool Occult Blood Digoxin Blood Type Antibody Screen 03/06/17 06:00 WBC RBC Hgb Hct MCV MCH MCHC RDW Plt Count MPV Total Counted Neutrophils % Neutrophils % (Manual) Lymphocytes % Lymphocytes % (Manual) Monocytes % Monocytes % (Manual) Eosinophils % Basophils % Platelet Estimate PT with INR INR PTT (Actin FS) VBG pH POC VBG pCO2 POC VBG pO2 Mixed VBG HCO3 Sodium Potassium Chloride Carbon Dioxide Anion Gap BUN Creatinine Creat Clearance w eGFR Random Glucose Lactic Acid 0.9 Calcium Phosphorus Magnesium Total Bilirubin AST ALT Alkaline Phosphatase Creatine Kinase Troponin I Total Protein Albumin Lipase Urine Color Urine Appearance Urine pH Ur Specific [place] Urine Protein Urine Glucose (UA) Urine Ketones Urine Blood Urine Nitrite Urine Bilirubin Urine Urobilinogen Ur Leukocyte Esterase Urine WBC (Auto) Urine RBC (Auto) Ur Epithelial Cells Urine Bacteria Hyaline Casts Urine Mucus Stool Occult Blood Digoxin Blood Type Antibody Screen Physical Exam: NAD, cachectic , no facial droop, EOMI, round equal pupils , reactive to light. MMM, no LAP Cv : irreg irreg, no MRG , rate in high 90s Lungs : CTAB Ext : no edema, b/l AKA . no eythema Abd : soft, No tenderness today. a stool mass is felt in RLQ . Declined rectal exam again ASSESSMENT AND PLAN: Patient is a 70 yo M with multiple medical problems including , h/o A Fib , CVA , Upper GI bleeds, esophageal stricture , DVTs , who presented with abd pain , N/V and was found to have severe sepsis . 1- Severe sepsis ; likley form UTI. in past U Cx showed psudomonas adn VRE . . - follow blood cx - follow urine cx ( sent after ceftriaxone was given ) - give zosyn - ID consult - decrease rate of IVF 2- Possible Upper GI bleed. - PPI - start clears - GI consult - last EGD in 2015, nl stomach and esophageal stricture. he was scheduled for dilation and stent this week 3- A fib with RVR: now rate is controlled. off cardizem gtt . was loaded with dig was taken off Gig by his cardiogist and denies being on any bar blockers. - start low dose cardizem 30 q 6H , given his BP on lower side - NO AC despite elevated CHADSVASC , due to his GI bleed , was also taken off Asa and plavix 4- Fecal impaction. - declined rectal exam and disimpaciton again . - give enema - oral regimen ; lactulose, miralax, morgan /colace 5-trop leak.: NO acute ischemic EKG changes. could be demand - follow trop - hold off any anti plt 6- Thrombosis in aorta and pelvic veins: - hypercoagulable w/u . heme consult - vascular consult 7- Tx to tele Palliative care consult Visit type - Emergency Visit Emergency Visit: Yes ED Registration Date: 03/05/17 Care time: The patient presented to the Emergency Department on the above date and was hospitalized for further evaluation of their emergent condition. - New Patient This patient is new to me today: No - Critical Care Critical Care patient: No
[2017-03-06] MEDS ORDERED: PIPERACILLIN/TAZOB 3.375 GM 50 ML IVPB ONE (09:37)
--- NOTE | 2017-03-06 09:40 | PN ---
Progress Note (short form) - Note Progress Note: Pulm/CCM Pt seen and examined in ICU Subjective -no further bleeding -wants clears this morning -refused fecal disimpaction -written for enema -does not want to pursue vascular consult/surgery for arterial thrombosis ( unlikely candidate for therapies given recurrent GIB) Vital Signs Temp 98 F 03/05/17 21:46 Pulse 96 H 03/06/17 07:00 Resp 18 03/06/17 07:00 BP 107/58 03/06/17 07:00 Pulse Ox 95 03/05/17 21:46 Intake & Output 03/05/17 03/05/17 03/06/17 11:59 23:59 11:59 Output Total 100 100 Balance -100 -100 Weight 45.359 kg 40.823 kg Output: Urine 100 100 Void 100 100 Other: Voiding Method Urinal # Unmeasured Voids Void 1 Height 48 in 48 in Body Mass Index (BMI) 30.5 27.4 Weight Measurement Method Built in [facility] Weight Measurement Method Est/Stated by Patient CBCD WBC 11.3 K/mm3 (4.0-10.0) H D 03/06/17 06:00 RBC 4.60 M/mm3 (4.00-5.60) D 03/06/17 06:00 Hgb 11.2 GM/dL (11.7-16.9) L D 03/06/17 06:00 Hct 35.6 % (35.4-49) D 03/06/17 06:00 MCV 77.5 fl (80-96) L 03/06/17 06:00 MCHC 31.5 g/dl (32.0-35.9) L 03/06/17 06:00 RDW 18.5 % (11.9-15.9) H 03/06/17 06:00 Plt Count 231 K/MM3 (134-434) D 03/06/17 06:00 MPV 7.2 fl (7.5-11.1) L 03/06/17 06:00 CMP Sodium 137 mmol/L (136-145) 03/06/17 06:00 Potassium 4.4 mmol/L (3.5-5.1) D 03/06/17 06:00 Chloride 105 mmol/L (98-107) 03/06/17 06:00 Carbon Dioxide 23 mmol/L (21-32) D 03/06/17 06:00 Anion Gap 9 (8-16) 03/06/17 06:00 BUN 15 mg/dL (7-18) D 03/06/17 06:00 Creatinine 0.4 mg/dL (0.7-1.3) L D 03/06/17 06:00 Creat Clearance w eGFR > 60 (>60) 03/06/17 06:00 Random Glucose 124 mg/dL (74-106) H 03/06/17 06:00 Calcium 8.2 mg/dL (8.5-10.1) L 03/06/17 06:00 Total Bilirubin 1.1 mg/dL (0.2-1.0) H 03/06/17 06:00 AST 9 U/L (15-37) L D 03/06/17 06:00 ALT 10 U/L (12-78) L D 03/06/17 06:00 Alkaline Phosphatase 80 U/L (45-117) D 03/06/17 06:00 Total Protein 5.1 g/dl (6.4-8.2) L D 03/06/17 06:00 Albumin 2.3 g/dl (3.4-5.0) L D 03/06/17 06:00 CARDIAC ENZYMES Creatine Kinase 34 IU/L (39-308) L 03/05/17 11:15 Troponin I 0.06 ng/ml (0.00-0.05) H D 03/05/17 11:15 Imaging - Results X-ray: Image Reviewed Cat Scan: Image Reviewed Problem List - Problems (1) Atrial fibrillation with rapid ventricular response Code(s): I48.91 - UNSPECIFIED ATRIAL FIBRILLATION (2) Fecal impaction Code(s): K56.41 - FECAL IMPACTION (3) SIRS (systemic inflammatory response syndrome) Code(s): R65.10 - SIRS OF NON-INFECTIOUS ORIGIN W/O ACUTE ORGAN DYSFUNCTION (4) UTI (urinary tract infection) Code(s): N39.0 - URINARY TRACT INFECTION, SITE NOT SPECIFIED Qualifiers: Urinary tract infection type: site unspecified Hematuria presence: without hematuria Qualified Code(s): N39.0 - Urinary tract infection, site not specified (5) Upper GI bleed Code(s): K92.2 - GASTROINTESTINAL HEMORRHAGE, UNSPECIFIED (6) Abnormal EKG Code(s): R94.31 - ABNORMAL ELECTROCARDIOGRAM [ECG] [EKG] (7) CVA (cerebral vascular accident) Code(s): I63.9 - CEREBRAL INFARCTION, UNSPECIFIED (8) Complicated UTI (urinary tract infection) Code(s): N39.0 - URINARY TRACT INFECTION, SITE NOT SPECIFIED (9) Epigastric abdominal pain Code(s): R10.13 - EPIGASTRIC PAIN (10) Esophageal stricture Code(s): K22.2 - ESOPHAGEAL OBSTRUCTION (11) Esophagitis Code(s): K20.9 - ESOPHAGITIS, UNSPECIFIED PE: Gen: awake, INAD, frail, wasted appearing older than stated age PULM: few coarse crackles bilaterally CV: irreg, No m/r/g appreciated ABD: soft, NT, +BS EXT: R Fem TLC cdi, bilaterally amputations stable, no ischemic changes NEURO: non focal Assessment/Plan 71 y/o M with a PMHx of CAD, AFib, CVA (left sided residual), COPD, IDDM, esophageal stricture, gastric ulcers, HTN, HLD, Hep C, cirrhosis, bilateral AKA , chronic constipation (on Miralax) presents to the ED with c/o hematemesis. Found to have a UTI, demand ischemia as e/b elevated trop, multiple DVT.; A- fib presently rate controlled. Plan -pt has been unable to have EGD in past due to esoph stricture, has planned dilation and stent placement at [facility] next week. (need to reschedule/address next week). -protonix daily -Maintain large bore IV access -Serial CBC -clear liquid diet/ensure -IVF -Pip/inez for UTI, hx of PSA in urine in past -dig load -nicotine patch -Pt does not want to pursue Vascular Surgery or consult for arterial thrombosis -consider palliative care consultation -OK for floor, given no interest in pursuing interventional or life sustaining measures. Dionicio Pedraza [id number]
--- NOTE | 2017-03-06 09:49 | CONSULT ---
Consult - text type - Consultation Consultation Note: HEMATOLOGY CONSULT NOTE : 71 yr old male here with sepssis, suspected GI bleed with hematemesis and an CT A/P showing constipation/ occluded Left common iliac / Left external iliac / Left femoral arteries new since 08/2016, long segment intramural thrombus with calcified and non-calcified atherosclerotic plaque along the abdominal aorta resulting in mild-moderate luminal narrowing and narrowing of the origins of the major visceral branches. he feels ok and is doing better than yesterday ER course was notable for: (1) CT Ab/Pel revealing impacted stool, occluded Left common iliac / Left external iliac / Left femoral arteries new since 08/2016, long segment intramural thrombus with calcified and non-calcified atherosclerotic plaque along the abdominal aorta resulting in mild-moderate luminal narrowing and narrowing of the origins of the major visceral branches. 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 PVD s/p ab AKA Hep C cirrhosis COPD IDDM htn hld PAST SURGICAL HISTORY: ab AKA cardiac stent 2016 was scheduled for esophageal stent next week Social History: Smokin ppd Alcohol: none Drugs: none Allergies No Known Allergies Allergy (Verified 03/05/17 09:52) HOME MEDICATIONS: Home Medications Medication Instructions Recorded Bupropion HCl [Wellbutrin Xl] 300 mg PO DAILY 07/21/15 Gabapentin [Neurontin -] 100 mg PO TID #90 capsule 07/25/15 Finasteride 5 mg PO DAILY 10/08/15 Metoclopramide HCl [Reglan] 5 mg PO AC #90 tablet 10/29/15 Atorvastatin Ca [Lipitor] 40 mg PO HS 02/15/16 Docusate Sodium 100 mg PO TID 02/15/16 Tamsulosin HCl 0.4 mg PO DAILY 02/15/16 Pantoprazole Sodium [Protonix -] 40 mg PO BID #40 tablet.ec 02/28/16 Dexlansoprazole [Dexilant] 60 mg PO BID 03/05/17 Famotidine [Pepcid -] 40 mg PO DAILY 03/05/17 Sucralfate [Carafate] 1 gm PO TID 03/05/17 REVIEW OF SYSTEMS CONSTITUTIONAL: Absent: fever, chills, diaphoresis, generalized weakness HEENT: Absent: rhinorrhea, nasal congestion, throat pain, visual changes CARDIOVASCULAR: none Absent: syncope, palpitations, irregular heart rate, lightheadedness, peripheral edema RESPIRATORY: Absent: cough, shortness of breath, orthopnea, wheezing, stridor, hemoptysis GASTROINTESTINAL: nausea, vomiting Absent: abdominal distension, diarrhea, constipation, melena, hematochezia GENITOURINARY: Absent: dysuria, hematuria SKIN: Absent: rash, itching, pallor NEUROLOGIC: focal weakness Absent: headache, dizziness, seizure, mental status changes PHYSICAL EXAMINATION Vital Signs Period Temp Pulse Resp BP Sys/Guevara Pulse Ox Last 24 Hr 97.8 F-98.5 F 78-150 16-20 92-138/54-99 95-100 GENERAL: Awake, alert, and fully oriented, in no acute distress. HEAD: Normal with no signs of trauma. EARS, NOSE, THROAT: Moist mucous membranes. NECK: Normal range of motion, supple without lymphadenopathy, JVD, or masses. LUNGS: Breath sounds equal, clear to auscultation bilaterally. No wheezes, and no crackles. No accessory muscle use. HEART: irregularly irregular, +S1/S2, tachycardic, without murmur, rub or gallop. ABDOMEN: Soft, tender to palpation in lower abdomen, not distended, normoactive bowel sounds, no guarding, no masses. LOWER EXTREMITIES: ab AKA. No peripheral edema. NEUROLOGICAL: Normal speech. Left UE is paralyzed. SKIN: Warm, dry, normal turgor, no rashes or lesions noted. RECTAL: refused CBC, BMP 03/06/17 06:00 03/06/17 06:00 Current Medications Generic Name Dose Route Start Last Admin Trade Name Freq PRN Reason Stop Dose Admin Atorvastatin Calcium 40 mg 03/06/17 22:00 Lipitor - PO HS EDILSON Bupropion HCl 300 mg 03/06/17 10:00 Wellbutrin Xl - PO DAILY EDILSON Chlorhexidine Gluconate 1 applic 03/05/17 22:00 03/05/17 23:57 Hibiclens For Decolonization - TP 1 applic HS EDILSON Administration Diltiazem HCl 30 mg 03/06/17 09:45 Cardizem - PO Q6H EDILSON Docusate Sodium 100 mg 03/06/17 06:00 03/06/17 07:41 Colace - PO Not Given TID [facility] Finasteride 5 mg 03/06/17 10:00 Proscar - PO DAILY [facility] Gabapentin 100 mg 03/06/17 06:00 03/06/17 07:41 Neurontin - PO Not Given TID [facility] Sodium Chloride 1,000 mls @ 100 mls/hr 03/05/17 19:15 03/05/17 19:36 Normal Saline - IV 100 mls/hr ASDIR EDILSON Administration Piperacillin/Tazobactam/Dextrose 50 mls @ 100 mls/hr 03/06/17 09:37 Zosyn 3.375gm Ivpb (Premix) IVPB 03/06/17 10:06 ONCE ONE Protocol Insulin Aspart 1 vial 03/06/17 06:00 03/06/17 07:41 Novolog Vial Sliding Scale - SQ Not Given Q6HPO [facility] Protocol Lactulose 20 gm 03/05/17 20:30 Cephulac (Oral Use) PO TID PRN CONSTIPATION Mupirocin 1 applic 03/05/17 22:00 03/05/17 23:57 Bactroban Ointment (For Decolonization) - NS 03/10/17 21:59 Not Given BID [facility] Nicotine 21 mg 03/06/17 10:00 Nicoderm Patch - TD DAILY [facility] Ondansetron HCl 4 mg 03/05/17 21:31 03/06/17 07:45 Zofran Injection IVPUSH 4 mg Q4H PRN Administration NAUSEA AND/OR VOMITING Pantoprazole Sodium 40 mg 03/07/17 10:00 Protonix Packets For Oral Suspension - PO DAILY [facility] Polyethylene Glycol 17 gm 03/05/17 22:00 03/05/17 23:58 Miralax (For Daily Use) - PO Not Given BID [facility] Sucralfate 1 gm 03/06/17 06:00 03/06/17 07:41 Carafate Oral Suspension - PO Not Given TID [facility] Tamsulosin HCl 0.4 mg 03/06/17 08:30 03/06/17 08:43 Flomax - PO 0.4 mg DAILY@0830 EDILSON Administration IMAGIN03/05/17 CXR -> no acute pathology 03/05/17 Ab/Pel CT -> impacted stool, occluded Left common iliac / Left external iliac / Left femoral arteries new since 08/2016, long segment intramural thrombus with calcified and non-calcified atherosclerotic plaque along the abdominal aorta resulting in mild-moderate luminal narrowing and narrowing of the origins of the major visceral branches. ASSESSMENT/PLAN: 71yo M with PMH of upper GI bleed, esophageal stricture, CVA with residual Left- sided hemiparesis, afib (on Digoxin, previously on Plavix), PVD s/p ab AKA, DVTs, and multiple other medical problems presents with hematemesis x 3-4 days, found to have severe sepsis, admitted to ICU for possible upper GI bleed. 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
[2017-03-06] MEDS ORDERED: SODIUM PHOSPHATE/NA BIPHOS 133 ML ENEMA PR ONE (09:51)
[2017-03-06] MEDS: POLYETHYLENE GLYCOL 3350 119 GM BTL PO SCH ×2 (09:54→21:23)
[2017-03-06] MEDS: dilTIAZem HCL 30 MG TABLET (FP) PO SCH ×2 (09:55→16:06)
[2017-03-06] MEDS: FINASTERIDE 5 MG TABLET (FP) PO SCH (09:55)
[2017-03-06] MEDS: NICOTINE 21 MG/24 HOURS TOPICAL PATCH TD SCH (09:56)
[2017-03-06] MEDS: MUPIROCIN 2% TOPICAL OINTMENT FOR DECOLONIZATION NS SCH ×2 (09:57→21:25)
--- NOTE | 2017-03-06 10:05 | CONSULT ---
Consult Consult Specialty:: Cardiology Referred by:: ICU Reason for Consultation:: Afib with RVR - History of Present Illness Chief Complaint: Hematemesis History of Present Illness: 71 yo male Known CAD with prior PCI at [facility] previously on DAPT (unclear duration or when stopped) Afib with prior CVA (residual left hemiparesis) Was previously on warfarin in the past but stopped for unclear reasons Now admitted with Afib with RVR in the setting of hematemesis and bilious emesis for the past 4-5 days Started on PO Cardizem Not on ASA, BB or CCB at home - History Source History Provided By: Patient, Medical Record Limitations to Obtaining History: Poor Historian - Past Medical History 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[employer] HAND: Yes: CVA Cardio/Vascular: Yes: AFIB, CAD, Deep Vein Thrombosis, HTN, Other (MAT) Gastrointestinal: Yes: Constipation, GI Bleed, Other (paraesophageal hernia, esophageal stricture) Renal/: Yes: UTI Endocrine: Yes: Diabetes Mellitus - Past Surgical History Past Surgical History: Yes: Amputation - Alcohol/Substance Use Hx Alcohol Use: No History of Substance Use: reports: None - Smoking History Smoking history: Current every day smoker Have you smoked in the past 12 months: Yes Aproximately how many cigarettes per day: 40 - Social History ADL: Support Services History of Recent Travel: No Home Medications - Allergies Allergies/Adverse Reactions: Allergies Allergy/AdvReac Type Severity Reaction Status Date / Time No Known Allergies Allergy Verified 03/05/17 09:52 - Home Medications Home Medications: Ambulatory Orders Gabapentin [Neurontin -] 100 mg PO TID #90 capsule 07/25/15 Finasteride 5 mg PO DAILY 10/08/15 Docusate Sodium 100 mg PO TID 02/15/16 Tamsulosin HCl 0.4 mg PO DAILY 02/15/16 Famotidine [Pepcid -] 40 mg PO DAILY 03/05/17 Sucralfate [Carafate] 1 gm PO TID 03/05/17 Metoclopramide HCl [Reglan] 5 mg PO TID PRN 03/06/17 Family Disease History - Family Disease History Family Disease History: Diabetes: Father, CA: Mother (throat) Physical Exam Vital Signs: Vital Signs Temperature 98 F 03/05/17 21:46 Pulse Rate 101 H 03/06/17 09:41 Respiratory Rate 18 03/06/17 07:00 Blood Pressure 106/67 03/06/17 09:41 O2 Sat by Pulse Oximetry (%) 95 03/05/17 21:46 Constitutional: Yes: Cachectic Eyes: Yes: WNL HENT: Yes: WNL Neck: Yes: Trachea Midline Cardiovascular: Yes: Pulse Irregular Respiratory: Yes: CTA Bilaterally Gastrointestinal: Yes: Soft, Tenderness Extremities: Yes: Amputation Labs: CBC, BMP 03/06/17 06:00 03/06/17 06:00 Imaging - Results EKG: Image Reviewed (ECG done on 03/05/2017 at 10:22 Afib at 155/min with inferior Qs and LAD.) Assessment/Plan 71 yo mal with CAD with prior PCI at [facility] previously on DAPT (unclear duration or when stopped) Afib with prior CVA (residual left hemiparesis) Now admitted with Afib with RVR in the setting of hematemesis and bilious emesis for the past 4-5 days 1) Afib -Well rate controlled on cardizem PO and Digoxin -Would hold on AC given bloody emesis -Hold on aspirin until EGC identifies source -Abx as per ID -Check Dig level Will transition to long acting cardizem 2) (+) troponin -Likely Type II related to rate, doubt ACS etiology -Start Asa 81mg daily once cleared from GI -Continue statin
[2017-03-06] MEDS: SENNOSIDES/DOCUSATE COMBO (SENNA PLUS) TABLET (UD) PO SCH ×2 (10:29→21:24)
[2017-03-06] MEDS: SODIUM CHLORIDE 1,000 ML IV SCH (10:29)
--- NOTE | 2017-03-06 12:52 | CON.ID ---
Consult Consult Specialty:: infectious diseases Reason for Consultation:: sepsis,uti,hypotension,vomiting,hematemesis - History of Present Illness Chief Complaint: weakness vomiting,hematemesis History of Present Illness: 71yo M with PMH of upper GI bleed, esophageal stricture, CVA with residual Left- sided hemiparesis, afib , PVD s/p ab AKA, DVTs, presents with vomiting x 3-4 days that started out as bright red blood and have changed to brown vomitus with food particles. Pt reports vomiting after eating. Pt reports chest pain from vomiting. Pt c/o lower abdominal pain and chronic constipation. Found to be septic. patient well known to me from previous admission.Patient was supposed to get dilatation of esophageal stricture which was cancelled according ot he patient symptoms started suddenly and patient was hypotensive as is admitted to the ICU for further management patient was worked up in the hospital and was found to have impacted stool in the rectum This has occurred couple of times causing patient to be septic in the past . currently patient states that he feels slightly better. 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 Cardio/Vascular: Yes: AFIB, CAD, Deep Vein Thrombosis, HTN, Other (MAT) Gastrointestinal: Yes: Constipation, GI Bleed, Other (paraesophageal hernia, esophageal stricture) Renal/: Yes: UTI Endocrine: Yes: Diabetes Mellitus - Past Surgical History Past Surgical History: Yes: Amputation - Alcohol/Substance Use Hx Alcohol Use: No History of Substance Use: reports: None - Smoking History Smoking history: Current every day smoker Have you smoked in the past 12 months: Yes Aproximately how many cigarettes per day: 40 - Social History ADL: Support Services History of Recent Travel: No Home Medications - Allergies Allergies/Adverse Reactions: Allergies Allergy/AdvReac Type Severity Reaction Status Date / Time No Known Allergies Allergy Verified 03/05/17 09:52 - Home Medications Home Medications: Ambulatory Orders Gabapentin [Neurontin -] 100 mg PO TID #90 capsule 07/25/15 Finasteride 5 mg PO DAILY 10/08/15 Docusate Sodium 100 mg PO TID 02/15/16 Tamsulosin HCl 0.4 mg PO DAILY 02/15/16 Famotidine [Pepcid -] 40 mg PO DAILY 03/05/17 Sucralfate [Carafate] 1 gm PO TID 03/05/17 Metoclopramide HCl [Reglan] 5 mg PO TID PRN 03/06/17 Family Disease History - Family Disease History Family Disease History: Diabetes: Father, CA: Mother (throat) Review of Systems - Review of Systems Constitutional: reports: Weakness Eyes: reports: No Symptoms HENT: reports: No Symptoms Neck: reports: No Symptoms Cardiovascular: reports: No Symptoms Respiratory: reports: No Symptoms Gastrointestinal: reports: Abdominal Pain, Vomiting, Vomiting Blood Musculoskeletal: reports: No Symptoms Integumentary: reports: No Symptoms Neurological: reports: No Symptoms Endocrine: reports: No Symptoms Hematology/Lymphatic: reports: No Symptoms Psychiatric: reports: No Symptoms Physical Exam Vital Signs: Vital Signs Temperature 98.5 F 03/06/17 10:00 Pulse Rate 96 H 03/06/17 12:00 Respiratory Rate 18 03/06/17 12:00 Blood Pressure 95/56 03/06/17 12:00 O2 Sat by Pulse Oximetry (%) 95 03/05/17 21:46 Constitutional: Yes: Calm, Anxious Neck: Yes: Supple, Trachea Midline Cardiovascular: Yes: Pulse Irregular Respiratory: Yes: Regular, Poor Air Entry Gastrointestinal: Yes: Soft, Other (hypoactive bowel sounds) Musculoskeletal: Yes: Other Extremities: Yes: Other (bilat amputation of both legs) Neurological: Yes: Alert Psychiatric: Yes: Alert Labs: CBC, BMP 03/06/17 06:00 03/06/17 06:00 Imaging - Results Chest X-ray: Report Reviewed, Image Reviewed Cat Scan: Report Reviewed, Image Reviewed Assessment/Plan patient well known to me now admitted with sepsis UTI Bacteremia Severe Sepsis +Troponins Lactic Acidosis Atrial Fibrillation h/o CVA CAD COPD DM HTN Hep C Liver Cirrhosis plan will start patient on abx close watch as patient is known to have vre history hydration enema await for all cx reports rest as per icu and primary team at the moment we will give wandasyn cc time 40 min
[2017-03-06] MEDS ORDERED: PIPERACILLIN/TAZOB 3.375 GM 50 ML IVPB SCH (13:00)
[2017-03-06] MEDS ORDERED: PT OWN MED DRAWER 7, Y5N ONE ×2 (13:30→21:19)
[2017-03-06] MEDS: PIPERACILLIN/TAZOB 3.375 GM 3.375 GM in DEXTROSE 5%-WATER - 100 ML IVPB SCH (20:25)
[2017-03-06] MEDS: CHLORHEXIDINE GLUCONATE 4% CLEANSER FOR DECOLONIZATION TP SCH (21:27)
[2017-03-06] MEDS ORDERED: ATORVASTATIN CA 40 MG TABLET (FP) PO SCH (22:00)
[2017-03-07] MEDS: PIPERACILLIN/TAZOB 3.375 GM 3.375 GM in DEXTROSE 5%-WATER - 100 ML IVPB SCH ×3 (01:18→17:02)
[2017-03-07] MEDS: DOCUSATE SODIUM 100 MG CAPSULE (FP) PO SCH ×3 (05:58→21:22)
[2017-03-07] MEDS: GABAPENTIN 100 MG CAPSULE (FP) PO SCH ×3 (05:59→21:22)
[2017-03-07] MEDS: SUCRALFATE 1 GM/10 ML UNIT DOSE CUPS PO SCH ×3 (06:02→21:22)
[2017-03-07] MEDS: INSULIN SLIDING SCALE (NOVOLOG) 1 VIAL SQ SCH ×4 (06:02→23:48)
--- NOTE | 2017-03-07 06:10 | PN ---
Physical Exam: SUBJECTIVE: Patient seen and examined. States feeling better. Offers no complaints. Denies fever, chills, CP, abdominal pain. Agreed to manual disimpaction if enemas fall tody. OBJECTIVE: Vital Signs Period Temp Pulse Resp BP Sys/Guevara Pulse Ox Last 24 Hr 98.0 F-98.6 F 76-101 15-22 73-107/43-67 96 GENERAL: thin, elderly man, nad, aox3 EYES: sclera anicteric, conjunctiva clear ENT: oropharynx clear without exudates, moist mucous membranes LUNGS: CTAB, no wheezes, no crackles, no accessory muscle use. HEART: rrr, normal S1/S2, no m/r/g ABDOMEN: Soft, ntnd, RLQ mass EXTREMITIES: bilateral AKAI, R femoral TLC NEUROLOGICAL: CN II-XII grossly intact, not formally tested. Normal speech, L hemiparesis unchanged CBC, BMP 03/06/17 06:00 03/07/17 06:15 Hepatic Panel Total Bilirubin 0.9 mg/dL (0.2-1.0) 03/07/17 06:15 AST 8 U/L (15-37) L 03/07/17 06:15 ALT 9 U/L (12-78) L 03/07/17 06:15 Alkaline Phosphatase 63 U/L (45-117) D 03/07/17 06:15 Albumin 1.9 g/dl (3.4-5.0) L 03/07/17 06:15 Microbiology 03/05/17 17:50 Blood - Peripheral Venous Blood Culture - Preliminary NO GROWTH OBTAINED AFTER 48 HOURS, INCUBATION TO CONTINUE FOR 3 DAYS. 03/05/17 20:45 Urine - Urine Clean Catch Urine Culture - Preliminary Non Lactose Fermenting Gnb 03/05/17 17:50 Blood - Peripheral Venous Blood Culture - Preliminary Group D Strep Or Entero Coccus Active Medications Atorvastatin Calcium (Lipitor -) 40 mg PO HS [facility] Last Admin: 03/06/17 21:24 Dose: 40 mg Chlorhexidine Gluconate (Hibiclens For Decolonization -) 1 applic TP HS [facility] Last Admin: 03/06/17 21:27 Dose: 1 applic Diltiazem HCl (Cardizem Cd -) 180 mg PO DAILY [facility] Docusate Sodium (Colace -) 100 mg PO TID [facility] Last Admin: 03/07/17 05:58 Dose: 100 mg Finasteride (Proscar -) 5 mg PO DAILY [facility] Last Admin: 03/06/17 09:55 Dose: 5 mg Gabapentin (Neurontin -) 100 mg PO TID [facility] Last Admin: 03/07/17 05:59 Dose: 100 mg Sodium Chloride (Normal Saline -) 1,000 mls @ 50 mls/hr IV ASDIR [facility] Last Admin: 03/06/17 10:29 Dose: 50 mls/hr Piperacillin Sod/Tazobactam (Sod 3.375 gm/ Dextrose) 100 mls @ 200 mls/hr IVPB Q8H-IV [facility] PRN Reason: Protocol Last Admin: 03/07/17 01:18 Dose: 200 mls/hr Insulin Aspart (Novolog Vial Sliding Scale -) 1 vial SQ Q6HPO [facility] PRN Reason: Protocol Last Admin: 03/07/17 06:02 Dose: Not Given Lactulose (Cephulac (Oral Use)) 20 gm PO TID PRN PRN Reason: CONSTIPATION Mupirocin (Bactroban Ointment (For Decolonization) -) 1 applic NS BID [facility] Stop: 03/10/17 21:59 Last Admin: 03/06/17 21:25 Dose: 1 applic Nicotine (Nicoderm Patch -) 21 mg TD DAILY [facility] Last Admin: 03/06/17 09:56 Dose: 21 mg Ondansetron HCl (Zofran Injection) 4 mg IVPUSH Q4H PRN PRN Reason: NAUSEA AND/OR VOMITING Last Admin: 03/06/17 07:45 Dose: 4 mg Pantoprazole Sodium (Protonix Packets For Oral Suspension -) 40 mg PO DAILY [facility] Polyethylene Glycol (Miralax (For Daily Use) -) 17 gm PO BID [facility] Last Admin: 03/06/17 21:23 Dose: 17 grams Senna/Docusate Sodium (Pericolace -) 1 tablet PO BID [facility] Last Admin: 03/06/17 21:24 Dose: 1 tablet Sucralfate (Carafate Oral Suspension -) 1 gm PO TID [facility] Last Admin: 03/07/17 06:02 Dose: 1 gm Tamsulosin HCl (Flomax -) 0.4 mg PO DAILY@0830 [facility] Last Admin: 03/06/17 08:43 Dose: 0.4 mg ASSESSMENT/PLAN: 70yo man with PMH of AFib (off AC), CVA (residual L sided hemiparesis), recurrent UGIBs, recurrent UTIs (+Pseudomonas), GERD with Armstrong's, esophageal stricture, and DVTs who presented with hematemesis and bilious vomiting, found to have severe sepsis. #severe sepsis 2/2 UTI and strep bacteremia -U Cx - non lactose fermenting GNB, ? Pseudomonas -1 of 2 Blood Cx - Enterococcus in one set, ? VRE -Continue Zosyn for empiric Pseudomonas coverage -Received 1x dose Daptomycin for empiric VRE coverage, awaiting ID recs and speciation -Repeat Blood cx tomorrow -Monitor hypotension (no requirement for pressors) - IVF increased to NS@75cc/hr #Hemetemesis, suspect UGIB given prior history -GI consulted, EGD tomorrow, NPO after midnight -Protonix 40mg PO BID -Trend H&H #Afib with RVR - currently in NSR -Cardiology consulted -D/C Cardizem -Received Digoxin 0.25 today --> tomorrow decrease to Digoxin 0.125mg daily -Not an AC candidate due to recurrent GIBs #Fecal impaction -BM after 1x enema yesterday and today, will give an additional enema today -Continue lactulose, miralax, morgan /colace #Tropinemia, flat troponin trend, no ischemic changes on EKG --> not c/w ACS, likely 2/2 demand ischemia -Trend trop #Thrombi in Abd Ao and pelvic arteries - occlusions in L common and external iliac arteries, L femoral artery, Abdominal Aorta thrombus -Heme consulted, consider hypercoagulable w/u -Vascular surgery consulted - no surgical intervention at this time; Fem-fem bypass if limb becomes cold #BPH - Continue home Proscar and Flomax #FEN: -NS@75cc/hr -K & Mg repleted -Full lq diet with double soups and yogurt, MVI, Prosource 30ml BID #PPX -DVT - SCD's (AC c/i) -GI - on PPI #DISPO: transfer to tele DNR/DNI d/w Dr. Alfa Murdock MD PGY1 - Internal Medicine Visit type - Emergency Visit Emergency Visit: No - New Patient This patient is new to me today: Yes Date on this admission: 03/07/17 - Critical Care Critical Care patient: Yes Total Critical Care Time (in minutes): 35 Critical Care Statement: The care of this patient involved high complexity decision making to prevent further life threatening deterioration of the patient 's condition and/or to evaluate & treat vital organ system(s) failure or risk of failure.
[2017-03-07 06:56] LABS: ALBUMIN 1.9 g/dl (3.4-5.0); ANION GAP 8 (8-16); CALCIUM 7.1 mg/dL (8.5-10.1); CO2 25 mmol/L (21-32); CREATININE 0.5 mg/dL (0.7-1.3); GLUCOSE,RANDOM 88 mg/dL (74-106); MAGNESIUM 1.7 mg/dL (1.8-2.4); PHOSPHOROUS 3.1 mg/dL (2.5-4.9); SGOT/AST 8 U/L (15-37); SGPT/ALT 9 U/L (12-78)
[2017-03-07 07:09] LABS: ALK PHOS 63 U/L (45-117); BILIRUBIN,TOTAL 0.9 mg/dL (0.2-1.0); DIGOXIN LEVEL 0.3162 ng/ml (0.8-2.0); TOT PROT 4.1 g/dl (6.4-8.2)
[2017-03-07] MEDS ORDERED: MAGNESIUM OXIDE 400 MG TABLET (FP) PO ONE (09:00)
[2017-03-07] MEDS ORDERED: POTASSIUM CHLORIDE TABS 20 MEQ TABLET.ER (FP) PO ONE (09:00)
--- NOTE | 2017-03-07 09:00 | PN ---
Progress Note, Physician Chief Complaint: afib History of Present Illness: denies cp, sob, palpitations, syncope + cigs - Current Medication List Current Medications: Active Medications Atorvastatin Calcium (Lipitor -) 40 mg PO HS [facility] Last Admin: 03/06/17 21:24 Dose: 40 mg Chlorhexidine Gluconate (Hibiclens For Decolonization -) 1 applic TP HS [facility] Last Admin: 03/06/17 21:27 Dose: 1 applic Diltiazem HCl (Cardizem Cd -) 180 mg PO DAILY [facility] Docusate Sodium (Colace -) 100 mg PO TID [facility] Last Admin: 03/07/17 05:58 Dose: 100 mg Finasteride (Proscar -) 5 mg PO DAILY [facility] Last Admin: 03/06/17 09:55 Dose: 5 mg Gabapentin (Neurontin -) 100 mg PO TID [facility] Last Admin: 03/07/17 05:59 Dose: 100 mg Sodium Chloride (Normal Saline -) 1,000 mls @ 50 mls/hr IV ASDIR [facility] Last Admin: 03/06/17 10:29 Dose: 50 mls/hr Piperacillin Sod/Tazobactam (Sod 3.375 gm/ Dextrose) 100 mls @ 200 mls/hr IVPB Q8H-IV [facility] PRN Reason: Protocol Last Admin: 03/07/17 01:18 Dose: 200 mls/hr Insulin Aspart (Novolog Vial Sliding Scale -) 1 vial SQ Q6HPO [facility] PRN Reason: Protocol Last Admin: 03/07/17 06:02 Dose: Not Given Lactulose (Cephulac (Oral Use)) 20 gm PO TID PRN PRN Reason: CONSTIPATION Magnesium Oxide (Mag-Ox -) 800 mg PO ONCE ONE Stop: 03/07/17 09:01 Mupirocin (Bactroban Ointment (For Decolonization) -) 1 applic NS BID [facility] Stop: 03/10/17 21:59 Last Admin: 03/06/17 21:25 Dose: 1 applic Nicotine (Nicoderm Patch -) 21 mg TD DAILY [facility] Last Admin: 03/06/17 09:56 Dose: 21 mg Ondansetron HCl (Zofran Injection) 4 mg IVPUSH Q4H PRN PRN Reason: NAUSEA AND/OR VOMITING Last Admin: 03/06/17 07:45 Dose: 4 mg Pantoprazole Sodium (Protonix Packets For Oral Suspension -) 40 mg PO DAILY [facility] Polyethylene Glycol (Miralax (For Daily Use) -) 17 gm PO BID [facility] Last Admin: 03/06/17 21:23 Dose: 17 grams Potassium Chloride (K-Dur -) 40 meq PO ONCE ONE Stop: 03/07/17 09:01 Senna/Docusate Sodium (Pericolace -) 1 tablet PO BID [facility] Last Admin: 03/06/17 21:24 Dose: 1 tablet Sucralfate (Carafate Oral Suspension -) 1 gm PO TID [facility] Last Admin: 03/07/17 06:02 Dose: 1 gm Tamsulosin HCl (Flomax -) 0.4 mg PO DAILY@0830 [facility] Last Admin: 03/06/17 08:43 Dose: 0.4 mg - Objective Vital Signs: Vital Signs Temperature 97.7 F 03/07/17 06:00 Pulse Rate 82 03/07/17 06:00 Respiratory Rate 16 03/07/17 06:00 Blood Pressure 80/51 03/07/17 06:00 O2 Sat by Pulse Oximetry (%) 96 03/06/17 21:00 Constitutional: Yes: No Distress, Calm Eyes: No: Sclera Icterus HENT: No: Nasal Congestion Cardiovascular: Yes: Regular Rate and Rhythm (decr intensity), S1, S2, Other ( PMI non diplaced). No: Gallop, Murmur Respiratory: Yes: CTA Bilaterally. No: Accessory Muscle Use, Rales, Wheezes Gastrointestinal: Yes: Normal Bowel Sounds, Soft. No: Tenderness Musculoskeletal: Yes: Other (No kyphosis) Extremities: Yes: Other (bilat AKAs). No: Cold Edema: No Integumentary: No: Jaundice Neurological: Yes: Alert, Oriented Psychiatric: No: Agitated Labs: CBC, BMP 03/06/17 06:00 03/07/17 06:15 INR, PTT INR 0.96 (0.82-1.09) 03/06/17 06:00 - ....Imaging EKG: Other (tele: NSR, APCs) Assessment/Plan Echo 10/03 ([facility]): nl LVSF; nl RV; valves WNL MPI 08/01 (pers): no STs; small infero-apical ischemia. nl EF. no TID noted 71 yo male with HTN, CAD, Afib with prior CVA (residual left hemiparesis), HCV cirrhosis, DM2 with bior bilat AKAs, + active cigs, COPD, esophageal stricture s /p unsuccessful dilation attempt 08/04, GERD with Armstrong's, mult prior admits for GIBs (incl hematemesis), admitted with Afib with RVR in the setting of hematemesis and bilious emesis for the past 4-5 days Afib: -previous admits here with MAT and ? rapid AF as well -was not anticoagulated due to recurrent GI bleeding -per prior notes, "did not tolerate" bb and CCBs (? 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 discharged on 0.25 po daily last admit--resume at 0.125mg dose for now, in case had high levels as outpt (when med was d/c'd) -per hospitalist, no source of hematemesis found on prior EGDs (no varices)-- does not seem he will be able to tolerate Watchman device implant with 6 wks AC and then 6 wks DAPT post, given frequency of GIBs and hence prohibitive risk of life threatening bleeding -anti-PLT therapy eventually?--as below hypotension: -? etiology: GI bleed? sepsis ? (= hi wbc, normal temps) -no signs chf--would incr IVF, stop CCB as disc'd -mentating clearly at present, monitor UOP--low threshold to start levofed if bp does not improve with above changes, or UOP/mental status changes h/o CAD, (+) troponin: -prior notes here reviewed--pt had abnormal stress test 2013 (as above), ? had PCI previously -since he has been a pt here from 2015 onwards, has never been on DAPT per prior notes, only plavix monotherapy -troponins here intermediate range 0.06-->0.08, not c/w ACS at this time. no isch ecg. f/u 3rd trop today -Likely demand ischemia in setting of rapid Afib and hypotension, ? underlying CAD -has h/o recurrent GIB's here in past--would resume either ASA or plavix alone when/if safe, per GI -Continue home statin, per his outpt cardio (LFTs normal) -given low risk stress test findings, and pt inability to tolerate DAPT for any period of time, will not pursue invasive workup acute LE ischemia, PAD: -CTA here with occluded Left common iliac / Left external iliac / Left femoral arteries new since 08/2016, long segment intramural thrombus with calcified and non-calcified atherosclerotic plaque along the abdominal aorta resulting in mild -moderate luminal narrowing and narrowing of the origins of the major visceral branches. -vascular consult pending--anti-platelet vs AC indication per them -note: the main indication for anti-platelets or AC agents at present time is for limb salvage, per vascular opinion (CAD hx and AFib are less urgent, given risk of stent thrombosis (not recent stent) or cardioembolic CVA are numerically low in the short term) HTN: -bp currently low, hold anti-hypertensive meds est crit care time reviewing data, examining pt, and formulating mgmt plan = 35min
--- NOTE | 2017-03-07 09:07 | PN ---
Physical Exam: SUBJECTIVE: Patient seen and examined OBJECTIVE: Vital Signs Period Temp Pulse Resp BP Sys/Guevara Pulse Ox Last 24 Hr 97.7 F-98.6 F 76-99 15-22 73-95/43-62 96 GENERAL: The patient is awake, alert, and fully oriented, in no acute distress. HEAD: Normal with no signs of trauma. EYES: PERRL, extraocular movements intact, sclera anicteric, conjunctiva clear. No ptosis. ENT: Ears normal, nares patent, oropharynx clear without exudates, moist mucous membranes. NECK: Trachea midline, full range of motion, supple. LUNGS: Breath sounds equal, clear to auscultation bilaterally, no wheezes, no crackles, no accessory muscle use. HEART: Regular rate and rhythm, S1, S2 without murmur, rub or gallop. ABDOMEN: Soft, nontender, nondistended, normoactive bowel sounds, no guarding, no rebound, no hepatosplenomegaly, no masses. EXTREMITIES: 2+ pulses, warm, well-perfused, no edema. NEUROLOGICAL: Cranial nerves II through XII grossly intact. Normal speech, gait not observed. PSYCH: Normal mood, normal affect. SKIN: Warm, dry, normal turgor, no rashes or lesions noted Laboratory Results - last 24 hr 03/06/17 03/07/17 09:00 06:15 Sodium 136 Potassium 3.3 L D Chloride 103 Carbon Dioxide 25 Anion Gap 8 BUN 12 Creatinine 0.5 L D Creat Clearance w eGFR > 60 Random Glucose 88 D Calcium 7.1 L Phosphorus 3.1 D Magnesium 1.7 L Total Bilirubin 0.9 AST 8 L ALT 9 L Alkaline Phosphatase 63 D Troponin I 0.08 H D Total Protein 4.1 L Albumin 1.9 L Digoxin 0.3162 L Active Medications Generic Name Dose Route Start Last Admin Trade Name Freq PRN Reason Stop Dose Admin Atorvastatin Calcium 40 mg 03/06/17 22:00 03/06/17 21:24 Lipitor - PO 40 mg HS [facility] Administration Chlorhexidine Gluconate 1 applic 03/05/17 22:00 03/06/17 21:27 Hibiclens For Decolonization - TP 1 applic HS [facility] Administration Docusate Sodium 100 mg 03/06/17 06:00 03/07/17 05:58 Colace - PO 100 mg TID [facility] Administration Finasteride 5 mg 03/06/17 10:00 03/06/17 09:55 Proscar - PO 5 mg DAILY [facility] Administration Gabapentin 100 mg 03/06/17 06:00 03/07/17 05:59 Neurontin - PO 100 mg TID [facility] Administration Sodium Chloride 1,000 mls @ 50 mls/hr 03/06/17 10:00 03/06/17 10:29 Normal Saline - IV 50 mls/hr ASDIR [facility] Administration Piperacillin Sod/Tazobactam 100 mls @ 200 mls/hr 03/06/17 13:57 03/07/17 01: 18 Sod 3.375 gm/ Dextrose IVPB 200 mls/hr Q8H-IV [facility] Administration Protocol Insulin Aspart 1 vial 03/06/17 06:00 03/07/17 06:02 Novolog Vial Sliding Scale - SQ Not Given Q6HPO ON LICENSE OF [facility] Protocol Lactulose 20 gm 03/05/17 20:30 Cephulac (Oral Use) PO TID PRN CONSTIPATION Mupirocin 1 applic 03/05/17 22:00 03/06/17 21:25 Bactroban Ointment (For Decolonization) - NS 03/10/17 21:59 1 applic BID [facility] Administration Nicotine 21 mg 03/06/17 10:00 03/06/17 09:56 Nicoderm Patch - TD 21 mg DAILY [facility] Administration Ondansetron HCl 4 mg 03/05/17 21:31 03/06/17 07:45 Zofran Injection IVPUSH 4 mg Q4H PRN Administration NAUSEA AND/OR VOMITING Pantoprazole Sodium 40 mg 03/07/17 10:00 Protonix Packets For Oral Suspension - PO DAILY ON LICENSE OF [facility] Polyethylene Glycol 17 gm 03/05/17 22:00 03/06/17 21:23 Miralax (For Daily Use) - PO 17 grams BID [facility] Administration Senna/Docusate Sodium 1 tablet 03/06/17 10:00 03/06/17 21:24 Pericolace - PO 1 tablet BID [facility] Administration Sucralfate 1 gm 03/06/17 06:00 03/07/17 06:02 Carafate Oral Suspension - PO 1 gm TID [facility] Administration Tamsulosin HCl 0.4 mg 03/06/17 08:30 03/06/17 08:43 Flomax - PO 0.4 mg DAILY@0830 [facility] Administration ASSESSMENT/PLAN:
[2017-03-07] MEDS: TAMSULOSIN HCL 0.4 MG CAP.ER.24H (FP) PO SCH (09:09)
[2017-03-07] MEDS ORDERED: DIGOXIN 0.25 MG TABLET (FP) PO SCH ×2 (10:00→10:22)
[2017-03-07] MEDS ORDERED: PANTOPRAZOLE SOD 40 MG SUSPENSION PACKET PO SCH (10:00)
[2017-03-07] MEDS: NICOTINE 21 MG/24 HOURS TOPICAL PATCH TD SCH (10:07)
[2017-03-07] MEDS: SENNOSIDES/DOCUSATE COMBO (SENNA PLUS) TABLET (UD) PO SCH ×2 (10:08→21:22)
[2017-03-07] MEDS: MUPIROCIN 2% TOPICAL OINTMENT FOR DECOLONIZATION NS SCH (10:12)
[2017-03-07] MEDS: FINASTERIDE 5 MG TABLET (FP) PO SCH (10:13)
[2017-03-07] MEDS: POLYETHYLENE GLYCOL 3350 119 GM BTL PO SCH ×2 (10:17→21:22)
[2017-03-07] MEDS ORDERED: SODIUM PHOSPHATE/NA BIPHOS 133 ML ENEMA PR ONE ×2 (10:26→18:00)
[2017-03-07] MEDS: SODIUM CHLORIDE 1,000 ML IV SCH (11:00)
[2017-03-07] MEDS ORDERED: HEMOQUE TEST 1 EACH EACH ONE (11:05)
[2017-03-07 11:07] LABS: CPK 20 IU/L (39-308); TROPONIN I 0.08 ng/ml (0.00-0.05)
[2017-03-07] MEDS ORDERED: DAPTOMYCIN 250 MG in SODIUM CHLORIDE 50 ML IVPB ONE (11:30)
--- NOTE | 2017-03-07 13:07 | PN ---
Teaching Attending Note Name of Resident: Janet Murdock ATTENDING PHYSICIAN STATEMENT I saw and evaluated the patient. I reviewed the resident's note and discussed the case with the resident. I agree with the resident's findings and plan as documented. SUBJECTIVE: No fever or chills, no abd pain . No BM after enema yesterday OBJECTIVE: NAD, cachectic , no facial droop, Cv : RRR, no MRG Lungs: CTAB Ext : no edema, b/l AKA . no erythema Abd : soft, No tenderness today. a stool mass is felt in RLQ . ASSESSMENT AND PLAN: Patient is a 70 yo M with multiple medical problems including , h/o A Fib , CVA , Upper GI bleeds, esophageal stricture , DVTs , who presented with abd pain , N/V and was found to have severe sepsis . 1- Severe sepsis ; likely form UTI. Urine cx with non lactose fermenting organisms concerning for pseudomonas blood cx with Groupd d strep in one set, concerning for VRE. - give one dose of Daptomycin , pending further identification and ID recs. - will repeat blood cx in AM - cont zosyn - increase rate of IVF due to hypotension 2- Possible Upper GI bleed. - PPI - cont clears - GI consult - last EGD in 2016, nl stomach and esophageal stricture. he was scheduled for dilation and stent this week - repeat Hb today 3- A fib with RVR: Now in sinus rhythm, nl rate , but hypotensive - d/w dr. Gordillo. - dc cardizem and start Dig 0.125 - No AC due to recurrent GI bleeds - increase rate of IVF 4- Fecal impaction. - give enemas again today, if no BMs he agrees to manual disimpaction . - Cont oral regimen ; lactulose, miralax, morgan /colace 5-Trop leak.: NO acute ischemic EKG changes. could be demand - follow trop - hold off any anti plt 6- Thrombosis in aorta and pelvic veins: - Appreciate Heme input. possible atherosclerotic disease with secondary thrombosis. at this tpoint can't give anti-plt. will d/w GI - vascular consult pending Critical Care Total Critical Care Time (in minutes): 40 Critical Care Statement: The care of this patient involved high complexity decision making to prevent further life threatening deterioration of the patient 's condition and/or to evaluate & treat vital organ system(s) failure or risk of failure.
--- NOTE | 2017-03-07 13:41 | CON.GI ---
Consult Consult Specialty:: GI - History of Present Illness History of Present Illness: chart reviewed, events noted. A 71 yom with know esophageal stricture, cortes's esophagus, gastritis, multiple, recent EGDs including dilatation presents with c/o hematemessis x 1 3 days ago and ongoing dysphagia to solids. The patient is scheduled to undergo another round of esophagealstricture dilation at [facility] on of this month. He was offered an EGD with dilation in am, however he refused it stating he wants to have it done at [facility]. 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 Cardio/Vascular: Yes: AFIB, CAD, Deep Vein Thrombosis, HTN, Other (MAT) Gastrointestinal: Yes: Constipation, GI Bleed, Other (paraesophageal hernia, esophageal stricture) Renal/: Yes: UTI Endocrine: Yes: Diabetes Mellitus - Past Surgical History Past Surgical History: Yes: Amputation - Alcohol/Substance Use Hx Alcohol Use: No History of Substance Use: reports: None - Smoking History Smoking history: Current every day smoker Have you smoked in the past 12 months: Yes Aproximately how many cigarettes per day: 40 - Social History ADL: Support Services History of Recent Travel: No Home Medications - Allergies Allergies/Adverse Reactions: Allergies Allergy/AdvReac Type Severity Reaction Status Date / Time No Known Allergies Allergy Verified 03/05/17 09:52 - Home Medications Home Medications: Ambulatory Orders Gabapentin [Neurontin -] 100 mg PO TID #90 capsule 07/25/15 Finasteride 5 mg PO DAILY 10/08/15 Docusate Sodium 100 mg PO TID 02/15/16 Tamsulosin HCl 0.4 mg PO DAILY 02/15/16 Famotidine [Pepcid -] 40 mg PO DAILY 03/05/17 Sucralfate [Carafate] 1 gm PO TID 03/05/17 Metoclopramide HCl [Reglan] 5 mg PO TID PRN 03/06/17 Family Disease History - Family Disease History Family Disease History: Diabetes: Father, CA: Mother (throat) Review of Systems Findings/Remarks: please refer to h&p Physical Exam-GI Vital Signs: Vital Signs Temperature 97.7 F 03/07/17 06:00 Pulse Rate 84 03/07/17 10:20 Respiratory Rate 16 03/07/17 06:00 Blood Pressure 80/51 03/07/17 06:00 O2 Sat by Pulse Oximetry (%) 96 03/06/17 21:00 Constitutional: Yes: No Distress, Calm Eyes: Yes: Conjunctiva Clear HENT: Yes: Atraumatic Neck: Yes: Supple Cardiovascular: Yes: Regular Rate and Rhythm Respiratory: Yes: Regular ...Auscultate: Yes: Normoactive Bowel Sounds ...Palpate: Yes: Soft. No: Tenderness, Tenderness, Epigastium, Tenderness, Rebound Neurological: Yes: Alert, Oriented Labs: CBC, BMP 03/06/17 06:00 03/07/17 06:15 INR, PTT INR 0.96 (0.82-1.09) 03/06/17 06:00 CBCD WBC 11.3 K/mm3 (4.0-10.0) H D 03/06/17 06:00 RBC 4.60 M/mm3 (4.00-5.60) D 03/06/17 06:00 Hgb 11.2 GM/dL (11.7-16.9) L D 03/06/17 06:00 Hct 35.6 % (35.4-49) D 03/06/17 06:00 MCV 77.5 fl (80-96) L 03/06/17 06:00 MCHC 31.5 g/dl (32.0-35.9) L 03/06/17 06:00 RDW 18.5 % (11.9-15.9) H 03/06/17 06:00 Plt Count 231 K/MM3 (134-434) D 03/06/17 06:00 MPV 7.2 fl (7.5-11.1) L 03/06/17 06:00 CMP Sodium 136 mmol/L (136-145) 03/07/17 06:15 Potassium 3.3 mmol/L (3.5-5.1) L D 03/07/17 06:15 Chloride 103 mmol/L (98-107) 03/07/17 06:15 Carbon Dioxide 25 mmol/L (21-32) 03/07/17 06:15 Anion Gap 8 (8-16) 03/07/17 06:15 BUN 12 mg/dL (7-18) 03/07/17 06:15 Creatinine 0.5 mg/dL (0.7-1.3) L D 03/07/17 06:15 Creat Clearance w eGFR > 60 (>60) 03/07/17 06:15 Calcium 7.1 mg/dL (8.5-10.1) L 03/07/17 06:15 Total Bilirubin 0.9 mg/dL (0.2-1.0) 03/07/17 06:15 AST 8 U/L (15-37) L 03/07/17 06:15 ALT 9 U/L (12-78) L 03/07/17 06:15 Alkaline Phosphatase 63 U/L (45-117) D 03/07/17 06:15 Total Protein 4.1 g/dl (6.4-8.2) L 03/07/17 06:15 Albumin 1.9 g/dl (3.4-5.0) L 03/07/17 06:15 Laboratory Results - last 24 hr 03/07/17 03/07/17 06:15 09:00 Sodium 136 Potassium 3.3 L D Chloride 103 Carbon Dioxide 25 Anion Gap 8 BUN 12 Creatinine 0.5 L D Creat Clearance w eGFR > 60 Random Glucose 88 D Calcium 7.1 L Phosphorus 3.1 D Magnesium 1.7 L Total Bilirubin 0.9 AST 8 L ALT 9 L Alkaline Phosphatase 63 D Creatine Kinase 20 L Cancelled Troponin I 0.08 H Cancelled Total Protein 4.1 L Albumin 1.9 L Digoxin 0.3162 L Abnormal Lab Results 03/07/17 03/08/17 03/08/17 06:15 06:00 06:35 Hgb 10.0 L D Hct 31.7 L MCV 77.6 L MCH 24.5 L MCHC 31.6 L RDW 17.8 H MPV 7.0 L Chloride 108 H Creatinine 0.5 L Random Glucose 68 L D Calcium 7.8 L AST 6 L D ALT 9 L Creatine Kinase 20 L Troponin I 0.08 H Total Protein 4.3 L Albumin 1.9 L Imaging - Results X-ray: Report Reviewed (abdomen) Cat Scan: Report Reviewed Problem List - Problems (1) Hematemesis Code(s): K92.0 - HEMATEMESIS (2) Liver cirrhosis Code(s): K74.60 - UNSPECIFIED CIRRHOSIS OF LIVER (3) Hepatitis C Code(s): B19.20 - UNSPECIFIED VIRAL HEPATITIS C WITHOUT HEPATIC COMA (4) Upper GI bleed Code(s): K92.2 - GASTROINTESTINAL HEMORRHAGE, UNSPECIFIED (5) Esophageal stricture Code(s): K22.2 - ESOPHAGEAL OBSTRUCTION (6) Esophagitis Code(s): K20.9 - ESOPHAGITIS, UNSPECIFIED (7) Diabetes Code(s): E11.9 - TYPE 2 DIABETES MELLITUS WITHOUT COMPLICATIONS Assessment/Plan Knows esophageal stricture, gastritis, cortes's esophagus, s/p multiple EGDs and dilations. Presented with hematemes 3 days ago. Refusing endoscopic exam with therapeutic intervention. Want to go back to [facility] for it. Hgb 14 to 10. No signs of ongoing GI bleed. Hemodynamically stable. Tolerating soft/liquid diet. Agree with PPI, Carafate, liquid/pureed diet. 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 will follow closely
--- NOTE | 2017-03-07 13:53 | CONSULT ---
Consultation: REQUESTING PROVIDER: Dr. Grimm CONSULT REQUEST: We have been asked to medically evaluate this patient for thrombus of left common illiac, left external illiac and left common femoral . HISTORY OF PRESENT ILLNESS: This is a 71 year old male with history of hypertension, CAD, Afib, hx, CVA ( with left hemiparesis), HCV cirrhosis, DM, COPD, esophageal stricture, GERD with Barretts, hx of multiple GI bleed, who presented with blood and bilious vomiting, concerned for acute GI bleed. Admitted for sepsis bacteremia from UTI. Consult was placed due to occlusion of left femoral and illiac. Patient has a history of multiple DVT. HE has been off his Coumadin for 20 years due to multiple episodes of GI bleed. INR on admission was 0.91. Patient smoke cigarettes 2PPD. Patient denies fever chill, n, current vomiting. PHYSICAL EXAMINATION Vital Signs - 24 hr 03/06/17 03/06/17 03/06/17 14:00 16:00 18:00 Temperature 98.2 F Pulse Rate 94 H 97 H 86 Respiratory 21 20 17 Rate Blood Pressure 84/62 92/61 77/59 O2 Sat by Pulse Oximetry (%) 03/06/17 03/06/17 03/06/17 20:00 21:00 22:00 Temperature 98.0 F Pulse Rate 86 89 Respiratory 22 20 19 Rate Blood Pressure 82/58 87/45 O2 Sat by Pulse 96 Oximetry (%) 03/07/17 03/07/17 03/07/17 00:00 02:00 03:59 Temperature 98.6 F Pulse Rate 85 76 89 Respiratory 22 20 15 Rate Blood Pressure 75/59 83/43 73/52 O2 Sat by Pulse Oximetry (%) 03/07/17 03/07/17 06:00 10:20 Temperature 97.7 F Pulse Rate 82 84 Respiratory 16 Rate Blood Pressure 80/51 O2 Sat by Pulse Oximetry (%) GENERAL: Awake, alert, and fully oriented, in no acute distress. NECK: Normal range of motion, supple without lymphadenopathy, JVD, or masses. LUNGS: Breath sounds equal, clear to auscultation bilaterally. No wheezes, and no crackles. No accessory muscle use. HEART: Regular rate and rhythm, normal S1 and S2 without murmur, rub or gallop. ABDOMEN: Soft, nontender, not distended, normoactive bowel sounds, no guarding, no rebound, no masses. No hepatomegaly or splenomegaly. MUSCULOSKELETAL: Normal range of motion at all joints. No bony deformities or tenderness. No CVA tenderness. UPPER EXTREMITIES: 2+ pulses, warm, well-perfused. No cyanosis. No clubbing. Cap refill <2 seconds. No peripheral edema. LOWER EXTREMITIES: 2+ pulses, warm, well-perfused. No calf tenderness. No peripheral edema. B/L AKA; femoral pulses bilaterally not observed. Indwelling right femoral catheter. Laboratory Results - last 24 hr 03/07/17 03/07/17 06:15 09:00 Sodium 136 Potassium 3.3 L D Chloride 103 Carbon Dioxide 25 Anion Gap 8 BUN 12 Creatinine 0.5 L D Creat Clearance w eGFR > 60 Random Glucose 88 D Calcium 7.1 L Phosphorus 3.1 D Magnesium 1.7 L Total Bilirubin 0.9 AST 8 L ALT 9 L Alkaline Phosphatase 63 D Creatine Kinase 20 L Cancelled Troponin I 0.08 H Cancelled Total Protein 4.1 L Albumin 1.9 L Digoxin 0.3162 L Active Medications Generic Name Dose Route Start Last Admin Trade Name Freq PRN Reason Stop Dose Admin Atorvastatin Calcium 40 mg 03/06/17 22:00 03/06/17 21:24 Lipitor - PO 40 mg HS [facility] Administration Chlorhexidine Gluconate 1 applic 03/05/17 22:00 03/06/17 21:27 Hibiclens For Decolonization - TP 1 applic HS [facility] Administration Digoxin 0.125 mg 03/07/17 10:22 Lanoxin - PO DAILY [facility] Docusate Sodium 100 mg 03/06/17 06:00 03/07/17 05:58 Colace - PO 100 mg TID [facility] Administration Finasteride 5 mg 03/06/17 10:00 03/07/17 10:13 Proscar - PO 5 mg DAILY [facility] Administration Gabapentin 100 mg 03/06/17 06:00 03/07/17 05:59 Neurontin - PO 100 mg TID [facility] Administration Sodium Chloride 1,000 mls @ 50 mls/hr 03/06/17 10:00 03/07/17 11:00 Normal Saline - IV 50 mls/hr ASDIR [facility] Administration Piperacillin Sod/Tazobactam 100 mls @ 200 mls/hr 03/06/17 13:57 03/07/17 10: 10 Sod 3.375 gm/ Dextrose IVPB 200 mls/hr Q8H-IV [facility] Administration Protocol Insulin Aspart 1 vial 03/06/17 06:00 03/07/17 06:02 Novolog Vial Sliding Scale - SQ Not Given Q6HPO [facility] Protocol Lactulose 20 gm 03/05/17 20:30 Cephulac (Oral Use) PO TID PRN CONSTIPATION Mupirocin 1 applic 03/05/17 22:00 03/07/17 10:12 Bactroban Ointment (For Decolonization) - NS 03/10/17 21:59 1 applic BID [facility] Administration Nicotine 21 mg 03/06/17 10:00 03/07/17 10:07 Nicoderm Patch - TD 21 mg DAILY [facility] Administration Ondansetron HCl 4 mg 03/05/17 21:31 03/06/17 07:45 Zofran Injection IVPUSH 4 mg Q4H PRN Administration NAUSEA AND/OR VOMITING Pantoprazole Sodium 40 mg 03/07/17 10:00 03/07/17 10:09 Protonix Packets For Oral Suspension - PO 40 mg DAILY [facility] Administration Polyethylene Glycol 17 gm 03/05/17 22:00 03/07/17 10:17 Miralax (For Daily Use) - PO 17 grams BID [facility] Administration Senna/Docusate Sodium 1 tablet 03/06/17 10:00 03/07/17 10:08 Pericolace - PO 1 tablet BID [facility] Administration Sucralfate 1 gm 03/06/17 06:00 03/07/17 06:02 Carafate Oral Suspension - PO 1 gm TID [facility] Administration Tamsulosin HCl 0.4 mg 03/06/17 08:30 03/07/17 09:09 Flomax - PO 0.4 mg DAILY@0830 [facility] Administration ASSESSMENT/PLAN: This is a 71 year old male with history of hypertension, CAD, Afib, hx, CVA ( with left hemiparesis), HCV cirrhosis, DM, COPD, esophageal stricture, GERD with Barretts, hx of multiple GI bleed, who presented with blood and bilious vomiting, concerned for acute GI bleed. Admitted for sepsis bacteremia from UTI. #Moderate intramural thrombus #Left common iliac artery, left common iliac artery, left common femoral artery occlusion -off coumadin due GI bleed -CTA appreciated -no intervention at this time; conservative -if LL limb becomes cool; may need femoral-femoral artery bypass; Dispo: We will continue to follow the patient. Thank you for this consultative opportunity. Visit type - Emergency Visit Emergency Visit: Yes ED Registration Date: 03/05/17 Care time: The patient presented to the Emergency Department on the above date and was hospitalized for further evaluation of their emergent condition. - New Patient This patient is new to me today: Yes Date on this admission: 03/07/17 - Critical Care Critical Care patient: Yes Total Critical Care Time (in minutes): 30 Critical Care Statement: The care of this patient involved high complexity decision making to prevent further life threatening deterioration of the patient 's condition and/or to evaluate & treat vital organ system(s) failure or risk of failure.
--- NOTE | 2017-03-07 14:05 | PN ---
Progress Note, Physician History of Present Illness: patient seen and examined at bedside no complaints this morning feels much better today - Current Medication List Current Medications: Active Medications Atorvastatin Calcium (Lipitor -) 40 mg PO HS [facility] Last Admin: 03/06/17 21:24 Dose: 40 mg Chlorhexidine Gluconate (Hibiclens For Decolonization -) 1 applic TP HS [facility] Last Admin: 03/06/17 21:27 Dose: 1 applic Digoxin (Lanoxin -) 0.125 mg PO DAILY [facility] Docusate Sodium (Colace -) 100 mg PO TID [facility] Last Admin: 03/07/17 05:58 Dose: 100 mg Finasteride (Proscar -) 5 mg PO DAILY [facility] Last Admin: 03/07/17 10:13 Dose: 5 mg Gabapentin (Neurontin -) 100 mg PO TID [facility] Last Admin: 03/07/17 05:59 Dose: 100 mg Sodium Chloride (Normal Saline -) 1,000 mls @ 50 mls/hr IV ASDIR [facility] Last Admin: 03/07/17 11:00 Dose: 50 mls/hr Piperacillin Sod/Tazobactam (Sod 3.375 gm/ Dextrose) 100 mls @ 200 mls/hr IVPB Q8H-IV [facility] PRN Reason: Protocol Last Admin: 03/07/17 10:10 Dose: 200 mls/hr Insulin Aspart (Novolog Vial Sliding Scale -) 1 vial SQ Q6HPO [facility] PRN Reason: Protocol Last Admin: 03/07/17 06:02 Dose: Not Given Lactulose (Cephulac (Oral Use)) 20 gm PO TID PRN PRN Reason: CONSTIPATION Mupirocin (Bactroban Ointment (For Decolonization) -) 1 applic NS BID [facility] Stop: 03/10/17 21:59 Last Admin: 03/07/17 10:12 Dose: 1 applic Nicotine (Nicoderm Patch -) 21 mg TD DAILY [facility] Last Admin: 03/07/17 10:07 Dose: 21 mg Ondansetron HCl (Zofran Injection) 4 mg IVPUSH Q4H PRN PRN Reason: NAUSEA AND/OR VOMITING Last Admin: 03/06/17 07:45 Dose: 4 mg Pantoprazole Sodium (Protonix Packets For Oral Suspension -) 40 mg PO DAILY [facility] Last Admin: 12/18/17 10:09 Dose: 40 mg Polyethylene Glycol (Miralax (For Daily Use) -) 17 gm PO BID [facility] Last Admin: 03/07/17 10:17 Dose: 17 grams Senna/Docusate Sodium (Pericolace -) 1 tablet PO BID [facility] Last Admin: 03/07/17 10:08 Dose: 1 tablet Sucralfate (Carafate Oral Suspension -) 1 gm PO TID [facility] Last Admin: 03/07/17 06:02 Dose: 1 gm Tamsulosin HCl (Flomax -) 0.4 mg PO DAILY@0830 [facility] Last Admin: 03/07/17 09:09 Dose: 0.4 mg - Objective Vital Signs: Vital Signs Temperature 97.7 F 03/07/17 06:00 Pulse Rate 84 03/07/17 10:20 Respiratory Rate 16 03/07/17 06:00 Blood Pressure 80/51 03/07/17 06:00 O2 Sat by Pulse Oximetry (%) 96 03/06/17 21:00 Constitutional: Yes: No Distress, Calm Eyes: Yes: Conjunctiva Clear, EOM Intact HENT: Yes: Atraumatic Neck: Yes: Supple Cardiovascular: Yes: Regular Rate and Rhythm. No: Murmur Respiratory: Yes: Rhonchi (scattered) Gastrointestinal: Yes: Soft. No: Tenderness Edema: No Labs: CBC, BMP 03/06/17 06:00 03/07/17 06:15 INR, PTT INR 0.96 (0.82-1.09) 03/06/17 06:00 Assessment/Plan Patient is a 70 yo M with multiple medical problems presents to the ICU with severe sepsis . Severe sepsis UA showed positive nitrites and elevated WBCs Ucx pending but so far growing non lactose fermenting GNB Possible bacteremia repeat Cx cont Abx per ID IVF Possible Upper GI bleed. Patient has a history of GI bleeding advance to MAD trend h/h Fecal impaction: continue enemas disimpaction per primary team continue lactulose miralax and colace Afib. Patient also with associated hypotension Rate is controlled Digoxin Cardizem stopped IVF cardiology consult appreciated New occlusions of left common illiac external illiac and left femoral arteries Vascular surgery consult-no intervention at this time will need Fem-Fem bypass if limb gets cold Hematology consult appreciated hypercoagulable work up BPH: Flomax FEN: NS @ 75ml/hr replete potyassium and magnesium for hypokalemia and hypomagnesemia Advance to FLD PPx: SCDs Protonix Stable for transfer to telemetry
[2017-03-07] MEDS ORDERED: SODIUM CHLORIDE 1,000 ML IV SCH (14:26)
--- NOTE | 2017-03-07 14:26 | PN ---
Teaching Attending Note Name of Resident: Masood Perez ATTENDING PHYSICIAN STATEMENT I saw and evaluated the patient. I reviewed the resident's note and discussed the case with the resident. I agree with the resident's findings and plan as documented. SUBJECTIVE: Pt seen and examined in the ICU. Borderline BP but not requiring pressors. Urine and blood cultures positive. Denies shortness of breath or chest pain. No fevers recorded. OBJECTIVE: Last Vital Signs Temp Pulse Resp BP Pulse Ox 97.7 F 84 16 80/51 96 03/07/17 06:00 03/07/17 10:20 03/07/17 06:00 03/07/17 06:00 03/06/17 21:00 Intake & Output 03/04/17 03/05/17 03/06/17 03/07/17 23:59 23:59 23:59 23:59 Intake Total 1345 835 Output Total 100 400 200 Balance -100 945 635 Weight 90 lb 94 lb 1.6 oz Gen: NAD at rest Heart: RRR Lung: decreased breath sounds at the bases Abd: soft, nontender Ext: bilateral AKA CBC, BMP 03/06/17 06:00 03/07/17 06:15 Active Medications Atorvastatin Calcium (Lipitor -) 40 mg PO HS [facility] Last Admin: 03/06/17 21:24 Dose: 40 mg Chlorhexidine Gluconate (Hibiclens For Decolonization -) 1 applic TP HS [facility] Last Admin: 03/06/17 21:27 Dose: 1 applic Digoxin (Lanoxin -) 0.125 mg PO DAILY [facility] Docusate Sodium (Colace -) 100 mg PO TID [facility] Last Admin: 03/07/17 05:58 Dose: 100 mg Finasteride (Proscar -) 5 mg PO DAILY [facility] Last Admin: 03/07/17 10:13 Dose: 5 mg Gabapentin (Neurontin -) 100 mg PO TID [facility] Last Admin: 03/07/17 05:59 Dose: 100 mg Piperacillin Sod/Tazobactam (Sod 3.375 gm/ Dextrose) 100 mls @ 200 mls/hr IVPB Q8H-IV [facility] PRN Reason: Protocol Last Admin: 03/07/17 10:10 Dose: 200 mls/hr Sodium Chloride (Normal Saline -) 1,000 mls @ 75 mls/hr IV ASDIR [facility] Insulin Aspart (Novolog Vial Sliding Scale -) 1 vial SQ Q6HPO [facility] PRN Reason: Protocol Last Admin: 03/07/17 06:02 Dose: Not Given Lactulose (Cephulac (Oral Use)) 20 gm PO TID PRN PRN Reason: CONSTIPATION Mupirocin (Bactroban Ointment (For Decolonization) -) 1 applic NS BID [facility] Stop: 03/10/17 21:59 Last Admin: 03/07/17 10:12 Dose: 1 applic Nicotine (Nicoderm Patch -) 21 mg TD DAILY [facility] Last Admin: 03/07/17 10:07 Dose: 21 mg Ondansetron HCl (Zofran Injection) 4 mg IVPUSH Q4H PRN PRN Reason: NAUSEA AND/OR VOMITING Last Admin: 03/06/17 07:45 Dose: 4 mg Pantoprazole Sodium (Protonix Packets For Oral Suspension -) 40 mg PO DAILY [facility] Last Admin: 03/07/17 10:09 Dose: 40 mg Polyethylene Glycol (Miralax (For Daily Use) -) 17 gm PO BID [facility] Last Admin: 03/07/17 10:17 Dose: 17 grams Senna/Docusate Sodium (Pericolace -) 1 tablet PO BID [facility] Last Admin: 03/07/17 10:08 Dose: 1 tablet Sucralfate (Carafate Oral Suspension -) 1 gm PO TID [facility] Last Admin: 03/07/17 06:02 Dose: 1 gm Tamsulosin HCl (Flomax -) 0.4 mg PO DAILY@0830 [facility] Last Admin: 03/07/17 09:09 Dose: 0.4 mg ASSESSMENT AND PLAN: UTI r/o Bacteremia Severe Sepsis +Troponins likely Demand Ischemia Lactic Acidosis resolved Atrial Fibrillation h/o CVA CAD COPD DM HTN Hep C Liver Cirrhosis - continue antibiotics - f/u cultures - IVF - rate controlled - hold antihypertensives - inhaled bronchodilators - d/c femoral line - PO as tolerated - DVT prophylaxis - pt DNR/DNI - can monitor on floor
--- NOTE | 2017-03-07 14:27 | PN ---
Progress Note, Physician History of Present Illness: starting to looks better feels better in the room wbc trending to normal - Current Medication List Current Medications: Active Medications Atorvastatin Calcium (Lipitor -) 40 mg PO HS [facility] Last Admin: 03/06/17 21:24 Dose: 40 mg Chlorhexidine Gluconate (Hibiclens For Decolonization -) 1 applic TP HS [facility] Last Admin: 03/06/17 21:27 Dose: 1 applic Digoxin (Lanoxin -) 0.125 mg PO DAILY [facility] Docusate Sodium (Colace -) 100 mg PO TID [facility] Last Admin: 03/07/17 05:58 Dose: 100 mg Finasteride (Proscar -) 5 mg PO DAILY [facility] Last Admin: 03/07/17 10:13 Dose: 5 mg Gabapentin (Neurontin -) 100 mg PO TID [facility] Last Admin: 03/07/17 05:59 Dose: 100 mg Piperacillin Sod/Tazobactam (Sod 3.375 gm/ Dextrose) 100 mls @ 200 mls/hr IVPB Q8H-IV [facility] PRN Reason: Protocol Last Admin: 03/07/17 10:10 Dose: 200 mls/hr Sodium Chloride (Normal Saline -) 1,000 mls @ 75 mls/hr IV ASDIR [facility] Insulin Aspart (Novolog Vial Sliding Scale -) 1 vial SQ Q6HPO [facility] PRN Reason: Protocol Last Admin: 03/07/17 06:02 Dose: Not Given Lactulose (Cephulac (Oral Use)) 20 gm PO TID PRN PRN Reason: CONSTIPATION Mupirocin (Bactroban Ointment (For Decolonization) -) 1 applic NS BID [facility] Stop: 03/10/17 21:59 Last Admin: 03/07/17 10:12 Dose: 1 applic Nicotine (Nicoderm Patch -) 21 mg TD DAILY [facility] Last Admin: 03/07/17 10:07 Dose: 21 mg Ondansetron HCl (Zofran Injection) 4 mg IVPUSH Q4H PRN PRN Reason: NAUSEA AND/OR VOMITING Last Admin: 03/06/17 07:45 Dose: 4 mg Pantoprazole Sodium (Protonix Packets For Oral Suspension -) 40 mg PO DAILY [facility] Last Admin: 03/07/17 10:09 Dose: 40 mg Polyethylene Glycol (Miralax (For Daily Use) -) 17 gm PO BID [facility] Last Admin: 03/07/17 10:17 Dose: 17 grams Senna/Docusate Sodium (Pericolace -) 1 tablet PO BID [facility] Last Admin: 03/07/17 10:08 Dose: 1 tablet Sucralfate (Carafate Oral Suspension -) 1 gm PO TID [facility] Last Admin: 03/07/17 06:02 Dose: 1 gm Tamsulosin HCl (Flomax -) 0.4 mg PO DAILY@0830 [facility] Last Admin: 03/07/17 09:09 Dose: 0.4 mg - Objective Vital Signs: Vital Signs Temperature 97.7 F 03/07/17 06:00 Pulse Rate 84 03/07/17 10:20 Respiratory Rate 16 03/07/17 06:00 Blood Pressure 80/51 03/07/17 06:00 O2 Sat by Pulse Oximetry (%) 96 03/06/17 21:00 Constitutional: Yes: Calm, Anxious Cardiovascular: Yes: Pulse Irregular Respiratory: Yes: Poor Air Entry Gastrointestinal: Yes: Soft, Hypoactive Bowel Sounds, Other Musculoskeletal: Yes: Other Extremities: Yes: Other (bilateral amp) Neurological: Yes: Alert Psychiatric: Yes: Alert Labs: CBC, BMP 03/06/17 06:00 03/07/17 06:15 INR, PTT INR 0.96 (0.82-1.09) 03/06/17 06:00 Assessment/Plan UTI Bacteremia Severe Sepsis +Troponins Lactic Acidosis Atrial Fibrillation h/o CVA CAD COPD DM HTN Hep C Liver Cirrhosis cx reports noted still organisms pending pseudomonas in urine blood bacteria identification pending plan continue current abx hydration enema await for all cx reports rest as per icu and primary team cc time 40 min
[2017-03-07] MEDS ORDERED: ACETAMINOPHEN 325 MG TABLET (FP) PO ONE ×2 (17:20→17:45)
[2017-03-07] MEDS ORDERED: ACETAMINOPHEN 325 MG TABLET (FP) ONE (17:33)
[2017-03-07] MEDS ORDERED: LACTULOSE 20 GM/30 ML UDC (FOR ORAL USE ONLY) PO PRN (18:24)
[2017-03-07] MEDS ORDERED: ONDANSETRON 4 MG/2 ML VIAL IVPUSH PRN (18:24)
[2017-03-07] MEDS: ATORVASTATIN CA 40 MG TABLET (FP) PO SCH (21:22)
[2017-03-07] MEDS ORDERED: MUPIROCIN 2% TOPICAL OINTMENT FOR DECOLONIZATION NS SCH (22:00)
[2017-03-08] MEDS ORDERED: PT OWN MED DRAWER 7, Y5N ONE ×3 (01:26→17:16)
[2017-03-08] MEDS: PIPERACILLIN/TAZOB 3.375 GM 3.375 GM in DEXTROSE 5%-WATER - 100 ML IVPB SCH ×3 (01:28→17:43)
--- NOTE | 2017-03-08 01:43 | EKG ---
Test Reason : Blood Pressure : / mmHG Vent. Rate : 155 BPM Atrial Rate : 166 BPM P-R Int : 000 ms QRS Dur : 070 ms QT Int : 314 ms P-R-T Axes : 111 -48 096 degrees QTc Int : 504 ms ATRIAL FIBRILLATION WITH RAPID VENTRICULAR RESPONSE LEFT AXIS DEVIATION INFERIOR INFARCT (CITED ON OR BEFORE 14-NOV-2015) ABNORMAL ECG WHEN COMPARED WITH ECG OF 20-AUG-2016 11:41, VENT. RATE HAS INCREASED Confirmed by CHAUNCEY IVEY MD ([id number]) on 03/08/2017 1:43:07 AM Referred By: Confirmed By:CHAUNCEY IVEY MD
[2017-03-08] MEDS: ACETAMINOPHEN 325 MG TABLET (FP) PO ONE ×2 (03:54→04:00)
[2017-03-08] MEDS: SUCRALFATE 1 GM/10 ML UNIT DOSE CUPS PO SCH ×3 (05:20→17:23)
[2017-03-08] MEDS: DOCUSATE SODIUM 100 MG CAPSULE (FP) PO SCH ×3 (05:20→21:02)
[2017-03-08] MEDS: GABAPENTIN 100 MG CAPSULE (FP) PO SCH ×3 (05:20→21:02)
[2017-03-08] MEDS: INSULIN SLIDING SCALE (NOVOLOG) 1 VIAL SQ SCH ×4 (05:27→23:14)
--- NOTE | 2017-03-08 07:41 | PN ---
Physical Exam: SUBJECTIVE: Patient seen and examined. Feels much better after multiple BMs. Wants to leave. Refused EGD this morning. Denies CP, abdominal pain, fever, chills, nausea, vomiting. OBJECTIVE: Vital Signs Period Temp Pulse Resp BP Sys/Guevara Pulse Ox Last 24 Hr 97.5 F-98.0 F 76-108 16-23 74-105/41-65 90-92 GENERAL: thin, elderly man, nad, aaox3 EYES: sclera anicteric, conjunctiva clear ENT: oropharynx clear without exudates, moist mucous membranes LUNGS: CTAB, no wheezes, no crackles, no accessory muscle use. HEART: rrr, normal S1/S2, no m/r/g ABDOMEN: Soft, ntnd, normoactive BS EXTREMITIES: bilateral AKAs, no ulcers NEUROLOGICAL: CN II-XII intact Normal speech, L hemiparesis unchanged CBC, BMP 03/08/17 06:35 03/08/17 06:00 Hepatic Panel Total Bilirubin 0.8 mg/dL (0.2-1.0) 03/08/17 06:00 AST 6 U/L (15-37) L D 03/08/17 06:00 ALT 9 U/L (12-78) L 03/08/17 06:00 Alkaline Phosphatase 69 U/L (45-117) 03/08/17 06:00 Albumin 1.9 g/dl (3.4-5.0) L 03/08/17 06:00 INR, PTT INR 0.96 (0.82-1.09) 03/06/17 06:00 Microbiology 03/08 Blood - pending 03/05/17 17:50 Blood - Peripheral Venous Blood Culture - Preliminary NO GROWTH OBTAINED AFTER 72 HOURS, INCUBATION TO CONTINUE FOR 2 DAYS. 03/05/17 20:45 Urine - Urine Clean Catch Urine Culture - Final Pseudomonas Aeruginosa 03/05/17 17:50 Blood - Peripheral Venous Blood Culture - Preliminary Group D Strep Or Entero Coccus Active Medications Acetaminophen (Tylenol -) 650 mg PO DAILY PRN PRN Reason: PAIN OR FEVER Last Admin: 03/08/17 21:02 Dose: 650 mg Amino Acids (Prosource No Carb Liquid Pkt) 30 ml PO BID@0800,1730 [facility] Last Admin: 03/08/17 17:43 Dose: 30 ml Atorvastatin Calcium (Lipitor -) 40 mg PO HS [facility] Last Admin: 03/08/17 21:03 Dose: Not Given Digoxin (Lanoxin -) 0.125 mg PO DAILY [facility] Last Admin: 03/08/17 09:29 Dose: 0.125 mg Docusate Sodium (Colace -) 100 mg PO TID [facility] Last Admin: 03/08/17 21:02 Dose: 100 mg Finasteride (Proscar -) 5 mg PO DAILY [facility] Last Admin: 03/08/17 09:28 Dose: 5 mg Gabapentin (Neurontin -) 100 mg PO TID [facility] Last Admin: 03/08/17 21:02 Dose: 100 mg Piperacillin Sod/Tazobactam (Sod 3.375 gm/ Dextrose) 100 mls @ 200 mls/hr IVPB Q8H-IV [facility] PRN Reason: Protocol Last Admin: 03/08/17 17:43 Dose: 200 mls/hr Sodium Chloride (Normal Saline -) 1,000 mls @ 75 mls/hr IV [facility] Last Admin: 03/08/17 17:23 Dose: 75 mls/hr Insulin Aspart (Novolog Vial Sliding Scale -) 1 vial SQ Q6HPO [facility] PRN Reason: Protocol Last Admin: 03/08/17 18:55 Dose: Not Given Multivitamins/Minerals/Vitamin C (Tab-A-Vit -) 1 tab PO DAILY [facility] Last Admin: 03/08/17 09:28 Dose: 1 tab Nicotine (Nicoderm Patch -) 21 mg TD DAILY [facility] Last Admin: 03/08/17 09:28 Dose: 21 mg Ondansetron HCl (Zofran Injection) 4 mg IVPUSH Q4H PRN PRN Reason: NAUSEA AND/OR VOMITING Pantoprazole Sodium (Protonix Packets For Oral Suspension -) 40 mg PO DAILY [facility] Last Admin: 03/08/17 09:30 Dose: 40 mg Polyethylene Glycol (Miralax (For Daily Use) -) 17 gm PO BID [facility] Last Admin: 03/08/17 21:03 Dose: 17 gm Senna/Docusate Sodium (Pericolace -) 1 tablet PO BID [facility] Last Admin: 03/08/17 09:29 Dose: 1 tablet Sucralfate (Carafate Oral Suspension -) 1 gm PO TIDAC [facility] Last Admin: 12/19/17 17:23 Dose: 1 gm Tamsulosin HCl (Flomax -) 0.4 mg PO DAILY@0830 [facility] Last Admin: 03/08/17 09:30 Dose: 0.4 mg ASSESSMENT/PLAN: 70yo man with PMH of AFib (off AC), CVA (residual L sided hemiparesis), recurrent UGIBs, recurrent UTIs (+Pseudomonas), GERD with Armstrong's, esophageal stricture, and DVTs who presented with hematemesis and bilious vomiting, found to have severe sepsis. #severe sepsis 2/2 UTI and Group D Strep bacteremia -U Cx - Pseudomonas sensitive to Zosyn -Blood Cx - Enterococcus in one set, sensitivities pending -Continue Zosyn for UTI -Received 1x dose Daptomycin for empiric VRE coverage, awaiting ID recs and sensitivity report -f/u blood Cx, will need to negative sets before discharge -Monitor hypotension (no requirement for pressors) - IVF increased to NS@75cc/hr #Hemetemesis, suspect UGIB given prior history -GI consulted. Patient refused EGD tomorrow -Protonix 40mg PO BID -Trend H&H #Afib with RVR - currently in NSR, rate controlled -Cardiology consulted -Digoxin 0.125mg daily -Not an AC candidate due to recurrent GIBs #Fecal impaction, resolving -Mutliple BMs after 2x fleet enemas -continue miralax BID and senna/docusate BID -d/c lactulose #Tropinemia, flat troponin trend, no ischemic changes on EKG --> not c/w ACS, likely 2/2 demand ischemia -Will stop trending trop #Thrombi in pelvic arteries (occlusions L common & external iliac, L femoral artery) and Abdominal Aorta -Heme consulted. Thrombus possible sequelae of atherosclerotic placques), DAVION mutation pending -Vascular surgery consulted - no surgical intervention at this time; Fem-fem bypass if limb becomes cold #BPH - Continue home Proscar and Flomax #FEN: -NS@75cc/hr -lytes wnl -Full lq diet with double soups and yogurt, MVI, Prosource 30ml BID #PPX -DVT - SCD's (AC c/i) -GI - on PPI #DISPO: continue tele monitoring DNR/DNI d/w Dr. Alfa Murdock MD PGY1 - Internal Medicine Visit type - Emergency Visit Emergency Visit: No - New Patient This patient is new to me today: No - Critical Care Critical Care patient: No
[2017-03-08 07:58] LABS: MCH 24.5 pg (25.7-33.7); MCHC 31.6 g/dl (32.0-35.9); MEAN CELL VOLUME 77.6 fl (80-96); PLATELET COUNT 195 K/MM3 (134-434); RDW 17.8 % (11.9-15.9); WHITE BLOOD COUNT 7.8 K/mm3 (4.0-10.0)
[2017-03-08 08:14] LABS: ALBUMIN 1.9 g/dl (3.4-5.0); ANION GAP 10 (8-16); BILIRUBIN,TOTAL 0.8 mg/dL (0.2-1.0); CALCIUM 7.8 mg/dL (8.5-10.1); CO2 23 mmol/L (21-32); CREATININE 0.5 mg/dL (0.7-1.3); GLUCOSE,RANDOM 68 mg/dL (74-106); PHOSPHOROUS 2.8 mg/dL (2.5-4.9); SGOT/AST 6 U/L (15-37); SGPT/ALT 9 U/L (12-78)
[2017-03-08 08:15] LABS: ALK PHOS 69 U/L (45-117); TOT PROT 4.3 g/dl (6.4-8.2)
[2017-03-08] MEDS: NICOTINE 21 MG/24 HOURS TOPICAL PATCH TD SCH (09:28)
[2017-03-08] MEDS: MULTIVITAMINS (DAILY MVI) TABLET (FP) PO SCH (09:28)
[2017-03-08] MEDS: FINASTERIDE 5 MG TABLET (FP) PO SCH (09:28)
[2017-03-08] MEDS: SENNOSIDES/DOCUSATE COMBO (SENNA PLUS) TABLET (UD) PO SCH ×2 (09:29→21:10)
[2017-03-08] MEDS: DIGOXIN 0.25 MG TABLET (FP) PO SCH (09:29)
[2017-03-08] MEDS: PANTOPRAZOLE SOD 40 MG SUSPENSION PACKET PO SCH (09:30)
[2017-03-08] MEDS: TAMSULOSIN HCL 0.4 MG CAP.ER.24H (FP) PO SCH (09:30)
[2017-03-08] MEDS: POLYETHYLENE GLYCOL 3350 119 GM BTL PO SCH ×2 (09:31→21:03)
--- NOTE | 2017-03-08 14:36 | PN ---
Progress Note, Physician History of Present Illness: transferred out of icu patient stable looks slightly confused wants to leave - Current Medication List Current Medications: Active Medications Amino Acids (Prosource No Carb Liquid Pkt) 30 ml PO BID@0800,1730 [facility] Atorvastatin Calcium (Lipitor -) 40 mg PO HS [facility] Last Admin: 03/07/17 21:22 Dose: Not Given Digoxin (Lanoxin -) 0.125 mg PO DAILY [facility] Last Admin: 03/08/17 09:29 Dose: 0.125 mg Docusate Sodium (Colace -) 100 mg PO TID [facility] Last Admin: 03/08/17 05:20 Dose: Not Given Finasteride (Proscar -) 5 mg PO DAILY [facility] Last Admin: 03/08/17 09:28 Dose: 5 mg Gabapentin (Neurontin -) 100 mg PO TID [facility] Last Admin: 03/08/17 05:20 Dose: 100 mg Sodium Chloride (Normal Saline -) 1,000 mls @ 75 mls/hr IV ASDIR [facility] Last Admin: 03/07/17 15:11 Dose: 75 mls/hr Piperacillin Sod/Tazobactam (Sod 3.375 gm/ Dextrose) 100 mls @ 200 mls/hr IVPB Q8H-IV [facility] PRN Reason: Protocol Last Admin: 03/08/17 09:30 Dose: 200 mls/hr Insulin Aspart (Novolog Vial Sliding Scale -) 1 vial SQ Q6HPO [facility] PRN Reason: Protocol Last Admin: 03/08/17 11:57 Dose: Not Given Multivitamins/Minerals/Vitamin C (Tab-A-Vit -) 1 tab PO DAILY [facility] Last Admin: 03/08/17 09:28 Dose: 1 tab Nicotine (Nicoderm Patch -) 21 mg TD DAILY [facility] Last Admin: 03/08/17 09:28 Dose: 21 mg Ondansetron HCl (Zofran Injection) 4 mg IVPUSH Q4H PRN PRN Reason: NAUSEA AND/OR VOMITING Pantoprazole Sodium (Protonix Packets For Oral Suspension -) 40 mg PO DAILY [facility] Last Admin: 03/08/17 09:30 Dose: 40 mg Polyethylene Glycol (Miralax (For Daily Use) -) 17 gm PO BID [facility] Last Admin: 03/08/17 09:31 Dose: 17 gm Senna/Docusate Sodium (Pericolace -) 1 tablet PO BID [facility] Last Admin: 03/08/17 09:29 Dose: 1 tablet Sucralfate (Carafate Oral Suspension -) 1 gm PO TIDAC [facility] Last Admin: 03/08/17 11:53 Dose: 1 gm Tamsulosin HCl (Flomax -) 0.4 mg PO DAILY@0830 [facility] Last Admin: 03/08/17 09:30 Dose: 0.4 mg - Objective Vital Signs: Vital Signs Temperature 97.4 F L 03/08/17 10:00 Pulse Rate 95 H 03/08/17 10:00 Respiratory Rate 18 03/08/17 10:00 Blood Pressure 119/74 03/08/17 10:00 O2 Sat by Pulse Oximetry (%) 90 L 03/08/17 09:00 Constitutional: Yes: No Distress, Anxious Cardiovascular: Yes: Pulse Irregular Respiratory: Yes: Regular, CTA Bilaterally Gastrointestinal: Yes: Soft, Hypoactive Bowel Sounds Musculoskeletal: Yes: Other Extremities: Yes: Other Neurological: Yes: Alert, Other Psychiatric: Yes: Alert Labs: CBC, BMP 03/08/17 06:35 03/08/17 06:00 INR, PTT INR 0.96 (0.82-1.09) 03/06/17 06:00 Assessment/Plan UTI Bacteremia Severe Sepsis +Troponins Lactic Acidosis Atrial Fibrillation h/o CVA CAD COPD DM HTN Hep C Liver Cirrhosis cx reports noted still organisms pending patient repeat blood cx pending plan continue current abx hydration still awaiting for all cx once we have final results will make decision on further treatment
--- NOTE | 2017-03-08 15:42 | PN ---
Progress Note (short form) - Note Progress Note: Chief Complaint: afib History of Present Illness: transferred out of ICU last night. denies cp, sob, palpitations, syncope. States no further bleeding today. + cigs Current Medications Amino Acids (Prosource No Carb Liquid Pkt) 30 ml PO BID@0800,1730 [facility] Atorvastatin Calcium (Lipitor -) 40 mg PO HS [facility] Last Admin: 03/07/17 21:22 Dose: Not Given Digoxin (Lanoxin -) 0.125 mg PO DAILY [facility] Last Admin: 03/08/17 09:29 Dose: 0.125 mg Docusate Sodium (Colace -) 100 mg PO TID [facility] Last Admin: 03/08/17 15:02 Dose: Not Given Finasteride (Proscar -) 5 mg PO DAILY [facility] Last Admin: 03/08/17 09:28 Dose: 5 mg Gabapentin (Neurontin -) 100 mg PO TID [facility] Last Admin: 03/08/17 14:55 Dose: 100 mg Piperacillin Sod/Tazobactam (Sod 3.375 gm/ Dextrose) 100 mls @ 200 mls/hr IVPB Q8H-IV [facility] PRN Reason: Protocol Last Admin: 03/08/17 09:30 Dose: 200 mls/hr Sodium Chloride (Normal Saline -) 1,000 mls @ 75 mls/hr IV ASDIR [facility] Insulin Aspart (Novolog Vial Sliding Scale -) 1 vial SQ Q6HPO [facility] PRN Reason: Protocol Last Admin: 03/08/17 11:57 Dose: Not Given Multivitamins/Minerals/Vitamin C (Tab-A-Vit -) 1 tab PO DAILY [facility] Last Admin: 03/08/17 09:28 Dose: 1 tab Nicotine (Nicoderm Patch -) 21 mg TD DAILY [facility] Last Admin: 03/08/17 09:28 Dose: 21 mg Ondansetron HCl (Zofran Injection) 4 mg IVPUSH Q4H PRN PRN Reason: NAUSEA AND/OR VOMITING Pantoprazole Sodium (Protonix Packets For Oral Suspension -) 40 mg PO DAILY [facility] Last Admin: 03/08/17 09:30 Dose: 40 mg Polyethylene Glycol (Miralax (For Daily Use) -) 17 gm PO BID [facility] Last Admin: 03/08/17 09:31 Dose: 17 gm Senna/Docusate Sodium (Pericolace -) 1 tablet PO BID [facility] Last Admin: 03/08/17 09:29 Dose: 1 tablet Sucralfate (Carafate Oral Suspension -) 1 gm PO TIDAC [facility] Last Admin: 03/08/17 11:53 Dose: 1 gm Tamsulosin HCl (Flomax -) 0.4 mg PO DAILY@0830 [facility] Last Admin: 03/08/17 09:30 Dose: 0.4 mg - Objective Vital Signs: Vital Signs - 24 hr 03/07/17 03/07/17 03/07/17 16:00 17:56 18:45 Temperature 98.0 F 97.7 F Pulse Rate 108 H 104 H 105 H Respiratory 23 21 19 Rate Blood Pressure 74/49 80/49 92/45 O2 Sat by Pulse Oximetry (%) 03/07/17 03/08/17 03/08/17 21:00 01:00 06:00 Temperature 97.7 F 97.6 F 97.5 F L Pulse Rate 96 H 95 H 85 Respiratory 18 18 18 Rate Blood Pressure 77/41 88/52 105/60 O2 Sat by Pulse 92 L Oximetry (%) 03/08/17 03/08/17 03/08/17 09:00 09:29 10:00 Temperature 97.4 F L Pulse Rate 95 H 95 H Respiratory 18 18 Rate Blood Pressure 119/74 O2 Sat by Pulse 90 L Oximetry (%) 03/08/17 14:40 Temperature 97.5 F L Pulse Rate 79 Respiratory 16 Rate Blood Pressure 90/50 O2 Sat by Pulse Oximetry (%) Intake & Output 03/06/17 03/07/17 03/08/17 03/09/17 07:59 07:59 07:59 07:59 Intake Total 2180 2070 650 Output Total 200 500 520 50 Balance -200 1680 1550 600 Weight 90 lb 94 lb 1.6 oz Constitutional: Yes: No Distress, Calm, cachectic Eyes: No: Sclera Icterus HENT: No: Nasal Congestion Cardiovascular: Yes: Regular Rate and Rhythm (decr intensity), S1, S2, Other ( PMI non diplaced). No: Gallop, Murmur Respiratory: Yes: CTA Bilaterally. No: Accessory Muscle Use, Rales, Wheezes Gastrointestinal: Yes: Normal Bowel Sounds, Soft. No: Tenderness Musculoskeletal: Yes: Other (No kyphosis) Extremities: Yes: Other (bilat AKAs). No: Cold Edema: No Integumentary: No: Jaundice Neurological: Yes: Alert, Oriented Psychiatric: No: Agitated Labs: CBC, BMP 03/08/17 06:35 03/08/17 06:00 Laboratory Tests 03/07/17 03/08/17 06:15 06:00 Magnesium 2.0 Albumin 1.9 L Digoxin 0.3162 L - ....Imaging EKG: Other (tele: NSR, frequent APCs, occ atrial runs/brief svt) Assessment/Plan Echo 10/03 ([facility]): nl LVSF; nl RV; valves WNL MPI 08/01 (pers): no STs; small infero-apical ischemia. nl EF. no TID noted 71 yo male with HTN, CAD, Afib with prior CVA (residual left hemiparesis), HCV cirrhosis, DM2 with bior bilat AKAs, + active cigs, COPD, esophageal stricture s /p unsuccessful dilation attempt 08/04, GERD with Armstrong's, mult prior admits for GIBs (incl hematemesis), admitted with Afib with RVR in the setting of hematemesis and bilious emesis for the past 4-5 days Afib: -previous admits here with MAT and ? rapid AF as well, currently in sinus -was not anticoagulated due to recurrent GI bleeding -per hospitalist, no source of hematemesis found on prior EGDs (no varices)-- does not seem he will be able to tolerate Watchman device implant with 6 wks AC and then 6 wks DAPT post, given frequency of GIBs and hence prohibitive risk of life threatening bleeding. anti-PLT therapy eventually?--as below -per prior notes, "did not tolerate" bb and CCBs (? low bp's)--managed with digoxin. per hospitalist, pt gives history that his steno typist (in [place], does not recall name) changed dig to dilt at some point - remains hypotensive again--digoxin only for now (level ok here). discharged on 0.25 po daily last admit--resumed at 0.125mg dose for now, in case had high levels as outpt (when med was d/c'd). Repeat digoxin level tomorrow, if remains low will consider titrating back up to 0.25. hypotension: -? etiology: GI bleed? sepsis ? (= hi wbc, normal temps) -no signs chf--ok for IVF, stopped CCB as disc'd -mentating clearly at present, monitor UOP--low threshold to start levofed if bp does not improve with above changes, or UOP/mental status changes h/o CAD, (+) troponin: -prior notes here reviewed--pt had abnormal stress test 2013 (as above), ? had PCI previously -since he has been a pt here from 2015 onwards, has never been on DAPT per prior notes, only plavix monotherapy -troponins here intermediate range 0.06-->0.08, not c/w ACS at this time. no isch ecg. f/u 3rd trop today -Likely demand ischemia in setting of rapid Afib and hypotension, ? underlying CAD -has h/o recurrent GIB's here in past--would resume either ASA or plavix alone when/if safe, per GI -Continue home statin, per his outpt cardio (LFTs normal) -given low risk stress test findings, and pt inability to tolerate DAPT for any period of time, will not pursue invasive workup acute LE ischemia, PAD: -CTA here with occluded Left common iliac / Left external iliac / Left femoral arteries new since 08/2016, long segment intramural thrombus with calcified and non-calcified atherosclerotic plaque along the abdominal aorta resulting in mild -moderate luminal narrowing and narrowing of the origins of the major visceral branches. -note: the main indication for anti-platelets or AC agents at present time is for limb salvage, per vascular opinion (CAD hx and AFib are less urgent, given risk of stent thrombosis (not recent stent) or cardioembolic CVA are numerically low in the short term) - -vascular consult appreciated--> no intervention at this time. HTN: -bp currently low, hold anti-hypertensive meds - consider stopping flomax if safe per pmd
--- NOTE | 2017-03-08 16:42 | PN ---
Progress Note (short form) - Note Progress Note: seen and examined Feels Good, wanted to go home. GENERAL: Awake, alert, and fully oriented, in no acute distress. HEAD: Normal with no signs of trauma. EARS, NOSE, THROAT: Moist mucous membranes. NECK: Normal range of motion, supple without lymphadenopathy, JVD, or masses. LUNGS: Breath sounds equal, clear to auscultation bilaterally. No wheezes, and no crackles. No accessory muscle use. HEART: irregularly irregular, +S1/S2, tachycardic, without murmur, rub or gallop. ABDOMEN: Soft, tender to palpation in lower abdomen, not distended, normoactive bowel sounds, no guarding, no masses. LOWER EXTREMITIES: ab AKA. No peripheral edema. NEUROLOGICAL: Normal speech. Left UE is paralyzed. SKIN: Warm, dry, normal turgor, no rashes or lesions noted. RECTAL: refused Last Vital Signs Temp Pulse Resp BP Pulse Ox 97.5 F L 79 16 90/50 90 L 03/08/17 14:40 03/08/17 14:40 03/08/17 14:40 03/08/17 14:40 03/08/17 09:00 CBC, BMP 03/08/17 06:35 03/08/17 06:00 Current Medications Generic Name Dose Route Start Last Admin Trade Name Macho PRN Reason Stop Dose Admin Amino Acids 30 ml 03/08/17 08:00 Prosource No Carb Liquid Pkt PO BID@0800,1730 [facility] Atorvastatin Calcium 40 mg 03/07/17 22:00 03/07/17 21:22 Lipitor - PO Not Given HS [facility] Digoxin 0.125 mg 03/08/17 10:00 03/08/17 09:29 Lanoxin - PO 0.125 mg DAILY [facility] Administration Docusate Sodium 100 mg 03/07/17 22:00 03/08/17 15:02 Colace - PO Not Given TID [facility] Finasteride 5 mg 03/08/17 10:00 03/08/17 09:28 Proscar - PO 5 mg DAILY [facility] Administration Gabapentin 100 mg 03/07/17 22:00 03/08/17 14:55 Neurontin - PO 100 mg TID [facility] Administration Piperacillin Sod/Tazobactam 100 mls @ 200 mls/hr 03/08/17 02:00 03/08/17 09: 30 Sod 3.375 gm/ Dextrose IVPB 200 mls/hr Q8H-IV [facility] Administration Protocol Sodium Chloride 1,000 mls @ 75 mls/hr 03/08/17 15:15 Normal Saline - IV ASDIR [facility] Insulin Aspart 1 vial 03/08/17 00:00 03/08/17 11:57 Novolog Vial Sliding Scale - SQ Not Given Q6HPO [facility] Protocol Multivitamins/Minerals/Vitamin C 1 tab 03/08/17 10:00 03/08/17 09:28 Tab-A-Vit - PO 1 tab DAILY [facility] Administration Nicotine 21 mg 03/08/17 10:00 03/08/17 09:28 Nicoderm Patch - TD 21 mg DAILY [facility] Administration Ondansetron HCl 4 mg 03/07/17 18:24 Zofran Injection IVPUSH Q4H PRN NAUSEA AND/OR VOMITING Pantoprazole Sodium 40 mg 03/08/17 10:00 03/08/17 09:30 Protonix Packets For Oral Suspension - PO 40 mg DAILY [facility] Administration Polyethylene Glycol 17 gm 03/07/17 22:00 03/08/17 09:31 Miralax (For Daily Use) - PO 17 gm BID [facility] Administration Senna/Docusate Sodium 1 tablet 03/07/17 22:00 03/08/17 09:29 Pericolace - PO 1 tablet BID [facility] Administration Sucralfate 1 gm 03/08/17 07:52 03/08/17 11:53 Carafate Oral Suspension - PO 1 gm TIDAC [facility] Administration Tamsulosin HCl 0.4 mg 03/08/17 08:30 03/08/17 09:30 Flomax - PO 0.4 mg DAILY@0830 [facility] Administration Sepsis - on zosyn, stable Upper GI bleed- asymptomatic currently and Hb stable A fib Arterial thrombosis in the major arteries inc. abdomainl aorta -possible atherosclerotic disease with secondary thrombosis. AC with any Rx was not being given due to GIB.
[2017-03-08] MEDS: SODIUM CHLORIDE 1,000 ML IV SCH (17:23)
[2017-03-08] MEDS: AMINO ACIDS/PROTEIN HYDROLYS 30 ML LIQUID.PKT PO SCH (17:43)
--- NOTE | 2017-03-08 18:34 | PN ---
Teaching Attending Note Name of Resident: Janet Murdock ATTENDING PHYSICIAN STATEMENT I saw and evaluated the patient. I reviewed the resident's note and discussed the case with the resident. I agree with the resident's findings and plan as documented. SUBJECTIVE: No fever or chills, no abd pain , had BMs yesterday OBJECTIVE: NAD, cachectic , no facial droop, Cv: RRR, no MRG Lungs: CTAB Ext: no edema, b/l AKA . no erythema Abd: soft, No tenderness today. ASSESSMENT AND PLAN: Patient is a 70 yo M with multiple medical problems including , h/o A Fib , CVA , Upper GI bleeds, esophageal stricture , DVTs , who presented with abd pain , N/V and was found to have severe sepsis . 1- Severe sepsis; likely form UTI. Urine cx with pseudomonas blood cx with Groupd d strep in one set, - cont zosyn - cont IVF 2- Upper GI bleed. - PPI - cupgrade diet - refused EGD today 3- A fib with RVR: Now in sinus rhythm, nl rate , but hypotensive -cont Dig 0.125 - No AC due to recurrent GI bleeds 4- Fecal impaction. BMs after enemas - dc lactulose - Cont oral regimen ; miralax, morgan /colace 5-Trop leak.: NO acute ischemic EKG changes. could be demand - follow trop - hold off any anti plt 6- Thrombosis in aorta and pelvic veins: - Appreciate Heme input. possible atherosclerotic disease with secondary thrombosis. at this point can't give anti-plt. will d/w GI - vascular consult pending OC
[2017-03-08] MEDS: ACETAMINOPHEN 325 MG TABLET (FP) PO PRN (21:02)
[2017-03-08] MEDS: ATORVASTATIN CA 40 MG TABLET (FP) PO SCH (21:03)
[2017-03-09] MEDS: PIPERACILLIN/TAZOB 3.375 GM 3.375 GM in DEXTROSE 5%-WATER - 100 ML IVPB SCH ×3 (01:42→17:07)
[2017-03-09] MEDS: ACETAMINOPHEN 325 MG TABLET (FP) PO PRN ×2 (01:55→20:03)
[2017-03-09] MEDS: GABAPENTIN 100 MG CAPSULE (FP) PO SCH ×4 (06:03→22:32)
[2017-03-09] MEDS: DOCUSATE SODIUM 100 MG CAPSULE (FP) PO SCH ×3 (06:03→22:33)
[2017-03-09] MEDS: SUCRALFATE 1 GM/10 ML UNIT DOSE CUPS PO SCH ×3 (06:06→17:07)
[2017-03-09] MEDS: INSULIN SLIDING SCALE (NOVOLOG) 1 VIAL SQ SCH ×3 (06:06→17:12)
--- NOTE | 2017-03-09 07:18 | PN ---
Physical Exam: 24H Events: yesterday - refused EGD O/N - no events AM - 03/05 BCx Enterococcus; 03/08 Bcx NGTD x 24H SUBJECTIVE: Patient seen and examined. Comfortable. No chest pain, abdominal pain, fevers, chills. BM this AM. Eating and voiding well. OBJECTIVE: Vital Signs Period Temp Pulse Resp BP Sys/Guevara Pulse Ox Last 24 Hr 97.3 F-98.1 F 70-95 16-18 90-129/50-74 90-99 GENERAL: thin, elderly man, nad, aaox3 EYES: sclera anicteric, conjunctiva clear ENT: oropharynx clear without exudates, moist mucous membranes LUNGS: CTAB, no wheezes, no crackles, no accessory muscle use. HEART: rrr, normal S1/S2, no m/r/g ABDOMEN: Soft, ntnd, normoactive BS EXTREMITIES: bilateral AKAs, no ulcers NEUROLOGICAL: CN II-XII intact Normal speech, L hemiparesis unchanged CBC, BMP 03/09/17 05:35 03/09/17 05:35 Hepatic Panel Total Bilirubin 0.8 mg/dL (0.2-1.0) 03/08/17 06:00 AST 6 U/L (15-37) L D 03/08/17 06:00 ALT 9 U/L (12-78) L 03/08/17 06:00 Alkaline Phosphatase 69 U/L (45-117) 03/08/17 06:00 Albumin 1.9 g/dl (3.4-5.0) L 03/08/17 06:00 Microbiology 03/05/17 17:50 Blood - Peripheral Venous Blood Culture - Final Enterococcus Faecalis 03/08/17 06:35 Blood - Peripheral Venous Blood Culture - Preliminary NO GROWTH OBTAINED AFTER 24 HOURS, INCUBATION TO CONTINUE FOR 4 DAYS. 03/08/17 06:30 Blood - Peripheral Venous Blood Culture - Preliminary NO GROWTH OBTAINED AFTER 24 HOURS, INCUBATION TO CONTINUE FOR 4 DAYS. 03/05/17 17:50 Blood - Peripheral Venous Blood Culture - Preliminary NO GROWTH OBTAINED AFTER 72 HOURS, INCUBATION TO CONTINUE FOR 2 DAYS. 03/05/17 20:45 Urine - Urine Clean Catch Urine Culture - Final Pseudomonas Aeruginosa Active Medications Acetaminophen (Tylenol -) 650 mg PO DAILY PRN PRN Reason: PAIN OR FEVER Last Admin: 03/09/17 01:55 Dose: 650 mg Amino Acids (Prosource No Carb Liquid Pkt) 30 ml PO BID@0800,1730 [facility] Last Admin: 03/09/17 17:07 Dose: 30 ml Atorvastatin Calcium (Lipitor -) 40 mg PO HS [facility] Last Admin: 03/08/17 21:03 Dose: Not Given Digoxin (Lanoxin -) 0.125 mg PO DAILY [facility] Last Admin: 03/09/17 10:53 Dose: 0.125 mg Docusate Sodium (Colace -) 100 mg PO TID [facility] Last Admin: 03/09/17 13:48 Dose: Not Given Finasteride (Proscar -) 5 mg PO DAILY [facility] Last Admin: 03/09/17 10:52 Dose: 5 mg Gabapentin (Neurontin -) 100 mg PO TID [facility] Last Admin: 03/09/17 13:48 Dose: 100 mg Piperacillin Sod/Tazobactam (Sod 3.375 gm/ Dextrose) 100 mls @ 200 mls/hr IVPB Q8H-IV [facility] PRN Reason: Protocol Last Admin: 03/09/17 17:07 Dose: 200 mls/hr Sodium Chloride (Normal Saline -) 1,000 mls @ 75 mls/hr IV ASDIR [facility] Last Admin: 03/09/17 17:11 Dose: Not Given Insulin Aspart (Novolog Vial Sliding Scale -) 1 vial SQ Q6HPO [facility] PRN Reason: Protocol Last Admin: 03/09/17 17:12 Dose: Not Given Multivitamins/Minerals/Vitamin C (Tab-A-Vit -) 1 tab PO DAILY [facility] Last Admin: 03/09/17 10:52 Dose: 1 tab Nicotine (Nicoderm Patch -) 21 mg TD DAILY [facility] Last Admin: 03/09/17 10:52 Dose: 21 mg Ondansetron HCl (Zofran Injection) 4 mg IVPUSH Q4H PRN PRN Reason: NAUSEA AND/OR VOMITING Pantoprazole Sodium (Protonix Packets For Oral Suspension -) 40 mg PO DAILY [facility] Last Admin: 03/09/17 10:52 Dose: 40 mg Polyethylene Glycol (Miralax (For Daily Use) -) 17 gm PO BID [facility] Last Admin: 03/09/17 10:56 Dose: Not Given Senna/Docusate Sodium (Pericolace -) 1 tablet PO BID [facility] Last Admin: 03/09/17 10:52 Dose: Not Given Sucralfate (Carafate Oral Suspension -) 1 gm PO TIDAC [facility] Last Admin: 03/09/17 17:07 Dose: 1 gm Tamsulosin HCl (Flomax -) 0.4 mg PO DAILY@0830 [facility] Last Admin: 03/09/17 10:53 Dose: 0.4 mg ASSESSMENT/PLAN: 70yo man with PMH of AFib (off AC), CVA (residual L sided hemiparesis), recurrent UGIBs, recurrent UTIs (+Pseudomonas), GERD with Armstrong's, esophageal stricture, and DVTs who p/w hematemesis and bilious vomiting, found to have severe sepsis. #severe sepsis, improving 2/2 Pseudomonas+ UTI and Enterococcus bacteremia ( sensitive to ampicillin) -ID consulted -Continue Zosyn for UTI/bacteremia. Abx Day 4 of 7 -f/u blood Cx 03/08 #Mild thrombocytopenia (126K), likely 2/2 to infection/medication -Trend for now #Hemetemesis, suspect UGIB given prior history -GI consulted. 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 Thrombus possible sequelae of atherosclerotic placques, DAVION mutation pending -Vascular surgery consulted - no surgical intervention at this time; Fem-fem bypass if limb becomes cold #BPH - Continue home Proscar and Flomax #FEN: -NS@75cc/hr -lytes wnl -Full lq diet with double soups and yogurt, MVI, Prosource 30ml BID #PPX -DVT - SCD's (AC c/i) -GI - on PPI #DISPO: continue tele monitoring, anticipate d/c 24-48hours when blood cx neg x 48h DNR/DNI d/w Dr. Ana Murdock MD PGY1 - Internal Medicine Visit type - Emergency Visit Emergency Visit: No - New Patient This patient is new to me today: No - Critical Care Critical Care patient: No
[2017-03-09 08:07] LABS: MCH 24.5 pg (25.7-33.7); MCHC 31.3 g/dl (32.0-35.9); MEAN CELL VOLUME 78.4 fl (80-96); MEAN PLT VOLUME 7.6 fl (7.5-11.1); PLATELET COUNT 126 K/MM3 (134-434); RDW 18.8 % (11.9-15.9); WHITE BLOOD COUNT 7.7 K/mm3 (4.0-10.0)
[2017-03-09 09:22] LABS: ANION GAP 11 (8-16); CALCIUM 7.3 mg/dL (8.5-10.1); CO2 19 mmol/L (21-32); CREATININE 0.4 mg/dL (0.7-1.3); DIGOXIN LEVEL 0.5868 ng/ml (0.8-2.0); GLUCOSE,RANDOM 53 mg/dL (74-106)
--- NOTE | 2017-03-09 10:17 | PN ---
Progress Note, Physician History of Present Illness: No events. Comfortable - Current Medication List Current Medications: Active Medications Acetaminophen (Tylenol -) 650 mg PO DAILY PRN PRN Reason: PAIN OR FEVER Last Admin: 03/09/17 01:55 Dose: 650 mg Amino Acids (Prosource No Carb Liquid Pkt) 30 ml PO BID@0800,1730 [facility] Last Admin: 03/08/17 17:43 Dose: 30 ml Atorvastatin Calcium (Lipitor -) 40 mg PO HS [facility] Last Admin: 03/08/17 21:03 Dose: Not Given Digoxin (Lanoxin -) 0.125 mg PO DAILY [facility] Last Admin: 03/08/17 09:29 Dose: 0.125 mg Docusate Sodium (Colace -) 100 mg PO TID [facility] Last Admin: 03/09/17 06:03 Dose: Not Given Finasteride (Proscar -) 5 mg PO DAILY [facility] Last Admin: 03/08/17 09:28 Dose: 5 mg Gabapentin (Neurontin -) 100 mg PO TID [facility] Last Admin: 03/09/17 06:03 Dose: 100 mg Piperacillin Sod/Tazobactam (Sod 3.375 gm/ Dextrose) 100 mls @ 200 mls/hr IVPB Q8H-IV [facility] PRN Reason: Protocol Last Admin: 03/09/17 01:42 Dose: 200 mls/hr Sodium Chloride (Normal Saline -) 1,000 mls @ 75 mls/hr IV ASDIR [facility] Last Admin: 03/08/17 17:23 Dose: 75 mls/hr Insulin Aspart (Novolog Vial Sliding Scale -) 1 vial SQ Q6HPO [facility] PRN Reason: Protocol Last Admin: 03/09/17 06:06 Dose: Not Given Multivitamins/Minerals/Vitamin C (Tab-A-Vit -) 1 tab PO DAILY [facility] Last Admin: 03/08/17 09:28 Dose: 1 tab Nicotine (Nicoderm Patch -) 21 mg TD DAILY [facility] Last Admin: 03/08/17 09:28 Dose: 21 mg Ondansetron HCl (Zofran Injection) 4 mg IVPUSH Q4H PRN PRN Reason: NAUSEA AND/OR VOMITING Pantoprazole Sodium (Protonix Packets For Oral Suspension -) 40 mg PO DAILY [facility] Last Admin: 03/08/17 09:30 Dose: 40 mg Polyethylene Glycol (Miralax (For Daily Use) -) 17 gm PO BID [facility] Last Admin: 03/08/17 21:03 Dose: 17 gm Senna/Docusate Sodium (Pericolace -) 1 tablet PO BID [facility] Last Admin: 03/08/17 21:10 Dose: 1 tablet Sucralfate (Carafate Oral Suspension -) 1 gm PO TIDAC [facility] Last Admin: 03/09/17 06:06 Dose: 1 gm Tamsulosin HCl (Flomax -) 0.4 mg PO DAILY@0830 [facility] Last Admin: 03/08/17 09:30 Dose: 0.4 mg - Objective Vital Signs: Vital Signs Temperature 97.3 F L 03/09/17 05:59 Pulse Rate 72 03/09/17 05:59 Respiratory Rate 18 03/09/17 05:59 Blood Pressure 96/50 03/09/17 05:59 O2 Sat by Pulse Oximetry (%) 99 03/08/17 21:00 Constitutional: Yes: No Distress, Calm Eyes: Yes: Conjunctiva Clear HENT: Yes: Atraumatic Gastrointestinal: Yes: Soft. No: Melena, Rectal Bleeding, Tenderness, Vomiting Neurological: Yes: Alert Labs: CBC, BMP 03/09/17 05:35 03/09/17 05:35 INR, PTT INR 0.96 (0.82-1.09) 03/06/17 06:00 CBCD WBC 7.7 K/mm3 (4.0-10.0) 03/09/17 05:35 RBC 4.66 M/mm3 (4.00-5.60) 03/09/17 05:35 Hgb 11.4 GM/dL (11.7-16.9) L D 03/09/17 05:35 Hct 36.6 % (35.4-49) D 03/09/17 05:35 MCV 78.4 fl (80-96) L 03/09/17 05:35 MCHC 31.3 g/dl (32.0-35.9) L 03/09/17 05:35 RDW 18.8 % (11.9-15.9) H 03/09/17 05:35 Plt Count 126 K/MM3 (134-434) L D 03/09/17 05:35 MPV 7.6 fl (7.5-11.1) 03/09/17 05:35 CMP Sodium 142 mmol/L (136-145) 03/09/17 05:35 Potassium 3.9 mmol/L (3.5-5.1) 03/09/17 05:35 Chloride 112 mmol/L (98-107) H 03/09/17 05:35 Carbon Dioxide 19 mmol/L (21-32) L 03/09/17 05:35 Anion Gap 11 (8-16) 03/09/17 05:35 BUN 9 mg/dL (7-18) 03/09/17 05:35 Creatinine 0.4 mg/dL (0.7-1.3) L 03/09/17 05:35 Creat Clearance w eGFR > 60 (>60) 03/08/17 06:00 Calcium 7.3 mg/dL (8.5-10.1) L 03/09/17 05:35 Total Bilirubin 0.8 mg/dL (0.2-1.0) 03/08/17 06:00 AST 6 U/L (15-37) L D 03/08/17 06:00 ALT 9 U/L (12-78) L 03/08/17 06:00 Alkaline Phosphatase 69 U/L (45-117) 03/08/17 06:00 Total Protein 4.3 g/dl (6.4-8.2) L 03/08/17 06:00 Albumin 1.9 g/dl (3.4-5.0) L 03/08/17 06:00 Problem List - Problems (1) Hematemesis Code(s): K92.0 - HEMATEMESIS (2) Liver cirrhosis Code(s): K74.60 - UNSPECIFIED CIRRHOSIS OF LIVER (3) Hepatitis C Code(s): B19.20 - UNSPECIFIED VIRAL HEPATITIS C WITHOUT HEPATIC COMA (4) Upper GI bleed Code(s): K92.2 - GASTROINTESTINAL HEMORRHAGE, UNSPECIFIED (5) Esophageal stricture Code(s): K22.2 - ESOPHAGEAL OBSTRUCTION (6) Esophagitis Code(s): K20.9 - ESOPHAGITIS, UNSPECIFIED (7) Diabetes Code(s): E11.9 - TYPE 2 DIABETES MELLITUS WITHOUT COMPLICATIONS Assessment/Plan Clinically the same. No acute events overnight, no signs of bleeding. PPI, Carafate, liquid/pureed diet. follow with his optometric tech at [facility] as soon as possible.
--- NOTE | 2017-03-09 10:42 | PN ---
Progress Note (short form) - Note Progress Note: seen and examined GENERAL: Awake, alert, and fully oriented, in no acute distress. HEAD: Normal with no signs of trauma. EARS, NOSE, THROAT: Moist mucous membranes. NECK: Normal range of motion, supple without lymphadenopathy, JVD, or masses. LUNGS: Breath sounds equal, clear to auscultation bilaterally. No wheezes, and no crackles. No accessory muscle use. HEART: irregularly irregular, +S1/S2, tachycardic, without murmur, rub or gallop. ABDOMEN: Soft, tender to palpation in lower abdomen, not distended, normoactive bowel sounds, no guarding, no masses. LOWER EXTREMITIES: ab AKA. No peripheral edema. NEUROLOGICAL: Normal speech. Left UE is paralyzed. SKIN: Warm, dry, normal turgor, no rashes or lesions noted. RECTAL: refused Last Vital Signs Temp Pulse Resp BP Pulse Ox 97.5 F L 79 16 90/50 90 L 03/08/17 14:40 03/08/17 14:40 03/08/17 14:40 03/08/17 14:40 03/08/17 09:00 CBC, BMP 03/08/17 06:35 03/08/17 06:00 Current Medications Generic Name Dose Route Start Last Admin Trade Name Abdiq PRN Reason Stop Dose Admin Amino Acids 30 ml 03/08/17 08:00 Prosource No Carb Liquid Pkt PO BID@0800,1730 ED[facility] Atorvastatin Calcium 40 mg 03/07/17 22:00 03/07/17 21:22 Lipitor - PO Not Given HS EDILSON Digoxin 0.125 mg 03/08/17 10:00 03/08/17 09:29 Lanoxin - PO 0.125 mg DAILY [facility] Administration Docusate Sodium 100 mg 03/07/17 22:00 03/08/17 15:02 Colace - PO Not Given TID EDILSON Finasteride 5 mg 03/08/17 10:00 03/08/17 09:28 Proscar - PO 5 mg DAILY [facility] Administration Gabapentin 100 mg 03/07/17 22:00 03/08/17 14:55 Neurontin - PO 100 mg TID [facility] Administration Piperacillin Sod/Tazobactam 100 mls @ 200 mls/hr 03/08/17 02:00 03/08/17 09: 30 Sod 3.375 gm/ Dextrose IVPB 200 mls/hr Q8H-IV [facility] Administration Protocol Sodium Chloride 1,000 mls @ 75 mls/hr 03/08/17 15:15 Normal Saline - IV ASDIR [facility] Insulin Aspart 1 vial 03/08/17 00:00 03/08/17 11:57 Novolog Vial Sliding Scale - SQ Not Given Q6HPO [facility] Protocol Multivitamins/Minerals/Vitamin C 1 tab 03/08/17 10:00 03/08/17 09:28 Tab-A-Vit - PO 1 tab DAILY [facility] Administration Nicotine 21 mg 03/08/17 10:00 03/08/17 09:28 Nicoderm Patch - TD 21 mg DAILY [facility] Administration Ondansetron HCl 4 mg 03/07/17 18:24 Zofran Injection IVPUSH Q4H PRN NAUSEA AND/OR VOMITING Pantoprazole Sodium 40 mg 03/08/17 10:00 03/08/17 09:30 Protonix Packets For Oral Suspension - PO 40 mg DAILY [facility] Administration Polyethylene Glycol 17 gm 03/07/17 22:00 03/08/17 09:31 Miralax (For Daily Use) - PO 17 gm BID [facility] Administration Senna/Docusate Sodium 1 tablet 03/07/17 22:00 03/08/17 09:29 Pericolace - PO 1 tablet BID [facility] Administration Sucralfate 1 gm 03/08/17 07:52 03/08/17 11:53 Carafate Oral Suspension - PO 1 gm TIDAC [facility] Administration Tamsulosin HCl 0.4 mg 03/08/17 08:30 03/08/17 09:30 Flomax - PO 0.4 mg DAILY@0830 [facility] Administration Thrombocytopenia: :likely infection/med related. Will follow the trend Sepsis - on zosyn, stable Upper GI bleed- asymptomatic currently and Hb stable A fib Arterial thrombosis in the major arteries inc. abdomainl aorta -possible atherosclerotic disease with secondary thrombosis. AC with any Rx was not being given due to GIB.
[2017-03-09] MEDS: SODIUM CHLORIDE 1,000 ML IV SCH ×2 (10:51→17:11)
[2017-03-09] MEDS: MULTIVITAMINS (DAILY MVI) TABLET (FP) PO SCH (10:52)
[2017-03-09] MEDS: NICOTINE 21 MG/24 HOURS TOPICAL PATCH TD SCH (10:52)
[2017-03-09] MEDS: SENNOSIDES/DOCUSATE COMBO (SENNA PLUS) TABLET (UD) PO SCH ×2 (10:52→22:33)
[2017-03-09] MEDS: PANTOPRAZOLE SOD 40 MG SUSPENSION PACKET PO SCH (10:52)
[2017-03-09] MEDS: AMINO ACIDS/PROTEIN HYDROLYS 30 ML LIQUID.PKT PO SCH ×2 (10:52→17:07)
[2017-03-09] MEDS: FINASTERIDE 5 MG TABLET (FP) PO SCH (10:52)
[2017-03-09] MEDS: TAMSULOSIN HCL 0.4 MG CAP.ER.24H (FP) PO SCH (10:53)
[2017-03-09] MEDS: DIGOXIN 0.25 MG TABLET (FP) PO SCH (10:53)
[2017-03-09] MEDS: POLYETHYLENE GLYCOL 3350 119 GM BTL PO SCH ×2 (10:56→22:33)
--- NOTE | 2017-03-09 12:14 | PN ---
Progress Note (short form) - Note Progress Note: Chief Complaint: afib History of Present Illness: denies cp, sob, palpitations, syncope. + cigs Current Medications Generic Name Dose Route Start Last Admin Trade Name Freq PRN Reason Stop Dose Admin Acetaminophen 650 mg 03/08/17 19:07 03/09/17 01:55 Tylenol - PO 650 mg DAILY PRN Administration PAIN OR FEVER Amino Acids 30 ml 03/08/17 08:00 03/09/17 10:52 Prosource No Carb Liquid Pkt PO 30 ml BID@0800,1730 [facility] Administration Atorvastatin Calcium 40 mg 03/07/17 22:00 03/08/17 21:03 Lipitor - PO Not Given HS EDIL[facility] Digoxin 0.125 mg 03/08/17 10:00 03/09/17 10:53 Lanoxin - PO 0.125 mg DAILY [facility] Administration Docusate Sodium 100 mg 03/07/17 22:00 03/09/17 06:03 Colace - PO Not Given TID [facility] Finasteride 5 mg 03/08/17 10:00 03/09/17 10:52 Proscar - PO 5 mg DAILY [facility] Administration Gabapentin 100 mg 03/07/17 22:00 03/09/17 06:03 Neurontin - PO 100 mg TID [facility] Administration Piperacillin Sod/Tazobactam 100 mls @ 200 mls/hr 03/08/17 02:00 03/09/17 10: 52 Sod 3.375 gm/ Dextrose IVPB 200 mls/hr Q8H-IV [facility] Administration Protocol Sodium Chloride 1,000 mls @ 75 mls/hr 03/08/17 15:15 03/09/17 10:51 Normal Saline - IV 75 mls/hr ASDIR [facility] Administration Insulin Aspart 1 vial 03/08/17 00:00 03/09/17 11:13 Novolog Vial Sliding Scale - SQ Not Given Q6HPO [facility] Protocol Multivitamins/Minerals/Vitamin C 1 tab 03/08/17 10:00 03/09/17 10:52 Tab-A-Vit - PO 1 tab DAILY [facility] Administration Nicotine 21 mg 03/08/17 10:00 03/09/17 10:52 Nicoderm Patch - TD 21 mg DAILY [facility] Administration Ondansetron HCl 4 mg 03/07/17 18:24 Zofran Injection IVPUSH Q4H PRN NAUSEA AND/OR VOMITING Pantoprazole Sodium 40 mg 03/08/17 10:00 03/09/17 10:52 Protonix Packets For Oral Suspension - PO 40 mg DAILY [facility] Administration Polyethylene Glycol 17 gm 03/07/17 22:00 03/09/17 10:56 Miralax (For Daily Use) - PO Not Given BID [facility] Senna/Docusate Sodium 1 tablet 03/07/17 22:00 03/09/17 10:52 Pericolace - PO Not Given BID [facility] Sucralfate 1 gm 03/08/17 07:52 03/09/17 10:52 Carafate Oral Suspension - PO 1 gm TIDAC [facility] Administration Tamsulosin HCl 0.4 mg 03/08/17 08:30 03/09/17 10:53 Flomax - PO 0.4 mg DAILY@0830 [facility] Administration - Objective Vital Signs: Vital Signs Period Temp Pulse Resp BP Sys/Guevara Pulse Ox Last 24 Hr 97.3 F-98.1 F 70-91 16-18 90-129/50-67 98-99 Constitutional: Yes: No Distress, Calm, cachectic Eyes: No: Sclera Icterus HENT: No: Nasal Congestion Cardiovascular: Yes: Regular Rate and Rhythm (decr intensity), S1, S2, Other ( PMI non diplaced). No: Gallop, Murmur Respiratory: Yes: CTA Bilaterally. No: Accessory Muscle Use, Rales, Wheezes Gastrointestinal: Yes: Normal Bowel Sounds, Soft. No: Tenderness Musculoskeletal: Yes: Other (No kyphosis) Extremities: Yes: Other (bilat AKAs). No: Cold Edema: No Integumentary: No: Jaundice Neurological: Yes: Alert, Oriented Psychiatric: No: Agitated Labs: CBC, BMP 03/09/17 05:35 03/09/17 05:35 Echo 10/03 ([facility]J): nl LVSF; nl RV; valves WNL MPI 08/01 (pers): no STs; small infero-apical ischemia. nl EF. 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 rapid AF as well, currently in sinus -was not anticoagulated due to recurrent GI bleeding -per hospitalist, no source of hematemesis found on prior EGDs (no varices)-- does not seem he will be able to tolerate Watchman device implant with 6 wks AC and then 6 wks DAPT post, given frequency of GIBs and hence prohibitive risk of life threatening bleeding. anti-PLT therapy eventually?--as below -per prior notes, "did not tolerate" bb and CCBs (? low bp's)--managed with digoxin. per hospitalist, pt gives history that his auto wash buffer (in [employer], does not recall name) changed dig to dilt at some point - remains hypotensive again--digoxin only for now (level ok here). hypotension: -? etiology: GI bleed? sepsis ? (= hi wbc, normal temps) -no signs chf--ok for IVF, stopped CCB as disc'd -mentating clearly at present h/o CAD, (+) troponin: -prior notes here reviewed--pt had abnormal stress test 2013 (as above), ? had PCI previously -since he has been a pt here from 2016 onwards, has never been on DAPT per prior notes, only plavix monotherapy -troponins here intermediate range 0.06-->0.08, not c/w ACS at this time. no isch ecg. f/u 3rd trop today -Likely demand ischemia in setting of rapid Afib and hypotension, ? underlying CAD -has h/o recurrent GIB's here in past--would resume either ASA or plavix alone when/if safe, per GI -Continue home statin, per his outpt cardio (LFTs normal) -given low risk stress test findings, and pt inability to tolerate DAPT for any period of time, will not pursue invasive workup acute LE ischemia, PAD: -CTA here with occluded Left common iliac / Left external iliac / Left femoral arteries new since 08/2016, long segment intramural thrombus with calcified and non-calcified atherosclerotic plaque along the abdominal aorta resulting in mild -moderate luminal narrowing and narrowing of the origins of the major visceral branches. -note: the main indication for anti-platelets or AC agents at present time is for limb salvage, per vascular opinion (CAD hx and AFib are less urgent, given risk of stent thrombosis (not recent stent) or cardioembolic CVA are numerically low in the short term) -vascular consult appreciated--> no intervention at this time. HTN: -bp currently low, hold anti-hypertensive meds
--- NOTE | 2017-03-09 12:42 | PN ---
Progress Note, Physician History of Present Illness: pulmonary alert,nad,-sob - Current Medication List Current Medications: Active Medications Acetaminophen (Tylenol -) 650 mg PO DAILY PRN PRN Reason: PAIN OR FEVER Last Admin: 03/09/17 01:55 Dose: 650 mg Amino Acids (Prosource No Carb Liquid Pkt) 30 ml PO BID@0800,1730 [facility] Last Admin: 03/09/17 10:52 Dose: 30 ml Atorvastatin Calcium (Lipitor -) 40 mg PO HS [facility] Last Admin: 03/08/17 21:03 Dose: Not Given Digoxin (Lanoxin -) 0.125 mg PO DAILY [facility] Last Admin: 03/09/17 10:53 Dose: 0.125 mg Docusate Sodium (Colace -) 100 mg PO TID [facility] Last Admin: 03/09/17 06:03 Dose: Not Given Finasteride (Proscar -) 5 mg PO DAILY [facility] Last Admin: 03/09/17 10:52 Dose: 5 mg Gabapentin (Neurontin -) 100 mg PO TID [facility] Last Admin: 03/09/17 06:03 Dose: 100 mg Piperacillin Sod/Tazobactam (Sod 3.375 gm/ Dextrose) 100 mls @ 200 mls/hr IVPB Q8H-IV [facility] PRN Reason: Protocol Last Admin: 03/09/17 10:52 Dose: 200 mls/hr Sodium Chloride (Normal Saline -) 1,000 mls @ 75 mls/hr IV ASDIR [facility] Last Admin: 03/09/17 10:51 Dose: 75 mls/hr Insulin Aspart (Novolog Vial Sliding Scale -) 1 vial SQ Q6HPO [facility] PRN Reason: Protocol Last Admin: 03/09/17 11:13 Dose: Not Given Multivitamins/Minerals/Vitamin C (Tab-A-Vit -) 1 tab PO DAILY [facility] Last Admin: 03/09/17 10:52 Dose: 1 tab Nicotine (Nicoderm Patch -) 21 mg TD DAILY [facility] Last Admin: 03/09/17 10:52 Dose: 21 mg Ondansetron HCl (Zofran Injection) 4 mg IVPUSH Q4H PRN PRN Reason: NAUSEA AND/OR VOMITING Pantoprazole Sodium (Protonix Packets For Oral Suspension -) 40 mg PO DAILY [facility] Last Admin: 03/09/17 10:52 Dose: 40 mg Polyethylene Glycol (Miralax (For Daily Use) -) 17 gm PO BID [facility] Last Admin: 03/09/17 10:56 Dose: Not Given Senna/Docusate Sodium (Pericolace -) 1 tablet PO BID [facility] Last Admin: 03/09/17 10:52 Dose: Not Given Sucralfate (Carafate Oral Suspension -) 1 gm PO TIDAC [facility] Last Admin: 03/09/17 10:52 Dose: 1 gm Tamsulosin HCl (Flomax -) 0.4 mg PO DAILY@0830 [facility] Last Admin: 03/09/17 10:53 Dose: 0.4 mg - Objective Vital Signs: Vital Signs Temperature 97.3 F L 03/09/17 05:59 Pulse Rate 79 03/09/17 10:53 Respiratory Rate 18 03/09/17 05:59 Blood Pressure 96/50 03/09/17 05:59 O2 Sat by Pulse Oximetry (%) 98 03/09/17 10:15 Constitutional: Yes: Well Nourished, Calm Eyes: Yes: WNL HENT: Yes: WNL Neck: Yes: WNL Cardiovascular: Yes: Pulse Irregular, S1, S2 Respiratory: Yes: Diminished Gastrointestinal: Yes: Normal Bowel Sounds, Soft Extremities: Yes: Amputation (ab aka) Labs: CBC, BMP 03/09/17 05:35 03/09/17 05:35 INR, PTT INR 0.96 (0.82-1.09) 03/06/17 06:00 Problem List - Problems (1) Sepsis Code(s): A41.9 - SEPSIS, UNSPECIFIED ORGANISM (2) Atrial fibrillation with rapid ventricular response Code(s): I48.91 - UNSPECIFIED ATRIAL FIBRILLATION (3) Liver cirrhosis Code(s): K74.60 - UNSPECIFIED CIRRHOSIS OF LIVER (4) UTI (urinary tract infection) Code(s): N39.0 - URINARY TRACT INFECTION, SITE NOT SPECIFIED Qualifiers: Urinary tract infection type: site unspecified Hematuria presence: without hematuria Qualified Code(s): N39.0 - Urinary tract infection, site not specified (5) CAD (coronary artery disease) Code(s): I25.10 - ATHSCL HEART DISEASE OF [place] CORONARY ARTERY W/O ANG PCTRS (6) CVA (cerebral vascular accident) Code(s): I63.9 - CEREBRAL INFARCTION, UNSPECIFIED (7) S/P AKA (above knee amputation) bilateral Code(s): Z89.611 - ACQUIRED ABSENCE OF RIGHT LEG ABOVE KNEE; Z89.612 - ACQUIRED ABSENCE OF LEFT LEG ABOVE KNEE (8) Bacteremia Code(s): R78.81 - BACTEREMIA (9) Bacteremia due to Enterococcus Code(s): R78.81 - BACTEREMIA; B95.2 - ENTEROCOCCUS THE CAUSE OF DISEASES CLASSIFIED ELSEWHERE Assessment/Plan ASSESSMENT AND PLAN: UTI Bacteremia s/p Severe Sepsis +Troponins likely Demand Ischemia Lactic Acidosis resolved Atrial Fibrillation h/o CVA CAD COPD stable DM HTN Hep C Liver Cirrhosis - antibiotics as per ID - IVF - rate controlled - hold antihypertensives - inhaled bronchodilators - d/c femoral line - PO as tolerated - DVT prophylaxis - pt DNR/DNI DR SCOTT
[2017-03-09] MEDS ORDERED: PT OWN MED DRAWER 7, Y5N ONE (17:03)
--- NOTE | 2017-03-09 19:40 | PN ---
Teaching Attending Note Name of Resident: Janet Murdock ATTENDING PHYSICIAN STATEMENT I saw and evaluated the patient. I reviewed the resident's note and discussed the case with the resident. I agree with the resident's findings and plan as documented. SUBJECTIVE: pATIENT FEELS BETTER with no acute distress, no fever or chills, no shortness of breath OBJECTIVE: Vital Signs Temperature 97.5 F L 03/09/17 18:52 Pulse Rate 80 03/09/17 18:52 Respiratory Rate 18 03/09/17 18:52 Blood Pressure 134/65 03/09/17 18:52 O2 Sat by Pulse Oximetry (%) 98 03/09/17 10:15 CBCD WBC 7.7 K/mm3 (4.0-10.0) 03/09/17 05:35 RBC 4.66 M/mm3 (4.00-5.60) 03/09/17 05:35 Hgb 11.4 GM/dL (11.7-16.9) L D 03/09/17 05:35 Hct 36.6 % (35.4-49) D 03/09/17 05:35 MCV 78.4 fl (80-96) L 03/09/17 05:35 MCHC 31.3 g/dl (32.0-35.9) L 03/09/17 05:35 RDW 18.8 % (11.9-15.9) H 03/09/17 05:35 Plt Count 126 K/MM3 (134-434) L D 03/09/17 05:35 MPV 7.6 fl (7.5-11.1) 03/09/17 05:35 CMP Sodium 142 mmol/L (136-145) 03/09/17 05:35 Potassium 3.9 mmol/L (3.5-5.1) 03/09/17 05:35 Chloride 112 mmol/L (98-107) H 03/09/17 05:35 Carbon Dioxide 19 mmol/L (21-32) L 03/09/17 05:35 Anion Gap 11 (8-16) 03/09/17 05:35 BUN 9 mg/dL (7-18) 03/09/17 05:35 Creatinine 0.4 mg/dL (0.7-1.3) L 03/09/17 05:35 Creat Clearance w eGFR > 60 (>60) 03/08/17 06:00 Random Glucose 53 mg/dL (74-106) L D 03/09/17 05:35 Calcium 7.3 mg/dL (8.5-10.1) L 03/09/17 05:35 Total Bilirubin 0.8 mg/dL (0.2-1.0) 03/08/17 06:00 AST 6 U/L (15-37) L D 03/08/17 06:00 ALT 9 U/L (12-78) L 03/08/17 06:00 Alkaline Phosphatase 69 U/L (45-117) 03/08/17 06:00 Total Protein 4.3 g/dl (6.4-8.2) L 03/08/17 06:00 Albumin 1.9 g/dl (3.4-5.0) L 03/08/17 06:00 CARDIAC ENZYMES Creatine Kinase 20 IU/L (39-308) L 03/07/17 06:15 Troponin I 0.08 ng/ml (0.00-0.05) H 03/07/17 06:15 Current Medications Generic Name Dose Route Start Last Admin Trade Name Freq PRN Reason Stop Dose Admin Acetaminophen 650 mg 03/08/17 19:07 03/09/17 01:55 Tylenol - PO 650 mg DAILY PRN Administration PAIN OR FEVER Amino Acids 30 ml 03/08/17 08:00 03/09/17 17:07 Prosource No Carb Liquid Pkt PO 30 ml BID@0800,1730 [facility] Administration Atorvastatin Calcium 40 mg 03/07/17 22:00 03/08/17 21:03 Lipitor - PO Not Given HS [facility] Digoxin 0.125 mg 03/08/17 10:00 03/09/17 10:53 Lanoxin - PO 0.125 mg DAILY [facility] Administration Docusate Sodium 100 mg 03/07/17 22:00 03/09/17 13:48 Colace - PO Not Given TID [facility] Finasteride 5 mg 03/08/17 10:00 03/09/17 10:52 Proscar - PO 5 mg DAILY [facility] Administration Gabapentin 100 mg 03/07/17 22:00 03/09/17 13:48 Neurontin - PO 100 mg TID [facility] Administration Piperacillin Sod/Tazobactam 100 mls @ 200 mls/hr 03/08/17 02:00 12/20/17 17: 07 Sod 3.375 gm/ Dextrose IVPB 200 mls/hr Q8H-IV [facility] Administration Protocol Sodium Chloride 1,000 mls @ 75 mls/hr 03/08/17 15:15 03/09/17 17:11 Normal Saline - IV Not Given ASDIR [facility] Insulin Aspart 1 vial 03/08/17 00:00 03/09/17 17:12 Novolog Vial Sliding Scale - SQ Not Given Q6HPO [facility] Protocol Multivitamins/Minerals/Vitamin C 1 tab 03/08/17 10:00 03/09/17 10:52 Tab-A-Vit - PO 1 tab DAILY [facility] Administration Nicotine 21 mg 03/08/17 10:00 03/09/17 10:52 Nicoderm Patch - TD 21 mg DAILY [facility] Administration Ondansetron HCl 4 mg 03/07/17 18:24 Zofran Injection IVPUSH Q4H PRN NAUSEA AND/OR VOMITING Pantoprazole Sodium 40 mg 03/08/17 10:00 03/09/17 10:52 Protonix Packets For Oral Suspension - PO 40 mg DAILY [facility] Administration Polyethylene Glycol 17 gm 03/07/17 22:00 03/09/17 10:56 Miralax (For Daily Use) - PO Not Given BID [facility] Senna/Docusate Sodium 1 tablet 03/07/17 22:00 03/09/17 10:52 Pericolace - PO Not Given BID [facility] Sucralfate 1 gm 03/08/17 07:52 03/09/17 17:07 Carafate Oral Suspension - PO 1 gm TIDAC [facility] Administration Tamsulosin HCl 0.4 mg 03/08/17 08:30 03/09/17 10:53 Flomax - PO 0.4 mg DAILY@0830 [facility] Administration Home Medications Medication Instructions Recorded Gabapentin [Neurontin -] 100 mg PO TID #90 capsule 07/25/15 Finasteride 5 mg PO DAILY 10/08/15 Docusate Sodium 100 mg PO TID 02/15/16 Tamsulosin HCl 0.4 mg PO DAILY 02/15/16 Famotidine [Pepcid -] 40 mg PO DAILY 03/05/17 Sucralfate [Carafate] 1 gm PO TID 03/05/17 Metoclopramide HCl [Reglan] 5 mg PO TID PRN 03/06/17 PE: comfortable LE: BAKA rest of PE per resident's note ASSESSMENT AND PLAN: Patient is a 70 yo M with PMHx of A Fib , CVA , Upper GI bleeds, esophageal stricture , DVTs , who presented with abd pain, N/V and was found to have severe sepsis . # Severe sepsis; improved likely form UTI.; Urine cx with pseudomonas on IV ZOsyn day 4 , discussed with blood cx with Group D strep in one set, continue Zosyn, continue IVF, discussed with # Upper GI bleed. On PPI continue , continue diet , refused EGD today continue Carafate 1gm # A fib with rate controlled now. continue Dig 0.125 , No AC due to recurrent GI bleeds # Fecal impaction. BMs after enemas , Cont oral regimen ; miralax, morgan /colace #Trop leak: No acute ischemic EKG changes. could be demand, follow trop. 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 at this point can't give anti-plt. #Left common iliac artery, left common iliac artery, left common femoral artery occlusion: off coumadin due GI bleed. As per Dr.Nirav Greenfield: no intervention at this time; conservative. if LL limb becomes cool; may need femoral-femoral artery bypass. DVT Px: [place]rez RUTLED[place], with hx of GI bleed , can't anticoagulate
[2017-03-09] MEDS: ATORVASTATIN CA 40 MG TABLET (FP) PO SCH (22:35)
[2017-03-10] MEDS ORDERED: MAG HYDROX/AL HYDROX/SIMETH 30 ML UNIT-DOSE CUP PO ONE (00:21)
[2017-03-10] MEDS ORDERED: PT OWN MED DRAWER 7, Y5N ONE (01:27)
[2017-03-10] MEDS: PIPERACILLIN/TAZOB 3.375 GM 3.375 GM in DEXTROSE 5%-WATER - 100 ML IVPB SCH ×3 (01:30→17:17)
[2017-03-10] MEDS: INSULIN SLIDING SCALE (NOVOLOG) 1 VIAL SQ SCH ×4 (06:05→22:09)
[2017-03-10] MEDS: DOCUSATE SODIUM 100 MG CAPSULE (FP) PO SCH ×3 (06:05→22:02)
[2017-03-10] MEDS: SUCRALFATE 1 GM/10 ML UNIT DOSE CUPS PO SCH ×3 (06:11→17:19)
[2017-03-10] MEDS: GABAPENTIN 100 MG CAPSULE (FP) PO SCH ×3 (06:11→22:09)
[2017-03-10 07:49] LABS: BASO % 1.2 % (0-2.0); EOS % 9.2 % (0-4.5); MCH 24.5 pg (25.7-33.7); MCHC 31.6 g/dl (32.0-35.9); MEAN CELL VOLUME 77.6 fl (80-96); MEAN PLT VOLUME 6.4 fl (7.5-11.1); PLATELET COUNT 209 K/MM3 (134-434); RDW 18.7 % (11.9-15.9); WHITE BLOOD COUNT 6.6 K/mm3 (4.0-10.0)
[2017-03-10 08:28] LABS: ALK PHOS 92 U/L (45-117); ANION GAP 11 (8-16); BILIRUBIN,TOTAL 0.7 mg/dL (0.2-1.0); CALCIUM 7.7 mg/dL (8.5-10.1); CO2 20 mmol/L (21-32); CREATININE 0.6 mg/dL (0.7-1.3); GLUCOSE,RANDOM 101 mg/dL (74-106); SGOT/AST 7 U/L (15-37); SGPT/ALT 9 U/L (12-78); TOT PROT 4.5 g/dl (6.4-8.2)
[2017-03-10] MEDS: ACETAMINOPHEN 325 MG TABLET (FP) PO PRN (09:49)
[2017-03-10] MEDS: DIGOXIN 0.25 MG TABLET (FP) PO SCH (09:50)
[2017-03-10] MEDS: MULTIVITAMINS (DAILY MVI) TABLET (FP) PO SCH (09:50)
[2017-03-10] MEDS: FINASTERIDE 5 MG TABLET (FP) PO SCH (09:50)
[2017-03-10] MEDS: AMINO ACIDS/PROTEIN HYDROLYS 30 ML LIQUID.PKT PO SCH ×2 (09:51→17:19)
[2017-03-10] MEDS: TAMSULOSIN HCL 0.4 MG CAP.ER.24H (FP) PO SCH (09:51)
[2017-03-10] MEDS: POLYETHYLENE GLYCOL 3350 119 GM BTL PO SCH ×2 (09:51→22:09)
[2017-03-10] MEDS: PANTOPRAZOLE SOD 40 MG SUSPENSION PACKET PO SCH (09:51)
[2017-03-10] MEDS: NICOTINE 21 MG/24 HOURS TOPICAL PATCH TD SCH (09:52)
[2017-03-10] MEDS: SENNOSIDES/DOCUSATE COMBO (SENNA PLUS) TABLET (UD) PO SCH ×2 (09:54→22:09)
--- NOTE | 2017-03-10 10:20 | PN ---
Physical Exam: SUBJECTIVE: Patient seen and examined. Offers no complains. Denies chest pain, sob, fever, chills. Last BM was this morning. Eating and voiding well. OBJECTIVE: Vital Signs Period Temp Pulse Resp BP Sys/Guevara Pulse Ox Last 24 Hr 97.5 F-98.2 F 70-91 16-18 105-134/54-74 96-99 GENERAL: thin, elderly man, lying comfortably in bed, nad, aaox3 EYES: sclera anicteric, conjunctiva clear ENT: oropharynx clear without exudates, moist mucous membranes LUNGS: CTAB, no wheezes, no crackles, no accessory muscle use. HEART: rrr, normal S1/S2, no m/r/g ABDOMEN: Soft, ntnd, normoactive BS EXTREMITIES: bilateral AKAs, no ulcers NEUROLOGICAL: CN II-XII intact Normal speech, L hemiparesis unchanged CBC, BMP 03/10/17 07:30 03/10/17 07:30 Hepatic Panel Total Bilirubin 0.7 mg/dL (0.2-1.0) 03/10/17 07:30 AST 7 U/L (15-37) L 03/10/17 07:30 ALT 9 U/L (12-78) L 03/10/17 07:30 Alkaline Phosphatase 92 U/L (45-117) D 03/10/17 07:30 Albumin 2.0 g/dl (3.4-5.0) L 03/10/17 07:30 Microbiology 03/08/17 06:35 Blood - Peripheral Venous Blood Culture - Preliminary NO GROWTH OBTAINED AFTER 48 HOURS, INCUBATION TO CONTINUE FOR 3 DAYS. 03/08/17 06:30 Blood - Peripheral Venous Blood Culture - Preliminary NO GROWTH OBTAINED AFTER 48 HOURS, INCUBATION TO CONTINUE FOR 3 DAYS. 03/05/17 17:50 Blood - Peripheral Venous Blood Culture - Preliminary NO GROWTH OBTAINED AFTER 96 HOURS, INCUBATION TO CONTINUE FOR 1 DAYS. 03/05/17 17:50 Blood - Peripheral Venous Blood Culture - Final Enterococcus Faecalis 03/05/17 20:45 Urine - Urine Clean Catch Urine Culture - Final Pseudomonas Aeruginosa Active Medications Amino Acids (Prosource No Carb Liquid Pkt) 30 ml PO BID@0800,1730 [facility] Last Admin: 03/10/17 09:51 Dose: 30 ml Atorvastatin Calcium (Lipitor -) 40 mg PO HS [facility] Last Admin: 03/09/17 22:35 Dose: 40 mg Digoxin (Lanoxin -) 0.125 mg PO DAILY [facility] Last Admin: 03/10/17 09:50 Dose: 0.125 mg Docusate Sodium (Colace -) 100 mg PO TID [facility] Last Admin: 03/10/17 06:05 Dose: Not Given Finasteride (Proscar -) 5 mg PO DAILY [facility] Last Admin: 03/10/17 09:50 Dose: 5 mg Gabapentin (Neurontin -) 100 mg PO TID [facility] Last Admin: 03/10/17 06:11 Dose: 100 mg Piperacillin Sod/Tazobactam (Sod 3.375 gm/ Dextrose) 100 mls @ 200 mls/hr IVPB Q8H-IV [facility] PRN Reason: Protocol Last Admin: 03/10/17 09:49 Dose: 200 mls/hr Sodium Chloride (Normal Saline -) 1,000 mls @ 75 mls/hr IV ASDIR [facility] Last Admin: 03/09/17 17:11 Dose: Not Given Insulin Aspart (Novolog Vial Sliding Scale -) 1 vial SQ ACHS [facility] PRN Reason: Protocol Last Admin: 03/10/17 06:05 Dose: Not Given Multivitamins/Minerals/Vitamin C (Tab-A-Vit -) 1 tab PO DAILY [facility] Last Admin: 03/10/17 09:50 Dose: 1 tab Nicotine (Nicoderm Patch -) 21 mg TD DAILY [facility] Last Admin: 03/10/17 09:52 Dose: 21 mg Ondansetron HCl (Zofran Injection) 4 mg IVPUSH Q4H PRN PRN Reason: NAUSEA AND/OR VOMITING Pantoprazole Sodium (Protonix Packets For Oral Suspension -) 40 mg PO DAILY [facility] Last Admin: 03/10/17 09:51 Dose: 40 mg Polyethylene Glycol (Miralax (For Daily Use) -) 17 gm PO BID [facility] Last Admin: 03/10/17 09:51 Dose: Not Given Senna/Docusate Sodium (Pericolace -) 1 tablet PO BID [facility] Last Admin: 03/10/17 09:54 Dose: Not Given Sucralfate (Carafate Oral Suspension -) 1 gm PO TIDAC [facility] Last Admin: 03/10/17 06:11 Dose: 1 gm Tamsulosin HCl (Flomax -) 0.4 mg PO DAILY@0830 [facility] Last Admin: 03/10/17 09:51 Dose: 0.4 mg ASSESSMENT/PLAN: 70yo man with PMH of AFib (off AC), CVA (residual L sided hemiparesis), recurrent UGIBs, recurrent UTIs (+Pseudomonas), GERD with Armstrong's, esophageal stricture, and DVTs who p/w hematemesis and bilious vomiting, found to have severe sepsis. #severe sepsis, improving 2/2 Pseudomonas+ UTI and Enterococcus bacteremia ( sensitive to ampicillin) -case d/w ID. -Continue Zosyn IV for UTI/bacteremia. Abx Day 5. Will d/c on Ampicillin PO. -Repeat blood culture [id number] hours #Mild thrombocytopenia, resolved (126 --> 209k today), likely 2/2 to infection/ medication -Trend for now #Hemetemesis, suspect UGIB given prior history -GI consulted. 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 Thrombus possible sequelae of atherosclerotic placques, DAVION mutation pending -Vascular surgery consulted - no surgical intervention at this time; Fem-fem bypass if limb becomes cold #BPH - Continue home Proscar and Flomax #FEN: -NS@75cc/hr -lytes wnl -Full lq diet with double soups and yogurt, MVI, Prosource 30ml BID #PPX -DVT - SCD's (AC c/i) -GI - on PPI #DISPO: continue tele monitoring, anticipate discharge tomorrow. DNR/DNI d/w Dr. Ana Murdock MD PGY1 - Internal Medicine Visit type - Emergency Visit Emergency Visit: No - New Patient This patient is new to me today: No - Critical Care Critical Care patient: No
--- NOTE | 2017-03-10 10:23 | PN ---
Progress Note (short form) - Note Progress Note: Chief Complaint: afib History of Present Illness: denies cp, sob, palpitations, syncope. + cigs Current Medications Generic Name Dose Route Start Last Admin Trade Name Freq PRN Reason Stop Dose Admin Amino Acids 30 ml 03/08/17 08:00 03/10/17 09:51 Prosource No Carb Liquid Pkt PO 30 ml BID@0800,1730 [facility] Administration Atorvastatin Calcium 40 mg 03/07/17 22:00 03/09/17 22:35 Lipitor - PO 40 mg HS [facility] Administration Digoxin 0.125 mg 03/08/17 10:00 03/10/17 09:50 Lanoxin - PO 0.125 mg DAILY [facility] Administration Docusate Sodium 100 mg 03/07/17 22:00 03/10/17 06:05 Colace - PO Not Given TID [facility] Finasteride 5 mg 03/08/17 10:00 03/10/17 09:50 Proscar - PO 5 mg DAILY [facility] Administration Gabapentin 100 mg 03/07/17 22:00 03/10/17 06:11 Neurontin - PO 100 mg TID [facility] Administration Piperacillin Sod/Tazobactam 100 mls @ 200 mls/hr 03/08/17 02:00 03/10/17 09: 49 Sod 3.375 gm/ Dextrose IVPB 200 mls/hr Q8H-IV [facility] Administration Protocol Sodium Chloride 1,000 mls @ 75 mls/hr 03/08/17 15:15 03/09/17 17:11 Normal Saline - IV Not Given ASDIR [facility] Insulin Aspart 1 vial 03/10/17 07:00 03/10/17 06:05 Novolog Vial Sliding Scale - SQ Not Given ACHS [facility] Protocol Multivitamins/Minerals/Vitamin C 1 tab 03/08/17 10:00 03/10/17 09:50 Tab-A-Vit - PO 1 tab DAILY [facility] Administration Nicotine 21 mg 03/08/17 10:00 03/10/17 09:52 Nicoderm Patch - TD 21 mg DAILY [facility] Administration Ondansetron HCl 4 mg 03/07/17 18:24 Zofran Injection IVPUSH Q4H PRN NAUSEA AND/OR VOMITING Pantoprazole Sodium 40 mg 03/08/17 10:00 03/10/17 09:51 Protonix Packets For Oral Suspension - PO 40 mg DAILY [facility] Administration Polyethylene Glycol 17 gm 03/07/17 22:00 03/10/17 09:51 Miralax (For Daily Use) - PO Not Given BID [facility] Senna/Docusate Sodium 1 tablet 03/07/17 22:00 03/10/17 09:54 Pericolace - PO Not Given BID [facility] Sucralfate 1 gm 03/08/17 07:52 03/10/17 06:11 Carafate Oral Suspension - PO 1 gm TIDAC [facility] Administration Tamsulosin HCl 0.4 mg 03/08/17 08:30 03/10/17 09:51 Flomax - PO 0.4 mg DAILY@0830 [facility] Administration - Objective Vital Signs: Vital Signs Period Temp Pulse Resp BP Sys/Guevara Pulse Ox Last 24 Hr 97.5 F-98.2 F 71-91 16-18 105-134/54-74 96-99 Constitutional: Yes: No Distress, Calm, cachectic Eyes: No: Sclera Icterus HENT: No: Nasal Congestion Cardiovascular: Yes: Regular Rate and Rhythm (decr intensity), S1, S2, Other ( PMI non diplaced). No: Gallop, Murmur Respiratory: Yes: CTA Bilaterally. No: Accessory Muscle Use, Rales, Wheezes Gastrointestinal: Yes: Normal Bowel Sounds, Soft. No: Tenderness Musculoskeletal: Yes: Other (No kyphosis) Extremities: Yes: Other (bilat AKAs). No: Cold Edema: No Integumentary: No: Jaundice Neurological: Yes: Alert, Oriented Psychiatric: No: Agitated Labs: CBC, BMP 03/10/17 07:30 03/10/17 07:30 Echo 10/03 ([facility]): nl LVSF; nl RV; valves WNL MPI 08/01 (pers): no STs; small infero-apical ischemia. nl EF. 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 rapid AF as well, currently in sinus -was not anticoagulated due to recurrent GI bleeding -per hospitalist, no source of hematemesis found on prior EGDs (no varices)-- does not seem he will be able to tolerate Watchman device implant with 6 wks AC and then 6 wks DAPT post, given frequency of GIBs and hence prohibitive risk of life threatening bleeding. anti-PLT therapy eventually?--as below -per prior notes, "did not tolerate" bb and CCBs (? low bp's)--managed with digoxin. 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 etiology: GI bleed? sepsis ? (= hi wbc, normal temps) -no signs chf--ok for IVF, stopped CCB as disc'd -mentating clearly at present h/o CAD, (+) troponin: -prior notes here reviewed--pt had abnormal stress test 2013 (as above), ? had PCI previously -since he has been a pt here from 2015 onwards, has never been on DAPT per prior notes, only plavix monotherapy -troponins here intermediate range 0.06-->0.08, not c/w ACS at this time. no isch ecg. f/u 3rd trop today -Likely demand ischemia in setting of rapid Afib and hypotension, ? underlying CAD -has h/o recurrent GIB's here in past--would resume either ASA or plavix alone when/if safe, per GI -Continue home statin, per his outpt cardio (LFTs normal) -given low risk stress test findings, and pt inability to tolerate DAPT for any period of time, will not pursue invasive workup acute LE ischemia, PAD: -CTA here with occluded Left common iliac / Left external iliac / Left femoral arteries new since 08/2016, long segment intramural thrombus with calcified and non-calcified atherosclerotic plaque along the abdominal aorta resulting in mild -moderate luminal narrowing and narrowing of the origins of the major visceral branches. -note: the main indication for anti-platelets or AC agents at present time is for limb salvage, per vascular opinion (CAD hx and AFib are less urgent, given risk of stent thrombosis (not recent stent) or cardioembolic CVA are numerically low in the short term) -vascular consult appreciated--> no intervention at this time. HTN: -bp currently low, hold anti-hypertensive meds
--- NOTE | 2017-03-10 11:04 | PN ---
Teaching Attending Note Name of Resident: Janet Murdock ATTENDING PHYSICIAN STATEMENT I saw and evaluated the patient. I reviewed the resident's note and discussed the case with the resident. I agree with the resident's findings and plan as documented. SUBJECTIVE: OBJECTIVE: Vital Signs Temperature 98.2 F 03/10/17 09:00 Pulse Rate 91 H 03/10/17 09:50 Respiratory Rate 18 03/10/17 09:00 Blood Pressure 114/65 03/10/17 09:00 O2 Sat by Pulse Oximetry (%) 96 03/10/17 09:00 CBCD WBC 6.6 K/mm3 (4.0-10.0) 03/10/17 07:30 RBC 4.53 M/mm3 (4.00-5.60) 03/10/17 07:30 Hgb 11.1 GM/dL (11.7-16.9) L 03/10/17 07:30 Hct 35.2 % (35.4-49) L 03/10/17 07:30 MCV 77.6 fl (80-96) L 03/10/17 07:30 MCHC 31.6 g/dl (32.0-35.9) L 03/10/17 07:30 RDW 18.7 % (11.9-15.9) H 03/10/17 07:30 Plt Count 209 K/MM3 (134-434) D 03/10/17 07:30 MPV 6.4 fl (7.5-11.1) L D 03/10/17 07:30 CMP Sodium 140 mmol/L (136-145) 03/10/17 07:30 Potassium 3.8 mmol/L (3.5-5.1) 03/10/17 07:30 Chloride 109 mmol/L (98-107) H 03/10/17 07:30 Carbon Dioxide 20 mmol/L (21-32) L 03/10/17 07:30 Anion Gap 11 (8-16) 03/10/17 07:30 BUN 7 mg/dL (7-18) D 03/10/17 07:30 Creatinine 0.6 mg/dL (0.7-1.3) L D 03/10/17 07:30 Creat Clearance w eGFR > 60 (>60) 03/10/17 07:30 Random Glucose 101 mg/dL (74-106) D 03/10/17 07:30 Calcium 7.7 mg/dL (8.5-10.1) L 03/10/17 07:30 Total Bilirubin 0.7 mg/dL (0.2-1.0) 03/10/17 07:30 AST 7 U/L (15-37) L 03/10/17 07:30 ALT 9 U/L (12-78) L 03/10/17 07:30 Alkaline Phosphatase 92 U/L (45-117) D 03/10/17 07:30 Total Protein 4.5 g/dl (6.4-8.2) L 03/10/17 07:30 Albumin 2.0 g/dl (3.4-5.0) L 03/10/17 07:30 CARDIAC ENZYMES Creatine Kinase 20 IU/L (39-308) L 03/07/17 06:15 Troponin I 0.08 ng/ml (0.00-0.05) H 03/07/17 06:15 Current Medications Generic Name Dose Route Start Last Admin Trade Name Macho PRN Reason Stop Dose Admin Amino Acids 30 ml 03/08/17 08:00 03/10/17 09:51 Prosource No Carb Liquid Pkt PO 30 ml BID@0800,1730 [facility] Administration Atorvastatin Calcium 40 mg 03/07/17 22:00 03/09/17 22:35 Lipitor - PO 40 mg HS [facility] Administration Digoxin 0.125 mg 03/08/17 10:00 03/10/17 09:50 Lanoxin - PO 0.125 mg DAILY [facility] Administration Docusate Sodium 100 mg 03/07/17 22:00 03/10/17 06:05 Colace - PO Not Given TID [facility] Finasteride 5 mg 03/08/17 10:00 03/10/17 09:50 Proscar - PO 5 mg DAILY [facility] Administration Gabapentin 100 mg 03/07/17 22:00 03/10/17 06:11 Neurontin - PO 100 mg TID [facility] Administration Piperacillin Sod/Tazobactam 100 mls @ 200 mls/hr 03/08/17 02:00 03/10/17 09: 49 Sod 3.375 gm/ Dextrose IVPB 200 mls/hr Q8H-IV [facility] Administration Protocol Sodium Chloride 1,000 mls @ 75 mls/hr 03/08/17 15:15 12/20/17 17:11 Normal Saline - IV Not Given ASDIR [facility] Insulin Aspart 1 vial 03/10/17 07:00 03/10/17 06:05 Novolog Vial Sliding Scale - SQ Not Given ACHS [facility] Protocol Multivitamins/Minerals/Vitamin C 1 tab 03/08/17 10:00 03/10/17 09:50 Tab-A-Vit - PO 1 tab DAILY [facility] Administration Nicotine 21 mg 03/08/17 10:00 03/10/17 09:52 Nicoderm Patch - TD 21 mg DAILY [facility] Administration Ondansetron HCl 4 mg 03/07/17 18:24 Zofran Injection IVPUSH Q4H PRN NAUSEA AND/OR VOMITING Pantoprazole Sodium 40 mg 03/08/17 10:00 03/10/17 09:51 Protonix Packets For Oral Suspension - PO 40 mg DAILY [facility] Administration Polyethylene Glycol 17 gm 03/07/17 22:00 03/10/17 09:51 Miralax (For Daily Use) - PO Not Given BID [facility] Senna/Docusate Sodium 1 tablet 03/07/17 22:00 03/10/17 09:54 Pericolace - PO Not Given BID [facility] Sucralfate 1 gm 03/08/17 07:52 03/10/17 06:11 Carafate Oral Suspension - PO 1 gm TIDAC [facility] Administration Tamsulosin HCl 0.4 mg 03/08/17 08:30 03/10/17 09:51 Flomax - PO 0.4 mg DAILY@0830 [facility] Administration Home Medications Medication Instructions Recorded Gabapentin [Neurontin -] 100 mg PO TID #90 capsule 07/25/15 Finasteride 5 mg PO DAILY 10/08/15 Docusate Sodium 100 mg PO TID 02/15/16 Tamsulosin HCl 0.4 mg PO DAILY 02/15/16 Famotidine [Pepcid -] 40 mg PO DAILY 03/05/17 Sucralfate [Carafate] 1 gm PO TID 03/05/17 Metoclopramide HCl [Reglan] 5 mg PO TID PRN 03/06/17 Microbiology 03/08/17 06:35 Blood - Peripheral Venous Blood Culture - Preliminary NO GROWTH OBTAINED AFTER 48 HOURS, INCUBATION TO CONTINUE FOR 3 DAYS. 03/08/17 06:30 Blood - Peripheral Venous Blood Culture - Preliminary NO GROWTH OBTAINED AFTER 48 HOURS, INCUBATION TO CONTINUE FOR 3 DAYS. 03/05/17 17:50 Blood - Peripheral Venous Blood Culture - Preliminary NO GROWTH OBTAINED AFTER 96 HOURS, INCUBATION TO CONTINUE FOR 1 DAYS. 03/05/17 17:50 Blood - Peripheral Venous Blood Culture - Final Enterococcus Faecalis 03/05/17 20:45 Urine - Urine Clean Catch Urine Culture - Final Pseudomonas Aeruginosa PE: comfortable LE: BAKA rest of PE per resident's note ASSESSMENT AND PLAN: Patient is a 70 yo M with PMHx of A Fib , CVA , Upper GI bleeds, esophageal stricture , DVTs , who presented with abd pain, N/V and was found to have severe sepsis . # Severe sepsis; improved likely form UTI.; Urine cx with pseudomonas on IV ZOsyn day 5, discussed with another day of IV Zosyn then will discharge patient home with PO Ampicillin for another 5 days. # S/p acute Upper GI bleed. On PPI continue , continue diet , refused EGD today continue Carafate 1gm # A fib with rate controlled now. continue Dig 0.125 , No AC due to recurrent GI bleeds # Fecal impaction. BMs after enemas , Cont oral regimen ; miralax, morgan /colace #Trop leak: No acute ischemic EKG changes. could be demand, follow trop. 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 at this point can't give anti-plt. #Left common iliac artery, left common iliac artery, left common femoral artery occlusion: off coumadin due GI bleed. As per Dr.Nirav Greenfield: no intervention at this time; conservative. if LL limb becomes cool; may need femoral-femoral artery bypass. DVT Px: AKA BL, with hx of GI bleed , can't anticoagulate
--- NOTE | 2017-03-10 11:53 | PN ---
Progress Note, Physician History of Present Illness: stable doing well wants to go home - Current Medication List Current Medications: Active Medications Amino Acids (Prosource No Carb Liquid Pkt) 30 ml PO BID@0800,1730 [facility] Last Admin: 03/10/17 09:51 Dose: 30 ml Atorvastatin Calcium (Lipitor -) 40 mg PO HS [facility] Last Admin: 03/09/17 22:35 Dose: 40 mg Digoxin (Lanoxin -) 0.125 mg PO DAILY [facility] Last Admin: 03/10/17 09:50 Dose: 0.125 mg Docusate Sodium (Colace -) 100 mg PO TID [facility] Last Admin: 03/10/17 06:05 Dose: Not Given Finasteride (Proscar -) 5 mg PO DAILY [facility] Last Admin: 03/10/17 09:50 Dose: 5 mg Gabapentin (Neurontin -) 100 mg PO TID [facility] Last Admin: 03/10/17 06:11 Dose: 100 mg Piperacillin Sod/Tazobactam (Sod 3.375 gm/ Dextrose) 100 mls @ 200 mls/hr IVPB Q8H-IV [facility] PRN Reason: Protocol Last Admin: 03/10/17 09:49 Dose: 200 mls/hr Sodium Chloride (Normal Saline -) 1,000 mls @ 75 mls/hr IV ASDIR [facility] Last Admin: 03/09/17 17:11 Dose: Not Given Insulin Aspart (Novolog Vial Sliding Scale -) 1 vial SQ ACHS [facility] PRN Reason: Protocol Last Admin: 03/10/17 06:05 Dose: Not Given Multivitamins/Minerals/Vitamin C (Tab-A-Vit -) 1 tab PO DAILY [facility] Last Admin: 03/10/17 09:50 Dose: 1 tab Nicotine (Nicoderm Patch -) 21 mg TD DAILY [facility] Last Admin: 03/10/17 09:52 Dose: 21 mg Ondansetron HCl (Zofran Injection) 4 mg IVPUSH Q4H PRN PRN Reason: NAUSEA AND/OR VOMITING Pantoprazole Sodium (Protonix Packets For Oral Suspension -) 40 mg PO DAILY [facility] Last Admin: 03/10/17 09:51 Dose: 40 mg Polyethylene Glycol (Miralax (For Daily Use) -) 17 gm PO BID [facility] Last Admin: 03/10/17 09:51 Dose: Not Given Senna/Docusate Sodium (Pericolace -) 1 tablet PO BID [facility] Last Admin: 03/10/17 09:54 Dose: Not Given Sucralfate (Carafate Oral Suspension -) 1 gm PO TIDAC [facility] Last Admin: 03/10/17 06:11 Dose: 1 gm Tamsulosin HCl (Flomax -) 0.4 mg PO DAILY@0830 [facility] Last Admin: 03/10/17 09:51 Dose: 0.4 mg - Objective Vital Signs: Vital Signs Temperature 98.2 F 03/10/17 09:00 Pulse Rate 91 H 03/10/17 09:50 Respiratory Rate 18 03/10/17 09:00 Blood Pressure 114/65 03/10/17 09:00 O2 Sat by Pulse Oximetry (%) 96 03/10/17 09:00 Constitutional: Yes: No Distress, Calm Cardiovascular: Yes: Regular Rate and Rhythm Respiratory: Yes: Regular, CTA Bilaterally Gastrointestinal: Yes: Normal Bowel Sounds, Soft Musculoskeletal: Yes: WNL Extremities: Yes: Other (bilateral amputaion) Neurological: Yes: Alert, Oriented Labs: CBC, BMP 03/10/17 07:30 03/10/17 07:30 INR, PTT INR 0.96 (0.82-1.09) 03/06/17 06:00 Assessment/Plan UTI Bacteremia Severe Sepsis +Troponins Lactic Acidosis Atrial Fibrillation h/o CVA CAD COPD DM HTN Hep C Liver Cirrhosis cx reports noted still organisms pending patient repeat blood cx pending plan continue current abx repeat blood cx negative patient can be given last dose of zosyn tomorrow then switched to oral amp 500 mg every 8 hourly for another 7 days
--- NOTE | 2017-03-10 12:01 | PN ---
Progress Note, Physician History of Present Illness: No events. Comfortable. Wants to try regular food - Current Medication List Current Medications: Active Medications Amino Acids (Prosource No Carb Liquid Pkt) 30 ml PO BID@0800,1730 [facility] Last Admin: 03/10/17 09:51 Dose: 30 ml Atorvastatin Calcium (Lipitor -) 40 mg PO HS [facility] Last Admin: 03/09/17 22:35 Dose: 40 mg Digoxin (Lanoxin -) 0.125 mg PO DAILY [facility] Last Admin: 03/10/17 09:50 Dose: 0.125 mg Docusate Sodium (Colace -) 100 mg PO TID [facility] Last Admin: 03/10/17 06:05 Dose: Not Given Finasteride (Proscar -) 5 mg PO DAILY [facility] Last Admin: 03/10/17 09:50 Dose: 5 mg Gabapentin (Neurontin -) 100 mg PO TID [facility] Last Admin: 03/10/17 06:11 Dose: 100 mg Piperacillin Sod/Tazobactam (Sod 3.375 gm/ Dextrose) 100 mls @ 200 mls/hr IVPB Q8H-IV [facility]ILSON PRN Reason: Protocol Last Admin: 03/10/17 09:49 Dose: 200 mls/hr Sodium Chloride (Normal Saline -) 1,000 mls @ 75 mls/hr IV ASDIR [facility] Last Admin: 03/09/17 17:11 Dose: Not Given Insulin Aspart (Novolog Vial Sliding Scale -) 1 vial SQ ACHS [facility]ILSON PRN Reason: Protocol Last Admin: 03/10/17 11:54 Dose: Not Given Multivitamins/Minerals/Vitamin C (Tab-A-Vit -) 1 tab PO DAILY [facility] Last Admin: 03/10/17 09:50 Dose: 1 tab Nicotine (Nicoderm Patch -) 21 mg TD DAILY [facility] Last Admin: 03/10/17 09:52 Dose: 21 mg Ondansetron HCl (Zofran Injection) 4 mg IVPUSH Q4H PRN PRN Reason: NAUSEA AND/OR VOMITING Pantoprazole Sodium (Protonix Packets For Oral Suspension -) 40 mg PO DAILY [facility] Last Admin: 03/10/17 09:51 Dose: 40 mg Polyethylene Glycol (Miralax (For Daily Use) -) 17 gm PO BID [facility] Last Admin: 03/10/17 09:51 Dose: Not Given Senna/Docusate Sodium (Pericolace -) 1 tablet PO BID [facility] Last Admin: 03/10/17 09:54 Dose: Not Given Sucralfate (Carafate Oral Suspension -) 1 gm PO TIDAC [facility] Last Admin: 03/10/17 11:52 Dose: 1 gm Tamsulosin HCl (Flomax -) 0.4 mg PO DAILY@0830 [facility] Last Admin: 03/10/17 09:51 Dose: 0.4 mg - Objective Vital Signs: Vital Signs Temperature 98.2 F 03/10/17 09:00 Pulse Rate 91 H 03/10/17 09:50 Respiratory Rate 18 03/10/17 09:00 Blood Pressure 114/65 03/10/17 09:00 O2 Sat by Pulse Oximetry (%) 96 03/10/17 09:00 Constitutional: Yes: No Distress, Calm Gastrointestinal: Yes: Soft. No: Melena, Rectal Bleeding, Tenderness, Vomiting Neurological: Yes: Alert, Oriented Labs: CBC, BMP 03/10/17 07:30 03/10/17 07:30 INR, PTT INR 0.96 (0.82-1.09) 03/06/17 06:00 Laboratory Results - last 24 hr 03/09/17 03/09/17 03/10/17 17:09 21:00 06:04 WBC RBC Hgb Hct MCV MCH MCHC RDW Plt Count MPV Neutrophils % Lymphocytes % Monocytes % Eosinophils % Basophils % Sodium Potassium Chloride Carbon Dioxide Anion Gap BUN Creatinine Creat Clearance w eGFR POC Glucometer 75 129 68 Random Glucose Calcium Total Bilirubin AST ALT Alkaline Phosphatase Total Protein Albumin 03/10/17 03/10/17 07:30 07:30 WBC 6.6 RBC 4.53 Hgb 11.1 L Hct 35.2 L MCV 77.6 L MCH 24.5 L MCHC 31.6 L RDW 18.7 H Plt Count 209 D MPV 6.4 L D Neutrophils % 69.0 Lymphocytes % 13.5 Monocytes % 7.1 Eosinophils % 9.2 H D Basophils % 1.2 Sodium 140 Potassium 3.8 Chloride 109 H Carbon Dioxide 20 L Anion Gap 11 BUN 7 D Creatinine 0.6 L D Creat Clearance w eGFR > 60 POC Glucometer Random Glucose 101 D Calcium 7.7 L Total Bilirubin 0.7 AST 7 L ALT 9 L Alkaline Phosphatase 92 D Total Protein 4.5 L Albumin 2.0 L Problem List - Problems (1) Hematemesis Code(s): K92.0 - HEMATEMESIS (2) Liver cirrhosis Code(s): K74.60 - UNSPECIFIED CIRRHOSIS OF LIVER (3) Hepatitis C Code(s): B19.20 - UNSPECIFIED VIRAL HEPATITIS C WITHOUT HEPATIC COMA (4) Upper GI bleed Code(s): K92.2 - GASTROINTESTINAL HEMORRHAGE, UNSPECIFIED (5) Esophageal stricture Code(s): K22.2 - ESOPHAGEAL OBSTRUCTION (6) Esophagitis Code(s): K20.9 - ESOPHAGITIS, UNSPECIFIED (7) Diabetes Code(s): E11.9 - TYPE 2 DIABETES MELLITUS WITHOUT COMPLICATIONS Assessment/Plan Clinically the same. No acute events overnight, no signs of bleeding. PPI, Carafate, pureed diet. 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
--- NOTE | 2017-03-10 13:02 | PN ---
Progress Note (short form) - Note Progress Note: Resting in NAD. No CP or SOB. No acute events overnight. Intake & Output 03/07/17 03/08/17 03/09/17 03/10/17 23:59 23:59 23:59 23:59 Intake Total 2855 700 1890 1220 Output Total 720 300 200 900 Balance 2135 400 1690 320 Weight 94 lb 1.6 oz Last Vital Signs Temp Pulse Resp BP Pulse Ox 98.2 F 91 H 18 114/65 96 03/10/17 09:00 03/10/17 09:50 03/10/17 09:00 03/10/17 09:00 03/10/17 09:00 Active Medications Amino Acids (Prosource No Carb Liquid Pkt) 30 ml PO BID@0800,1730 [facility] Last Admin: 03/10/17 09:51 Dose: 30 ml Atorvastatin Calcium (Lipitor -) 40 mg PO HS [facility] Last Admin: 03/09/17 22:35 Dose: 40 mg Digoxin (Lanoxin -) 0.125 mg PO DAILY [facility] Last Admin: 03/10/17 09:50 Dose: 0.125 mg Docusate Sodium (Colace -) 100 mg PO TID [facility] Last Admin: 03/10/17 06:05 Dose: Not Given Finasteride (Proscar -) 5 mg PO DAILY [facility] Last Admin: 03/10/17 09:50 Dose: 5 mg Gabapentin (Neurontin -) 100 mg PO TID [facility] Last Admin: 03/10/17 06:11 Dose: 100 mg Piperacillin Sod/Tazobactam (Sod 3.375 gm/ Dextrose) 100 mls @ 200 mls/hr IVPB Q8H-IV [facility] PRN Reason: Protocol Last Admin: 03/10/17 09:49 Dose: 200 mls/hr Sodium Chloride (Normal Saline -) 1,000 mls @ 75 mls/hr IV ASDIR [facility] Last Admin: 03/09/17 17:11 Dose: Not Given Insulin Aspart (Novolog Vial Sliding Scale -) 1 vial SQ ACHS [facility] PRN Reason: Protocol Last Admin: 03/10/17 11:54 Dose: Not Given Multivitamins/Minerals/Vitamin C (Tab-A-Vit -) 1 tab PO DAILY [facility] Last Admin: 03/10/17 09:50 Dose: 1 tab Nicotine (Nicoderm Patch -) 21 mg TD DAILY [facility] Last Admin: 03/10/17 09:52 Dose: 21 mg Ondansetron HCl (Zofran Injection) 4 mg IVPUSH Q4H PRN PRN Reason: NAUSEA AND/OR VOMITING Pantoprazole Sodium (Protonix Packets For Oral Suspension -) 40 mg PO DAILY [facility] Last Admin: 03/10/17 09:51 Dose: 40 mg Polyethylene Glycol (Miralax (For Daily Use) -) 17 gm PO BID [facility] Last Admin: 03/10/17 09:51 Dose: Not Given Senna/Docusate Sodium (Pericolace -) 1 tablet PO BID [facility] Last Admin: 03/10/17 09:54 Dose: Not Given Sucralfate (Carafate Oral Suspension -) 1 gm PO TIDAC [facility] Last Admin: 03/10/17 11:52 Dose: 1 gm Tamsulosin HCl (Flomax -) 0.4 mg PO DAILY@0830 [facility] Last Admin: 03/10/17 09:51 Dose: 0.4 mg Constitutional: Yes: NAD Eyes: Yes: WNL HENT: Yes: WNL Neck: Yes: WNL Cardiovascular: Yes: Pulse Irregular, S1, S2 Respiratory: Yes: Diminished at the bases Gastrointestinal: Yes: Normal Bowel Sounds, Soft Extremities: Yes: Amputation (ab aka) Labs: Laboratory Results - last 24 hr 03/09/17 03/09/17 03/10/17 17:09 21:00 06:04 WBC RBC Hgb Hct MCV MCH MCHC RDW Plt Count MPV Neutrophils % Lymphocytes % Monocytes % Eosinophils % Basophils % Sodium Potassium Chloride Carbon Dioxide Anion Gap BUN Creatinine Creat Clearance w eGFR POC Glucometer 75 129 68 Random Glucose Calcium Total Bilirubin AST ALT Alkaline Phosphatase Total Protein Albumin 03/10/17 03/10/17 03/10/17 07:30 07:30 11:52 WBC 6.6 RBC 4.53 Hgb 11.1 L Hct 35.2 L MCV 77.6 L MCH 24.5 L MCHC 31.6 L RDW 18.7 H Plt Count 209 D MPV 6.4 L D Neutrophils % 69.0 Lymphocytes % 13.5 Monocytes % 7.1 Eosinophils % 9.2 H D Basophils % 1.2 Sodium 140 Potassium 3.8 Chloride 109 H Carbon Dioxide 20 L Anion Gap 11 BUN 7 D Creatinine 0.6 L D Creat Clearance w eGFR > 60 POC Glucometer 91 Random Glucose 101 D Calcium 7.7 L Total Bilirubin 0.7 AST 7 L ALT 9 L Alkaline Phosphatase 92 D Total Protein 4.5 L Albumin 2.0 L Problem List - Problems (1) Sepsis Code(s): A41.9 - SEPSIS, UNSPECIFIED ORGANISM (2) Atrial fibrillation with rapid ventricular response Code(s): I48.91 - UNSPECIFIED ATRIAL FIBRILLATION (3) Liver cirrhosis Code(s): K74.60 - UNSPECIFIED CIRRHOSIS OF LIVER (4) UTI (urinary tract infection) Code(s): N39.0 - URINARY TRACT INFECTION, SITE NOT SPECIFIED Qualifiers: Urinary tract infection type: site unspecified Hematuria presence: without hematuria Qualified Code(s): N39.0 - Urinary tract infection, site not specified (5) CAD (coronary artery disease) Code(s): I25.10 - ATHSCL HEART DISEASE OF [place] CORONARY ARTERY W/O ANG PCTRS (6) CVA (cerebral vascular accident) Code(s): I63.9 - CEREBRAL INFARCTION, UNSPECIFIED (7) S/P AKA (above knee amputation) bilateral Code(s): Z89.611 - ACQUIRED ABSENCE OF RIGHT LEG ABOVE KNEE; Z89.612 - ACQUIRED ABSENCE OF LEFT LEG ABOVE KNEE (8) Bacteremia Code(s): R78.81 - BACTEREMIA (9) Bacteremia due to Enterococcus Code(s): R78.81 - BACTEREMIA; B95.2 - ENTEROCOCCUS THE CAUSE OF DISEASES CLASSIFIED ELSEWHERE Assessment/Plan ASSESSMENT AND PLAN: UTI Bacteremia s/p Severe Sepsis +Troponins likely Demand Ischemia Lactic Acidosis resolved Atrial Fibrillation h/o CVA CAD COPD stable DM HTN Hep C Liver Cirrhosis - antibiotics as per ID - rate controlled - inhaled bronchodilators - PO as tolerated - DVT prophylaxis - DNR/DNI Dr Russ
[2017-03-10] MEDS: SODIUM CHLORIDE 1,000 ML IV SCH (14:16)
[2017-03-10] MEDS: ATORVASTATIN CA 40 MG TABLET (FP) PO SCH (22:10)
[2017-03-11] MEDS: PIPERACILLIN/TAZOB 3.375 GM 3.375 GM in DEXTROSE 5%-WATER - 100 ML IVPB SCH ×3 (01:16→17:18)
[2017-03-11] MEDS: SUCRALFATE 1 GM/10 ML UNIT DOSE CUPS PO SCH ×3 (06:32→17:13)
[2017-03-11] MEDS: DOCUSATE SODIUM 100 MG CAPSULE (FP) PO SCH ×3 (06:32→22:16)
[2017-03-11] MEDS: GABAPENTIN 100 MG CAPSULE (FP) PO SCH ×3 (06:32→22:16)
[2017-03-11] MEDS: INSULIN SLIDING SCALE (NOVOLOG) 1 VIAL SQ SCH ×5 (06:32→22:17)
[2017-03-11 07:40] LABS: BASO # 0.1 # (0.1-1); EOS # 0.6 # (0-4.5); EOS % 8.5 % (0-4.5); LYMPH # 1.1 (8-40); MCH 24.5 pg (25.7-33.7); MCHC 31.4 g/dl (32.0-35.9); MEAN CELL VOLUME 77.9 fl (80-96); MEAN PLT VOLUME 6.5 fl (7.5-11.1); MONO # 0.5 # (3.8-10.2); NEUT # 4.4 # (42.8-82.8); NEUT % 66.4 % (42.8-82.8); PLATELET COUNT 183 K/MM3 (134-434); RDW 18.7 % (11.9-15.9); WHITE BLOOD COUNT 6.7 K/mm3 (4.0-10.0)
[2017-03-11 08:32] LABS: ANION GAP 8 (8-16); CALCIUM 7.5 mg/dL (8.5-10.1); CO2 24 mmol/L (21-32); GLUCOSE,RANDOM 81 mg/dL (74-106)
[2017-03-11 08:36] LABS: ALK PHOS 93 U/L (45-117); BILIRUBIN,TOTAL 0.8 mg/dL (0.2-1.0); CREATININE 0.5 mg/dL (0.7-1.3); PHOSPHOROUS 3.3 mg/dL (2.5-4.9); SGOT/AST 6 U/L (15-37); SGPT/ALT 8 U/L (12-78); TOT PROT 4.6 g/dl (6.4-8.2)
[2017-03-11 09:26] LABS: DIGOXIN LEVEL 0.6962 ng/ml (0.8-2.0)
[2017-03-11] MEDS: NICOTINE 21 MG/24 HOURS TOPICAL PATCH TD SCH (09:51)
[2017-03-11] MEDS: TAMSULOSIN HCL 0.4 MG CAP.ER.24H (FP) PO SCH (09:52)
[2017-03-11] MEDS: PANTOPRAZOLE SOD 40 MG SUSPENSION PACKET PO SCH (09:52)
[2017-03-11] MEDS: DIGOXIN 0.25 MG TABLET (FP) PO SCH (09:52)
[2017-03-11] MEDS: POLYETHYLENE GLYCOL 3350 119 GM BTL PO SCH ×2 (09:52→22:17)
[2017-03-11] MEDS: FINASTERIDE 5 MG TABLET (FP) PO SCH (09:53)
[2017-03-11] MEDS: MULTIVITAMINS (DAILY MVI) TABLET (FP) PO SCH (09:53)
[2017-03-11] MEDS: AMINO ACIDS/PROTEIN HYDROLYS 30 ML LIQUID.PKT PO SCH ×2 (09:53→17:17)
[2017-03-11] MEDS: SENNOSIDES/DOCUSATE COMBO (SENNA PLUS) TABLET (UD) PO SCH (09:53)
--- NOTE | 2017-03-11 11:12 | PN ---
Progress Note (short form) - Note Progress Note: Chief Complaint: afib History of Present Illness: denies cp, sob, palpitations, syncope. Current Medications Generic Name Dose Route Start Last Admin Trade Name Macho PRN Reason Stop Dose Admin Amino Acids 30 ml 03/08/17 08:00 03/11/17 09:53 Prosource No Carb Liquid Pkt PO Not Given BID@0800,1730 EDILSON Atorvastatin Calcium 40 mg 03/07/17 22:00 03/10/17 22:10 Lipitor - PO 40 mg HS [facility]IL[facility] Administration Digoxin 0.125 mg 03/08/17 10:00 03/11/17 09:52 Lanoxin - PO 0.125 mg DAILY [facility] Administration Docusate Sodium 100 mg 03/07/17 22:00 03/11/17 06:32 Colace - PO 100 mg TID [facility] Administration Finasteride 5 mg 03/08/17 10:00 03/11/17 09:53 Proscar - PO 5 mg DAILY [facility] Administration Gabapentin 100 mg 03/07/17 22:00 03/11/17 06:32 Neurontin - PO 100 mg TID [facility] Administration Piperacillin Sod/Tazobactam 100 mls @ 200 mls/hr 03/08/17 02:00 03/11/17 09: 54 Sod 3.375 gm/ Dextrose IVPB 200 mls/hr Q8H-IV [facility] Administration Protocol Sodium Chloride 1,000 mls @ 75 mls/hr 03/08/17 15:15 03/10/17 14:16 Normal Saline - IV 75 mls/hr ASDIR [facility] Administration Insulin Aspart 1 vial 03/10/17 07:00 03/11/17 06:32 Novolog Vial Sliding Scale - SQ Not Given ACHS EDILSON Protocol Multivitamins/Minerals/Vitamin C 1 tab 03/08/17 10:00 03/11/17 09:53 Tab-A-Vit - PO 1 tab DAILY [facility] Administration Nicotine 21 mg 03/08/17 10:00 03/11/17 09:51 Nicoderm Patch - TD 21 mg DAILY [facility] Administration Ondansetron HCl 4 mg 03/07/17 18:24 Zofran Injection IVPUSH Q4H PRN NAUSEA AND/OR VOMITING Pantoprazole Sodium 40 mg 03/08/17 10:00 03/11/17 09:52 Protonix Packets For Oral Suspension - PO 40 mg DAILY [facility] Administration Polyethylene Glycol 17 gm 03/07/17 22:00 03/11/17 09:52 Miralax (For Daily Use) - PO Not Given BID EDILSON Senna/Docusate Sodium 1 tablet 03/07/17 22:00 03/11/17 09:53 Pericolace - PO Not Given BID [facility] Sucralfate 1 gm 03/08/17 07:52 03/11/17 06:32 Carafate Oral Suspension - PO 1 gm TIDAC [facility] Administration Tamsulosin HCl 0.4 mg 03/08/17 08:30 03/11/17 09:52 Flomax - PO 0.4 mg DAILY@0830 [facility] Administration - Objective Vital Signs: Vital Signs Period Temp Pulse Resp BP Sys/Guevara Pulse Ox Last 24 Hr 97.4 F-97.8 F 79-119 16-18 104-140/57-78 100-100 Constitutional: Yes: No Distress, Calm, cachectic Eyes: No: Sclera Icterus HENT: No: Nasal Congestion Cardiovascular: Yes: Regular Rate and Rhythm (decr intensity), S1, S2, Other ( PMI non diplaced). No: Gallop, Murmur Respiratory: Yes: CTA Bilaterally. No: Accessory Muscle Use, Rales, Wheezes Gastrointestinal: Yes: Normal Bowel Sounds, Soft. No: Tenderness Musculoskeletal: Yes: Other (No kyphosis) Extremities: Yes: Other (bilat AKAs). No: Cold Edema: No (bl aka) Integumentary: No: Jaundice Neurological: Yes: Alert, Oriented Psychiatric: No: Agitated Labs: CBC, BMP 03/11/17 06:00 03/11/17 06:00 Echo 10/03 (SJ): nl LVSF; nl RV; valves WNL MPI 08/01 (pers): no STs; small infero-apical ischemia. nl EF. 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 rapid AF as well, currently in sinus -was not anticoagulated due to recurrent GI bleeding -per hospitalist, no source of hematemesis found on prior EGDs (no varices)-- does not seem he will be able to tolerate Watchman device implant with 6 wks AC and then 6 wks DAPT post, given frequency of GIBs and hence prohibitive risk of life threatening bleeding. anti-PLT therapy eventually?--as below -per prior notes, "did not tolerate" bb and CCBs (? low bp's)--managed with digoxin. 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 etiology: GI bleed? sepsis ? h/o CAD, (+) troponin: -prior notes here reviewed--pt had abnormal stress test 2013 (as above), ? had PCI previously -since he has been a pt here from 2015 onwards, has never been on DAPT per prior notes, only plavix monotherapy -troponins here intermediate range 0.06-->0.08, not c/w ACS at this time. no isch ecg. f/u 3rd trop today -Likely demand ischemia in setting of rapid Afib and hypotension, ? underlying CAD -has h/o recurrent GIB's here in past--would resume either ASA or plavix alone when/if safe, per GI -Continue home statin, per his outpt cardio (LFTs normal) -given low risk stress test findings, and pt inability to tolerate DAPT for any period of time, will not pursue invasive workup acute LE ischemia, PAD: -CTA here with occluded Left common iliac / Left external iliac / Left femoral arteries new since 08/2016, long segment intramural thrombus with calcified and non-calcified atherosclerotic plaque along the abdominal aorta resulting in mild -moderate luminal narrowing and narrowing of the origins of the major visceral branches. -note: the main indication for anti-platelets or AC agents at present time is for limb salvage, per vascular opinion (CAD hx and AFib are less urgent, given risk of stent thrombosis (not recent stent) or cardioembolic CVA are numerically low in the short term) -vascular consult appreciated--> no intervention at this time. HTN: -bp currently low, hold anti-hypertensive meds
--- NOTE | 2017-03-11 12:40 | PN ---
Progress Note, Physician History of Present Illness: patient does not giovany so well today feels very tired - Current Medication List Current Medications: Active Medications Amino Acids (Prosource No Carb Liquid Pkt) 30 ml PO BID@0800,1730 [facility] Last Admin: 03/11/17 09:53 Dose: Not Given Atorvastatin Calcium (Lipitor -) 40 mg PO HS [facility] Last Admin: 03/10/17 22:10 Dose: 40 mg Digoxin (Lanoxin -) 0.125 mg PO DAILY [facility] Last Admin: 03/11/17 09:52 Dose: 0.125 mg Docusate Sodium (Colace -) 100 mg PO TID [facility] Last Admin: 03/11/17 06:32 Dose: 100 mg Finasteride (Proscar -) 5 mg PO DAILY [facility] Last Admin: 03/11/17 09:53 Dose: 5 mg Gabapentin (Neurontin -) 100 mg PO TID [facility] Last Admin: 03/11/17 06:32 Dose: 100 mg Piperacillin Sod/Tazobactam (Sod 3.375 gm/ Dextrose) 100 mls @ 200 mls/hr IVPB Q8H-IV [facility] PRN Reason: Protocol Last Admin: 03/11/17 09:54 Dose: 200 mls/hr Sodium Chloride (Normal Saline -) 1,000 mls @ 75 mls/hr IV ASDIR [facility] Last Admin: 03/10/17 14:16 Dose: 75 mls/hr Insulin Aspart (Novolog Vial Sliding Scale -) 1 vial SQ ACHS [facility] PRN Reason: Protocol Last Admin: 03/11/17 12:29 Dose: Not Given Multivitamins/Minerals/Vitamin C (Tab-A-Vit -) 1 tab PO DAILY [facility] Last Admin: 03/11/17 09:53 Dose: 1 tab Nicotine (Nicoderm Patch -) 21 mg TD DAILY [facility] Last Admin: 03/11/17 09:51 Dose: 21 mg Ondansetron HCl (Zofran Injection) 4 mg IVPUSH Q4H PRN PRN Reason: NAUSEA AND/OR VOMITING Pantoprazole Sodium (Protonix Packets For Oral Suspension -) 40 mg PO DAILY [facility] Last Admin: 03/11/17 09:52 Dose: 40 mg Polyethylene Glycol (Miralax (For Daily Use) -) 17 gm PO BID [facility] Last Admin: 03/11/17 09:52 Dose: Not Given Senna/Docusate Sodium (Pericolace -) 1 tablet PO BID [facility] Last Admin: 03/11/17 09:53 Dose: Not Given Sucralfate (Carafate Oral Suspension -) 1 gm PO TIDAC [facility] Last Admin: 03/11/17 12:30 Dose: 1 gm Tamsulosin HCl (Flomax -) 0.4 mg PO DAILY@0830 [facility] Last Admin: 03/11/17 09:52 Dose: 0.4 mg - Objective Vital Signs: Vital Signs Temperature 98.2 F 03/11/17 10:00 Pulse Rate 92 H 03/11/17 10:00 Respiratory Rate 18 03/11/17 10:00 Blood Pressure 132/68 03/11/17 10:00 O2 Sat by Pulse Oximetry (%) 100 03/11/17 08:22 Constitutional: Yes: Mild Distress, Other Cardiovascular: Yes: Regular Rate and Rhythm Respiratory: Yes: Regular, CTA Bilaterally Gastrointestinal: Yes: Normal Bowel Sounds, Soft Extremities: Yes: Other Labs: CBC, BMP 03/11/17 06:00 03/11/17 06:00 INR, PTT INR 0.96 (0.82-1.09) 03/06/17 06:00 Assessment/Plan UTI Bacteremia Severe Sepsis +Troponins Lactic Acidosis Atrial Fibrillation h/o CVA CAD COPD DM HTN Hep C Liver Cirrhosis cx reports noted still organisms pending patient repeat blood cx pending plan continue current abx close watch on him before discharging
--- NOTE | 2017-03-11 12:59 | PN ---
Progress Note, Physician History of Present Illness: PULMONARY AWAKE,NAD,-SOB,AFEBRILE - Current Medication List Current Medications: Active Medications Amino Acids (Prosource No Carb Liquid Pkt) 30 ml PO BID@0800,1730 [facility] Last Admin: 03/11/17 09:53 Dose: Not Given Atorvastatin Calcium (Lipitor -) 40 mg PO HS [facility] Last Admin: 03/10/17 22:10 Dose: 40 mg Digoxin (Lanoxin -) 0.125 mg PO DAILY [facility] Last Admin: 03/11/17 09:52 Dose: 0.125 mg Docusate Sodium (Colace -) 100 mg PO TID [facility] Last Admin: 03/11/17 06:32 Dose: 100 mg Finasteride (Proscar -) 5 mg PO DAILY [facility] Last Admin: 03/11/17 09:53 Dose: 5 mg Gabapentin (Neurontin -) 100 mg PO TID [facility] Last Admin: 03/11/17 06:32 Dose: 100 mg Piperacillin Sod/Tazobactam (Sod 3.375 gm/ Dextrose) 100 mls @ 200 mls/hr IVPB Q8H-IV [facility] PRN Reason: Protocol Last Admin: 03/11/17 09:54 Dose: 200 mls/hr Sodium Chloride (Normal Saline -) 1,000 mls @ 75 mls/hr IV ASDIR [facility] Last Admin: 03/10/17 14:16 Dose: 75 mls/hr Insulin Aspart (Novolog Vial Sliding Scale -) 1 vial SQ ACHS [facility] PRN Reason: Protocol Last Admin: 03/11/17 12:29 Dose: Not Given Multivitamins/Minerals/Vitamin C (Tab-A-Vit -) 1 tab PO DAILY [facility] Last Admin: 03/11/17 09:53 Dose: 1 tab Nicotine (Nicoderm Patch -) 21 mg TD DAILY [facility] Last Admin: 03/11/17 09:51 Dose: 21 mg Ondansetron HCl (Zofran Injection) 4 mg IVPUSH Q4H PRN PRN Reason: NAUSEA AND/OR VOMITING Pantoprazole Sodium (Protonix Packets For Oral Suspension -) 40 mg PO DAILY [facility] Last Admin: 03/11/17 09:52 Dose: 40 mg Polyethylene Glycol (Miralax (For Daily Use) -) 17 gm PO BID [facility] Last Admin: 03/11/17 09:52 Dose: Not Given Senna/Docusate Sodium (Pericolace -) 1 tablet PO BID [facility] Last Admin: 03/11/17 09:53 Dose: Not Given Sucralfate (Carafate Oral Suspension -) 1 gm PO TIDAC [facility] Last Admin: 03/11/17 12:30 Dose: 1 gm Tamsulosin HCl (Flomax -) 0.4 mg PO DAILY@0830 [facility] Last Admin: 03/11/17 09:52 Dose: 0.4 mg - Objective Vital Signs: Vital Signs Temperature 98.2 F 03/11/17 10:00 Pulse Rate 92 H 03/11/17 10:00 Respiratory Rate 18 03/11/17 10:00 Blood Pressure 132/68 03/11/17 10:00 O2 Sat by Pulse Oximetry (%) 100 03/11/17 08:22 Constitutional: Yes: Calm, Thin Eyes: Yes: WNL HENT: Yes: WNL Neck: Yes: WNL Cardiovascular: Yes: Pulse Irregular, S1, S2 Respiratory: Yes: Diminished Gastrointestinal: Yes: Normal Bowel Sounds, Soft Extremities: Yes: Amputation (BILATERAL AKA) Edema: No Labs: CBC, BMP 03/11/17 06:00 03/11/17 06:00 INR, PTT INR 0.96 (0.82-1.09) 03/06/17 06:00 Problem List - Problems (1) Sepsis Code(s): A41.9 - SEPSIS, UNSPECIFIED ORGANISM (2) Atrial fibrillation with rapid ventricular response Code(s): I48.91 - UNSPECIFIED ATRIAL FIBRILLATION (3) Liver cirrhosis Code(s): K74.60 - UNSPECIFIED CIRRHOSIS OF LIVER (4) UTI (urinary tract infection) Code(s): N39.0 - URINARY TRACT INFECTION, SITE NOT SPECIFIED Qualifiers: Urinary tract infection type: site unspecified Hematuria presence: without hematuria Qualified Code(s): N39.0 - Urinary tract infection, site not specified (5) CAD (coronary artery disease) Code(s): I25.10 - ATHSCL HEART DISEASE OF [place] CORONARY ARTERY W/O ANG PCTRS (6) CVA (cerebral vascular accident) Code(s): I63.9 - CEREBRAL INFARCTION, UNSPECIFIED (7) S/P AKA (above knee amputation) bilateral Code(s): Z89.611 - ACQUIRED ABSENCE OF RIGHT LEG ABOVE KNEE; Z89.612 - ACQUIRED ABSENCE OF LEFT LEG ABOVE KNEE (8) Bacteremia Code(s): R78.81 - BACTEREMIA (9) Bacteremia due to Enterococcus Code(s): R78.81 - BACTEREMIA; B95.2 - ENTEROCOCCUS THE CAUSE OF DISEASES CLASSIFIED ELSEWHERE Assessment/Plan ASSESSMENT AND PLAN: UTI Bacteremia s/p Severe Sepsis +Troponins likely Demand Ischemia Lactic Acidosis resolved Atrial Fibrillation h/o CVA CAD COPD stable DM HTN Hep C Liver Cirrhosis - antibiotics as per ID - IVF - rate controlled - hold antihypertensives - inhaled bronchodilators - DVT prophylaxis - pt DNR/DNI DR SCOTT
--- NOTE | 2017-03-11 13:55 | EKG ---
Test Reason : Blood Pressure : / mmHG Vent. Rate : 102 BPM Atrial Rate : 102 BPM P-R Int : 128 ms QRS Dur : 072 ms QT Int : 360 ms P-R-T Axes : 090 -36 091 degrees QTc Int : 469 ms SINUS TACHYCARDIA WITH PREMATURE SUPRAVENTRICULAR COMPLEXES LEFT AXIS DEVIATION PULMONARY DISEASE PATTERN INFERIOR INFARCT (CITED ON OR BEFORE 14-NOV-2015) ABNORMAL ECG Confirmed by LIVIA PATRICIO MD ([id number]) on 03/11/2017 1:54:34 PM Referred By: Confirmed By:LIVIA PATRICIO MD
[2017-03-11] MEDS: SODIUM CHLORIDE 1,000 ML IV SCH (15:16)
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
--- NOTE | 2017-03-11 17:18 | PN ---
Teaching Attending Note Name of Resident: Janet Murdock ATTENDING PHYSICIAN STATEMENT I saw and evaluated the patient. I reviewed the resident's note and discussed the case with the resident. I agree with the resident's findings and plan as documented. SUBJECTIVE: Patient is mildly confused today . States that he does not like to stay in the hospital on and off. OBJECTIVE: Vital Signs Temperature 98.2 F 03/11/17 10:00 Pulse Rate 92 H 03/11/17 10:00 Respiratory Rate 18 03/11/17 10:00 Blood Pressure 132/68 03/11/17 10:00 O2 Sat by Pulse Oximetry (%) 100 03/11/17 08:22 CBCD WBC 6.7 K/mm3 (4.0-10.0) 03/11/17 06:00 RBC 4.41 M/mm3 (4.00-5.60) 03/11/17 06:00 Hgb 10.8 GM/dL (11.7-16.9) L 03/11/17 06:00 Hct 34.4 % (35.4-49) L 03/11/17 06:00 MCV 77.9 fl (80-96) L 03/11/17 06:00 MCHC 31.4 g/dl (32.0-35.9) L 03/11/17 06:00 RDW 18.7 % (11.9-15.9) H 03/11/17 06:00 Plt Count 183 K/MM3 (134-434) 03/11/17 06:00 MPV 6.5 fl (7.5-11.1) L 03/11/17 06:00 CMP Sodium 142 mmol/L (136-145) 03/11/17 06:00 Potassium 4.2 mmol/L (3.5-5.1) 03/11/17 06:00 Chloride 110 mmol/L (98-107) H 03/11/17 06:00 Carbon Dioxide 24 mmol/L (21-32) 03/11/17 06:00 Anion Gap 8 (8-16) 03/11/17 06:00 BUN 5 mg/dL (7-18) L D 03/11/17 06:00 Creatinine 0.5 mg/dL (0.7-1.3) L 03/11/17 06:00 Creat Clearance w eGFR > 60 (>60) 03/11/17 06:00 Random Glucose 81 mg/dL (74-106) 03/11/17 06:00 Calcium 7.5 mg/dL (8.5-10.1) L 03/11/17 06:00 Total Bilirubin 0.8 mg/dL (0.2-1.0) 03/11/17 06:00 AST 6 U/L (15-37) L 03/11/17 06:00 ALT 8 U/L (12-78) L 03/11/17 06:00 Alkaline Phosphatase 93 U/L (45-117) 03/11/17 06:00 Total Protein 4.6 g/dl (6.4-8.2) L 03/11/17 06:00 Albumin 2.0 g/dl (3.4-5.0) L 03/11/17 06:00 CARDIAC ENZYMES Creatine Kinase 20 IU/L (39-308) L 03/07/17 06:15 Troponin I 0.08 ng/ml (0.00-0.05) H 03/07/17 06:15 Current Medications Generic Name Dose Route Start Last Admin Trade Name Freq PRN Reason Stop Dose Admin Amino Acids 30 ml 03/08/17 08:00 03/11/17 09:53 Prosource No Carb Liquid Pkt PO Not Given BID@0800,1730 [facility] Atorvastatin Calcium 40 mg 03/07/17 22:00 03/10/17 22:10 Lipitor - PO 40 mg HS [facility] Administration Digoxin 0.125 mg 03/08/17 10:00 03/11/17 09:52 Lanoxin - PO 0.125 mg DAILY [facility] Administration Docusate Sodium 100 mg 03/07/17 22:00 03/11/17 15:48 Colace - PO Not Given TID [facility] Finasteride 5 mg 03/08/17 10:00 03/11/17 09:53 Proscar - PO 5 mg DAILY [facility] Administration Gabapentin 100 mg 03/07/17 22:00 03/11/17 06:32 Neurontin - PO 100 mg TID [facility] Administration Piperacillin Sod/Tazobactam 100 mls @ 200 mls/hr 03/08/17 02:00 03/11/17 09: 54 Sod 3.375 gm/ Dextrose IVPB 200 mls/hr Q8H-IV [facility] Administration Protocol Sodium Chloride 1,000 mls @ 75 mls/hr 03/08/17 15:15 03/10/17 14:16 Normal Saline - IV 75 mls/hr ASDIR [facility] Administration Insulin Aspart 1 vial 03/10/17 07:00 03/11/17 13:09 Novolog Vial Sliding Scale - SQ Not Given ACHS [facility] Protocol Multivitamins/Minerals/Vitamin C 1 tab 03/08/17 10:00 03/11/17 09:53 Tab-A-Vit - PO 1 tab DAILY [facility] Administration Nicotine 21 mg 03/08/17 10:00 03/11/17 09:51 Nicoderm Patch - TD 21 mg DAILY [facility] Administration Ondansetron HCl 4 mg 03/07/17 18:24 Zofran Injection IVPUSH Q4H PRN NAUSEA AND/OR VOMITING Pantoprazole Sodium 40 mg 03/08/17 10:00 03/11/17 09:52 Protonix Packets For Oral Suspension - PO 40 mg DAILY [facility] Administration Polyethylene Glycol 17 gm 03/07/17 22:00 03/11/17 09:52 Miralax (For Daily Use) - PO Not Given BID [facility] Senna/Docusate Sodium 1 tablet 03/07/17 22:00 03/11/17 09:53 Pericolace - PO Not Given BID [facility] Sucralfate 1 gm 03/08/17 07:52 03/11/17 12:30 Carafate Oral Suspension - PO 1 gm TIDAC [facility] Administration Tamsulosin HCl 0.4 mg 03/08/17 08:30 03/11/17 09:52 Flomax - PO 0.4 mg DAILY@0830 [facility] Administration Home Medications Medication Instructions Recorded Gabapentin [Neurontin -] 100 mg PO TID #90 capsule 07/25/15 Finasteride 5 mg PO DAILY 10/08/15 Docusate Sodium 100 mg PO TID 02/15/16 Tamsulosin HCl 0.4 mg PO DAILY 02/15/16 Famotidine [Pepcid -] 40 mg PO DAILY 03/05/17 Sucralfate [Carafate] 1 gm PO TID 03/05/17 Metoclopramide HCl [Reglan] 5 mg PO TID PRN 03/06/17 03/08/17 06:35 Blood - Peripheral Venous Blood Culture - Preliminary NO GROWTH OBTAINED AFTER 48 HOURS, INCUBATION TO CONTINUE FOR 3 DAYS. 12/19/17 06:30 Blood - Peripheral Venous Blood Culture - Preliminary NO GROWTH OBTAINED AFTER 48 HOURS, INCUBATION TO CONTINUE FOR 3 DAYS. 03/05/17 17:50 Blood - Peripheral Venous Blood Culture - Preliminary NO GROWTH OBTAINED AFTER 96 HOURS, INCUBATION TO CONTINUE FOR 1 DAYS. 03/05/17 17:50 Blood - Peripheral Venous Blood Culture - Final Enterococcus Faecalis 03/05/17 20:45 Urine - Urine Clean Catch Urine Culture - Final Pseudomonas Aeruginosa PE:comfortable LE: BAKA rest of PE per resident's note ASSESSMENT AND PLAN: Patient is a 70 yo M with PMHx of A Fib , CVA , Upper GI bleeds, esophageal stricture , DVTs , who presented with abd pain, N/V and was found to have severe sepsis . # Severe sepsis; improving likely due to his UTI.; Urine cx with pseudomonas on IV ZOsyn day 6, discussed with will continue Zosyn and upon discharge will discharge the patient with PO Ampicillin for 5 more days. # S/p acute Upper GI bleed. On PPI continue , continue diet , refused EGD continue Carafate 1gm # A fib with rate controlled but high 90s now. will increase his Dig to 0.25 x 3 day s then will continue with 0.125mg , No AC due to recurrent GI bleeds # Fecal impaction. BMs after enemas , Cont oral regimen ; miralax, morgan /colace # Thrombosis in aorta and pelvic veins: possible atherosclerotic disease with secondary thrombosis. at this point can't give anti-plt. #Left common iliac artery, left common femoral artery occlusion: off coumadin due GI bleed. As per Dr.Nirav Greenfield: no intervention at this time; conservative. if LL limb becomes cool; may need femoral-femoral artery bypass. DVT Px: AKA BL, with hx of GI bleed , can't anticoagulate
[2017-03-11] MEDS ORDERED: SENNOSIDES/DOCUSATE COMBO (SENNA PLUS) TABLET (UD) PO PRN (17:55)
[2017-03-11] MEDS ORDERED: INSULIN (NOVOLOG) ASPART 100 UNITS/ML 10ML VIAL ONE ×2 (22:10→23:21)
[2017-03-11] MEDS: ATORVASTATIN CA 40 MG TABLET (FP) PO SCH (22:16)
[2017-03-12] MEDS: PIPERACILLIN/TAZOB 3.375 GM 3.375 GM in DEXTROSE 5%-WATER - 100 ML IVPB SCH ×3 (02:12→17:25)
[2017-03-12] MEDS: GABAPENTIN 100 MG CAPSULE (FP) PO SCH ×3 (05:48→22:34)
[2017-03-12] MEDS: DOCUSATE SODIUM 100 MG CAPSULE (FP) PO SCH ×3 (05:48→22:33)
[2017-03-12] MEDS: INSULIN SLIDING SCALE (NOVOLOG) 1 VIAL SQ SCH ×4 (06:01→22:38)
[2017-03-12] MEDS: SUCRALFATE 1 GM/10 ML UNIT DOSE CUPS PO SCH ×3 (06:01→16:28)
--- NOTE | 2017-03-12 07:45 | PN ---
Progress Note (short form) - Note Progress Note: client 80 yo male on gapapentin, nicotine cva, a fib. Decreased lab liver enzymes. Client state "i doing better", "my finger is numb" A and o by 4. Talking alot no dentures "i wont wear them". 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 "i gave up drink 5 years ago" Client has passive SI, "i am afraid i may do something stuopid", "i do not have a gun at home but must drive 300 miles to get one in a lock box". depression. Safe ACT. Start lexapro 5mg a day Problem List - Problems (1) Depressed Code(s): F32.9 - MAJOR DEPRESSIVE DISORDER, SINGLE EPISODE, UNSPECIFIED Qualifiers: Depression Type: major depressive disorder Major depression episode severity: mild
[2017-03-12 07:51] LABS: BASO % 0.9 % (0-2.0); EOS # 0.5 # (0-4.5); EOS % 11.2 % (0-4.5); LYMPH # 1.1 (8-40); MCH 24.3 pg (25.7-33.7); MCHC 30.8 g/dl (32.0-35.9); MEAN CELL VOLUME 78.8 fl (80-96); MEAN PLT VOLUME 6.5 fl (7.5-11.1); MONO # 0.4 # (3.8-10.2); NEUT # 2.6 # (42.8-82.8); NEUT % 55.5 % (42.8-82.8); PLATELET COUNT 146 K/MM3 (134-434); RDW 18.9 % (11.9-15.9); WHITE BLOOD COUNT 4.7 K/mm3 (4.0-10.0)
[2017-03-12] MEDS ORDERED: DIGOXIN 0.25 MG TABLET (FP) PO ONE (10:00)
[2017-03-12] MEDS ORDERED: SODIUM CHLORIDE 500 ML IV STA (10:12)
--- NOTE | 2017-03-12 10:36 | PN ---
Progress Note, Physician Chief Complaint: confused, thinks he is home with his denies cp, sob, palp, syncope History of Present Illness: + cigs - Current Medication List Current Medications: Active Medications Amino Acids (Prosource No Carb Liquid Pkt) 30 ml PO BID@0800,1730 [facility] Last Admin: 03/11/17 17:17 Dose: Not Given Atorvastatin Calcium (Lipitor -) 40 mg PO HS [facility] Last Admin: 03/11/17 22:16 Dose: 40 mg Digoxin (Lanoxin -) 0.125 mg PO DAILY [facility] Docusate Sodium (Colace -) 100 mg PO TID [facility] Last Admin: 03/12/17 05:48 Dose: 100 mg Escitalopram Oxalate (Lexapro -) 5 mg PO DAILY [facility] Finasteride (Proscar -) 5 mg PO DAILY [facility] Last Admin: 03/11/17 09:53 Dose: 5 mg Gabapentin (Neurontin -) 100 mg PO TID [facility] Last Admin: 03/12/17 05:48 Dose: 100 mg Piperacillin Sod/Tazobactam (Sod 3.375 gm/ Dextrose) 100 mls @ 200 mls/hr IVPB Q8H-IV [facility] PRN Reason: Protocol Last Admin: 03/12/17 02:12 Dose: 200 mls/hr Sodium Chloride (Normal Saline -) 1,000 mls @ 75 mls/hr IV ASDIR [facility] Last Admin: 03/11/17 15:16 Dose: Not Given Sodium Chloride (Normal Saline -) 500 mls @ 500 mls/hr IV ASDIR [facility] Stop: 03/12/17 11:11 Insulin Aspart (Novolog Vial Sliding Scale -) 1 vial SQ ACHS [facility] PRN Reason: Protocol Last Admin: 03/12/17 06:01 Dose: Not Given Multivitamins/Minerals/Vitamin C (Tab-A-Vit -) 1 tab PO DAILY [facility] Last Admin: 03/11/17 09:53 Dose: 1 tab Nicotine (Nicoderm Patch -) 21 mg TD DAILY [facility] Last Admin: 03/11/17 09:51 Dose: 21 mg Pantoprazole Sodium (Protonix Packets For Oral Suspension -) 40 mg PO DAILY [facility] Last Admin: 03/11/17 09:52 Dose: 40 mg Polyethylene Glycol (Miralax (For Daily Use) -) 17 gm PO BID [facility] Last Admin: 03/11/17 22:17 Dose: Not Given Senna/Docusate Sodium (Pericolace -) 1 tablet PO BID PRN PRN Reason: CONSTIPATION Sucralfate (Carafate Oral Suspension -) 1 gm PO TIDAC [facility] Last Admin: 03/12/17 06:01 Dose: 1 gm Tamsulosin HCl (Flomax -) 0.4 mg PO DAILY@0830 [facility] Last Admin: 03/11/17 09:52 Dose: 0.4 mg - Objective Vital Signs: Vital Signs Temperature 97.3 F L 03/12/17 09:09 Pulse Rate 64 03/12/17 09:40 Respiratory Rate 20 03/12/17 09:40 Blood Pressure 90/46 03/12/17 09:40 O2 Sat by Pulse Oximetry (%) 100 03/11/17 21:00 Constitutional: Yes: No Distress, Calm, Thin Cardiovascular: Yes: Regular Rate and Rhythm, S1, S2. No: Gallop, Murmur Respiratory: Yes: Regular, CTA Bilaterally. No: Accessory Muscle Use, Rales, Wheezes Extremities: No: Cold Edema: No (s/p BKAs) Neurological: Yes: Alert. No: Seizure Labs: CBC, BMP 03/12/17 06:20 INR, PTT INR 0.96 (0.82-1.09) 03/06/17 06:00 Assessment/Plan Echo 10/03 (SJ): nl LVSF; nl RV; valves WNL MPI 08/01 (pers): no STs; small infero-apical ischemia. nl EF. 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 rapid AF as well, currently in sinus -was not anticoagulated due to recurrent GI bleeding -per hospitalist, no source of hematemesis found on prior EGDs (no varices)-- does not seem he will be able to tolerate Watchman device implant with 6 wks AC and then 6 wks DAPT post, given frequency of GIBs and hence prohibitive risk of life threatening bleeding. anti-PLT therapy eventually?--as below -per prior notes, "did not tolerate" bb and CCBs (? low bp's)--managed with digoxin. 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 etiology: GI bleed? sepsis? -bp trending down today (sbp 90s)--observe for sx's or worsening hypotension h/o CAD, (+) troponin: -prior notes here reviewed--pt had abnormal stress test 2013 (as above), ? had PCI previously -since he has been a pt here from 2015 onwards, has never been on DAPT per prior notes, only plavix monotherapy -troponins here intermediate range 0.06-->0.08, not c/w ACS at this time. no isch ecg. f/u 3rd trop today -Likely demand ischemia in setting of rapid Afib and hypotension, ? underlying CAD -has h/o recurrent GIB's here in past--would resume either ASA or plavix alone when/if safe, per GI -Continue home statin, per his outpt cardio (LFTs normal) -given low risk stress test findings, and pt inability to tolerate DAPT for any period of time, will not pursue invasive workup acute LE ischemia, PAD: -CTA here with occluded Left common iliac / Left external iliac / Left femoral arteries new since 08/2016, long segment intramural thrombus with calcified and non-calcified atherosclerotic plaque along the abdominal aorta resulting in mild -moderate luminal narrowing and narrowing of the origins of the major visceral branches. -note: the main indication for anti-platelets or AC agents at present time is for limb salvage, per vascular opinion (CAD hx and AFib are less urgent, given risk of stent thrombosis (not recent stent) or cardioembolic CVA are numerically low in the short term) -vascular consult appreciated--> no intervention at this time. HTN: -bp currently low, hold anti-hypertensive meds TELE OFF
[2017-03-12] MEDS: AMINO ACIDS/PROTEIN HYDROLYS 30 ML LIQUID.PKT PO SCH ×2 (10:42→16:32)
[2017-03-12] MEDS: TAMSULOSIN HCL 0.4 MG CAP.ER.24H (FP) PO SCH (10:43)
[2017-03-12] MEDS: MULTIVITAMINS (DAILY MVI) TABLET (FP) PO SCH (10:43)
[2017-03-12] MEDS: NICOTINE 21 MG/24 HOURS TOPICAL PATCH TD SCH (10:44)
[2017-03-12] MEDS: FINASTERIDE 5 MG TABLET (FP) PO SCH (10:44)
[2017-03-12] MEDS: PANTOPRAZOLE SOD 40 MG SUSPENSION PACKET PO SCH (10:44)
[2017-03-12] MEDS: POLYETHYLENE GLYCOL 3350 119 GM BTL PO SCH ×2 (10:45→22:34)
[2017-03-12 11:00] LABS: ALBUMIN 1.9 g/dl (3.4-5.0); ANION GAP 6 (8-16); BILIRUBIN,TOTAL 0.6 mg/dL (0.2-1.0); CALCIUM 7.7 mg/dL (8.5-10.1); CO2 25 mmol/L (21-32); CREATININE 0.5 mg/dL (0.7-1.3); GLUCOSE,RANDOM 79 mg/dL (74-106); SGOT/AST 5 U/L (15-37); SGPT/ALT 9 U/L (12-78); TOT PROT 4.3 g/dl (6.4-8.2)
[2017-03-12 11:11] LABS: ALK PHOS 93 U/L (45-117); DIGOXIN LEVEL 0.5112 ng/ml (0.8-2.0)
[2017-03-12] MEDS: ESCITALOPRAM OXALATE 10 MG TABLET (FP) PO SCH (11:21)
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
--- NOTE | 2017-03-12 12:32 | PN ---
Progress Note, Physician History of Present Illness: Events noted. Pt seen and examined. Currently states he feels well. Having BMs. Is afebrile, without specific complaints. Fully alert today. - Current Medication List Current Medications: Active Medications Amino Acids (Prosource No Carb Liquid Pkt) 30 ml PO BID@0800,1730 [facility] Last Admin: 03/12/17 10:42 Dose: 30 ml Atorvastatin Calcium (Lipitor -) 40 mg PO HS [facility] Last Admin: 03/11/17 22:16 Dose: 40 mg Digoxin (Lanoxin -) 0.125 mg PO DAILY [facility] Docusate Sodium (Colace -) 100 mg PO TID [facility] Last Admin: 03/12/17 05:48 Dose: 100 mg Escitalopram Oxalate (Lexapro -) 5 mg PO DAILY [facility] Last Admin: 03/12/17 11:21 Dose: 5 mg Finasteride (Proscar -) 5 mg PO DAILY [facility] Last Admin: 03/12/17 10:44 Dose: 5 mg Gabapentin (Neurontin -) 100 mg PO TID [facility] Last Admin: 03/12/17 05:48 Dose: 100 mg Piperacillin Sod/Tazobactam (Sod 3.375 gm/ Dextrose) 100 mls @ 200 mls/hr IVPB Q8H-IV [facility] PRN Reason: Protocol Last Admin: 03/12/17 10:42 Dose: 200 mls/hr Sodium Chloride (Normal Saline -) 1,000 mls @ 75 mls/hr IV ASDIR [facility] Last Admin: 03/11/17 15:16 Dose: Not Given Insulin Aspart (Novolog Vial Sliding Scale -) 1 vial SQ ACHS [facility] PRN Reason: Protocol Last Admin: 03/12/17 11:28 Dose: Not Given Multivitamins/Minerals/Vitamin C (Tab-A-Vit -) 1 tab PO DAILY [facility] Last Admin: 03/12/17 10:43 Dose: 1 tab Nicotine (Nicoderm Patch -) 21 mg TD DAILY [facility] Last Admin: 03/12/17 10:44 Dose: 21 mg Pantoprazole Sodium (Protonix Packets For Oral Suspension -) 40 mg PO DAILY [facility] Last Admin: 03/12/17 10:44 Dose: 40 mg Polyethylene Glycol (Miralax (For Daily Use) -) 17 gm PO BID [facility] Last Admin: 03/12/17 10:45 Dose: 17 gm Senna/Docusate Sodium (Pericolace -) 1 tablet PO BID PRN PRN Reason: CONSTIPATION Sucralfate (Carafate Oral Suspension -) 1 gm PO TIDAC [facility] Last Admin: 03/12/17 11:22 Dose: 1 gm Tamsulosin HCl (Flomax -) 0.4 mg PO DAILY@0830 [facility] Last Admin: 03/12/17 10:43 Dose: 0.4 mg - Objective Vital Signs: Vital Signs Temperature 97.3 F L 03/12/17 09:09 Pulse Rate 106 H 03/12/17 11:36 Respiratory Rate 19 03/12/17 11:36 Blood Pressure 126/70 03/12/17 11:36 O2 Sat by Pulse Oximetry (%) 100 03/11/17 21:00 Constitutional: Yes: No Distress, Calm Neck: Yes: Supple Cardiovascular: Yes: Tachycardia Respiratory: Yes: CTA Bilaterally Gastrointestinal: Yes: Normal Bowel Sounds, Soft Extremities: Yes: Amputation (b/l AKA) Integumentary: Yes: WNL Neurological: Yes: Alert, Oriented Labs: CBC, BMP 03/12/17 06:20 03/12/17 10:20 INR, PTT INR 0.96 (0.82-1.09) 03/06/17 06:00 Microbiology 03/08/17 06:35 Blood - Peripheral Venous Blood Culture - Preliminary NO GROWTH OBTAINED AFTER 96 HOURS, INCUBATION TO CONTINUE FOR 1 DAYS. 03/08/17 06:30 Blood - Peripheral Venous Blood Culture - Preliminary NO GROWTH OBTAINED AFTER 96 HOURS, INCUBATION TO CONTINUE FOR 1 DAYS. 03/05/17 17:50 Blood - Peripheral Venous Blood Culture - Final NO GROWTH AFTER 5 DAYS INCUBATION 03/05/17 17:50 Blood - Peripheral Venous Blood Culture - Final Enterococcus Faecalis 03/05/17 20:45 Urine - Urine Clean Catch Urine Culture - Final Pseudomonas Aeruginosa Problem List - Problems (1) Atrial fibrillation with rapid ventricular response Code(s): I48.91 - UNSPECIFIED ATRIAL FIBRILLATION (2) Bacteremia due to Enterococcus Code(s): R78.81 - BACTEREMIA; B95.2 - ENTEROCOCCUS THE CAUSE OF DISEASES CLASSIFIED ELSEWHERE (3) Esophageal stricture Code(s): K22.2 - ESOPHAGEAL OBSTRUCTION (4) UTI (urinary tract infection) Code(s): N39.0 - URINARY TRACT INFECTION, SITE NOT SPECIFIED Qualifiers: Urinary tract infection type: site unspecified Hematuria presence: without hematuria Qualified Code(s): N39.0 - Urinary tract infection, site not specified (5) Diabetes Code(s): E11.9 - TYPE 2 DIABETES MELLITUS WITHOUT COMPLICATIONS (6) Fecal impaction Code(s): K56.41 - FECAL IMPACTION (7) Liver cirrhosis Code(s): K74.60 - UNSPECIFIED CIRRHOSIS OF LIVER (8) Esophageal stricture Code(s): K22.2 - ESOPHAGEAL OBSTRUCTION (9) Hepatitis C Code(s): B19.20 - UNSPECIFIED VIRAL HEPATITIS C WITHOUT HEPATIC COMA Assessment/Plan 71 y.o. male admitted with abd pain and vomiting, constipation, Sepsis. Resistant Pseudomonas UTI Enterococcal Bacteremia clinically improving cont Zosyn for now f/u repeat blood and urine cultures if negative plan switch to po antibiotics
[2017-03-12] MEDS ORDERED: PT OWN MED DRAWER 7, Y5N ONE (16:23)
[2017-03-12] MEDS: SODIUM CHLORIDE 1,000 ML IV SCH (16:30)
--- NOTE | 2017-03-12 20:39 | PN ---
Physical Exam: SUBJECTIVE: Patient seen and examined Patient is comfortable, less confused today . Almost back to his senses. OBJECTIVE: Vital Signs Temperature 97.7 F 03/12/17 14:33 Pulse Rate 107 H 03/12/17 14:33 Respiratory Rate 16 03/12/17 14:33 Blood Pressure 134/69 03/12/17 14:33 O2 Sat by Pulse Oximetry (%) 99 03/12/17 13:49 GENERAL: The patient is awake, alert, and fully oriented, in no acute distress. HEAD: Normal with no signs of trauma. EYES: PERRL, extraocular movements intact, sclera anicteric, conjunctiva clear. ENT: Ears normal, oropharynx clear without exudates, moist mucous membranes. NECK: Trachea midline, full range of motion, supple. LUNGS: Breath sounds equal, clear to auscultation bilaterally, no wheezes, no crackles, no accessory muscle use. HEART: Regular rate and rhythm, S1, S2 without murmur, rub or gallop. ABDOMEN: Soft, nontender, nondistended, normoactive bowel sounds, no guarding, no rebound. EXTREMITIES: AKA BL NEUROLOGICAL: Cranial nerves II through XII grossly intact. Normal speech, PSYCH: Normal mood, normal affect. SKIN: Warm, dry, normal turgor, no rashes or lesions noted Laboratory Results - last 24 hr 03/11/17 03/12/17 03/12/17 22:15 05:58 06:20 WBC 4.7 RBC 3.85 L Hgb 9.3 L D Hct 30.3 L MCV 78.8 L MCH 24.3 L MCHC 30.8 L RDW 18.9 H Plt Count 146 D MPV 6.5 L Neutrophils % 55.5 Lymphocytes % 23.8 D Monocytes % 8.6 Eosinophils % 11.2 H Basophils % 0.9 Sodium Potassium Chloride Carbon Dioxide Anion Gap BUN Creatinine Creat Clearance w eGFR POC Glucometer 80 89 Random Glucose Calcium Total Bilirubin AST ALT Alkaline Phosphatase Total Protein Albumin Digoxin 03/12/17 03/12/17 03/12/17 10:20 11:26 16:29 WBC RBC Hgb Hct MCV MCH MCHC RDW Plt Count MPV Neutrophils % Lymphocytes % Monocytes % Eosinophils % Basophils % Sodium 142 Potassium 4.0 Chloride 111 H Carbon Dioxide 25 Anion Gap 6 L BUN 4 L Creatinine 0.5 L Creat Clearance w eGFR > 60 POC Glucometer 74 96 Random Glucose 79 Calcium 7.7 L Total Bilirubin 0.6 D AST 5 L ALT 9 L Alkaline Phosphatase 93 Total Protein 4.3 L Albumin 1.9 L Digoxin 0.5112 L Active Medications Generic Name Dose Route Start Last Admin Trade Name Macho PRN Reason Stop Dose Admin Amino Acids 30 ml 03/08/17 08:00 03/12/17 16:32 Prosource No Carb Liquid Pkt PO 30 ml BID@0800,1730 EDIL[facility] Administration Atorvastatin Calcium 40 mg 03/07/17 22:00 03/11/17 22:16 Lipitor - PO 40 mg HS [facility]IL[facility] Administration Digoxin 0.125 mg 03/13/17 10:00 Lanoxin - PO DAILY EDILSON Docusate Sodium 100 mg 03/07/17 22:00 03/12/17 13:42 Colace - PO 100 mg TID [facility] Administration Escitalopram Oxalate 5 mg 03/12/17 10:00 03/12/17 11:21 Lexapro - PO 5 mg DAILY [facility] Administration Finasteride 5 mg 03/08/17 10:00 03/12/17 10:44 Proscar - PO 5 mg DAILY [facility] Administration Gabapentin 100 mg 03/07/17 22:00 03/12/17 13:42 Neurontin - PO 100 mg TID [facility] Administration Piperacillin Sod/Tazobactam 100 mls @ 200 mls/hr 03/08/17 02:00 03/12/17 17: 25 Sod 3.375 gm/ Dextrose IVPB 200 mls/hr Q8H-IV [facility] Administration Protocol Sodium Chloride 1,000 mls @ 75 mls/hr 03/08/17 15:15 03/12/17 16:30 Normal Saline - IV 75 mls/hr ASDIR [facility] Administration Insulin Aspart 1 vial 03/10/17 07:00 03/12/17 16:31 Novolog Vial Sliding Scale - SQ Not Given ACHS [facility] Protocol Multivitamins/Minerals/Vitamin C 1 tab 03/08/17 10:00 03/12/17 10:43 Tab-A-Vit - PO 1 tab DAILY [facility] Administration Nicotine 21 mg 03/08/17 10:00 03/12/17 10:44 Nicoderm Patch - TD 21 mg DAILY [facility] Administration Pantoprazole Sodium 40 mg 03/08/17 10:00 03/12/17 10:44 Protonix Packets For Oral Suspension - PO 40 mg DAILY [facility] Administration Polyethylene Glycol 17 gm 03/07/17 22:00 03/12/17 10:45 Miralax (For Daily Use) - PO 17 gm BID [facility] Administration Senna/Docusate Sodium 1 tablet 03/11/17 17:55 Pericolace - PO BID PRN CONSTIPATION Sucralfate 1 gm 03/08/17 07:52 03/12/17 16:28 Carafate Oral Suspension - PO 1 gm TIDAC [facility] Administration Tamsulosin HCl 0.4 mg 03/08/17 08:30 03/12/17 10:43 Flomax - PO 0.4 mg DAILY@0830 [facility] Administration Home Medications Medication Instructions Recorded Gabapentin [Neurontin -] 100 mg PO TID #90 capsule 07/25/15 Finasteride 5 mg PO DAILY 10/08/15 Docusate Sodium 100 mg PO TID 02/15/16 Tamsulosin HCl 0.4 mg PO DAILY 02/15/16 Famotidine [Pepcid -] 40 mg PO DAILY 03/05/17 Sucralfate [Carafate] 1 gm PO TID 03/05/17 Metoclopramide HCl [Reglan] 5 mg PO TID PRN 03/06/17 ASSESSMENT/PLAN: Patient is a 70 yo M with PMHx of A Fib , CVA , Upper GI bleeds, esophageal stricture , DVTs , who presented with abd pain, N/V and was found to have severe sepsis . # s/p severe sepsis; improving likely due to his UTI.; Urine cx with pseudomonas on IV Zosyn day 7, discussed with Dr. Mary Bentley. will continue Zosyn and upon discharge will discharge the patient with Po Ampicillin for 5 more days. Discussed with ID to continue Zosyn for now. # S/p acute Upper GI bleed hemoglobin is stable . On PPI continue , continue diet , refused EGD continue Carafate 1gm # A fib with rate controlled but high 90s now. dig. was increased to 0.25 x 1 day s then will continue with 0.125mg , No AC due to recurrent GI bleeds # Fecal impaction. BMs after enemas , Cont oral regimen ; miralax, morgan /colace # Thrombosis in aorta and pelvic veins: possible atherosclerotic disease with secondary thrombosis. at this point can't give anti-plt. #Left common iliac artery, left common femoral artery occlusion: off coumadin due GI bleed. As per Dr.Nirav Greenfield: no intervention at this time; conservative treatment. if LL limb becomes cool; may need femoral-femoral artery bypass. DVT Px: AKA BL, with hx of GI bleed , can't anticoagulate Visit type - Emergency Visit Emergency Visit: Yes ED Registration Date: 03/05/17 Care time: The patient presented to the Emergency Department on the above date and was hospitalized for further evaluation of their emergent condition. - New Patient This patient is new to me today: No - Critical Care Critical Care patient: No - Discharge Referral Referred to [facility] No
[2017-03-12] MEDS: ATORVASTATIN CA 40 MG TABLET (FP) PO SCH (22:33)
[2017-03-13] MEDS: SODIUM CHLORIDE 1,000 ML IV SCH ×2 (01:27→17:48)
[2017-03-13] MEDS: PIPERACILLIN/TAZOB 3.375 GM 3.375 GM in DEXTROSE 5%-WATER - 100 ML IVPB SCH ×3 (01:27→19:14)
[2017-03-13] MEDS: GABAPENTIN 100 MG CAPSULE (FP) PO SCH ×3 (05:09→22:27)
[2017-03-13] MEDS: DOCUSATE SODIUM 100 MG CAPSULE (FP) PO SCH ×3 (05:09→22:27)
[2017-03-13] MEDS: SUCRALFATE 1 GM/10 ML UNIT DOSE CUPS PO SCH ×3 (06:06→17:48)
[2017-03-13] MEDS: INSULIN SLIDING SCALE (NOVOLOG) 1 VIAL SQ SCH ×4 (06:06→22:32)
[2017-03-13] MEDS ORDERED: PT OWN MED DRAWER 7, Y5N ONE ×2 (09:22→18:00)
[2017-03-13] MEDS: NICOTINE 21 MG/24 HOURS TOPICAL PATCH TD SCH (09:31)
[2017-03-13] MEDS: ESCITALOPRAM OXALATE 10 MG TABLET (FP) PO SCH (09:31)
[2017-03-13] MEDS: AMINO ACIDS/PROTEIN HYDROLYS 30 ML LIQUID.PKT PO SCH ×2 (09:31→17:49)
[2017-03-13] MEDS: PANTOPRAZOLE SOD 40 MG SUSPENSION PACKET PO SCH (09:31)
[2017-03-13] MEDS: TAMSULOSIN HCL 0.4 MG CAP.ER.24H (FP) PO SCH (09:31)
[2017-03-13] MEDS: POLYETHYLENE GLYCOL 3350 119 GM BTL PO SCH ×2 (09:32→22:27)
[2017-03-13] MEDS: FINASTERIDE 5 MG TABLET (FP) PO SCH (09:32)
[2017-03-13] MEDS: MULTIVITAMINS (DAILY MVI) TABLET (FP) PO SCH (09:32)
--- NOTE | 2017-03-13 09:36 | PN ---
Progress Note, Physician Chief Complaint: hematemesis History of Present Illness: very sleepy, minimally rousable. not communicative. looks comfortable - Current Medication List Current Medications: Active Medications Amino Acids (Prosource No Carb Liquid Pkt) 30 ml PO BID@0800,1730 [facility] Last Admin: 03/12/17 16:32 Dose: 30 ml Atorvastatin Calcium (Lipitor -) 40 mg PO HS [facility] Last Admin: 03/12/17 22:33 Dose: 40 mg Digoxin (Lanoxin -) 0.125 mg PO DAILY [facility] Docusate Sodium (Colace -) 100 mg PO TID [facility] Last Admin: 03/13/17 05:09 Dose: 100 mg Escitalopram Oxalate (Lexapro -) 5 mg PO DAILY [facility] Last Admin: 03/12/17 11:21 Dose: 5 mg Finasteride (Proscar -) 5 mg PO DAILY [facility] Last Admin: 03/12/17 10:44 Dose: 5 mg Gabapentin (Neurontin -) 100 mg PO TID [facility] Last Admin: 03/13/17 05:09 Dose: 100 mg Piperacillin Sod/Tazobactam (Sod 3.375 gm/ Dextrose) 100 mls @ 200 mls/hr IVPB Q8H-IV [facility] PRN Reason: Protocol Last Admin: 03/13/17 01:27 Dose: 200 mls/hr Sodium Chloride (Normal Saline -) 1,000 mls @ 75 mls/hr IV ASDIR [facility] Last Admin: 03/13/17 01:27 Dose: 75 mls/hr Insulin Aspart (Novolog Vial Sliding Scale -) 1 vial SQ ACHS [facility] PRN Reason: Protocol Last Admin: 03/13/17 06:06 Dose: Not Given Multivitamins/Minerals/Vitamin C (Tab-A-Vit -) 1 tab PO DAILY [facility] Last Admin: 03/12/17 10:43 Dose: 1 tab Nicotine (Nicoderm Patch -) 21 mg TD DAILY [facility] Last Admin: 03/12/17 10:44 Dose: 21 mg Pantoprazole Sodium (Protonix Packets For Oral Suspension -) 40 mg PO DAILY [facility] Last Admin: 03/12/17 10:44 Dose: 40 mg Polyethylene Glycol (Miralax (For Daily Use) -) 17 gm PO BID [facility] Last Admin: 03/12/17 22:34 Dose: 17 gm Senna/Docusate Sodium (Pericolace -) 1 tablet PO BID PRN PRN Reason: CONSTIPATION Sucralfate (Carafate Oral Suspension -) 1 gm PO TIDAC [facility] Last Admin: 03/13/17 06:06 Dose: 1 gm Tamsulosin HCl (Flomax -) 0.4 mg PO DAILY@0830 [facility] Last Admin: 03/12/17 10:43 Dose: 0.4 mg - Objective Vital Signs: Vital Signs Temperature 97.8 F 03/13/17 06:00 Pulse Rate 106 H 03/13/17 06:00 Respiratory Rate 18 03/13/17 06:00 Blood Pressure 98/47 03/13/17 06:00 O2 Sat by Pulse Oximetry (%) 99 03/12/17 21:00 Constitutional: Yes: No Distress, Calm, Thin Cardiovascular: Yes: Regular Rate and Rhythm (soft sounds), S1, S2. No: JVD, Gallop, Murmur Respiratory: Yes: Regular (not taking deep breaths), CTA Bilaterally, Accessory Muscle Use. No: Rales, Wheezes Extremities: No: Cold Edema: No (s/p AKAs) Neurological: Yes: Lethargy. No: Seizure Psychiatric: No: Agitated Labs: CBC, BMP 03/12/17 06:20 03/12/17 10:20 INR, PTT INR 0.96 (0.82-1.09) 03/06/17 06:00 Assessment/Plan Echo 10/03 (SJ): nl LVSF; nl RV; valves WNL MPI 08/01 (pers): no STs; small infero-apical ischemia. nl EF. 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 rapid AF as well, currently in sinus -was not anticoagulated due to recurrent GI bleeding -per hospitalist, no source of hematemesis found on prior EGDs (no varices)-- does not seem he will be able to tolerate Watchman device implant with 6 wks AC and then 6 wks DAPT post, given frequency of GIBs and hence prohibitive risk of life threatening bleeding. anti-PLT therapy eventually?--as below -per prior notes, "did not tolerate" bb and CCBs (? low bp's)--managed with digoxin. per hospitalist, pt gives history that his eviction specialist (in [place], does not recall name) changed dig to dilt at some point -cont digoxin (levels good) h/o CAD, (+) troponin: -prior notes here reviewed--pt had abnormal stress test 2013 (as above), ? had PCI previously -since he has been a pt here from 2015 onwards, has never been on DAPT per prior notes, only plavix monotherapy -troponins here intermediate range 0.06-->0.08, not c/w ACS at this time. no isch ecg. f/u 3rd trop today -Likely demand ischemia in setting of rapid Afib and hypotension, ? underlying CAD -has h/o recurrent GIB's here in past--would resume either ASA or plavix alone when/if safe, per GI -Continue home statin, per his outpt cardio (LFTs normal) -given low risk stress test findings, and pt inability to tolerate DAPT for any period of time, will not pursue invasive workup acute LE ischemia, PAD: -CTA here with occluded Left common iliac / Left external iliac / Left femoral arteries new since 08/2016, long segment intramural thrombus with calcified and non-calcified atherosclerotic plaque along the abdominal aorta resulting in mild -moderate luminal narrowing and narrowing of the origins of the major visceral branches. -note: the main indication for anti-platelets or AC agents at present time is for limb salvage, per vascular opinion (CAD hx and AFib are less urgent, given risk of stent thrombosis (not recent stent) or cardioembolic CVA are numerically low in the short term) -vascular consult appreciated--> no intervention at this time. anemia: -hgb trending down slowly here -h/o recurrent UGIBs noted, as above -lab trend, plan per hospitalist HTN: -bp currently low (90s) at times, hold anti-hypertensive meds TELE OFF
[2017-03-13] MEDS ORDERED: DIGOXIN 0.125 MG TABLET (FP) PO SCH (10:00)
--- NOTE | 2017-03-13 10:47 | PN ---
Progress Note, Physician History of Present Illness: pulmonary alert,nad,-cp,-sob,-cough - Current Medication List Current Medications: Active Medications Amino Acids (Prosource No Carb Liquid Pkt) 30 ml PO BID@0800,1730 [facility]PLAC[facility] Last Admin: 03/13/17 09:31 Dose: 30 ml Atorvastatin Calcium (Lipitor -) 40 mg PO HS [facility] Last Admin: 03/12/17 22:33 Dose: 40 mg Digoxin (Lanoxin -) 0.125 mg PO DAILY [facility] Last Admin: 03/13/17 09:32 Dose: 0.125 mg Docusate Sodium (Colace -) 100 mg PO TID [facility] Last Admin: 03/13/17 05:09 Dose: 100 mg Escitalopram Oxalate (Lexapro -) 5 mg PO DAILY [facility] Last Admin: 03/13/17 09:31 Dose: 5 mg Finasteride (Proscar -) 5 mg PO DAILY [facility] Last Admin: 03/13/17 09:32 Dose: 5 mg Gabapentin (Neurontin -) 100 mg PO TID [facility] Last Admin: 03/13/17 05:09 Dose: 100 mg Piperacillin Sod/Tazobactam (Sod 3.375 gm/ Dextrose) 100 mls @ 200 mls/hr IVPB Q8H-IV [facility] PRN Reason: Protocol Last Admin: 03/13/17 10:04 Dose: 200 mls/hr Sodium Chloride (Normal Saline -) 1,000 mls @ 75 mls/hr IV ASDIR REPLACED [facility] Last Admin: 03/13/17 01:27 Dose: 75 mls/hr Insulin Aspart (Novolog Vial Sliding Scale -) 1 vial SQ ACHS [facility]PL[facility] PRN Reason: Protocol Last Admin: 03/13/17 06:06 Dose: Not Given Multivitamins/Minerals/Vitamin C (Tab-A-Vit -) 1 tab PO DAILY [facility] Last Admin: 03/13/17 09:32 Dose: 1 tab Nicotine (Nicoderm Patch -) 21 mg TD DAILY [facility] Last Admin: 03/13/17 09:31 Dose: 21 mg Pantoprazole Sodium (Protonix Packets For Oral Suspension -) 40 mg PO DAILY [facility] Last Admin: 03/13/17 09:31 Dose: 40 mg Polyethylene Glycol (Miralax (For Daily Use) -) 17 gm PO BID [facility]PL[facility] Last Admin: 03/13/17 09:32 Dose: 17 gm Senna/Docusate Sodium (Pericolace -) 1 tablet PO BID PRN PRN Reason: CONSTIPATION Sucralfate (Carafate Oral Suspension -) 1 gm PO TIDAC REPLACED BY [facility] Last Admin: 03/13/17 06:06 Dose: 1 gm Tamsulosin HCl (Flomax -) 0.4 mg PO DAILY@0830 REPLACED [facility] Last Admin: 03/13/17 09:31 Dose: 0.4 mg - Objective Vital Signs: Vital Signs Temperature 97.8 F 03/13/17 06:00 Pulse Rate 99 H 03/13/17 09:32 Respiratory Rate 18 03/13/17 06:00 Blood Pressure 98/47 03/13/17 06:00 O2 Sat by Pulse Oximetry (%) 99 03/12/17 21:00 Constitutional: Yes: Calm, Thin Eyes: Yes: WNL HENT: Yes: WNL Neck: Yes: WNL Cardiovascular: Yes: Regular Rate and Rhythm, S1, S2 Respiratory: Yes: CTA Bilaterally Gastrointestinal: Yes: Normal Bowel Sounds, Soft Extremities: Yes: Amputation (ab aka) Edema: No Labs: CBC, BMP Problem List - Problems (1) Sepsis Code(s): A41.9 - SEPSIS, UNSPECIFIED ORGANISM (2) Atrial fibrillation with rapid ventricular response Code(s): I48.91 - UNSPECIFIED ATRIAL FIBRILLATION (3) Liver cirrhosis Code(s): K74.60 - UNSPECIFIED CIRRHOSIS OF LIVER (4) UTI (urinary tract infection) Code(s): N39.0 - URINARY TRACT INFECTION, SITE NOT SPECIFIED Qualifiers: Urinary tract infection type: site unspecified Hematuria presence: without hematuria Qualified Code(s): N39.0 - Urinary tract infection, site not specified (5) CAD (coronary artery disease) Code(s): I25.10 - ATHSCL HEART DISEASE OF [place] CORONARY ARTERY W/O ANG PCTRS (6) CVA (cerebral vascular accident) Code(s): I63.9 - CEREBRAL INFARCTION, UNSPECIFIED (7) S/P AKA (above knee amputation) bilateral Code(s): Z89.611 - ACQUIRED ABSENCE OF RIGHT LEG ABOVE KNEE; Z89.612 - ACQUIRED ABSENCE OF LEFT LEG ABOVE KNEE (8) Bacteremia Code(s): R78.81 - BACTEREMIA (9) Bacteremia due to Enterococcus Code(s): R78.81 - BACTEREMIA; B95.2 - ENTEROCOCCUS THE CAUSE OF DISEASES CLASSIFIED ELSEWHERE Assessment/Plan ASSESSMENT AND PLAN: UTI Bacteremia s/p Severe Sepsis +Troponins likely Demand Ischemia Lactic Acidosis resolved Atrial Fibrillation h/o CVA CAD COPD stable DM HTN Hep C Liver Cirrhosis - antibiotics as per ID - IVF - rate controlled - hold antihypertensives - inhaled bronchodilators - DVT prophylaxis - pt DNR/DNI - DR SCOTT
--- NOTE | 2017-03-13 15:16 | PN ---
Progress Note, Physician History of Present Illness: Pt states he is feeling much better. Remains afebrile, alert. Denies dysuria, abd pain/n/v/d, cough, shortness of breath. - Current Medication List Current Medications: Active Medications Amino Acids (Prosource No Carb Liquid Pkt) 30 ml PO BID@0800,1730 [facility] Last Admin: 03/13/17 09:31 Dose: 30 ml Atorvastatin Calcium (Lipitor -) 40 mg PO HS [facility] Last Admin: 03/12/17 22:33 Dose: 40 mg Digoxin (Lanoxin -) 0.25 mg PO DAILY [facility] Docusate Sodium (Colace -) 100 mg PO TID [facility] Last Admin: 03/13/17 14:13 Dose: 100 mg Escitalopram Oxalate (Lexapro -) 5 mg PO DAILY [facility] Last Admin: 03/13/17 09:31 Dose: 5 mg Finasteride (Proscar -) 5 mg PO DAILY [facility] Last Admin: 03/13/17 09:32 Dose: 5 mg Gabapentin (Neurontin -) 100 mg PO TID [facility] Last Admin: 03/13/17 14:13 Dose: 100 mg Piperacillin Sod/Tazobactam (Sod 3.375 gm/ Dextrose) 100 mls @ 200 mls/hr IVPB Q8H-IV [facility] PRN Reason: Protocol Last Admin: 03/13/17 10:04 Dose: 200 mls/hr Sodium Chloride (Normal Saline -) 1,000 mls @ 75 mls/hr IV ASDIR [facility] Last Admin: 03/13/17 01:27 Dose: 75 mls/hr Insulin Aspart (Novolog Vial Sliding Scale -) 1 vial SQ ACHS [facility] PRN Reason: Protocol Last Admin: 03/13/17 14:52 Dose: Not Given Multivitamins/Minerals/Vitamin C (Tab-A-Vit -) 1 tab PO DAILY [facility] Last Admin: 03/13/17 09:32 Dose: 1 tab Nicotine (Nicoderm Patch -) 21 mg TD DAILY [facility] Last Admin: 03/13/17 09:31 Dose: 21 mg Pantoprazole Sodium (Protonix Packets For Oral Suspension -) 40 mg PO DAILY [facility] Last Admin: 03/13/17 09:31 Dose: 40 mg Polyethylene Glycol (Miralax (For Daily Use) -) 17 gm PO BID [facility] Last Admin: 03/13/17 09:32 Dose: 17 gm Senna/Docusate Sodium (Pericolace -) 1 tablet PO BID PRN PRN Reason: CONSTIPATION Sucralfate (Carafate Oral Suspension -) 1 gm PO TIDAC [facility] Last Admin: 03/13/17 14:13 Dose: 1 gm Tamsulosin HCl (Flomax -) 0.4 mg PO DAILY@0830 [facility] Last Admin: 03/13/17 09:31 Dose: 0.4 mg - Objective Vital Signs: Vital Signs Temperature 97.8 F 03/13/17 06:00 Pulse Rate 99 H 03/13/17 09:32 Respiratory Rate 18 03/13/17 06:00 Blood Pressure 98/47 03/13/17 06:00 O2 Sat by Pulse Oximetry (%) 99 03/12/17 21:00 Constitutional: Yes: No Distress, Calm Cardiovascular: Yes: Regular Rate and Rhythm Respiratory: Yes: CTA Bilaterally Gastrointestinal: Yes: Normal Bowel Sounds, Soft Genitourinary: Yes: WNL Extremities: Yes: Amputation (b/l AKA) Integumentary: Yes: WNL Neurological: Yes: Alert, Oriented Labs: CBC, BMP 03/12/17 06:20 03/12/17 10:20 INR, PTT INR 0.96 (0.82-1.09) 03/06/17 06:00 Microbiology 03/12/17 11:38 Blood - Peripheral Venous Blood Culture - Preliminary NO GROWTH OBTAINED AFTER 24 HOURS, INCUBATION TO CONTINUE FOR 4 DAYS. 03/12/17 11:38 Blood - Peripheral Venous Blood Culture - Preliminary NO GROWTH OBTAINED AFTER 24 HOURS, INCUBATION TO CONTINUE FOR 4 DAYS. 03/12/17 11:00 Urine - Urine Rawls Urine Culture - Final NO GROWTH OBTAINED 03/08/17 06:35 Blood - Peripheral Venous Blood Culture - Final NO GROWTH AFTER 5 DAYS INCUBATION 03/08/17 06:30 Blood - Peripheral Venous Blood Culture - Final NO GROWTH AFTER 5 DAYS INCUBATION Problem List - Problems (1) Atrial fibrillation with rapid ventricular response Code(s): I48.91 - UNSPECIFIED ATRIAL FIBRILLATION (2) Bacteremia due to Enterococcus Code(s): R78.81 - BACTEREMIA; B95.2 - ENTEROCOCCUS THE CAUSE OF DISEASES CLASSIFIED ELSEWHERE (3) Esophageal stricture Code(s): K22.2 - ESOPHAGEAL OBSTRUCTION (4) UTI (urinary tract infection) Code(s): N39.0 - URINARY TRACT INFECTION, SITE NOT SPECIFIED Qualifiers: Urinary tract infection type: site unspecified Hematuria presence: without hematuria Qualified Code(s): N39.0 - Urinary tract infection, site not specified (5) Diabetes Code(s): E11.9 - TYPE 2 DIABETES MELLITUS WITHOUT COMPLICATIONS (6) Fecal impaction Code(s): K56.41 - FECAL IMPACTION (7) Liver cirrhosis Code(s): K74.60 - UNSPECIFIED CIRRHOSIS OF LIVER (8) Esophageal stricture Code(s): K22.2 - ESOPHAGEAL OBSTRUCTION (9) Hepatitis C Code(s): B19.20 - UNSPECIFIED VIRAL HEPATITIS C WITHOUT HEPATIC COMA Assessment/Plan 71 y.o. male with multiple medical problems admitted with abd pain and vomiting , constipation, Sepsis. Pseudomonas UTI Enterococcal Bacteremia clinically improving cont Zosyn for now repeat blood/urine cultures with no growth If d/c tomorrow suggest augmentin x one more wk
--- NOTE | 2017-03-13 17:26 | PN ---
Physical Exam: SUBJECTIVE: Patient seen and examined. is at bedside. Patient is much less confused today. No visual or auditory hallucinations. Feels better. No CP, sob, dysuria, fever, chills, abdominal pain. OBJECTIVE: Vital Signs Period Temp Pulse Resp BP Sys/Guevara Pulse Ox Last 24 Hr 97.6 F-97.9 F 89-114 16-18 98-115/47-70 99 GENERAL: thin, elderly man, lying comfortably in bed, nad, aaox2 EYES: sclera anicteric, conjunctiva clear ENT: oropharynx clear without exudates, moist mucous membranes LUNGS: CTAB, no wheezes, no crackles, no accessory muscle use. HEART: rrr, normal S1/S2, no m/r/g ABDOMEN: Soft, ntnd, normoactive BS EXTREMITIES: bilateral AKAs, no ulcers NEUROLOGICAL: CN II-XII intact. Sensation to light touch intact. Normal speech, L hemiparesis unchanged CBC, BMP 03/12/17 06:20 03/12/17 10:20 Hepatic Panel Total Bilirubin 0.6 mg/dL (0.2-1.0) D 03/12/17 10:20 AST 5 U/L (15-37) L 03/12/17 10:20 ALT 9 U/L (12-78) L 03/12/17 10:20 Alkaline Phosphatase 93 U/L (45-117) 03/12/17 10:20 Albumin 1.9 g/dl (3.4-5.0) L 03/12/17 10:20 Microbiology 03/12/17 11:38 Blood - Peripheral Venous Blood Culture - Preliminary NO GROWTH OBTAINED AFTER 24 HOURS, INCUBATION TO CONTINUE FOR 4 DAYS. 03/12/17 11:38 Blood - Peripheral Venous Blood Culture - Preliminary NO GROWTH OBTAINED AFTER 24 HOURS, INCUBATION TO CONTINUE FOR 4 DAYS. 03/12/17 11:00 Urine - Urine Rawls Urine Culture - Final NO GROWTH OBTAINED Active Medications Amino Acids (Prosource No Carb Liquid Pkt) 30 ml PO BID@0800,1730 [facility] Last Admin: 03/13/17 09:31 Dose: 30 ml Atorvastatin Calcium (Lipitor -) 40 mg PO HS [facility] Last Admin: 03/12/17 22:33 Dose: 40 mg Digoxin (Lanoxin -) 0.25 mg PO DAILY [facility] Docusate Sodium (Colace -) 100 mg PO TID [facility] Last Admin: 03/13/17 14:13 Dose: 100 mg Escitalopram Oxalate (Lexapro -) 5 mg PO DAILY [facility] Last Admin: 03/13/17 09:31 Dose: 5 mg Finasteride (Proscar -) 5 mg PO DAILY [facility] Last Admin: 03/13/17 09:32 Dose: 5 mg Gabapentin (Neurontin -) 100 mg PO TID [facility] Last Admin: 03/13/17 14:13 Dose: 100 mg Piperacillin Sod/Tazobactam (Sod 3.375 gm/ Dextrose) 100 mls @ 200 mls/hr IVPB Q8H-IV [facility] PRN Reason: Protocol Last Admin: 03/13/17 10:04 Dose: 200 mls/hr Sodium Chloride (Normal Saline -) 1,000 mls @ 75 mls/hr IV ASDIR [facility] Last Admin: 03/13/17 01:27 Dose: 75 mls/hr Insulin Aspart (Novolog Vial Sliding Scale -) 1 vial SQ ACHS [facility] PRN Reason: Protocol Last Admin: 03/13/17 14:52 Dose: Not Given Multivitamins/Minerals/Vitamin C (Tab-A-Vit -) 1 tab PO DAILY [facility] Last Admin: 03/13/17 09:32 Dose: 1 tab Nicotine (Nicoderm Patch -) 21 mg TD DAILY [facility] Last Admin: 03/13/17 09:31 Dose: 21 mg Pantoprazole Sodium (Protonix Packets For Oral Suspension -) 40 mg PO DAILY [facility] Last Admin: 03/13/17 09:31 Dose: 40 mg Polyethylene Glycol (Miralax (For Daily Use) -) 17 gm PO BID [facility] Last Admin: 03/13/17 09:32 Dose: 17 gm Senna/Docusate Sodium (Pericolace -) 1 tablet PO BID PRN PRN Reason: CONSTIPATION Sucralfate (Carafate Oral Suspension -) 1 gm PO TIDAC [facility] Last Admin: 03/13/17 14:13 Dose: 1 gm Tamsulosin HCl (Flomax -) 0.4 mg PO DAILY@0830 [facility] Last Admin: 03/13/17 09:31 Dose: 0.4 mg ASSESSMENT/PLAN: 70yo man with PMH of AFib (off AC), CVA (residual L sided hemiparesis), recurrent UGIBs, recurrent UTIs (+Pseudomonas), GERD with Armstrong's, esophageal stricture, and DVTs who p/w hematemesis and bilious vomiting, found to have severe sepsis. #acute delirium, improved. Patient was aaox3 with no AH/VH. -Psych consulted. Pt started on Lexapro 5mg daily for depression #severe sepsis, improving 2/2 Pseudomonas+ UTI and Enterococcus bacteremia ( sensitive to ampicillin) -case d/w ID. -Continue Zosyn IV for UTI/bacteremia. Abx Day 8. Will d/c on PO Augmentin x 7days -Repeat blood and urine cultures (03/12) [id number] #Hemetemesis, suspect UGIB given prior history, no further episodes, H&H stable with no e/o active bleeding -GI consulted. 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 Thrombus possible sequelae of atherosclerotic placques, DAVION mutation pending -Vascular surgery consulted - no surgical intervention at this time; Fem-fem bypass if limb becomes cold #BPH - Continue home Proscar and Flomax #FEN: -NS@75cc/hr -lytes wnl -Soft diet with double soups and yogurt, MVI, Prosource 30ml BID #PPX -DVT - SCD's (AC c/i) -GI - on PPI #DISPO: d/c tomorrow with [employer] services DNR/DNI d/w Dr. Ana Murdock MD PGY1 - Internal Medicine Visit type - Emergency Visit Emergency Visit: No - New Patient This patient is new to me today: No - Critical Care Critical Care patient: No
--- NOTE | 2017-03-13 17:50 | PN ---
Teaching Attending Note Name of Resident: Janet Murdock ATTENDING PHYSICIAN STATEMENT I saw and evaluated the patient. I reviewed the resident's note and discussed the case with the resident. I agree with the resident's findings and plan as documented. SUBJECTIVE: Patient is 100% better today with no acute distress, denies any hallucination at this time. Patient's at bed side. OBJECTIVE: Vital Signs Temperature 97.9 F 03/13/17 14:15 Pulse Rate 98 H 03/13/17 14:15 Respiratory Rate 16 03/13/17 14:15 Blood Pressure 104/62 03/13/17 14:15 O2 Sat by Pulse Oximetry (%) 99 03/12/17 21:00 CBCD WBC 4.7 K/mm3 (4.0-10.0) 03/12/17 06:20 RBC 3.85 M/mm3 (4.00-5.60) L 03/12/17 06:20 Hgb 9.3 GM/dL (11.7-16.9) L D 03/12/17 06:20 Hct 30.3 % (35.4-49) L 03/12/17 06:20 MCV 78.8 fl (80-96) L 03/12/17 06:20 MCHC 30.8 g/dl (32.0-35.9) L 03/12/17 06:20 RDW 18.9 % (11.9-15.9) H 03/12/17 06:20 Plt Count 146 K/MM3 (134-434) D 03/12/17 06:20 MPV 6.5 fl (7.5-11.1) L 03/12/17 06:20 CMP Sodium 142 mmol/L (136-145) 03/12/17 10:20 Potassium 4.0 mmol/L (3.5-5.1) 03/12/17 10:20 Chloride 111 mmol/L (98-107) H 03/12/17 10:20 Carbon Dioxide 25 mmol/L (21-32) 03/12/17 10:20 Anion Gap 6 (8-16) L 03/12/17 10:20 BUN 4 mg/dL (7-18) L 03/12/17 10:20 Creatinine 0.5 mg/dL (0.7-1.3) L 03/12/17 10:20 Creat Clearance w eGFR > 60 (>60) 03/12/17 10:20 Random Glucose 79 mg/dL (74-106) 03/12/17 10:20 Calcium 7.7 mg/dL (8.5-10.1) L 03/12/17 10:20 Total Bilirubin 0.6 mg/dL (0.2-1.0) D 03/12/17 10:20 AST 5 U/L (15-37) L 03/12/17 10:20 ALT 9 U/L (12-78) L 03/12/17 10:20 Alkaline Phosphatase 93 U/L (45-117) 03/12/17 10:20 Total Protein 4.3 g/dl (6.4-8.2) L 03/12/17 10:20 Albumin 1.9 g/dl (3.4-5.0) L 03/12/17 10:20 CARDIAC ENZYMES Creatine Kinase 20 IU/L (39-308) L 03/07/17 06:15 Troponin I 0.08 ng/ml (0.00-0.05) H 03/07/17 06:15 Current Medications Generic Name Dose Route Start Last Admin Trade Name Freq PRN Reason Stop Dose Admin Amino Acids 30 ml 03/08/17 08:00 03/13/17 17:49 Prosource No Carb Liquid Pkt PO Not Given BID@0800,1730 [facility] Atorvastatin Calcium 40 mg 03/07/17 22:00 03/12/17 22:33 Lipitor - PO 40 mg HS [facility] Administration Digoxin 0.25 mg 03/14/17 10:00 Lanoxin - PO DAILY [facility] Docusate Sodium 100 mg 03/07/17 22:00 03/13/17 14:13 Colace - PO 100 mg TID [facility] Administration Escitalopram Oxalate 5 mg 03/12/17 10:00 03/13/17 09:31 Lexapro - PO 5 mg DAILY [facility] Administration Finasteride 5 mg 03/08/17 10:00 03/13/17 09:32 Proscar - PO 5 mg DAILY [facility] Administration Gabapentin 100 mg 03/07/17 22:00 03/13/17 14:13 Neurontin - PO 100 mg TID [facility] Administration Piperacillin Sod/Tazobactam 100 mls @ 200 mls/hr 03/08/17 02:00 03/13/17 10: 04 Sod 3.375 gm/ Dextrose IVPB 200 mls/hr Q8H-IV [facility] Administration Protocol Sodium Chloride 1,000 mls @ 75 mls/hr 03/08/17 15:15 03/13/17 17:48 Normal Saline - IV 75 mls/hr ASDIR [facility] Administration Insulin Aspart 1 vial 03/10/17 07:00 03/13/17 17:49 Novolog Vial Sliding Scale - SQ Not Given ACHS [facility] Protocol Multivitamins/Minerals/Vitamin C 1 tab 03/08/17 10:00 03/13/17 09:32 Tab-A-Vit - PO 1 tab DAILY [facility] Administration Nicotine 21 mg 03/08/17 10:00 03/13/17 09:31 Nicoderm Patch - TD 21 mg DAILY [facility] Administration Pantoprazole Sodium 40 mg 03/08/17 10:00 03/13/17 09:31 Protonix Packets For Oral Suspension - PO 40 mg DAILY [facility] Administration Polyethylene Glycol 17 gm 03/07/17 22:00 03/13/17 09:32 Miralax (For Daily Use) - PO 17 gm BID [facility] Administration Senna/Docusate Sodium 1 tablet 03/11/17 17:55 Pericolace - PO BID PRN CONSTIP[facility] Sucralfate 1 gm 03/08/17 07:52 03/13/17 17:48 Carafate Oral Suspension - PO 1 gm TIDAC [facility] Administration Tamsulosin HCl 0.4 mg 03/08/17 08:30 03/13/17 09:31 Flomax - PO 0.4 mg DAILY@0830 [facility] Administration Home Medications Medication Instructions Recorded RX: Gabapentin [Neurontin -] 100 mg PO TID #90 capsule 07/25/15 RX: Finasteride 5 mg PO DAILY 10/08/15 RX: Docusate Sodium 100 mg PO TID 02/15/16 RX: Tamsulosin HCl 0.4 mg PO DAILY 02/15/16 Famotidine [Pepcid -] 40 mg PO DAILY 03/05/17 Sucralfate [Carafate] 1 gm PO TID 03/05/17 RX: Metoclopramide HCl [Reglan] 5 mg PO TID PRN 03/06/17 PE: stable, NAD rest of PE per resident's note. ASSESSMENT AND PLAN: Patient is a 70 yo M with PMHx of A Fib , CVA , Upper GI bleeds, esophageal stricture , DVTs , who presented with abd pain, N/V and was found to have severe sepsis . # s/p severe sepsis; due to his UTI.; Urine cx with pseudomonas on IV Zosyn day 8, discussed with Dr. Mary Bentley. will continue Zosyn today and upon discharge the patient ,will send the patient home on Po Ampicillin for 5 more days. Continue Zosyn for now. # S/p acute Upper GI bleed hemoglobin is stable . On PPI continue , continue diet , refused EGD , continue Carafate 1gm # A fib with rate controlled but high 98s now. will increase dig. to 0.25mg daily , No AC due to recurrent GI bleeds # Fecal impaction. BMs after enemas , Cont. oral regimen ; miralax, morgan / colace # Thrombosis in aorta and pelvic veins: possible atherosclerotic disease with secondary thrombosis. at this point can't give anti-plt. #Left common iliac artery, left common femoral artery occlusion: off coumadin due GI bleed. As per Dr.Nirav Greenfield: no intervention at this time; conservative treatment. if LL limb becomes cool; may need femoral-femoral artery bypass. DVT Px: AKA BL, with hx of GI bleed , can't anticoagulate will discharge patient home in am
[2017-03-13] MEDS: ATORVASTATIN CA 40 MG TABLET (FP) PO SCH (22:27)
[2017-03-14] MEDS: PIPERACILLIN/TAZOB 3.375 GM 3.375 GM in DEXTROSE 5%-WATER - 100 ML IVPB SCH ×2 (01:24→09:32)
[2017-03-14] MEDS: INSULIN SLIDING SCALE (NOVOLOG) 1 VIAL SQ SCH ×2 (06:04→11:57)
[2017-03-14] MEDS: SUCRALFATE 1 GM/10 ML UNIT DOSE CUPS PO SCH ×2 (06:04→12:01)
[2017-03-14] MEDS: DOCUSATE SODIUM 100 MG CAPSULE (FP) PO SCH ×2 (06:05→13:34)
[2017-03-14] MEDS: GABAPENTIN 100 MG CAPSULE (FP) PO SCH ×2 (06:05→13:34)
[2017-03-14] MEDS: TAMSULOSIN HCL 0.4 MG CAP.ER.24H (FP) PO SCH (09:32)
[2017-03-14] MEDS: NICOTINE 21 MG/24 HOURS TOPICAL PATCH TD SCH (09:32)
[2017-03-14] MEDS: PANTOPRAZOLE SOD 40 MG SUSPENSION PACKET PO SCH (09:32)
[2017-03-14] MEDS: ESCITALOPRAM OXALATE 10 MG TABLET (FP) PO SCH (09:32)
[2017-03-14] MEDS: FINASTERIDE 5 MG TABLET (FP) PO SCH (09:32)
[2017-03-14] MEDS: MULTIVITAMINS (DAILY MVI) TABLET (FP) PO SCH (09:32)
[2017-03-14] MEDS: POLYETHYLENE GLYCOL 3350 119 GM BTL PO SCH (09:33)
[2017-03-14] MEDS: AMINO ACIDS/PROTEIN HYDROLYS 30 ML LIQUID.PKT PO SCH (09:33)
[2017-03-14] MEDS ORDERED: DIGOXIN 0.25 MG TABLET (FP) PO SCH (10:00)
--- NOTE | 2017-03-14 11:15 | PN ---
Progress Note, Physician Chief Complaint: afib, hematemesis History of Present Illness: denies cp, sob, palpitations, syncope wants to go home - Current Medication List Current Medications: Active Medications Amino Acids (Prosource No Carb Liquid Pkt) 30 ml PO BID@0800,1730 [facility] Last Admin: 03/14/17 09:33 Dose: Not Given Atorvastatin Calcium (Lipitor -) 40 mg PO HS [facility] Last Admin: 03/13/17 22:27 Dose: 40 mg Digoxin (Lanoxin -) 0.25 mg PO DAILY [facility] Last Admin: 03/14/17 09:33 Dose: 0.25 mg Docusate Sodium (Colace -) 100 mg PO TID [facility] Last Admin: 03/14/17 06:05 Dose: 100 mg Escitalopram Oxalate (Lexapro -) 5 mg PO DAILY [facility] Last Admin: 03/14/17 09:32 Dose: 5 mg Finasteride (Proscar -) 5 mg PO DAILY [facility] Last Admin: 03/14/17 09:32 Dose: 5 mg Gabapentin (Neurontin -) 100 mg PO TID [facility] Last Admin: 03/14/17 06:05 Dose: 100 mg Piperacillin Sod/Tazobactam (Sod 3.375 gm/ Dextrose) 100 mls @ 200 mls/hr IVPB Q8H-IV [facility] PRN Reason: Protocol Last Admin: 03/14/17 09:32 Dose: 200 mls/hr Sodium Chloride (Normal Saline -) 1,000 mls @ 75 mls/hr IV ASDIR [facility] Last Admin: 03/13/17 17:48 Dose: 75 mls/hr Insulin Aspart (Novolog Vial Sliding Scale -) 1 vial SQ ACHS [facility] PRN Reason: Protocol Last Admin: 03/14/17 06:04 Dose: Not Given Multivitamins/Minerals/Vitamin C (Tab-A-Vit -) 1 tab PO DAILY [facility] Last Admin: 03/14/17 09:32 Dose: 1 tab Nicotine (Nicoderm Patch -) 21 mg TD DAILY [facility] Last Admin: 03/14/17 09:32 Dose: 21 mg Pantoprazole Sodium (Protonix Packets For Oral Suspension -) 40 mg PO DAILY [facility] Last Admin: 03/14/17 09:32 Dose: 40 mg Polyethylene Glycol (Miralax (For Daily Use) -) 17 gm PO BID [facility] Last Admin: 03/14/17 09:33 Dose: 17 gm Senna/Docusate Sodium (Pericolace -) 1 tablet PO BID PRN PRN Reason: CONSTIPATION Sucralfate (Carafate Oral Suspension -) 1 gm PO TIDAC [facility] Last Admin: 03/14/17 06:04 Dose: 1 gm Tamsulosin HCl (Flomax -) 0.4 mg PO DAILY@0830 [facility] Last Admin: 03/14/17 09:32 Dose: 0.4 mg - Objective Vital Signs: Vital Signs Temperature 98.4 F 03/14/17 10:00 Pulse Rate 94 H 03/14/17 10:00 Respiratory Rate 18 03/14/17 10:00 Blood Pressure 118/54 03/14/17 10:00 O2 Sat by Pulse Oximetry (%) 99 03/12/17 21:00 Constitutional: Yes: No Distress, Calm, Thin Cardiovascular: Yes: Pulse Irregular, S1, S2. No: Gallop, Murmur Respiratory: Yes: Regular, CTA Bilaterally. No: Accessory Muscle Use, Rales, Wheezes Extremities: No: Cold Edema: No (bilat AKAs) Neurological: Yes: Alert. No: Seizure Labs: CBC, BMP 03/12/17 06:20 03/12/17 10:20 INR, PTT INR 0.96 (0.82-1.09) 03/06/17 06:00 Assessment/Plan Echo 10/03 ([facility]): nl LVSF; nl RV; valves WNL MPI 08/01 (pers): no STs; small infero-apical ischemia. nl EF. 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 rapid AF as well, currently in sinus -was not anticoagulated due to recurrent GI bleeding -per hospitalist, no source of hematemesis found on prior EGDs (no varices)-- does not seem he will be able to tolerate Watchman device implant with 6 wks AC and then 6 wks DAPT post, given frequency of GIBs and hence prohibitive risk of life threatening bleeding. anti-PLT therapy eventually?--as below -per prior notes, "did not tolerate" bb and CCBs (? low bp's)--managed with digoxin. 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 had PCI previously -since he has been a pt here from 2015 onwards, has never been on DAPT per prior notes, only plavix monotherapy -troponins here intermediate range 0.06-->0.08, not c/w ACS at this time. no isch ecg. f/u 3rd trop today -Likely demand ischemia in setting of rapid Afib and hypotension, ? underlying CAD -has h/o recurrent GIB's here in past--would resume either ASA or plavix alone when/if safe, per GI -Continue home statin, per his outpt cardio (LFTs normal) -given low risk stress test findings, and pt inability to tolerate DAPT for any period of time, will not pursue invasive workup acute LE ischemia, PAD: -CTA here with occluded Left common iliac / Left external iliac / Left femoral arteries new since 08/2016, long segment intramural thrombus with calcified and non-calcified atherosclerotic plaque along the abdominal aorta resulting in mild -moderate luminal narrowing and narrowing of the origins of the major visceral branches. -note: the main indication for anti-platelets or AC agents at present time is for limb salvage, per vascular opinion (CAD hx and AFib are less urgent, given risk of stent thrombosis (not recent stent) or cardioembolic CVA are numerically low in the short term) -vascular consult appreciated--> no intervention at this time. anemia: -hgb trending down slowly here -h/o recurrent UGIBs noted, as above -lab trend, plan per hospitalist HTN: -bp currently low (90s) at times, hold anti-hypertensive meds urosepsis: -per hospitalist TELE OFF
--- NOTE | 2017-03-14 11:29 | PN ---
Progress Note, Physician History of Present Illness: stable no complaints fluctuating bp still wiht some element of confusion but better - Current Medication List Current Medications: Active Medications Amino Acids (Prosource No Carb Liquid Pkt) 30 ml PO BID@0800,1730 [facility] Last Admin: 03/14/17 09:33 Dose: Not Given Atorvastatin Calcium (Lipitor -) 40 mg PO HS [facility] Last Admin: 03/13/17 22:27 Dose: 40 mg Digoxin (Lanoxin -) 0.25 mg PO DAILY [facility] Last Admin: 03/14/17 09:33 Dose: 0.25 mg Docusate Sodium (Colace -) 100 mg PO TID [facility] Last Admin: 03/14/17 06:05 Dose: 100 mg Escitalopram Oxalate (Lexapro -) 5 mg PO DAILY [facility] Last Admin: 03/14/17 09:32 Dose: 5 mg Finasteride (Proscar -) 5 mg PO DAILY [facility] Last Admin: 03/14/17 09:32 Dose: 5 mg Gabapentin (Neurontin -) 100 mg PO TID [facility] Last Admin: 03/14/17 06:05 Dose: 100 mg Piperacillin Sod/Tazobactam (Sod 3.375 gm/ Dextrose) 100 mls @ 200 mls/hr IVPB Q8H-IV [facility] PRN Reason: Protocol Last Admin: 03/14/17 09:32 Dose: 200 mls/hr Sodium Chloride (Normal Saline -) 1,000 mls @ 75 mls/hr IV ASDIR [facility] Last Admin: 03/13/17 17:48 Dose: 75 mls/hr Insulin Aspart (Novolog Vial Sliding Scale -) 1 vial SQ ACHS [facility] PRN Reason: Protocol Last Admin: 03/14/17 06:04 Dose: Not Given Multivitamins/Minerals/Vitamin C (Tab-A-Vit -) 1 tab PO DAILY [facility] Last Admin: 03/14/17 09:32 Dose: 1 tab Nicotine (Nicoderm Patch -) 21 mg TD DAILY [facility] Last Admin: 03/14/17 09:32 Dose: 21 mg Pantoprazole Sodium (Protonix Packets For Oral Suspension -) 40 mg PO DAILY [facility] Last Admin: 03/14/17 09:32 Dose: 40 mg Polyethylene Glycol (Miralax (For Daily Use) -) 17 gm PO BID [facility] Last Admin: 03/14/17 09:33 Dose: 17 gm Senna/Docusate Sodium (Pericolace -) 1 tablet PO BID PRN PRN Reason: CONSTIPATION Sucralfate (Carafate Oral Suspension -) 1 gm PO TIDAC [facility] Last Admin: 03/14/17 06:04 Dose: 1 gm Tamsulosin HCl (Flomax -) 0.4 mg PO DAILY@0830 [facility] Last Admin: 03/14/17 09:32 Dose: 0.4 mg - Objective Vital Signs: Vital Signs Temperature 98.4 F 03/14/17 10:00 Pulse Rate 94 H 03/14/17 10:00 Respiratory Rate 18 03/14/17 10:00 Blood Pressure 118/54 03/14/17 10:00 O2 Sat by Pulse Oximetry (%) 99 03/12/17 21:00 Constitutional: Yes: No Distress, Calm Cardiovascular: Yes: Regular Rate and Rhythm Gastrointestinal: Yes: Normal Bowel Sounds, Soft Musculoskeletal: Yes: Other Extremities: Yes: Other Neurological: Yes: Alert Psychiatric: Yes: Alert Labs: CBC, BMP 03/12/17 06:20 03/12/17 10:20 INR, PTT INR 0.96 (0.82-1.09) 03/06/17 06:00 Assessment/Plan UTI Bacteremia Severe Sepsis +Troponins Lactic Acidosis Atrial Fibrillation h/o CVA CAD COPD DM HTN Hep C Liver Cirrhosis plan continue current abx discharge on ampicillin or augmentin
--- NOTE | 2017-03-14 13:39 | DS ---
Physical Exam: SUBJECTIVE: Patient seen and examined Patient is feeling better with no acute distress. back to his normal sense. OBJECTIVE: Vital Signs Temperature 98.4 F 03/14/17 10:00 Pulse Rate 94 H 03/14/17 10:00 Respiratory Rate 18 03/14/17 10:00 Blood Pressure 118/54 03/14/17 10:00 O2 Sat by Pulse Oximetry (%) 99 03/12/17 21:00 PHYSICAL EXAM GENERAL: The patient is awake, alert, and fully oriented, in no acute distress. HEAD: Normal with no signs of trauma. EYES: PERRL, extraocular movements intact, sclera anicteric, conjunctiva clear. ENT: Ears normal, oropharynx clear without exudates, moist mucous membranes. NECK: Trachea midline, full range of motion, supple. LUNGS: Breath sounds equal, clear to auscultation bilaterally, no wheezes, no crackles, no accessory muscle use. HEART: Regular rate and rhythm, S1, S2 without murmur, rub or gallop. ABDOMEN: Soft, nontender, nondistended, normoactive bowel sounds, no guarding, no rebound. EXTREMITIES: AKA BL NEUROLOGICAL: Cranial nerves II through XII grossly intact. Normal speech, PSYCH: Normal mood, normal affect. SKIN: Warm, dry, normal turgor, no rashes or lesions noted LABS Laboratory Results - last 24 hr 03/13/17 03/13/17 03/14/17 14:13 22:30 05:56 POC Glucometer 152 119 77 CBCD WBC 4.7 K/mm3 (4.0-10.0) 03/12/17 06:20 RBC 3.85 M/mm3 (4.00-5.60) L 03/12/17 06:20 Hgb 9.3 GM/dL (11.7-16.9) L D 03/12/17 06:20 Hct 30.3 % (35.4-49) L 03/12/17 06:20 MCV 78.8 fl (80-96) L 03/12/17 06:20 MCHC 30.8 g/dl (32.0-35.9) L 03/12/17 06:20 RDW 18.9 % (11.9-15.9) H 03/12/17 06:20 Plt Count 146 K/MM3 (134-434) D 03/12/17 06:20 MPV 6.5 fl (7.5-11.1) L 03/12/17 06:20 CMP Sodium 142 mmol/L (136-145) 03/12/17 10:20 Potassium 4.0 mmol/L (3.5-5.1) 03/12/17 10:20 Chloride 111 mmol/L (98-107) H 03/12/17 10:20 Carbon Dioxide 25 mmol/L (21-32) 03/12/17 10:20 Anion Gap 6 (8-16) L 03/12/17 10:20 BUN 4 mg/dL (7-18) L 03/12/17 10:20 Creatinine 0.5 mg/dL (0.7-1.3) L 03/12/17 10:20 Creat Clearance w eGFR > 60 (>60) 03/12/17 10:20 Random Glucose 79 mg/dL (74-106) 03/12/17 10:20 Calcium 7.7 mg/dL (8.5-10.1) L 03/12/17 10:20 Total Bilirubin 0.6 mg/dL (0.2-1.0) D 03/12/17 10:20 AST 5 U/L (15-37) L 03/12/17 10:20 ALT 9 U/L (12-78) L 03/12/17 10:20 Alkaline Phosphatase 93 U/L (45-117) 03/12/17 10:20 Total Protein 4.3 g/dl (6.4-8.2) L 03/12/17 10:20 Albumin 1.9 g/dl (3.4-5.0) L 03/12/17 10:20 CARDIAC ENZYMES Creatine Kinase 20 IU/L (39-308) L 03/07/17 06:15 Troponin I 0.08 ng/ml (0.00-0.05) H 03/07/17 06:15 Home Medications Medication Instructions Recorded Gabapentin [Neurontin -] 100 mg PO TID #90 capsule 07/25/15 Finasteride 5 mg PO DAILY 10/08/15 Docusate Sodium 100 mg PO TID 02/15/16 Tamsulosin HCl 0.4 mg PO DAILY 02/15/16 Famotidine [Pepcid -] 40 mg PO DAILY 03/05/17 Sucralfate [Carafate] 1 gm PO TID 03/05/17 Metoclopramide HCl [Reglan] 5 mg PO TID PRN 03/06/17 Current Medications Generic Name Dose Route Start Last Admin Trade Name Abdiq PRN Reason Stop Dose Admin Amino Acids 30 ml 03/08/17 08:00 03/14/17 09:33 Prosource No Carb Liquid Pkt PO Not Given BID@0800,1730 [facility] Atorvastatin Calcium 40 mg 03/07/17 22:00 03/13/17 22:27 Lipitor - PO 40 mg HS [facility] Administration Digoxin 0.25 mg 03/14/17 10:00 03/14/17 09:33 Lanoxin - PO 0.25 mg DAILY [facility] Administration Docusate Sodium 100 mg 03/07/17 22:00 03/14/17 13:34 Colace - PO 100 mg TID [facility] Administration Escitalopram Oxalate 5 mg 03/12/17 10:00 03/14/17 09:32 Lexapro - PO 5 mg DAILY [facility] Administration Finasteride 5 mg 03/08/17 10:00 03/14/17 09:32 Proscar - PO 5 mg DAILY [facility] Administration Gabapentin 100 mg 03/07/17 22:00 03/14/17 13:34 Neurontin - PO 100 mg TID [facility] Administration Piperacillin Sod/Tazobactam 100 mls @ 200 mls/hr 03/08/17 02:00 03/14/17 09: 32 Sod 3.375 gm/ Dextrose IVPB 200 mls/hr Q8H-IV [facility] Administration Protocol Sodium Chloride 1,000 mls @ 75 mls/hr 03/08/17 15:15 03/13/17 17:48 Normal Saline - IV 75 mls/hr ASDIR [facility] Administration Insulin Aspart 1 vial 03/10/17 07:00 03/14/17 11:57 Novolog Vial Sliding Scale - SQ Not Given ACHS [facility] Protocol Multivitamins/Minerals/Vitamin C 1 tab 03/08/17 10:00 03/14/17 09:32 Tab-A-Vit - PO 1 tab DAILY [facility] Administration Nicotine 21 mg 03/08/17 10:00 03/14/17 09:32 Nicoderm Patch - TD 21 mg DAILY [facility] Administration Pantoprazole Sodium 40 mg 03/08/17 10:00 03/14/17 09:32 Protonix Packets For Oral Suspension - PO 40 mg DAILY [facility] Administration Polyethylene Glycol 17 gm 03/07/17 22:00 03/14/17 09:33 Miralax (For Daily Use) - PO 17 gm BID [facility] Administration Senna/Docusate Sodium 1 tablet 03/11/17 17:55 Pericolace - PO BID PRN CONSTIPATION Sucralfate 1 gm 03/08/17 07:52 03/14/17 12:01 Carafate Oral Suspension - PO 1 gm TIDAC [facility] Administration Tamsulosin HCl 0.4 mg 03/08/17 08:30 03/14/17 09:32 Flomax - PO 0.4 mg DAILY@0830 [facility] Administration Microbiology 03/12/17 11:38 Blood - Peripheral Venous Blood Culture - Preliminary NO GROWTH OBTAINED AFTER 48 HOURS, INCUBATION TO CONTINUE FOR 3 DAYS. 03/12/17 11:38 Blood - Peripheral Venous Blood Culture - Preliminary NO GROWTH OBTAINED AFTER 48 HOURS, INCUBATION TO CONTINUE FOR 3 DAYS. 03/12/17 11:00 Urine - Urine Rawls Urine Culture - Final NO GROWTH OBTAINED 03/08/17 06:35 Blood - Peripheral Venous Blood Culture - Final NO GROWTH AFTER 5 DAYS INCUBATION 03/08/17 06:30 Blood - Peripheral Venous Blood Culture - Final NO GROWTH AFTER 5 DAYS INCUBATION 03/05/17 17:50 Blood - Peripheral Venous Blood Culture - Final NO GROWTH AFTER 5 DAYS INCUBATION 03/05/17 17:50 Blood - Peripheral Venous Blood Culture - Final Enterococcus Faecalis 03/05/17 20:45 Urine - Urine Clean Catch Urine Culture - Final Pseudomonas Aeruginosa HOSPITAL COURSE: Date of Admission:03/05/17 Date of Discharge: 03/14/17 Patient is a 70 yo M with PMHx of A Fib , CVA , Upper GI bleeds, esophageal stricture , DVTs , who presented with abd pain, N/V and was found to have severe sepsis . # s/p severe sepsis; due to his UTI.; Urine cx with pseudomonas on IV Zosyn day 9, discussed with Dr. Smith of to discharge the patient on 7 days of ampicillin 500mg po q8h x 7 days. since Enteroccocci is sensitive to ampicillin , will send the patient home for 7 more days of po antibiotic. # S/p acute Upper GI bleed hemoglobin is stable now continue PPI for now. refused EGD , continue Carafate 1gm # A fib with rate controlled but high 98s now. will increase dig. to 0.25mg daily ,follow with your electric gas appliances demonstrator as an outpatient. No AC due to recurrent GI bleeds # Fecal impaction. BMs after enemas , Cont. 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 at this point can't give anti-plt. #Left common iliac artery, left common femoral artery occlusion: off coumadin due GI bleed. As per Dr.Nirav Greenfield: no intervention at this time; conservative treatment. if LL limb becomes cool; may need femoral-femoral artery bypass. DVT Px: AKPerez MATY, with hx of GI bleed , can't anticoagulate will discharge patient home today. Minutes to complete discharge: 45 Discharge Summary Reason For Visit: UPPER GI BLEED Current Active Problems Atrial fibrillation with rapid ventricular response (Acute) Bacteremia (Acute) Bacteremia due to Enterobacter species (Acute) Bacteremia due to Enterococcus (Acute) Depressed (Acute) Esophageal stricture (Acute) Fecal impaction (Acute) Hematemesis (Acute) Liver cirrhosis (Acute) SIRS (systemic inflammatory response syndrome) (Acute) Sepsis (Acute) UTI (urinary tract infection) (Acute) Upper GI bleed (Acute) Condition: Stable - Instructions Diet, Activity, Other Instructions: You were admitted to the hospital for an infection in your blood and urinary tract that was likely caused by your severe constipation. You need to continue taking antibiotics on discharge to complete treatment for your infection. Recommendations: -You may resume your regular daily activities and diet. Medications: -You may resume your regular home medications with following additions: (1) Take Augmentin for 7 days. (2) Digoxin 0.25mg daily for heart irregular heart beat (3) Lexapro 5mg daily for depression (4) 1 packet of Miralax daily for constipation. Stop taking it if you have more than 2 loose stools per day. Follow-up: -Make an appointment with your Pump Stitcher at [facility] to schedule your esophageal stricture dilatation. -Make an appointment to see your primary care physician within 1 week for follow -up after your hospitalization and how you are tolerating Lexapro -Make an appointment within [address] Gordillo, your electric gas appliances demonstrator, to discuss how you are doing on Digoxin, a new medication Please return the Emergency Department if you have any fever, chills, chest pain , pain with urination, black or bloody stools, or any new or concerning symptoms. Referrals: Garcia Henderson [Primary Care Provider] - 1 Week Nakul Gordillo MD [Staff Physician] - 1 Week Jarret Smith MD [Staff Physician] - Disposition: HOME - Home Medications Comprehensive Discharge Medication List: Ambulatory Orders Gabapentin [Neurontin -] 100 mg PO TID #90 capsule 07/25/15 Finasteride 5 mg PO DAILY 10/08/15 Docusate Sodium 100 mg PO TID 02/15/16 Tamsulosin HCl 0.4 mg PO DAILY 02/15/16 Famotidine [Pepcid -] 40 mg PO DAILY 03/05/17 Sucralfate [Carafate] 1 gm PO TID 03/05/17 Metoclopramide HCl [Reglan] 5 mg PO TID PRN 03/06/17 This patient is new to me today: No Emergency Visit: No Critical Care patient: No - Discharge Referral Referred to [facility] Yes Physician Referral: Fritz Greenfield DO ([facility])
[2017-03-14 14:34] VITALS: BP 141/64; PULSE 95; TEMP 98.3
== END 2017-03-14 16:29 | disposition home or self-care (01) | DRG 872 ==
LOC: JER 09:46 → JERBED 17:02 → JICU 20:48 → J4S 03-07 18:10
PROVIDERS: ADMIT Internal Medicine; ATTEND Internal Medicine
DX: A41.9 Sepsis, unspecified organism (principal); N39.0 Urinary tract infection, site not specified; K92.2 Gastrointestinal hemorrhage, unspecified; E87.2 Acidosis; I69.354 Hemiplegia and hemiparesis following cerebral infarction affecting left non-dominant side; R64 Cachexia; I74.09 Other arterial embolism and thrombosis of abdominal aorta; I74.5 Embolism and thrombosis of iliac artery; I48.91 Unspecified atrial fibrillation; K56.41 Fecal impaction; J44.9 Chronic obstructive pulmonary disease, unspecified; I25.10 Atherosclerotic heart disease of native coronary artery without angina pectoris; I10 Essential (primary) hypertension; E11.9 Type 2 diabetes mellitus without complications; I73.9 Peripheral vascular disease, unspecified; B96.5 Pseudomonas (aeruginosa) (mallei) (pseudomallei) as the cause of diseases classified elsewhere; D64.9 Anemia, unspecified; F32.9 Major depressive disorder, single episode, unspecified; N40.0 Benign prostatic hyperplasia without lower urinary tract symptoms; K74.60 Unspecified cirrhosis of liver; D69.6 Thrombocytopenia, unspecified; Z68.27 Body mass index [BMI] 27.0-27.9, adult; F17.210 Nicotine dependence, cigarettes, uncomplicated; Z98.61 Coronary angioplasty status; K22.2 Esophageal obstruction
CPT/HCPCS: 36415; 71010-TC; 72170-TC; 74000-TC; 74177-TC; 80048; 80053; 80162; 81003; 81015; 82272; 82550; 83605; 83690; 83735; 84100; 84484; 85025; 85027; 85610; 85730; 86850; 86900; 86901; 87040; 87086; 87186; 93005; 93010; 93306-TC; 99283-25; J0878